=== PATIENT | female | born 1945 | race Caucasian/White ===

== ENCOUNTER 2020-04-28 13:13 | Outpatient (CLI) | payer MEDICARE, OTHER, SELFPAY ==
[2020-04-28 13:46] LABS: Alanine Aminotransferase 51 U/L (4-35); Albumin Level 4.3 g/dL (3.5-5.1); Alkaline Phosphatase 85 U/L (38-126); Aspartate Amino Transferase 52 U/L (14-36); Bilirubin,Total 0.6 mg/dL (0.2-1.3); Blood Urea Nitrogen 15 mg/dL (7-17); Carbon Dioxide 31 mmol/L (22-30); Chloride 95 mmol/L (98-107); Estimated Glomerular Filt Rate > 60; Glucose 95 mg/dL (65-105); Sodium 130 mmol/L (137-145)
== END 2020-04-28 13:14 | disposition home or self-care (01) ==
PROVIDERS: PCP Family Medicine; Visit Provider Internal Medicine Cardiovascular Disease
DX: Z79.899 Other long term (current) drug therapy (principal)
CPT/HCPCS: 36415; 80053; 84443

== ENCOUNTER 2020-05-25 11:28 | Outpatient (CLI) | payer MEDICARE, OTHER, SELFPAY ==
[2020-05-25 12:21] LABS: Alanine Aminotransferase 55 U/L (4-35); Albumin Level 4.3 g/dL (3.5-5.1); Alkaline Phosphatase 90 U/L (38-126); Aspartate Amino Transferase 57 U/L (14-36); Bilirubin,Total 0.6 mg/dL (0.2-1.3)
[2020-05-25 12:52] LABS: Total Triiodothyronine (T3) 0.89 NG/ML (0.97-1.69)
[2020-05-25 12:55] LABS: Free T4 Free Thyroxine 2.15 ng/mL (0.78-2.19)
== END 2020-05-25 11:29 | disposition home or self-care (01) ==
LOC: ANHLAB 11:34
PROVIDERS: PCP Family Medicine
DX: Z79.899 Other long term (current) drug therapy (principal)
CPT/HCPCS: 36415; 80076; 84439; 84443; 84480

== ENCOUNTER 2020-08-02 14:40 | Outpatient (CLI) | payer MEDICARE, OTHER, SELFPAY ==
[2020-08-02 15:42] LABS: Alanine Aminotransferase 71 U/L (4-35); Albumin Level 4.4 g/dL (3.5-5.1); Alkaline Phosphatase 93 U/L (38-126); Aspartate Amino Transferase 66 U/L (14-36); Bilirubin,Total 0.5 mg/dL (0.2-1.3)
[2020-08-02 16:19] LABS: Free T4 Free Thyroxine 2.21 ng/mL (0.78-2.19)
== END 2020-08-02 14:41 | disposition home or self-care (01) ==
PROVIDERS: PCP Family Medicine
DX: Z51.81 Encounter for therapeutic drug level monitoring (principal); Z79.899 Other long term (current) drug therapy
CPT/HCPCS: 36415; 80076; 84439; 84443

== ENCOUNTER 2020-10-27 08:23 | Outpatient (CLI) | payer MEDICARE, OTHER, SELFPAY ==
--- NOTE | ~2020-10-27 | XR_ITS ---
XR chest 2V DATE: 10/27/2020 08:53 INDICATION: Amiodarone use. Cardiac valve disease. TECHNIQUE: PA and lateral views COMPARISON: 11/25/2019 PA and lateral chest FINDINGS: Status post sternotomy. Cardiac valve replacements. Cardiomegaly. Left-sided triple lead pacemaker device, with leads overlying right atrium, right ventr icle and coronary sinus. Bilateral hyperinflation suggesting COPD. No pulmonary infiltrate or consolidation, pleural effusion or pulmonary vascular congestion or pneumothorax is detected. Diffuse osteopenia. Thoracic and lumbar scoliosis. IMPRESSION: Status post sternotomy and cardiac valve replacements Cardiomegaly Triple lead pacemaker device Bilateral hyperinflation suggesting COPD; the elderly chest considerably this appearance. Clinical co rrelation is advised No significant change since 11/25/2019 Reviewed, dictated and finalized at location A. ORT COORDINATOR IMPRESSION: Status post sternotomy and cardiac valve replacements Cardiomegaly Triple lead pacemaker device Bilateral hyperinflation suggesting COPD; the elderly chest considerably this a ppearance. Clinical correlation is advised No significant change since 11/25/2019
[2020-10-27 09:10] LABS: Alanine Aminotransferase 68 U/L (4-35); Albumin Level 3.8 g/dL (3.5-5.1); Alkaline Phosphatase 69 U/L (38-126); Anion Gap 7 mmol/L (8-16); Aspartate Amino Transferase 63 U/L (14-36); Bilirubin,Total 0.6 mg/dL (0.2-1.3); Blood Urea Nitrogen 12 mg/dL (7-17); Calcium 8.8 mg/dL (8.4-10.2); Carbon Dioxide 31 mmol/L (22-30); Chloride 95 mmol/L (98-107); Estimated Glomerular Filt Rate > 60; Glucose 113 mg/dL (65-105); Potassium 3.2 mmol/L (3.4-5.0); Sodium 133 mmol/L (137-145)
== END 2020-10-27 08:24 | disposition home or self-care (01) ==
PROVIDERS: PCP Family Medicine; Visit Provider Internal Medicine Cardiovascular Disease
DX: Z79.899 Other long term (current) drug therapy (principal); I34.0 Nonrheumatic mitral (valve) insufficiency; I36.1 Nonrheumatic tricuspid (valve) insufficiency; Z98.890 Other specified postprocedural states; R91.8 Other nonspecific abnormal finding of lung field; I51.7 Cardiomegaly
CPT/HCPCS: 36415; 71046; 80053

== ENCOUNTER 2020-11-29 09:02 | Outpatient (CLI) | payer MEDICARE, OTHER, SELFPAY ==
[2020-11-29 10:37] LABS: Alanine Aminotransferase 72 U/L (4-35); Albumin Level 4.1 g/dL (3.5-5.1); Alkaline Phosphatase 68 U/L (38-126); Aspartate Amino Transferase 60 U/L (14-36); Bilirubin,Total 0.6 mg/dL (0.2-1.3)
[2020-11-29 11:13] LABS: Free T4 Free Thyroxine 2.07 ng/mL (0.78-2.19)
== END 2020-11-29 09:03 | disposition home or self-care (01) ==
PROVIDERS: PCP Family Medicine; Visit Provider Internal Medicine Cardiovascular Disease
DX: Z79.899 Other long term (current) drug therapy (principal)
CPT/HCPCS: 36415; 80076; 82139; 84439; 84443

== ENCOUNTER 2021-01-06 10:13 | Observation (INO) | payer MEDICARE, OTHER, SELFPAY ==
[2021-01-06] VITALS (12 sets, daily range): BP systolic 108–142; BP diastolic 68–101; PULSE 71–131; RESP 11–18; TEMP 35.8–36.8; O2SAT 96–98; BMI 21.6; BMI 19.1
--- NOTE | ~2021-01-06 | XR_ITS ---
EXAMINATION: XR chest 1V portable INDICATION: Shortness of breath, irregular heartbeat TECHNIQUE: Portable AP chest at 1039 hours COMPARISON: 10/27/2020 FINDINGS: The lungs are hyperinflated but free of acute opacities. There is no pleural effusion or pn eumothorax. Cardiomegaly is noted. There are changes of cardiac valve surgery. A triple lead cardiac pacemaker of the left chest wall ends with leads in expected locations. IMPRESSION: 1. Hyperinflation without acute cardiopulmonary abnormality. 2. Cardiomegaly. Reviewed, dictated and finalized at location A. D REPRESENTATIVE
--- NOTE | 2021-01-06 10:17 | ECG_ITS ---
Measurements Intervals [place] Rate: 125 P: 60 MO: 226 QRS: 251 QRSD: 166 T: 65 QT: 382 QTc: 552 Interpretive Statements ELECTRONIC VENTRICULAR PACEMAKER PROBABLY UNDERLYING ATRIAL TACHYCARDIA NO FURTHER INTERPRETATION IS POSSIBLE ABNORMAL ECG Electronically Signed On 01-06-2021 10:31:55 NURSE GYNECOLOGY by Zhou Gallo D.O.
[2021-01-06 10:37] LABS: Basophils Percent Auto 0.5 % (0.2-1.2); Eosinophils Percent Auto 0.9 % (0-4.4); Hematocrit 38.3 % (37.0-47.0); Immature Granulocyte Absolute 0.03 K/mm3 (0.00-0.031); Immature Granulocyte Percent A 0.7 % (0-0.5); Lymphocytes Absolute Auto 0.75 K/mm3 (0.9-3.2); Lymphocytes Percent Auto 17.7 % (18.3-44.2); Mean Corpuscular HGB Conc 33.9 g/dl (32-36); Mean Corpuscular Hemoglobin 30.6 pg (26-34); Mean Corpuscular Volume 90.1 fl (80-100); Mean Platelet Volume 9.5 fl (7.4-10.4); Monocytes Absolute Auto 0.5 K/mm3 (0.1-0.6); Monocytes Percent Auto 12.3 % (2.6-8.5); Neutrophils Absolute Auto 2.9 K/mm3 (1.3-6.7); Neutrophils Percent Auto 67.9 % (45.5-73.1); Platelet Count Result 238 k/mm3 (150-375); Red Blood Count 4.25 M/mm3 (4.2-5.4); Red Cell Distribution Width 13.3 % (11.5-14.5); White Blood Count 4.2 K/mm3 (4.5-10.0)
[2021-01-06 10:47] LABS: INR 1.2; Prothrombin Time 15.6 Seconds (11.1-14.7)
[2021-01-06 10:48] LABS: Partial Thromboplastin Time 39.8 SECONDS (22.3-36.8)
[2021-01-06 10:52] LABS: Alanine Aminotransferase 92 U/L (4-35); Albumin Level 4.1 g/dL (3.5-5.1); Alkaline Phosphatase 70 U/L (38-126); Anion Gap 5 mmol/L (8-16); Aspartate Amino Transferase 83 U/L (14-36); Bilirubin,Total 0.7 mg/dL (0.2-1.3); Blood Urea Nitrogen 12 mg/dL (7-17); Calcium 8.9 mg/dL (8.4-10.2); Carbon Dioxide 31 mmol/L (22-30); Chloride 95 mmol/L (98-107); Estimated CRCL calculation 56 ml/min; Estimated Glomerular Filt Rate > 60; Glucose 101 mg/dL (65-105); Potassium 3.7 mmol/L (3.4-5.0); Sodium 131 mmol/L (137-145)
[2021-01-06 11:04] LABS: Troponin I 0.013 ng/mL (0.000-0.034)
[2021-01-06 11:32] LABS: NT Pro B Type Natriuretic Pept 1980 PG/ML (5-100)
[2021-01-06 11:36] LABS: Add Urine Microscopic? YES; Appearance Urine Clear (Clear); Bilirubin Urine Negative (Negative); Blood Urine Negative (Negative); Color Urine Straw (Yellow); Glucose Urine UA Negative (Negative); Hyaline Casts Urine 20-29 /lpf; Ketones Urine Negative (Negative); Leukocyte Esterase Ur Negative LEU/UL (Negative); Mucus Urine Rare /lpf; Nitrate Urine Negative (Negative); Protein Urine Negative (Negative); RBC Urine 0-2 /hpf (0-2); Squamous Epithelial Cell Urine Rare /hpf (Few); Urobilinogen Urine Negative mg/dL (<2.0); WBC Urine 0-3 /hpf
--- NOTE | 2021-01-06 11:49 | ED.GENADULT ---
HPI - General Adult General Chief complaint: Arrhythmia/Palpitations Stated complaint: racing heart rate Time Seen by Provider: 01/06/21 10:26 Source: patient, family and old records reviewed Mode of arrival: ambulatory Limitations: no limitations History of Present Illness HPI narrative: Patient is a 75-year-old female who presents to emergency department for evaluation of palpitations that began this morning noting that she is feeling as though her heart is racing patient denies illness chest pain shortness of breath or other complaints. Patient with history of pacemaker. Patient on arrival lying in the bed no distress denies new medications at this time. Patient is followed by cardiology at [facility]. Patient notes she had had an occurrence in the past about 3 years ago at which time she had to be shocked to be converted and medications did not work otherwise she has not had any other episodes was described as atrial fibrillation. Patient notes she has otherwise been compliant with her medications Related Data Home Medications Medication Instructions Recorded Confirmed apixaban 5 mg tablet 5 mg PO BID 10/15/19 12/30/20 ascorbic acid (vitamin C) 500 mg 500 mg PO DAILY 10/15/19 12/30/20 tablet calcium carbonate 500 mg (1,250 1 tablet PO DAILY 10/15/19 12/30/20 mg)-vitamin D3 200 unit tablet clindamycin phosphate 1 % lotion 1 applic TOPICAL BID 10/15/19 12/30/20 cyclosporine 0.05 % eye drops 1 drop EACH EYE Q12H 10/15/19 12/30/20 dpflkccc-niaioea-qmrc-lutein tablet mcg PO .QD tablet 10/15/19 12/30/20 peg 400-propylene glycol 0.4 %-0.3 1 drop EACH EYE DAILY PRN 10/15/19 12/30/20 % eye drops triamcinolone acetonide 0.1 % 1 applic TOPICAL BID 10/15/19 12/30/20 topical cream lisinopril 40 mg tablet 40 mg PO DAILY tablet 03/22/20 12/30/20 carvedilol 25 mg tablet 25 mg PO Q12H 12/30/20 12/30/20 diphenhydramine HCl 25 mg capsule 12.5 mg PO ONCE PRN cap 12/30/20 12/30/20 lactobacillus combination no.8 3 3,000 mmu cells PO DAILY 02/11/21 02/11/21 billion cell capsule furosemide 01/06/21 Allergies Allergy/AdvReac Type Severity Reaction Status Date / Time adhesive Allergy Unknown Rash Verified 12/30/20 09:55 bacitracin Allergy Unknown Rash Verified 12/30/20 09:55 codeine Allergy Unknown Unknown Verified 12/30/20 09:55 estrogens, conjugated Allergy Unknown Unknown Verified 12/30/20 09:55 medroxyprogesterone Allergy Unknown Unknown Verified 12/30/20 09:55 metoprolol Allergy Unknown Other Verified 12/30/20 09:55 polymyxin B Allergy Unknown Unknown Verified 12/30/20 09:55 Mmduuvv-Lyk-Dkq Reductase Allergy Unknown Unknown Verified 12/30/20 09:55 Inhibitor esomeprazole [From Nexium] AdvReac Severe Pancreatiti Verified 12/30/20 09:55 s Review of Systems Review of Systems: All systems reviewed & are unremarkable except as noted in HPI and below PMFSH Past Medical History Medical History CHF (congestive heart failure) Dry eye Hypertension Hypothyroidism Pacemaker Surgical History Surgical History H/O aortic valve repair History of cardiac radiofrequency ablation Family History Family History Father Family history of hypercholesterolemia Hypertension Family history of Parkinson's disease Mother Family history of hypercholesterolemia Hypertension Carcinoma of colon Family history of malignant neoplasm of breast in first degree relative Social History Social History Smoking status: Never smoker Second hand tobacco smoke exposure: No Alcohol intake: current Substance use: never Substance use type: does not use Gender identity (if verbalized by the patient): Female Exam Narrative: Exam Narrative: GENERAL: Well-appearing, well-nourished, and in no ac
[2021-01-06 14:08] LABS: Troponin I 0.013 ng/mL (0.000-0.034)
--- NOTE | 2021-01-06 16:15 | PM.IMHP ---
H&P: HPI History of Present Illness Date/Time: 01/06/21 16:15 Chief Complaint: Racing heart. Narrative: This is a 75-year-old female with atrial fibrillation, hypertension, and valvular heart disease status post repair who presented to the emergency department earlier today from home with reports of a racing heart. She woke at about 03:00 to use the restroom and on her way back to the bedroom her heart began to race and she noticed that it was beating irregularly. She has had paroxysmal atrial fibrillation for quite sometimes so she lay on her right side and took slow deep breaths with reports of improvement in her rate. Unfortunately when she woke up she was having palpitations and racing heart thus came to the emergency department. She was found to be in atrial fibrillation with rapid ventricular response and is being admitted in this setting. With further questioning she reports that Dr. Nguyễn stopped her amiodarone sometime in October although the reasons for that are somewhat unclear to the patient. Her carvedilol dose was increased and she has been doing well since that time. She has not missed any doses of medication and has not had any other recent changes in her health although she does report having received the 1st COVID vaccination yesterday afternoon. She denies syncope, near syncope, chest pain, pleuritic pain, shortness of breath, nausea, vomiting, and sweats. Review of Systems Review of Systems: Narrative: Twelve systems were reviewed with pertinent positives and negatives as per HPI. Except as documented, all other systems were reviewed and are negative. [facility] Past Medical History Medical History (Updated 01/06/21 @ 15:16 by Sherron Dill PA-C) Anxiety Congestive heart failure Current use of salvage determiner anticoagulation Dry eyes Elevated LFTs Chronic, mild elevation in AST and ALT. Gastroesophageal reflux disease Hypertension Hypothyroidism Osteopenia Paroxysmal atrial fibrillation Pulmonary hypertension Rosacea Valvular heart disease Surgical History Surgical History (Updated 01/06/21 @ 19:59 by Sherron Dill PA-C) History of basal cell carcinoma excision History of cardiac pacemaker in situ History of cardiac radiofrequency ablation History of heart valve repair Mitral and tricuspid valve repair at [facility] per Dr. Klein. History of tonsillectomy Family History Family History Father Family history of hypercholesterolemia Hypertension Family history of Parkinson's disease Mother Family history of hypercholesterolemia Hypertension Carcinoma of colon Family history of malignant neoplasm of breast in first degree relative Social History Social History (Updated 01/06/21 @ 20:00 by Sherron Dill PA-C) Social History: The patient is and lives in [place]. 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 Drinks perhaps 1 alcoholic beverage a evening. No illicit substance use. Her Dalton and son Moshe her surrogate decision makers and she wishes to be a full code. Alcohol intake: current Drinks per week: 7 Substance use: never Substance use type: does not use Gender identity (if verbalized by the patient): Female Spiritual care concerns: No Meds Home Medications and Allergies Home Medications Medication Instructions Recorded Confirmed Type apixaban 5 mg tablet 5 mg PO BID 10/15/19 01/06/21 History ascorbic acid (vitamin C) 500 mg 500 mg PO 1700 10/15/19 01/06/21 History tablet calcium carbonate 500 mg (1,250 1 tablet PO 1200 10/15/19 01/06/21 History mg)-vitamin D3 200 unit tablet clindamycin phosphate 1 % lotion 1 applic TOPICAL BID 10/15/19 01/06/21 History cyclosporine 0.05 % eye drops 1 drop EACH EYE Q12H 10/15/19 01/06/21 History ivjfdyue-aronlmd-luld-lutein tablet 1 tablet PO 1200 tablet 10/15/19 01/06/21 History peg 400-propylene glycol 0.4 %-0.3 1 drop EA
--- NOTE | 2021-01-06 16:15 | ADMGEN ---
This patient, Lakeisha Simental, was admitted to IMU Room 205-02. Patient/family oriented to hospital policies and general routines including ID bracelet, bed and alarms, visiting hours, pain management, procedures, bathroom and other care routines, personal items, smoking policy, room service/diet, and visiting hours. Information on how to activate the Rapid Response Team has been discussed. Patient/Family are encouraged to report perceived risks to care and to ask questions if they do not understand what they are told or what they should do.
[2021-01-06 17:02] LABS: Troponin I 0.015 ng/mL (0.000-0.034)
[2021-01-06] MEDS: lisinopriL 20 MG TABLET 40 MG PO (20:29)
[2021-01-06] MEDS: APIXABAN 5 MG TABLET PO (20:30)
[2021-01-06] MEDS: carvediloL 25 MG TABLET PO (20:30)
[2021-01-06] MEDS: cycloSPORINE 0.4 ML OPHTH SOLUTION 1 DROP EACH EYE (20:31)
[2021-01-07] VITALS (14 sets, daily range): BP systolic 117–147; BP diastolic 79–92; PULSE 62–89; RESP 16–18; TEMP 36–36.9; O2SAT 97–100
[2021-01-07] MEDS: LEVOTHYROXINE SODIUM 50 MCG TABLET PO (05:01)
[2021-01-07 05:26] LABS: Alanine Aminotransferase 94 U/L (4-35); Albumin Level 3.6 g/dL (3.5-5.1); Alkaline Phosphatase 77 U/L (38-126); Anion Gap 4 mmol/L (8-16); Aspartate Amino Transferase 64 U/L (14-36); Bilirubin,Total 0.9 mg/dL (0.2-1.3); Blood Urea Nitrogen 11 mg/dL (7-17); Calcium 8.8 mg/dL (8.4-10.2); Carbon Dioxide 30 mmol/L (22-30); Chloride 99 mmol/L (98-107); Estimated CRCL calculation 55 ml/min; Estimated Glomerular Filt Rate > 60; Glucose 93 mg/dL (65-105); Magnesium 1.8 mg/dL (1.6-2.3); Sodium 133 mmol/L (137-145)
[2021-01-07] MEDS: POTASSIUM CHLORIDE 20 MEQ TABLET 40 MEQ PO (09:12)
[2021-01-07] MEDS: carvediloL 25 MG TABLET PO ×2 (09:12→21:48)
[2021-01-07] MEDS: FUROSEMIDE 20 MG TABLET PO (09:12)
[2021-01-07] MEDS: APIXABAN 5 MG TABLET PO ×2 (09:13→18:01)
[2021-01-07] MEDS: cycloSPORINE 0.4 ML OPHTH SOLUTION 1 DROP EACH EYE ×2 (09:13→21:49)
[2021-01-07] MEDS: MAGNESIUM OXIDE 400 MG TABLET PO (09:13)
--- NOTE | 2021-01-07 12:02 | PM.CNCAR ---
Assessment and Plan Additional Plan 75-year-old lady with valvular heart disease and paroxysmal atrial fibrillation. She underwent mitral and tricuspid valve repairs about 5 years ago. She has a symptomatic recurrence of atrial fibrillation about a month after stopping amiodarone because of elevated transaminases. She in my opinion she should be put back on the medication at this time. Follow-up should be with her workers compensation administrator and frequency checker to determine I risk benefit decision as to whether amiodarone is reasonable despite elevated LFTs or should she consider having her AV node ablated. I will resume amiodarone at 400 mg daily. I would keep her in the hospital at least another 24 hours to ensure that she is not having recurrences of symptomatic AFib that might require intravenous treatment. Kg Witt MD [facility] History of Present Illness History of Present Illness Consult date/time: 01/07/21 12:02 Consult reason: atrial fibrillation Reason For Visit: afib rvr Narrative: This is a 75-year-old patient I am seeing at the request of the hospitalist for assistance with the management of atrial fibrillation. This patient is not known to myself but is followed in our office by Dr. Nguyễn. The patient has a history of problematic recurrent atrial fibrillation for at least 5 or 6 years according to the records. The patient I presented with atrial fib with RVR that resulted in a decompensated congestive heart failure. 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 She had significant mitral and tricuspid valve insufficiency and underwent mitral and tricuspid repair along with PFO closure in March of 2016 at [facility]. The electrophysiology desktop support consultant there implanted a dual-chamber [employer] pacemaker in April of 2016. The patient has been off and on of amiodarone for the last 5 years initially was taking at to [facility] sinus rhythm the drug was discontinued and she had a problematic symptomatic recurrence of atrial fib in the spring. The agent was resumed at 400 mg daily and she underwent a successful cardioversion in June of that year. Since then she has maintained sinus rhythm and has been doing reasonably well. She saw Dr. barber for an office visit in October of 2020 at which time according to the note she was doing well and maintaining sinus rhythm. The patient states that based on some lab data her the amiodarone was discontinued last month. The office nurses tell me on the phone this was because of a minimal elevation in her LFTs. The patient was in her usual state of health when last night she noted the abrupt onset of tachycardia and palpitations she recognized that she was probably back in atrial fibrillation and so she came to the hospital for evaluation. She was placed in IMU and in this setting we have been consulted to see her. At about 7:00 a.m. this morning she spontaneously reverted back to sinus rhythm. She is currently asymptomatic. Had a long discussion with the patient and her about the chronic management of her AFib. It seems obvious that amiodarone when she takes it is effective at maintaining sinus rhythm. It is also seems that modest elevation of her transaminases may not be enough reason to stop the medication if she become symptomatic with recurrences when the drug is stop. Another option would be to consider having her frequency checker ablate her AV node to discontinue the medication for the long-term. Patient says that she remembers this option was discussed with her once or twice both by Dr. catie Weathers by Dr. Pablo in the last several years. She is currently in sinus rhythm or atrially pacing with ventricular pacing. Review of Systems Constitutional: Constitutional: Reports no additional constitutional complaints Eyes: Eyes: Reports no additional eye complaints ENT: Reports system reviewed an
--- NOTE | 2021-01-07 12:17 | ECG_ITS ---
Measurements Intervals [place] Rate: 69 P: CO: 0 QRS: 253 QRSD: 172 T: 106 QT: 501 QTc: 540 Interpretive Statements ELECTRONIC VENTRICULAR PACEMAKER BASELINE ARTIFACT- I, II, III, AVR, AVL, AVF, V1-V6 NO FURTHER INTERPRETATION IS POSSIBLE ATYPICAL ECG Electronically Signed On 01-07-2021 13:29:49 PROPULSION GENERATOR REPAIRER by Zhou Gallo D.O.
--- NOTE | 2021-01-07 13:56 | PM.IMPN ---
Progress Note: A&P Assessment and Plan (1) Atrial fibrillation with rapid ventricular response: Code(s): I48.91 - Unspecified atrial fibrillation Status: Acute Assessment and Plan: 01/07/21 13:56 patient is 75-year-old female with history mitral and aortic and tricuspid valves repair about 5 years ago, patient with history of paroxysmal atrial fibrillation had been treated with amiodarone however it was stopped by her Reel Film Inspector because patient had elevated LFTs and increased her metoprolol however patient presented emergency depart with complaint of palpitation and was found to be in atrial fibrillation with RVR, her heart rate was in 100, patient is on Coreg 25 mg b.i.d. was continued, today patient was seen by Reel Film Inspector recommending to place patient back on amiodarone 400 mg q.day and monitor her heart rate and LFT, patient will have to discuss with her primary insurance office manager and her cushion mat maker if there are concern regarding a her elevated LFT, patient remains clinically stable will monitor overnight and further recommendation to follow, currently patient denies any chest pain shortness of breath palpitation fever or chills, her is present in the room. (2) Elevated LFTs: Code(s): R79.89 - Other specified abnormal findings of blood chemistry Status: Acute Assessment and Plan: Amiodarone was added will monitor LFT (3) Hypertension: Code(s): I10 - Essential (primary) hypertension Status: Acute Assessment and Plan: Will continue home regimen and monitor (4) Hypothyroidism: Code(s): E03.9 - Hypothyroidism, unspecified Status: Acute Assessment and Plan: Will continue levothyroxine (5) Current use of extermination supervisor anticoagulation: Code(s): Z79.01 - terminal make up operator (current) use of anticoagulants Status: Acute Assessment and Plan: Will continue Eliquis and monitor Additional Plan The patient presented in atrial fibrillation with rapid ventricular response, with rates in the low 100s at the time my evaluation. At this time will continue with her home dose of carvedilol, pending Dr. Nguyễn is a evaluation and recommendations. Cntinue to monitor on telemetry overnight. Continue levothyroxine and check TSH in a.m.. Her LFTs are always mildly elevated, and are stable. Her blood pressures were reviewed and they are reasonably well controlled. Subjective Date/time seen: 01/07/21 13:56 patient is 75-year-old female with history mitral and aortic and tricuspid valves repair about 5 years ago, patient with history of paroxysmal atrial fibrillation had been treated with amiodarone however it was stopped by her Reel Film Inspector because patient had elevated LFTs and increased her metoprolol however patient presented emergency depart with complaint of palpitation and was found to be in atrial fibrillation with RVR, her heart rate was in 100, patient is on Coreg 25 mg b.i.d. was continued, today patient was seen by Reel Film Inspector recommending to place patient back on amiodarone 400 mg q.day and monitor her heart rate and LFT, patient will have to discuss with her primary insurance office manager and her cushion mat maker if there are concern regarding a her elevated LFT, patient remains clinically stable will monitor overnight and further recommendation to follow, currently patient denies any chest pain shortness of breath palpitation fever or chills, her is present in the room. Review of Systems Review of Systems: All systems reviewed & are unremarkable except as noted in HPI and below Exam Narrative: Exam Narrative: Elderly frail Patient is comfortable, NAD HEENT: eyes are clear and none icteric LUNGS:CTA HEART: Irregularly irregular ABD: BS+, Soft and nontender Lower extremities: no edema SKIN: nonjaundiced Neuro: grossly intact. Objective Data Vital Signs Vital Signs: Vital Signs - 24 hr 01/06/21 14:14 01/06/21 16:00 01/06/21 16:15
[2021-01-07] MEDS: AMIODARONE HCL 200 MG TABLET 400 MG PO (14:18)
[2021-01-07] MEDS: FAMOTIDINE 20 MG TABLET PO (14:18)
[2021-01-07] MEDS: MULTIVITAMINS /C LUTEIN (CENTRUM SILVER) TABLET *BKC 1 TAB PO (14:18)
[2021-01-07] MEDS: ASCORBIC ACID 500 MG TABLET PO (18:02)
[2021-01-07] MEDS: lisinopriL 20 MG TABLET 40 MG PO (18:02)
[2021-01-07] MEDS: diphenhydrAMINE HCL ELIXIR 12.5 MG/5 ML UDC PO (21:48)
[2021-01-08] VITALS (10 sets, daily range): BP systolic 115–157; BP diastolic 68–88; PULSE 70–80; RESP 16–18; TEMP 36.7–37.2; O2SAT 95–99
[2021-01-08] MEDS: ACETAMINOPHEN 325 MG TABLET 650 MG PO (00:44)
[2021-01-08 05:14] LABS: Hemoglobin 12.3 g/dL (12.0-15.0); Mean Corpuscular HGB Conc 34.2 g/dl (32-36); Mean Corpuscular Hemoglobin 30.6 pg (26-34); Mean Corpuscular Volume 89.6 fl (80-100); Mean Platelet Volume 9.8 fl (7.4-10.4); Platelet Count Result 248 k/mm3 (150-375); Red Blood Count 4.02 M/mm3 (4.2-5.4); Red Cell Distribution Width 13.2 % (11.5-14.5); White Blood Count 4.8 K/mm3 (4.5-10.0)
[2021-01-08 05:27] LABS: Anion Gap 3 mmol/L (8-16); Blood Urea Nitrogen 11 mg/dL (7-17); Calcium 8.4 mg/dL (8.4-10.2); Carbon Dioxide 30 mmol/L (22-30); Chloride 98 mmol/L (98-107); Estimated CRCL calculation 54 ml/min; Estimated Glomerular Filt Rate > 60; Glucose 98 mg/dL (65-105); Magnesium 1.8 mg/dL (1.6-2.3); Potassium 3.2 mmol/L (3.4-5.0); Sodium 131 mmol/L (137-145)
[2021-01-08] MEDS: LEVOTHYROXINE SODIUM 50 MCG TABLET PO (06:06)
[2021-01-08 10:28] LABS: Alanine Aminotransferase 72 U/L (4-35); Albumin Level 3.8 g/dL (3.5-5.1); Alkaline Phosphatase 62 U/L (38-126); Aspartate Amino Transferase 52 U/L (14-36); Bilirubin,Total 0.8 mg/dL (0.2-1.3)
--- NOTE | 2021-01-08 10:28 | PM.PNCARD ---
Progress Note: A&P Assessment and Plan (1) Atrial fibrillation with rapid ventricular response: Code(s): I48.91 - Unspecified atrial fibrillation Status: Acute Assessment and Plan: Patient has paroxysmal AFib previously was well controlled, amiodarone discontinued recently because of mildly elevated liver enzymes. Now she has had a recurrence of AFib RVR. Converted to sinus rhythm Amiodarone 400 mg daily resumed. Okay for discharge. Follow-up with me and Dr. Pablo. If we are concerned that the amiodarone may be causing her hepato toxicity, another option would be AV node ablation since she does have a biventricular ICD. don't recall if she has been tried on sotalol. (2) Current use of exterminator helper termite anticoagulation: Code(s): Z79.01 - prison (current) use of anticoagulants Status: Acute Assessment and Plan: Tolerating Eliquis. (3) History of heart valve repair: Code(s): Z98.890 - Other specified postprocedural states Status: Acute Assessment and Plan: History of mitral and tricuspid valve repair. Has a murmur of mitral regurgitation; will follow up in office. (4) Elevated LFTs: Code(s): R79.89 - Other specified abnormal findings of blood chemistry Status: Acute Assessment and Plan: History of mildly elevated liver enzymes for no known cause. Amiodarone and amlodipine were discontinued but liver enzymes remain elevated. No history of hepatitis. I wonder if dronedarone would be a better choice; I believe it has less hepatic toxicity than amiodarone. Follow-up in the office. Subjective Date/time seen: 01/08/21 10:28 Interval history: Follow-up for paroxysmal atrial fibrillation Date of service 01/08/2021: Patient converted to sinus rhythm and telemetry shows a sense V paced rhythm. Dr. drew resumed amiodarone 400 mg daily yesterday. Patient is feeling well with no shortness of breath, chest pain or palpitations. Review of Systems Constitutional: Constitutional: Reports no additional constitutional complaints ENT: Denies epistaxis Cardiovascular: Cardiovascular: Denies chest pain and Denies leg edema Respiratory: Respiratory: Denies dyspnea Gastrointestinal: Gastrointestinal: Denies abdominal pain Genitourinary: Genitourinary: Denies hematuria Musculoskeletal: Musculoskeletal: Reports no additional musculoskeletal complaints Integumentary/Breasts: Skin/Breast: Denies rash Neurologic: Reports system reviewed and no additional complaints, except as documented Psychiatric: Psychiatric: Reports no additional psychiatric complaints Exam Const: General: comfortable, no acute distress and uncomfortable Other: Pleasant older lady, at the bedside HENMT: Mouth: Yes moist mucous membranes Eyes: EOM: EOMs intact bilaterally Neck: Neck: supple and no JVD Resp: Effort & Inspection: normal respiratory effort Cardio: Rhythm: regular rhythm Heart sounds: Murmur heart sound present (3/6 SHOLA apex) GI: Inspection: non-distended GI Palp: Yes Soft to palpation and No Firmness to palpation present (GI) Neuro: Speech: normal speech Extrem: General: no edema and no pedal edema Objective Data Vital Signs Vital Signs: Vital Signs - 24 hr 01/07/21 12:00 01/07/21 14:00 01/07/21 16:00 Temperature 97.6 F 97.6 F Pulse Rate 70 70 70 Respiratory Rate 18 18 Blood Pressure 117/79 144/85 H Pulse Oximetry 97 99 01/07/21 18:00 01/07/21 20:00 01/07/21 21:48 Temperature 97.5 F L Pulse Rate 70 70 70 Respiratory Rate 18 Blood Pressure 147/85 H Pulse Oximetry 100 01/07/21 22:00 01/08/21 00:00 01/08/21 02:00 Temperature 98.1 F Pulse Rate 76 70 70 Respiratory Rate 16 Blood Pressure 157/87 H Pulse Oximetry 95 01/08/21 04
[2021-01-08] MEDS: POTASSIUM CHLORIDE 20 MEQ TABLET 40 MEQ PO (10:54)
[2021-01-08] MEDS: AMIODARONE HCL 200 MG TABLET 400 MG PO (10:55)
[2021-01-08] MEDS: carvediloL 25 MG TABLET PO (10:56)
[2021-01-08] MEDS: cycloSPORINE 0.4 ML OPHTH SOLUTION 1 DROP EACH EYE (10:56)
[2021-01-08] MEDS: APIXABAN 5 MG TABLET PO (10:56)
[2021-01-08] MEDS: FUROSEMIDE 20 MG TABLET PO (10:56)
[2021-01-08] MEDS: MULTIVITAMINS /C LUTEIN (CENTRUM SILVER) TABLET *BKC 1 TAB PO (10:59)
[2021-01-08] MEDS: FAMOTIDINE 20 MG TABLET PO (10:59)
[2021-01-08] MEDS: ACIDOPHILUS/BULGARICUS CHEWABLE TABLET 1 TABLET PO (13:51)
--- NOTE | 2021-01-08 14:54 | PM.DS ---
DS: Admitting Diagnosis Admitting Diagnosis Admitting Diagnosis: Chief Complaint: Racing heart. DS: Discharge Diagnosis Discharge Diagnosis (1) Atrial fibrillation with rapid ventricular response: Code(s): I48.91 - Unspecified atrial fibrillation Status: Acute Assessment and Plan: 01/07/21 13:56 patient is 75-year-old female with history mitral and aortic and tricuspid valves repair about 5 years ago, patient with history of paroxysmal atrial fibrillation had been treated with amiodarone however it was stopped by her Rat Exterminator because patient had elevated LFTs and increased her metoprolol however patient presented emergency depart with complaint of palpitation and was found to be in atrial fibrillation with RVR, her heart rate was in 100, patient is on Coreg 25 mg b.i.d. was continued, today patient was seen by Rat Exterminator recommending to place patient back on amiodarone 400 mg q.day and monitor her heart rate and LFT, patient will have to discuss with her primary equipment manager and her lunch counter manager if there are concern regarding a her elevated LFT, patient remains clinically stable will monitor overnight and further recommendation to follow, currently patient denies any chest pain shortness of breath palpitation fever or chills, her is present in the room. (2) Elevated LFTs: Code(s): R79.89 - Other specified abnormal findings of blood chemistry Status: Acute Assessment and Plan: Amiodarone was added will monitor LFT (3) Hypertension: Code(s): I10 - Essential (primary) hypertension Status: Acute Assessment and Plan: Will continue home regimen and monitor (4) Hypothyroidism: Code(s): E03.9 - Hypothyroidism, unspecified Status: Acute Assessment and Plan: Will continue levothyroxine (5) Current use of half-way anticoagulation: Code(s): Z79.01 - buttermaker (current) use of anticoagulants Status: Acute Assessment and Plan: Will continue Eliquis and monitor DS: Summary Hospital Course Reason for hospitalization: Chief Complaint: Racing heart. Narrative: This is a 75-year-old female with atrial fibrillation, hypertension, and valvular heart disease status post repair who presented to the emergency department earlier today from home with reports of a racing heart. She woke at about 03:00 to use the restroom and on her way back to the bedroom her heart began to race and she noticed that it was beating irregularly. She has had paroxysmal atrial fibrillation for quite sometimes so she lay on her right side and took slow deep breaths with reports of improvement in her rate. Unfortunately when she woke up she was having palpitations and racing heart thus came to the emergency department. She was found to be in atrial fibrillation with rapid ventricular response and is being admitted in this setting. With further questioning she reports that Dr. Nguyễn stopped her amiodarone sometime in October although the reasons for that are somewhat unclear to the patient. Her carvedilol dose was increased and she has been doing well since that time. She has not missed any doses of medication and has not had any other recent changes in her health although she does report having received the 1st COVID vaccination yesterday afternoon. She denies syncope, near syncope, chest pain, pleuritic pain, shortness of breath, nausea, vomiting, and sweats. Hospital Course: 01/07/21 13:56 patient is 75-year-old female with history mitral and aortic and tricuspid valves repair about 5 years ago, patient with history of paroxysmal atrial fibrillation had been treated with amiodarone however it was stopped by her Rat Exterminator because patient had elevated LFTs and increased her metoprolol however patient presented emergency depart with complaint of palpitation and was found to be in atrial fibrillation with RVR, her heart rate was in 100, patient is on Coreg 25 mg b.i.
== END 2021-01-08 16:15 | disposition home or self-care (01) ==
LOC: ANHED 13:15 → ANHIMU 15:15
PROVIDERS: Emergency Medicine Emergency Medical Services; Physician Assistant; Admitting Provider Family Medicine; Emergency Provider Emergency Medicine; PCP Physician Assistant; Visit Provider Family Medicine
DX: I48.91 Unspecified atrial fibrillation (principal); I11.0 Hypertensive heart disease with heart failure; I50.9 Heart failure, unspecified; R79.89 Other specified abnormal findings of blood chemistry; E03.9 Hypothyroidism, unspecified; I34.0 Nonrheumatic mitral (valve) insufficiency; Z95.0 Presence of cardiac pacemaker; Z79.01 Long term (current) use of anticoagulants
CPT/HCPCS: 36415; 71045; 80048; 80053; 80076; 81001; 83735; 83880; 84443; 84484; 85025; 85027; 85610; 85730; 93005; 99285; A9270; G0378

== ENCOUNTER 2021-01-26 15:28 | Outpatient (CLI) | payer MEDICARE, OTHER, SELFPAY ==
--- NOTE | ~2021-01-26 | MM_ITS ---
EXAMINATION: MM screening precious BI w jose HISTORY: Screening mammogram TECHNIQUE: Craniocaudal and mediolateral oblique 3-D tomosynthesis images were obtained and synthetic 2-D images were generated. CAD analysis was submitted and interpreted. COMPARISON: 06/2019, 11/2017, 09/18/2016 bilateral digital screening mammogram examinations BREAST PARENCHYMAL COMPOSITION: The breasts are heterogeneously dense, which may obscure small masses . FINDINGS: There is no evidence of suspicious mass, calcification, or architectural distortion to sugg est malignancy in either breast. There has been no suspicious interval change. IMPRESSION: 1. No mammographic evidence of malignancy. 2. Recommend routine screening mammography in one year. BI-RADS Category 1: Negative Reviewed, dictated and finalized at location A. 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
== END 2021-01-26 15:29 | disposition home or self-care (01) ==
LOC: ANHIMG 15:33
PROVIDERS: PCP Physician Assistant; Visit Provider Physician Assistant
DX: Z12.31 Encounter for screening mammogram for malignant neoplasm of breast (principal)
CPT/HCPCS: 77063; 77067

== ENCOUNTER 2021-02-17 14:27 | Outpatient (CLI) | payer MEDICARE, OTHER, SELFPAY ==
--- NOTE | ~2021-02-17 | DEXA_ITS ---
Bone Density Report Name: Lakeisha Simental Age: 75 Sex: Female Ethnicity: White Date of : 1945 Indication: osteopenia; height loss; Referring Provider: Job Osorio Study: Bone densitometry was performed. Exam Date: February 17, 2021 Accession number: [id number] Bone Density: Region BMD T-score Z-score Classification AP Spine (L1-L4) 0.769 -2.5 0.0 Osteoporosis Femoral Neck (Left) 0.595 -2.3 -0.1 Osteopenia Total Hip (Left) 0.677 -2.2 -0.2 Osteopenia Total Hip Bilateral Avg 0.670 -2.3 -0.3 Osteopenia Femoral Neck (Right) 0.623 -2.0 0.2 Osteopenia Total Hip (Right) 0.662 -2.3 -0.4 Osteopenia World Health Organization criteria for BMD impression classify patients as: Normal (T-score at or above -1.0), Osteopenia (T-score between -1.0 and -2.5), or Osteoporosis (T-score at or below -2.5). 10-year Fracture Risk: FRAX not reported because: Some T-score for Spine Total or Hip Total or Femoral Neck at or below -2.5 Previous Exams: Region Exam Age BMD T-score BMD Change BMD Change Date g/cm2 vs Baseline vs Previous AP Spine(L1-L4) 02/17/2021 75 0.769 -2.5 -0.266(-25.7%) -0.126(-14.1%) 11/22/2017 72 0.895 -1.4 -0.140(-13.5%) -0.111(-11.0%) 05/17/2011 66 1.006 -0.4 -0.029(-2.8%)* 0.041(4.2%)* 04/26/2009 64 0.965 -0.7 -0.069(-6.7%)* 0.000(0.0%) 12/24/2006 61 0.965 -0.7 -0.069(-6.7%)* 0.008(0.8%) 10/08/2003 58 0.958 -0.8 -0.077(-7.4%)* -0.077(-7.4%)* 06/30/2002 57 1.035 -0.1 Total Hip(Left) 02/17/2021 75 0.677 -2.2 -0.108(-13.8%) -0.038(-5.3%)* 11/22/2017 72 0.715 -1.9 -0.070(-9.0%)# 0.011(1.5%)# 05/17/2011 66 0.704 -2.0 -0.081(-10.3%) -0.009(-1.2%) 04/26/2009 64 0.712 -1.9 -0.073(-9.2%)* -0.020(-2.7%) 12/24/2006 61 0.733 -1.7 -0.053(-6.7%)* -0.013(-1.7%) 10/08/2003 58 0.745 -1.6 -0.040(-5.0%)* -0.040(-5.0%)* 06/30/2002 57 0.785 -1.3 Total Hip(Right) 02/17/2021 75 0.662 -2.3 -0.128(-16.2%) -0.035(-5.0%)* 11/22/2017 72 0.697 -2.0 -0.093(-11.8%) -0.044(-6.0%)# 05/17/2011 66 0.741 -1.6 -0.049(-6.2%)* -0.002(-0.3%) 04/26/2009 64 0.743 -1.6 -0.047(-5.9%)* -0.006(-0.8%) 12/24/2006 61 0.749 -1.6 -0.041(-5.2%)* -0.034(-4.4%)* 10/08/2003 58 0.783 -1.3 -0.006(-0.8%) -0.006(-0.8%) 06/30/2002 57 0.790 -1.2 *Denotes significance at 95% confidence level, LSC for AP Spine = 0.022 g/cm2, LSC for Total Hip = 0.027 g/cm2 Clinical Information Provided by Patient: Has used the followin
== END 2021-02-17 14:28 | disposition home or self-care (01) ==
LOC: ANHIMG 14:31
PROVIDERS: PCP Physician Assistant; Visit Provider Physician Assistant
DX: M81.0 Age-related osteoporosis without current pathological fracture (principal); M85.852 Other specified disorders of bone density and structure, left thigh; M85.851 Other specified disorders of bone density and structure, right thigh
CPT/HCPCS: 77080

== ENCOUNTER 2021-03-10 23:09 | Emergency (ER) | payer MEDICARE, OTHER, SELFPAY ==
--- NOTE | ~2021-03-10 | XR_ITS ---
XR chest 2V DATE: 03/11/2021 00:24 INDICATION: Left-sided chest pain for 3.5 hours TECHNIQUE: PA and lateral views COMPARISON: January 06, 2021 portable AP chest FINDINGS: Cardiomegaly. Status post sternotomy and cardiac valve replacements. Left-sided pacemaker d evice with leads overlying right atrium, right ventricle and coronary sinus. Moderate bilateral hyperinflation. There is minimal infiltrate, atelectasis or scarring in the left l ower lobe; otherwise no pulmonary infiltrate or consolidation, pleural effusion or pulmonary vascular congestion or pneumothorax is detected. Diffuse osteopenia. There is thoracic and lumbar scoliosis. IMPRESSION: Cardiomegaly Status post sternotomy and cardiac valve replacements Triple lead left-sided pacemaker device Moderate hyperinflation Minimal infiltrate, atelectasis or scarring in the left lower lobe; otherwise no active pulmonary dis ease Reviewed, dictated and finalized at location A. IMPRESSION: Cardiomegaly Status post sternotomy and cardiac valve replacements Triple lead left-sided pacemaker device Moderate hyperinflation Minimal infiltrate, atelectasis or scarring in the left lower lobe; otherwise n o active pulmonary disease
[2021-03-10 23:17] VITALS: BP 179/94; PULSE 72; RESP 16; TEMP 36.6; O2SAT 99
--- NOTE | 2021-03-10 23:22 | ECG_ITS ---
Measurements Intervals [place] Rate: 70 P: SD: 0 QRS: 261 QRSD: 177 T: 84 QT: 518 QTc: 560 Interpretive Statements ELECTRONIC VENTRICULAR PACEMAKER WITH INHIBITION BASELINE ARTIFACT- I, II, III, AVR, AVL, AVF, V5 NO FURTHER INTERPRETATION IS POSSIBLE ATYPICAL ECG Electronically Signed On 03-11-2021 10:42:50 CDT by Zhou Gallo D.O.
[2021-03-11 00:11] LABS: Basophils Percent Auto 0.4 % (0.2-1.2); Eosinophils Absolute Auto 0.1 K/mm3 (0-0.3); Eosinophils Percent Auto 1.3 % (0-4.4); Hematocrit 36.8 % (37.0-47.0); Hemoglobin 12.3 g/dL (12.0-15.0); Immature Granulocyte Absolute 0.05 K/mm3 (0.00-0.031); Immature Granulocyte Percent A 0.7 % (0-0.5); Lymphocytes Absolute Auto 0.85 K/mm3 (0.9-3.2); Lymphocytes Percent Auto 12.3 % (18.3-44.2); Mean Corpuscular HGB Conc 33.4 g/dl (32-36); Mean Corpuscular Hemoglobin 29.9 pg (26-34); Mean Corpuscular Volume 89.3 fl (80-100); Mean Platelet Volume 9.4 fl (7.4-10.4); Monocytes Absolute Auto 0.6 K/mm3 (0.1-0.6); Monocytes Percent Auto 8.5 % (2.6-8.5); Neutrophils Absolute Auto 5.3 K/mm3 (1.3-6.7); Neutrophils Percent Auto 76.8 % (45.5-73.1); Platelet Count Result 268 k/mm3 (150-375); Red Blood Count 4.12 M/mm3 (4.2-5.4); Red Cell Distribution Width 13.7 % (11.5-14.5); White Blood Count 6.9 K/mm3 (4.5-10.0)
[2021-03-11 00:22] LABS: INR 1.2; Prothrombin Time 15.5 Seconds (11.1-14.7)
[2021-03-11 00:23] LABS: Partial Thromboplastin Time 37.9 SECONDS (22.3-36.8)
[2021-03-11 00:25] LABS: Alanine Aminotransferase 177 U/L (4-35); Albumin Level 4.3 g/dL (3.5-5.1); Alkaline Phosphatase 109 U/L (38-126); Anion Gap 7 mmol/L (8-16); Aspartate Amino Transferase 160 U/L (14-36); Bilirubin,Total 0.8 mg/dL (0.2-1.3); Blood Urea Nitrogen 16 mg/dL (7-17); Calcium 9.1 mg/dL (8.4-10.2); Carbon Dioxide 32 mmol/L (22-30); Chloride 92 mmol/L (98-107); Estimated CRCL calculation 55 ml/min; Estimated Glomerular Filt Rate > 60; Glucose 101 mg/dL (65-105); Lipase 115 U/L (23-300); Potassium 3.8 mmol/L (3.4-5.0); Sodium 131 mmol/L (137-145)
[2021-03-11 00:36] LABS: Troponin I 0.014 ng/mL (0.000-0.034)
[2021-03-11] MEDS: ASPIRIN 81 MG CHEWABLE TABLET 324 MG PO (00:36)
[2021-03-11 00:58] VITALS: BP 172/99; PULSE 70; RESP 11; O2SAT 98
[2021-03-11 01:07] VITALS: BP 169/88; PULSE 70; RESP 15; TEMP 36.9; O2SAT 98
[2021-03-11 01:16] VITALS: BP 169/88; PULSE 70; RESP 15; TEMP 36.9; O2SAT 98
--- NOTE | 2021-03-11 01:27 | PC.NURSE ---
Pt presents to ED with complaints of chest pain that onset tonight when she was getting ready for bed. Pt states she feels chest pressure that is rated 8/10 at this time and is noted to left breat bone. Pt denies tx pain tug captain and also denies the use of aspirin. Pt noted with extensive cardiac hx; CABG, pacemaker and afib. Pt denies sob and nausea with chest pain. Pt admits to experiencing same discomfort last week and states it is persistent for hours at at time. Pt vitals are stable and breathing noted to be even and unlabored with O2 saturation of 98% on room air at this time. Pt is alert and oriented x4 and is present at bedside. EDMD presented to bedside. Pt resting on cart in its lowest position with call button and personal items within reach. Advised to press call button for assistance.
--- NOTE | 2021-03-11 01:50 | PC.NURSE ---
pt on cart resting and spouse remains at bedside. No complaints or concerns voiced at this time. Advised to press call button for assistance.
--- NOTE | 2021-03-11 02:15 | PC.NURSE ---
Pt ambulated in hernandez to restroom with steady gait noted. Pt now back in room and resting on cart in its lowest position with call button and personal items within reach. Pt advised to press call button for assistance.
--- NOTE | 2021-03-11 02:31 | ED.GENADULT ---
HPI - General Adult General Chief complaint: Chest Pain Stated complaint: chest pain Time Seen by Provider: 03/11/21 01:13 History of Present Illness HPI narrative: Patient is a 76-year-old female who presents emerged from with chief complaint of left-sided chest pain. Patient reports that since Sunday she has been having some discomfort in her chest patient states this evening she noticed there was kind of a sharp-like pain states it was worse with palpation on the left side of her chest. Patient states that it started earlier this evening around 9 PM and has been pretty well constant since then. Patient states it is worse with palpation. Patient denies fever reports she has had a little cough from seasonal allergies. Related Data Home Medications Medication Instructions Recorded Confirmed apixaban 5 mg tablet 5 mg PO BID 10/15/19 01/31/21 ascorbic acid (vitamin C) 500 mg 500 mg PO 1700 10/15/19 01/31/21 tablet calcium carbonate 500 mg (1,250 1 tablet PO 1200 10/15/19 01/31/21 mg)-vitamin D3 200 unit tablet clindamycin phosphate 1 % lotion 1 applic TOPICAL BID 10/15/19 01/31/21 cyclosporine 0.05 % eye drops 1 drop EACH EYE Q12H 10/15/19 01/31/21 pqrcycec-jdersgj-hmhl-lutein tablet 1 tablet PO 1200 tablet 10/15/19 01/31/21 peg 400-propylene glycol 0.4 %-0.3 1 drop EACH EYE DAILY PRN 10/15/19 01/31/21 % eye drops triamcinolone acetonide 0.1 % 1 applic TOPICAL BID 10/15/19 01/31/21 topical cream lisinopril 40 mg tablet 40 mg PO 1700 tablet 03/22/20 01/31/21 carvedilol 25 mg tablet 25 mg PO Q12H 12/30/20 01/31/21 diphenhydramine HCl 25 mg capsule 12.5 mg PO HS PRN cap 12/30/20 01/31/21 lactobacillus combination no.8 3 3,000 mmu cells PO DAILY 12/30/20 01/31/21 billion cell capsule furosemide 20 mg PO DAILY 01/06/21 01/31/21 Allergies Allergy/AdvReac Type Severity Reaction Status Date / Time codeine Allergy Severe Hypotension Verified 03/11/21 01:25 bacitracin Allergy Intermediate Rash Verified 03/11/21 01:25 adhesive Allergy Mild Rash Verified 03/11/21 01:25 metoprolol Allergy Mild Other Verified 03/11/21 01:25 estrogens, conjugated Allergy Unknown Unknown Verified 03/11/21 01:25 medroxyprogesterone Allergy Unknown Unknown Verified 03/11/21 01:25 polymyxin B Allergy Unknown Unknown Verified 03/11/21 01:25 Vymixtp-Xcd-Qke Reductase Allergy Unknown Unknown Verified 03/11/21 01:25 Inhibitor esomeprazole [From Nexium] AdvReac Severe Pancreatiti Verified 03/11/21 01:25 s Review of Systems Review of Systems: Narrative: A 10 system review of systems was completed on the patient and is negative except for what is stated in the HPI. Nursing and ancillary documentation was reviewed. [facility] Past Medical History Medical History Anxiety Congestive heart failure Current use of correction anticoagulation Dry eyes Elevated LFTs Chronic, mild elevation in AST and ALT. Gastroesophageal reflux disease Hypertension Hypothyroidism Osteopenia Paroxysmal atrial fibrillation Pulmonary hypertension Rosacea Valvular heart disease Surgical History Surgical History History of basal cell carcinoma excision History of cardiac pacemaker in situ History of cardiac radiofrequency ablation History of heart valve repair Mitral and tricuspid valve repair at [facility] per Dr. Klein. History of tonsillectomy Family History Family History Father Family history of hypercholesterolemia Hypertension Family history of Parkinson's disease Mother Family history of hypercholesterolemia Hypertension Carcinoma of colon Family history of malignant neoplasm of breast in first degree relative Social History Social History Social History: The patient is and live
--- NOTE | 2021-03-11 02:56 | PC.NURSE ---
Repeat trop sent to lab. Pt ambulated in hernandez to restroom with steady gait. Pt now back in room resting on cart in its lowest position with call button and personal items within reach. Advised to press call button for assistance.
[2021-03-11 03:23] LABS: Troponin I 0.013 ng/mL (0.000-0.034)
[2021-03-11 03:52] VITALS: BP 166/85; PULSE 70; RESP 12; O2SAT 96
[2021-03-11 04:41] VITALS: BP 152/85; PULSE 70; RESP 13; TEMP 36.9; O2SAT 98
[2021-03-11 04:42] VITALS: BP 152/85; PULSE 70; RESP 13; TEMP 36.9; O2SAT 98
== END 2021-03-11 04:49 | disposition home or self-care (01) ==
PROVIDERS: Emergency Provider Emergency Medicine; PCP Physician Assistant
DX: R07.89 Other chest pain (principal); F41.9 Anxiety disorder, unspecified; I50.9 Heart failure, unspecified; I11.0 Hypertensive heart disease with heart failure; I48.0 Paroxysmal atrial fibrillation; K21.9 Gastro-esophageal reflux disease without esophagitis; E03.9 Hypothyroidism, unspecified; M85.80 Other specified disorders of bone density and structure, unspecified site; Z85.828 Personal history of other malignant neoplasm of skin; Z95.0 Presence of cardiac pacemaker; Z79.01 Long term (current) use of anticoagulants
CPT/HCPCS: 36415; 71046; 80048; 80076; 83690; 84484; 85025; 85610; 85730; 93005; 99284; A9270

== ENCOUNTER 2021-03-29 10:11 | Outpatient (CLI) | payer MEDICARE, OTHER, SELFPAY ==
[2021-03-29 10:52] LABS: Alanine Aminotransferase 132 U/L (4-35); Albumin Level 3.6 g/dL (3.5-5.1); Alkaline Phosphatase 91 U/L (38-126); Anion Gap 3 mmol/L (8-16); Aspartate Amino Transferase 99 U/L (14-36); Bilirubin,Total 0.7 mg/dL (0.2-1.3); Blood Urea Nitrogen 11 mg/dL (7-17); Calcium 8.7 mg/dL (8.4-10.2); Carbon Dioxide 34 mmol/L (22-30); Chloride 96 mmol/L (98-107); Estimated Glomerular Filt Rate > 60; Glucose 84 mg/dL (65-105); Potassium 3.6 mmol/L (3.4-5.0); Sodium 133 mmol/L (137-145)
== END 2021-03-29 10:12 | disposition home or self-care (01) ==
PROVIDERS: PCP Physician Assistant; Visit Provider Nurse Practitioner Adult Health
DX: Z79.899 Other long term (current) drug therapy (principal)
CPT/HCPCS: 36415; 80053; 84443

== ENCOUNTER 2021-05-03 10:07 | Inpatient (IN) | payer MEDICARE, OTHER, SELFPAY ==
[2021-05-03] VITALS (14 sets, daily range): BP systolic 137–152; BP diastolic 73–94; PULSE 70–93; RESP 14–16; TEMP 36.3–36.8; O2SAT 94–100; BMI 20.3
--- NOTE | 2021-05-03 | ECHO_ITS ---
Patient Info Name: Lakeisha Simental Age: 76 years : 1945 Gender: Female Ht: 65 in Wt: 122 lbs BSA: 1.59 m2 Heart Rhythm: Indeterminant Exam Date: 05/03/2021 1:30 PM Exam Location: [facility] Patient Status: Inpatient Admit Date: 05/03/2021 Staff Ordering Physician: Janice Nguyễn MD Attending Provider: Janice Nguyễn MD Referring Physician: Delma MYERS; Exam Type: CA echo doppler color flow Summary 1. Normal left ventricular size and thickness. There was mild global hypokinesis present with an estimated ejection fraction visually of 45-50% (measured 50-56%). There was worse hypokinesis of the apex. Global longitudinal strain was also moderately diminished at-12%. Grade 2 diastolic dysfunction is present. 2. Left atrial chamber dimension is severely enlarged. 3. Right ventricular chamber dimension is mildly enlarged with moderate hypokinesis. 4. Right atrial chamber dimension is moderately enlarged. 5. Mitral valve is noted for the annuloplasty ring. There is no stenosis with a mitral valve area 3.1 cm2. There is a degree of mitral regurgitation which is hard to quantitate, without much color flow in the left atrium but with a notable PISA (not measured). I estimate moderate mitral regurgitation. 6. Tricuspid annulus is thickened consistent with a annuloplasty ring. There is no stenosis but there is a degree of regurgitation, difficult to quantitate on this study as there is not much aliasing of color flow in the right atrium but significant PISA is noted. Moderate to severe tricuspid regurgitation. 7. Moderate pulmonary hypertension, estimated pulmonary arterial systolic pressure is 59 mmHg. 8. Dilated inferior vena cava with <50% collapse upon inspiration consistent with significantly elevated right atrial pressure, 15 mmHg. 9. Rhythm indeterminate. Left Ventricle Left ventricular chamber dimension is normal. Left ventricular systolic function is normal, estimated at 45-50%. There is no increased left ventricular wall thickness. Left ventricular septal wall motion is normal. The left ventricular diastolic function is grade II diastolic dysfunction. E/e' 50.3 is moderately elevated. Global longitudinal strain is moderately elevated at 12 %. Right Ventricle Right ventricular chamber dimension is mildly enlarged with moderate hypokinesis. Right ventricular systolic function is reduced. Linear artifact in right ventricle suggestive of catheter(s), pacemaker lead(s), or ICD lead(s). Left Atria Left atrial chamber dimension is severely enlarged. Right Atria Right atrial chamber dimension is moderately enlarged. Aortic Valve The aortic valve is trileaflet. There is no aortic valve sclerosis. There is no aortic valve stenosis. There is no aortic valve regurgitation. Pulmonic Valve The pulmonic valve is normal. There is no pulmonic valve stenosis. There is trace pulmonic regurgitation. Mitral Valve The annuloplasty ring prosthetic mitral valve leaflefts are Empty. There is no stenosis of the annuloplasty ring prosthetic mitral valve. There is moderate regurgitation of the annuloplasty ring prosthetic mitral valve. Tricuspid Valve The tricuspid valve leaflets are normal. There is no significant tricuspid valve stenosis. There is moderate to severe tricuspid valve regurgitation. Moderate pulmonary hypertension, estimated pulmonary arterial systolic pressure is 59 mmHg. Pericardium/Pleural The pericardium appears normal. There is no pericardial effusion. Inferior
--- NOTE | 2021-05-03 09:20 | ADMGEN ---
This patient, Lakeisha Simental, was admitted to IMU Room 209-01. Patient/family oriented to hospital policies and general routines including ID bracelet, bed and alarms, visiting hours, pain management, procedures, bathroom and other care routines, personal items, smoking policy, room service/diet, and visiting hours. Information on how to activate the Rapid Response Team has been discussed. Patient/Family are encouraged to report perceived risks to care and to ask questions if they do not understand what they are told or what they should do.
--- NOTE | 2021-05-03 10:04 | ECG_ITS ---
Measurements Intervals [place] Rate: 85 P: TN: 0 QRS: -75 QRSD: 164 T: 126 QT: 474 QTc: 564 Interpretive Statements ATRIAL FIBRILLATION ELECTRONIC VENTRICULAR PACEMAKER COMPLEX LEFT AXIS DEVIATION LEFT BUNDLE BRANCH BLOCK INFERIOR INFARCT OR DUE TO LBBB BASELINE ARTIFACT- I, II, AVR, AVL, AVF, V2 ABNORMAL ECG Electronically Signed On 05-03-2021 10:53:11 CDT by Zhou Gallo D.O.
--- NOTE | 2021-05-03 10:17 | PM.IMHP ---
H&P: HPI History of Present Illness Date/Time: 05/03/21 10:17 Lakeisha Apple is a pleasant 76-year-old female who has paroxysmal atrial fibrillation and is being admitted for sotalol loading. The patient has had atrial fibrillation since 2015. She has been maintained in normal sinus rhythm on amiodarone with a successful cardioversion in June 2019. She has had elevated liver enzymes of uncertain etiology and her amiodarone was discontinued in November. She was rehospitalized in February with AFib RVR and amiodarone was resumed. However because the liver enzymes had increased a bit further I stopped it again in March and and recommended she be admitted sotalol loading after 3 weeks of amiodarone washout. The patient does not think she has been back in atrial fibrillation since then. She has noted some new lower extremity edema, and also has developed diarrhea over the last few weeks after she started Fosamax. The diarrhea has not resolved despite stopping the Fosamax and she has a follow-up appointment with BEATRICE Del Rio soon. The patient has a history of mitral valve prolapse and mitral and tricuspid valve repair and PFO closure by Dr. Klein in March 2016 after she presented with acute CHF and AFib RVR. She has a [employer] biventricular ICD implanted in March [address] Pablo for symptomatic bradycardia and PAF. History of hypertension. 06/2020 echo: EF 60%, mild LVH, moderate MR, moderate TR, RVSP 55-60 mmHg. 12/2020 AST 64, ALT 94. 03/2021 AST 99, ALT 132 Chief Complaint: PAF, elective sotalol loading Review of Systems Constitutional: Constitutional: Reports no additional constitutional complaints Eyes: Eyes: Reports no additional eye complaints ENT: Denies epistaxis Cardiovascular: Cardiovascular: Denies chest pain, Reports pedal edema, Reports leg edema, Denies lightheadedness and Denies palpitations Gastrointestinal: Gastrointestinal: Reports abdominal pain, Reports bloating, Reports hematochezia and Reports diarrhea Comments: Diarrhea at least 3 or 4 times a day, sometimes more. Some hemorrhoidal bleeding with blood on the toilet tissue toward the end of the day. Has been on a bland diet with no improvement. Genitourinary: Genitourinary: Denies hematuria Musculoskeletal: Musculoskeletal: Reports no additional musculoskeletal complaints Integumentary/Breasts: Skin/Breast: Denies rash Neurologic: Denies confusion Psychiatric: Psychiatric: Denies behavioral changes [facility] Past Medical History Medical History (Updated 05/03/21 @ 10:48 by Janice Nguyễn MD) Anxiety Biventricular ICD (implantable cardioverter-defibrillator) in place [employer] Bi V ICD implanted by Dr. Pablo in 2016. Congestive heart failure Current use of longterm anticoagulation Dry eyes Elevated LFTs Chronic, mild elevation in AST and ALT. Gastroesophageal reflux disease Hypertension Hypothyroidism Osteopenia Paroxysmal atrial fibrillation Pulmonary hypertension Rosacea Valvular heart disease Surgical History Surgical History (Updated 05/03/21 @ 10:48 by Janice Nguyễn MD) History of basal cell carcinoma excision History of cardiac radiofrequency ablation History of heart valve repair Mitral and tricuspid valve repair and PFO closure at [facility] per Dr. Klein, 2016. History of tonsillectomy Family History Family History Father Family history of hypercholesterolemia Hypertension Family history of Parkinson's disease Mother Family history of hypercholesterolemia Hypertension Carcinoma of colon Family history of malignant neoplasm of breast in first degree relative Social History Social History Social History: The patient is and lives in [place]. 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 Drinks perhaps 1 alcoholic beverage a evening. No illicit substance use. H
[2021-05-03 10:53] LABS: Basophils Percent Auto 0.1 % (0.2-1.2); Eosinophils Percent Auto 0.3 % (0-4.4); Hematocrit 32.1 % (37.0-47.0); Hemoglobin 11.1 g/dL (12.0-15.0); Immature Granulocyte Absolute 0.09 K/mm3 (0.00-0.031); Immature Granulocyte Percent A 1.1 % (0-0.5); Lymphocytes Absolute Auto 0.51 K/mm3 (0.9-3.2); Lymphocytes Percent Auto 6.4 % (18.3-44.2); Mean Corpuscular HGB Conc 34.6 g/dl (32-36); Mean Corpuscular Hemoglobin 29.7 pg (26-34); Mean Corpuscular Volume 85.8 fl (80-100); Mean Platelet Volume 10.1 fl (7.4-10.4); Monocytes Absolute Auto 0.7 K/mm3 (0.1-0.6); Monocytes Percent Auto 8.1 % (2.6-8.5); Neutrophils Absolute Auto 6.7 K/mm3 (1.3-6.7); Platelet Count Result 274 k/mm3 (150-375); Red Blood Count 3.74 M/mm3 (4.2-5.4); Red Cell Distribution Width 14.6 % (11.5-14.5)
[2021-05-03 11:05] LABS: Magnesium 1.8 mg/dL (1.6-2.3)
[2021-05-03] MEDS: FAMOTIDINE 20 MG TABLET 40 MG PO (11:12)
[2021-05-03] MEDS: MULTIVITAMINS /C LUTEIN (CENTRUM SILVER) TABLET *BKC 1 TAB PO (11:12)
[2021-05-03] MEDS: SOTALOL HCL 80 MG TABLET PO ×2 (11:12→20:26)
--- NOTE | 2021-05-03 12:31 | PHAR ---
HOME MEDICATION VERIFIED BY PHARMACY: SYSTANE EYE DROPS
[2021-05-03] MEDS: lisinopriL 20 MG TABLET 40 MG PO (16:36)
[2021-05-03] MEDS: APIXABAN 5 MG TABLET PO (16:36)
[2021-05-03] MEDS: ASCORBIC ACID 500 MG TABLET PO (16:37)
[2021-05-03] MEDS: carvediloL 25 MG TABLET PO (20:25)
[2021-05-03] MEDS: cycloSPORINE 0.4 ML OPHTH SOLUTION 1 DROP EACH EYE (20:25)
[2021-05-03] MEDS: diphenhydrAMINE HCL ELIXIR 12.5 MG/5 ML UDC PO (20:26)
[2021-05-03] MEDS: TRIAMCINOLONE ACET 0.1% CREAM 15 GM TUBE 1 APPLIC TOPICAL (20:27)
[2021-05-03] MEDS: ACETAMINOPHEN 325 MG TABLET 650 MG PO (23:45)
[2021-05-04] VITALS (16 sets, daily range): BP systolic 134–154; BP diastolic 77–88; PULSE 70–83; RESP 14–18; TEMP 36.4–37; O2SAT 96–99
[2021-05-04 05:43] LABS: Anion Gap 8 mmol/L (8-16); Blood Urea Nitrogen 6 mg/dL (7-17); Calcium 8.1 mg/dL (8.4-10.2); Carbon Dioxide 29 mmol/L (22-30); Chloride 90 mmol/L (98-107); Estimated CRCL calculation 58 ml/min; Estimated Glomerular Filt Rate > 60; Glucose 89 mg/dL (65-105); Potassium 2.8 mmol/L (3.4-5.0); Sodium 127 mmol/L (137-145)
[2021-05-04] MEDS: POTASSIUM CHLORIDE 20 MEQ TABLET 40 MEQ PO (06:11)
[2021-05-04] MEDS: LEVOTHYROXINE SODIUM 50 MCG TABLET PO (06:11)
--- NOTE | 2021-05-04 07:00 | ECG_ITS ---
Measurements Intervals [place] Rate: 73 P: NM: 0 QRS: 247 QRSD: 167 T: 73 QT: 505 QTc: 557 Interpretive Statements ELECTRONIC VENTRICULAR PACEMAKER WITH INHIBITION UNDERLYING PROBABLY ECTOPIC ATRIAL RHYTHM LEFT BUNDLE BRANCH BLOCK INFERIOR INFARCT OR DUE TO LBBB BASELINE ARTIFACT- V5 NO FURTHER INTERPRETATION IS POSSIBLE ABNORMAL ECG Electronically Signed On 05-04-2021 8:28:25 CDT by Zhou Gallo D.O.
[2021-05-04] MEDS: APIXABAN 5 MG TABLET PO ×2 (08:51→17:23)
[2021-05-04] MEDS: cycloSPORINE 0.4 ML OPHTH SOLUTION 1 DROP EACH EYE ×2 (08:51→21:11)
[2021-05-04] MEDS: carvediloL 25 MG TABLET PO ×2 (08:51→21:11)
[2021-05-04] MEDS: TRIAMCINOLONE ACET 0.1% CREAM 15 GM TUBE 1 APPLIC TOPICAL ×2 (08:52→21:10)
[2021-05-04] MEDS: SACCHAROMYCES BOULARDII 250 MG CAPSULE PO (08:52)
[2021-05-04] MEDS: FUROSEMIDE 20 MG TABLET PO (08:52)
[2021-05-04] MEDS: SOTALOL HCL 80 MG TABLET PO ×2 (08:52→21:11)
[2021-05-04] MEDS: SODIUM CHLORIDE 0.9% IV 250 ML 75 ML (08:53)
[2021-05-04] MEDS: LOPERAMIDE HCL 2 MG CAPSULE PO ×2 (10:56→15:43)
--- NOTE | 2021-05-04 11:53 | PM.PNCARD ---
Progress Note: A&P Assessment and Plan (1) Paroxysmal atrial fibrillation: Code(s): I48.0 - Paroxysmal atrial fibrillation Status: Acute Assessment and Plan: History of paroxysmal atrial fibrillation, previously on amiodarone, now here for sotalol loading. Look like she was in AFib yesterday, today a regular rhythm with no clear-cut P waves so unclear if it is a paced rhythm with underlying AFib or possibly NSR. Will follow-up as an outpatient to check her pacemaker. Possibly discharge tomorrow afternoon. (2) Therapeutic drug monitoring: Code(s): Z51.81 - Encounter for therapeutic drug level monitoring Status: Acute Assessment and Plan: QT interval at baseline was mildly prolonged but a normal QT interval for a paced rhythm or bundle branch block is prolonged. It is not significantly more prolonged today or abnormal visually. No abnormal ventricular arrhythmias have been detected. (3) History of heart valve repair: Code(s): Z98.890 - Other specified postprocedural states Status: Acute Assessment and Plan: History of mitral and tricuspid valve repairs. Exam suggests significant regurgitation. Echo shows only moderate MR and moderate to severe TR. However I am still suspicious that there may be worse regurgitation then went the echo can't detect. However, patient is not complaining of any shortness of breath so we will follow clinically as an outpatient. (4) Diarrhea: Code(s): R19.7 - Diarrhea, unspecified Status: Acute Assessment and Plan: Persistent diarrhea for the last few weeks. Took an Imodium today. Stool culture unremarkable. Will check C diff Patient saw Dr. Dennis for her last colonoscopy; will consult as she may need further evaluation. (5) Cough: Code(s): R05 - Cough Status: Acute Assessment and Plan: Bothered by a dry cough. Patient thinks it is because postnasal drip and allergies so I will try her on Flonase And loratadine. She is also on lisinopril so Jg induced cough is possible. (6) Hypokalemia: Code(s): E87.6 - Hypokalemia Status: Acute Assessment and Plan: Hypokalemia and hyponatremia noted on this morning's labs. Hypokalemia dressed, will recheck today and again tomorrow. May be due to a diarrhea. (7) Elevated TSH: Code(s): R79.89 - Other specified abnormal findings of blood chemistry Status: Acute Assessment and Plan: Mildly elevated TSH noted. Will need to continue to evaluate since she has been off of her amiodarone for a few weeks. (8) Hyponatremia: Code(s): E87.1 - Hypo-osmolality and hyponatremia Status: Acute Subjective Date/time seen: 05/04/21 11:53 Interval history: Lakeisha Apple is a pleasant 76-year-old female who has paroxysmal atrial fibrillation who was admitted 05/03/2021 admitted for sotalol loading. History of mitral and tricuspid valve repair in 2016. [employer] biventricular ICD. Date of service 05/04/2021: Bothered by watery diarrhea again. K+ was low at 2.7 so had Kcl IV this a.m. Bothered by a dry cough thinks 2nd to allergies. No SOB, palps, CP. 05/03/2021 echo: EF 45-50%, probably moderate MR, moderate to severe TR, as below Review of Systems Constitutional: Constitutional: Reports fatigue Comments: Didn't sleep well last night secondary to helicopter noise and conversations in the hallways ENT: Reports nasal congestion Cardiovascular: Cardiovascular: Denies chest pain, Reports leg edema and Denies lightheadedness Comments: Edema is much better Respiratory: Respiratory: Reports cough, Denies dyspnea and Denies dyspnea on exertion Comments: No PND orthopnea, chronic dry
[2021-05-04] MEDS: MULTIVITAMINS /C LUTEIN (CENTRUM SILVER) TABLET *BKC 1 TAB PO (12:53)
[2021-05-04] MEDS: FAMOTIDINE 20 MG TABLET 40 MG PO (12:53)
[2021-05-04] MEDS: LORATADINE 10 MG TABLET PO (13:30)
[2021-05-04] MEDS: FLUTICASONE PROPIONATE 0.05% NA SPR 16 GM BTL (*BKC) 2 SPRAY NASAL (13:31)
[2021-05-04 13:44] LABS: Anion Gap 8 mmol/L (8-16); Blood Urea Nitrogen 7 mg/dL (7-17); Calcium 8.2 mg/dL (8.4-10.2); Carbon Dioxide 27 mmol/L (22-30); Chloride 89 mmol/L (98-107); Estimated CRCL calculation 58 ml/min; Estimated Glomerular Filt Rate > 60; Glucose 154 mg/dL (65-105); Potassium 3.9 mmol/L (3.4-5.0); Sodium 124 mmol/L (137-145)
[2021-05-04] MEDS: lisinopriL 20 MG TABLET 40 MG PO (17:23)
[2021-05-04] MEDS: ASCORBIC ACID 500 MG TABLET PO (17:23)
[2021-05-04] MEDS: ACETAMINOPHEN 325 MG TABLET 650 MG PO (22:12)
[2021-05-04] MEDS: diphenhydrAMINE HCL ELIXIR 12.5 MG/5 ML UDC PO (22:28)
[2021-05-05] VITALS (13 sets, daily range): BP systolic 138–147; BP diastolic 71–94; PULSE 70–80; RESP 16–18; TEMP 35.6–37; O2SAT 94–100
[2021-05-05 01:27] LABS: Anion Gap 4 mmol/L (8-16); Blood Urea Nitrogen 8 mg/dL (7-17); Calcium 7.9 mg/dL (8.4-10.2); Carbon Dioxide 29 mmol/L (22-30); Chloride 89 mmol/L (98-107); Estimated CRCL calculation 50 ml/min; Estimated Glomerular Filt Rate > 60; Glucose 94 mg/dL (65-105); Potassium 4.1 mmol/L (3.4-5.0); Sodium 122 mmol/L (137-145)
[2021-05-05 05:25] LABS: Magnesium 1.7 mg/dL (1.6-2.3)
[2021-05-05 05:32] LABS: NT Pro B Type Natriuretic Pept 5030 pg/mL (5-100)
[2021-05-05] MEDS: LEVOTHYROXINE SODIUM 50 MCG TABLET PO (05:34)
--- NOTE | 2021-05-05 07:00 | ECG_ITS ---
Measurements Intervals [place] Rate: 77 P: [place]: 0 QRS: -70 QRSD: 167 T: 134 QT: 482 QTc: 548 Interpretive Statements ELECTRONIC VENTRICULAR PACEMAKER WITH INHIBITION LEFT AXIS DEVIATION UNDERLYING PROBABLY ATRIAL FIBRILLATION LEFT BUNDLE BRANCH BLOCK INFERIOR INFARCT OR DUE TO LBBB NO FURTHER INTERPRETATION IS POSSIBLE ABNORMAL ECG Electronically Signed On 05-05-2021 7:40:03 CDT by Zhou Gallo D.O.
[2021-05-05] MEDS: APIXABAN 5 MG TABLET PO (08:41)
[2021-05-05] MEDS: SACCHAROMYCES BOULARDII 250 MG CAPSULE PO (08:41)
[2021-05-05] MEDS: carvediloL 25 MG TABLET PO (08:42)
[2021-05-05] MEDS: SOTALOL HCL 80 MG TABLET PO (08:42)
[2021-05-05] MEDS: cycloSPORINE 0.4 ML OPHTH SOLUTION 1 DROP EACH EYE (08:43)
[2021-05-05] MEDS: FLUTICASONE PROPIONATE 0.05% NA SPR 16 GM BTL (*BKC) 2 SPRAY NASAL (08:43)
[2021-05-05] MEDS: LORATADINE 10 MG TABLET PO (08:44)
[2021-05-05] MEDS: FUROSEMIDE 20 MG TABLET PO (08:44)
[2021-05-05] MEDS: TRIAMCINOLONE ACET 0.1% CREAM 15 GM TUBE 1 APPLIC TOPICAL (08:44)
--- NOTE | 2021-05-05 10:54 | WPDGICN ---
Assessment and Plan Assessment and plan (1) Chronic diarrhea: Code(s): K52.9 - Noninfective gastroenteritis and colitis, unspecified Status: Acute Assessment and Plan: stool studies have been sent for bacterial pathogens including C difficile toxin. They are all pending at this time. If results are negative, will consider colonoscopy. We would of course have to hold her Eliquis for a day or 2. (2) Anemia: Code(s): D64.9 - Anemia, unspecified Status: Acute Assessment and Plan: No sign of Blood loss. indices are normal , therefore probably not due to blood loss (3) Paroxysmal atrial fibrillation: Code(s): I48.0 - Paroxysmal atrial fibrillation Status: Acute Assessment and Plan: she had been in sinus rhythm with amiodarone but that was discontinued when her liver enzymes were found to be elevated. She is now being converted from amiodarone to sotalol. She does have a biventricular ICD implanted 5 years ago Additional Plan we discussed with Dr. Nguyễn GI Consult Note Consult date/time: 05/05/21 10:54 HPI: Lakeisha Simental is a 76 year old female who is admitted primarily for treatment of disrhythmia, but who jarvis been troublewd by severe diarrhea, blaoating, and nausea for the past month. This began shortly after she started taking Fosamax. She stopped that medication 2 weeks ago with a her symptoms have persisted. She had not been traveling. Had not been on antibiotics. Her appetite fluctuates but she has had known that weight loss. She was having colicky or cramping lower abdominal pain as well although this is better over the last several days. She has past history of having had pancreatitis 10 years ago thought to be due to medication, Nexium. She has no history of gallbladder disease. She has some elevation of liver enzymes thought to be due to cardiac medication. Stool studies have been ordered and are pending. she also suffers from chronic acid reflux. She had taken Nexium in the past but it was thought that may have contributed to her pancreatitis she was switched to Zantac. Per that worked well for her until it was removed from the market. Now she takes Pepcid with fair results Review of Systems Review of Systems: All systems reviewed & are unremarkable except as noted in HPI and below PMFSH Past Medical History Medical History Anxiety Biventricular ICD (implantable cardioverter-defibrillator) in place [employer] Bi V ICD implanted by Dr. Pablo in 2016. Congestive heart failure Current use of shelter anticoagulation Dry eyes Elevated LFTs Chronic, mild elevation in AST and ALT. Gastroesophageal reflux disease Hypertension Hypothyroidism Osteopenia Paroxysmal atrial fibrillation Pulmonary hypertension Rosacea Valvular heart disease Surgical History Surgical History History of basal cell carcinoma excision History of cardiac radiofrequency ablation History of heart valve repair Mitral and tricuspid valve repair and PFO closure at [facility] per Dr. Klein, 2016. History of tonsillectomy Family History Family History Father Family history of hypercholesterolemia Hypertension Family history of Parkinson's disease Mother Family history of hypercholesterolemia Hypertension Carcinoma of colon Family history of malignant neoplasm of breast in first degree relative Social History Social History Social History: The patient is and lives in [place]. 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 Drinks perhaps 1 alcoholic beverage a evening. No illicit substance use. Her Dalton and son Moshe her surrogate decision makers and she wishes to be a full code. Smoking status: Never smoker Jill
[2021-05-05] MEDS: FAMOTIDINE 20 MG TABLET 40 MG PO (11:17)
[2021-05-05] MEDS: MULTIVITAMINS /C LUTEIN (CENTRUM SILVER) TABLET *BKC 1 TAB PO (11:17)
--- NOTE | 2021-05-05 16:30 | PM.DS ---
DS: Admitting Diagnosis Admitting Diagnosis Admitting Diagnosis: Paroxysmal atrial fibrillation DS: Discharge Diagnosis Discharge Diagnosis (1) Paroxysmal atrial fibrillation: Code(s): I48.0 - Paroxysmal atrial fibrillation Status: Acute Assessment and Plan: Patient has a history of paroxysmal atrial fibrillation but has maintained sinus rhythm with amiodarone. Unfortunately it seems to have caused some elevation of liver enzymes. The amiodarone was discontinued a few weeks ago and she was admitted for sotalol loading. She, I suspect, was in persistent atrial fibrillation during her hospital stay which will follow-up on as outpatient. We will have a pacemaker download before her FU appointment to evaluate her heart rhythm. (2) Therapeutic drug monitoring: Code(s): Z51.81 - Encounter for therapeutic drug level monitoring Status: Acute Assessment and Plan: She received Sotalol 80 mg b.i.d. with daily EKGs to evaluate for QT prolongation. She has underlying bundle branch block and biventricular pacing, so she has a baseline prolonged QTc interval of 564 milliseconds. On discharge her QTC was 548 milliseconds , which is acceptable. No ventricular arrhythmias appeared on telemetry monitoring. Told to avoid other medicines that could prolong the QT interval. (3) Current use of jail anticoagulation: Code(s): Z79.01 - [facility] (current) use of anticoagulants Status: Acute Assessment and Plan: anticoagulated with Eliquis. (4) Diarrhea: Code(s): R19.7 - Diarrhea, unspecified Status: Acute Assessment and Plan: Patient has been having diarrhea several times a day for the last few weeks of uncertain etiology. She has restricted her diet significantly without improvement. Lomotil seemed to help. Stool culture was obtained; negative for C diff and E coli Shiga toxiins; salmonella and Shigella cultures are pending. Dr. Ford was consulted and thought that, if the cultures were negative, he may need to recommend a colonoscopy. (5) Cough: Code(s): R05 - Cough Status: Acute Assessment and Plan: Patient complain of a chronic cough with some phlegm which she thought was related to allergies. Started her on Flonase and loratadine. Recommended she follow up with BEATRICE Osorio. She did not think it was an Jg induced cough. I was also wondering if any of this cough may be related to CHF but the patient did not have any rales or PND. (6) Biventricular ICD (implantable cardioverter-defibrillator) in place: Code(s): Z95.810 - Presence of automatic (implantable) cardiac defibrillator Status: Acute Assessment and Plan: Patient has a Bi V ICD. In the early part of her hospitalization, because of her underlying atrial fibrillation, Itdid not appear to be pacing as much as we would like to see. However she seemed toV pace more after sotalol loading. I suspect she still may be in atrial fibrillation, however. (7) Edema: Code(s): R60.9 - Edema, unspecified Status: Acute Assessment and Plan: Patient had moderate edema on admission, none by discharge. I am concerned that she may have some CHF. Her pro BNP was 5000. I did not give her any furosemide because of her diarrhea. (8) Mitral regurgitation: Code(s): I34.0 - Nonrheumatic mitral (valve) insufficiency Status: Acute Assessment and Plan: history of mitral valve repair. Prominent mitral valve regurgitant murmur. Echo however suggested only moderate regurgitation; however I am concerned it may be worse than that-- sounds like it is. May need further evaluation with a JOEL. (9) Tricuspi
== END 2021-05-05 17:31 | disposition home or self-care (01) | DRG 309 ==
PROVIDERS: Admitting Provider Internal Medicine Cardiovascular Disease; PCP Physician Assistant; Visit Provider Internal Medicine Cardiovascular Disease
DX: I48.19 Other persistent atrial fibrillation (principal); E87.1 Hypo-osmolality and hyponatremia; I50.22 Chronic systolic (congestive) heart failure; Z51.81 Encounter for therapeutic drug level monitoring; Z79.899 Other long term (current) drug therapy; I11.0 Hypertensive heart disease with heart failure; E87.6 Hypokalemia; R19.7 Diarrhea, unspecified; R05 Cough; K21.9 Gastro-esophageal reflux disease without esophagitis; D64.9 Anemia, unspecified; F41.9 Anxiety disorder, unspecified; I34.0 Nonrheumatic mitral (valve) insufficiency; I07.1 Rheumatic tricuspid insufficiency; E03.9 Hypothyroidism, unspecified; M85.80 Other specified disorders of bone density and structure, unspecified site; L71.9 Rosacea, unspecified; Z95.810 Presence of automatic (implantable) cardiac defibrillator; Z85.828 Personal history of other malignant neoplasm of skin
CPT/HCPCS: 36415; 80048; 83735; 83880; 84443; 85025; 87045; 87046; 87324; 87427; 93005; 93306; A9270; J3480; J7050

== ENCOUNTER 2021-05-09 10:42 | Outpatient (CLI) | payer MEDICARE, OTHER, SELFPAY ==
[2021-05-09 11:40] LABS: Anion Gap 7 mmol/L (8-16); Blood Urea Nitrogen 11 mg/dL (7-17); Calcium 8.6 mg/dL (8.4-10.2); Carbon Dioxide 31 mmol/L (22-30); Chloride 91 mmol/L (98-107); Estimated Glomerular Filt Rate > 60; Glucose 76 mg/dL (65-105); Potassium 3.9 mmol/L (3.4-5.0); Sodium 129 mmol/L (137-145)
== END 2021-05-09 10:43 | disposition home or self-care (01) ==
LOC: ANHLAB 10:47
PROVIDERS: PCP Physician Assistant; Visit Provider Internal Medicine Cardiovascular Disease
DX: E87.6 Hypokalemia (principal); E87.1 Hypo-osmolality and hyponatremia
CPT/HCPCS: 36415; 80048

== ENCOUNTER 2021-05-25 01:32 | Day surgery (SDC) | payer MEDICARE, OTHER, SELFPAY ==
[2021-05-24 15:50] VITALS: BMI 23.8
[2021-05-25] VITALS (12 sets, daily range): BP systolic 106–147; BP diastolic 68–89; PULSE 60–80; RESP 9–22; TEMP 35.9; O2SAT 93–100; BMI 22.8
--- NOTE | 2021-05-25 07:00 | ECG_ITS ---
Measurements Intervals [place] Rate: 79 P: [place]: 0 QRS: -66 QRSD: 161 T: 144 QT: 469 QTc: 539 Interpretive Statements ELECTRONIC VENTRICULAR PACEMAKER WITH INHIBITION LEFT AXIS DEVIATION LEFT BUNDLE BRANCH BLOCK BASELINE ARTIFACT- I, II, AVR, AVL NO FURTHER INTERPRETATION IS POSSIBLE ABNORMAL ECG Electronically Signed On 05-25-2021 11:40:05 CDT by Zhou Gallo D.O.
[2021-05-25 10:04] LABS: Alanine Aminotransferase 157 U/L (4-35); Albumin Level 3.4 g/dL (3.5-5.1); Alkaline Phosphatase 140 U/L (38-126); Anion Gap 8 mmol/L (8-16); Aspartate Amino Transferase 135 U/L (14-36); Bilirubin,Total 1.1 mg/dL (0.2-1.3); Blood Urea Nitrogen 12 mg/dL (7-17); Calcium 8.5 mg/dL (8.4-10.2); Carbon Dioxide 26 mmol/L (22-30); Chloride 90 mmol/L (98-107); Estimated CRCL calculation 59 ml/min; Estimated Glomerular Filt Rate > 60; Glucose 95 mg/dL (65-105); Magnesium 1.9 mg/dL (1.6-2.3); Potassium 4.5 mmol/L (3.4-5.0); Sodium 124 mmol/L (137-145)
--- NOTE | 2021-05-25 10:12 | P.HPUP_ITS ---
History and Physical Update Update Date/Time: 05/25/21 10:12 Patient with history of paroxysmal atrial fibrillation, and also mitral valve and tricuspid valve repair in 2016, [employer] Bi V ICD [place] [address] Pablo. History and Physical has been reviewed, including an updated exam of the patient. There are NO changes in the patient's condition. she has been in atrial fibrillation since December 2020. She was admitted to [facility] on 05/03/2021 for sotalol loading and appeared to have some CHF. Her most recent echo showed EF of 40-45%, RV enlargement and hypokinesis, probably moderate mitral regurgitation and moderate to severe tricuspid regurgitation. She is here for a JOEL to assess her valve disease which I suspect may be causing her CHF, and also an attempt at cardioversion. Risks, benefits, and alternatives have been discussed and questions answered. Risks of the procedure include risk of sedation with breathing issues, allergic reactions, soft the MARCELL problems, among others. Has been at the bedside. Patient agrees to proceed with procedure.
--- NOTE | 2021-05-25 10:18 | WPDMODSED ---
Moderate Sedation Note-Pt Data Patient Data Diagnosis: atrial fibrillation since 12/2020, loaded on sotalol Present Complaint: HODGES, cough, edema. Also h/o hyponatremia and diarrhea thought med-related. Patient with history of paroxysmal atrial fibrillation, and also mitral valve and tricuspid valve repair in 2016, [employer] Bi V ICD [place] [address] Pablo. She has been in atrial fibrillation since December 2020. She was admitted to [facility] on 05/03/2021 for sotalol loading and appeared to have some CHF. Her most recent echo showed EF of 40-45%, RV enlargement and hypokinesis, probably moderate mitral regurgitation and moderate to severe tricuspid regurgitation. She is here for a JOEL to assess her valve disease which I suspect may be causing her CHF, and also an attempt at cardioversion. History and Physical has been reviewed, including an updated exam of the patient. There are NO changes in the patient's condition. Procedure to be performed/Plan: conscious sedation JOEL Cardioversion Allergies Allergy/AdvReac Type Severity Reaction Status Date / Time codeine Allergy Severe Hypotension Verified 05/24/21 14:08 bacitracin Allergy Intermediate Rash Verified 05/24/21 14:08 adhesive Allergy Mild Rash Verified 05/24/21 14:08 metoprolol Allergy Mild Other Verified 05/24/21 14:08 esomeprazole [From Nexium] AdvReac Severe Pancreatiti Verified 05/24/21 14:08 s Home Medications Medication Instructions Recorded Confirmed Type apixaban 5 mg tablet 5 mg PO BID 10/15/19 05/25/21 History ascorbic acid (vitamin C) 500 mg 500 mg PO 1700 10/15/19 05/24/21 History tablet calcium carbonate 500 mg (1,250 1 tablet PO 1200 10/15/19 05/24/21 History mg)-vitamin D3 200 unit tablet clindamycin phosphate 1 % lotion 1 applic TOPICAL BID 10/15/19 05/24/21 History cyclosporine 0.05 % eye drops 1 drop EACH EYE Q12H 10/15/19 05/24/21 History dxyxgbop-guqukvx-ovmj-lutein tablet 1 tablet PO 1200 tablet 10/15/19 05/24/21 History peg 400-propylene glycol 0.4 %-0.3 1 drop EACH EYE DAILY PRN 10/15/19 05/24/21 History % eye drops triamcinolone acetonide 0.1 % 1 applic TOPICAL Q12H 10/15/19 05/24/21 History topical cream lisinopril 40 mg tablet 40 mg PO 1700 tablet 03/22/20 05/24/21 History carvedilol 25 mg tablet 25 mg PO Q12H 12/30/20 05/24/21 History diphenhydramine HCl 25 mg capsule 12.5 mg PO HS cap 12/30/20 05/24/21 History lactobacillus combination no.8 3 3,000 mmu cells PO DAILY 12/30/20 05/24/21 History billion cell capsule Promiseb 1 applic TOPICAL DAILY 05/03/21 05/24/21 History acetaminophen [Tylenol Extra 500 mg PO QID PRN 05/03/21 05/24/21 History Strength] famotidine 40 mg PO 1200 05/03/21 05/24/21 History levothyroxine 50 mcg PO 0600 05/03/21 05/24/21 History fluticasone propionate 2 spray INTRANASAL BID #1 g 05/05/21 05/24/21 Rx loperamide 2 mg PO PRN PRN #20 cap 05/05/21 05/24/21 Rx loratadine 10 mg PO QAM #30 tablet 05/05/21 05/24/21 Rx sotalol 80 mg PO Q12HR #60 tablet 05/05/21 05/24/21 Rx furosemide 20 mg tablet 20 mg PO BID tablet 05/24/21 05/24/21 History potassium chloride [K+ Potassium] 20 meq PO DAILY 05/24/21 05/24/21 History Current Medications: Active Medications Sodium Chloride (Normal Saline Iv) 500 mls @ 30 mls/hr IV CONT .[id number] [facility] Sedation/Anesthesia: No previous sedation/anesthesia problems (including family history). [facility] Past Medical History Medical History Anxiety Biventricular ICD (implantable cardioverter-defibrillator) in place [employer] Bi V ICD implanted by Dr. Pablo in 2016. Congestive heart failure Current use of detention anticoagulation Dry eyes Elevated LFTs Chronic, mild elevation in AST and ALT. Gastroesophageal reflux disease Hypertension Hypothyroidism Mitral regurgitation Osteopenia Paroxysmal atrial fibrillation Pulmonary hypertension Rosacea Tricuspid regurgitation Valvular heart disea
--- NOTE | 2021-05-25 10:22 | WPDTECDV ---
JOEL with Cardioversion Date of procedure: 05/25/21 Procedure Type: Conscious sedation Transesophageal ECHO Cardioversion Diagnosis: Atrial fibrillation, congestive heart failure, history of mitral and tricuspid valve repairs. . Indications: Patient with history of paroxysmal atrial fibrillation, and also mitral valve and tricuspid valve repair in 2016, [employer] Bi V ICD [place] [address] Pablo. History and Physical has been reviewed, including an updated exam of the patient. There are NO changes in the patient's condition. she has been in atrial fibrillation since December 2020. She was admitted to [facility] on 05/03/2021 for sotalol loading and appeared to have some CHF. Her most recent echo showed EF of 40-45%, RV enlargement and hypokinesis, probably moderate mitral regurgitation and moderate to severe tricuspid regurgitation. She is here for a JOEL to assess her valve disease which I suspect may be causing her CHF, and also an attempt at cardioversion. . Description of Procedure: Conscious sedation: Assessment: The patient has no history of anesthesia problems. The patient's oropharynx is clear. The patient was deemed to be a good candidate for conscious sedation. The patient had continuous hemodynamic and oximetric monitoring during the procedure. Start time: 10:31 a.m. Completion time: 10:54 a.m. Total conscious sedation time: 23 minutes Medications Used: Versed 2 mg, fentanyl 100 mcg IV push Trained observer: Jory Merchant RN Outcome: The patient had transient hypoxia relieved by increasing nasal prong O2 and also jaw thrust. Otherwise she tolerated the procedure well with no complications. Procedure: After informed consent the patient had viscous lidocaine gargle and Hurricaine spray the hypopharynx. The patient had conscious sedation as described above. The transesophageal echo probe was introduced in the esophagus without difficulty. Imaging was obtained in multiplane views. The patient tolerated the procedure well with no complications. Findings: The left atrium was severely enlarged. There is no thrombus present in the left atrium or left atrial appendage. There was spontaneous contrast in the left atrium. The atrial septum appeared intact. Mitral valve At thickening of the annulus consistent with annuloplasty but normal mobility of the leaflets.. The left ventricle had had normal size and With [id number]-nb-qllqyqzv LVH and moderately severe global hypokinesis. The ejection fraction is estimated to be: 35%. The aortic root was normal,and valve showed moderate sclerosis but adequate excursion. The ascending aorta, aortic arch and descending thoracic aorta were normal. The right atrium was very enlarged. The tricuspid valve annulus is thickened consistent with prior annuloplasty. The leaflets had normal excursion. The right ventricle was severely enlarged and hypokinetic., The pulmonic valve and pulmonic artery were all normal. There is no pericardial effusion. Colorflow and Doppler Findings: The mitral and tricuspid valve regurgitation was unimpressive. Mitral regurgitation was eccentric, but [id number] or moderate in severity at most. There was no flow reversal in the pulmonary vein which had a normal contour. The tricuspid valve had, at most, moderate regurgitation as well. There is no evidence of aortic valve disease. Cardioversion: Interrogation of the ICD showed the patient was actually in atrial flutter. After informed consent and the above conscious sedation, the patient underwent elective electrical synchronized cardioversion with 70 joules of biphasic energy and converted to normal sinus rhythm. There were no complications. . Conclusion: [id number]-qw-cvbtwvdf eccentric mitral regurgitation Moderate tricuspid regurgitation Moderately LVH with moderately severe left ventricular dysfunction, EF 35% Right ventricular enlargement and hypokinesis Biatrial enlargement Atrial
--- NOTE | 2021-05-25 10:56 | ECG_ITS ---
Measurements Intervals [place] Rate: 60 P: 85 [place]: 137 QRS: 259 QRSD: 163 T: 100 QT: 550 QTc: 550 Interpretive Statements ELECTRONIC ATRIAL PACEMAKER ELECTRONIC VENTRICULAR PACEMAKER BASELINE ARTIFACT- I, II, III NO FURTHER INTERPRETATION IS POSSIBLE ATYPICAL ECG Electronically Signed On 05-25-2021 11:54:23 CDT by Zhou Gallo D.O.
--- NOTE | 2021-05-25 13:30 | SUR.PHASEII ---
RN went through discharge instructions with patient. RN called Dr. Nguyễn to clarify that she wants patient to be on 60mg of lasix BID for [address] Nguyễn's orders to the patient. Patient verbalized understanding. Patient escorted off the unit by wheelchair.
== END 2021-05-25 13:18 | disposition home or self-care (01) ==
PROVIDERS: PCP Family Medicine; Visit Provider Internal Medicine Cardiovascular Disease
PROC: 5A2204Z Restoration of Cardiac Rhythm, Single (ICD-10-PCS; principal; 2021-05-25 10:00)
PROC: (CPT 93312; 2021-05-25 10:00)
DX: I48.0 Paroxysmal atrial fibrillation (principal); I34.0 Nonrheumatic mitral (valve) insufficiency; I36.1 Nonrheumatic tricuspid (valve) insufficiency; I48.92 Unspecified atrial flutter; I50.43 Acute on chronic combined systolic (congestive) and diastolic (congestive) heart failure; Z79.01 Long term (current) use of anticoagulants
CPT/HCPCS: 36415; 80053; 83735; 92960; 93005; 93312; 93320; 93325; J2250; J2310; J3010; J7040

== ENCOUNTER 2021-05-28 18:45 | Inpatient (IN) | payer MEDICARE, OTHER, SELFPAY ==
[2021-05-28] VITALS (20 sets, daily range): BP systolic 140–156; BP diastolic 81–108; PULSE 59–101; RESP 8–24; TEMP 36.2; O2SAT 96–100; BMI 22.1
--- NOTE | ~2021-05-28 | XR_ITS ---
XR chest 2V 05/28/2021 19:11 Indication: Fatty. History of A. fib. Procedure: PA and lateral views of the chest Comparison: Comparison to multiple prior studies sequentially, with oldest reviewed study dated 05/2020. Findings: There is bibasilar pneumonia with bilateral pleural effusions, right greater than left. Car diomegaly. Pacemaker leads stable. Impression: 1: Bibasilar pneumonia with small bilateral pleural effusions. Reviewed, dictated and finalized at location A. Impression: 1: Bibasilar pneumonia with small bilateral pleural effusions.
--- NOTE | ~2021-05-28 | XR_ITS ---
EXAMINATION: XR chest 1V portable DATE: 05/30/2021 13:12 INDICATION: Dyspnea. TECHNIQUE: A single frontal view of the chest was obtained. COMPARISON: Chest 2 views 05/28/2021 FINDINGS: There are small pleural effusions, right worse than left. There are airspace opacities in t he mid and lower lung zones with a basilar predominance. No pneumothorax. Cardiomegaly is noted. Ther e are changes of heart valve replacement. There is a left chest pacer with leads in right atrium, rig ht ventricle, and coronary sinus. IMPRESSION: 1. Small pleural effusions, right worse than left. 2. Stable airspace opacities in the mid and lower lung zones with a basilar predominance, consistent with atelectasis versus pneumonia. 3. Cardiomegaly. Reviewed, dictated and finalized at location A. IMPRESSION: 1. Small pleural effusions, right worse than left. 2. Stable airspace opacities in the mid and lower lung zones with a basilar pre dominance, consistent with atelectasis versus pneumonia. 3. Cardiomegaly.
--- NOTE | 2021-05-28 19:04 | ECG_ITS ---
Measurements Intervals [place] Rate: 96 P: 228 HI: 116 QRS: 260 QRSD: 186 T: 75 QT: 446 QTc: 566 Interpretive Statements ELECTRONIC VENTRICULAR PACEMAKER BASELINE ARTIFACT- II, V1-V6 NO FURTHER INTERPRETATION IS POSSIBLE ATYPICAL ECG Electronically Signed On 05-28-2021 20:12:52 CDT by Zhou Gallo D.O.
[2021-05-28 19:12] LABS: Basophils Percent Auto 0.4 % (0.2-1.2); Eosinophils Percent Auto 0.4 % (0-4.4); Hematocrit 34.8 % (37.0-47.0); Hemoglobin 11.8 g/dL (12.0-15.0); Immature Granulocyte Absolute 0.09 K/mm3 (0.00-0.031); Immature Granulocyte Percent A 0.8 % (0-0.5); Lymphocytes Absolute Auto 0.64 K/mm3 (0.9-3.2); Lymphocytes Percent Auto 5.8 % (18.3-44.2); Mean Corpuscular HGB Conc 33.9 g/dl (32-36); Mean Corpuscular Hemoglobin 29.4 pg (26-34); Mean Corpuscular Volume 86.8 fl (80-100); Mean Platelet Volume 10.3 fl (7.4-10.4); Monocytes Absolute Auto 0.9 K/mm3 (0.1-0.6); Monocytes Percent Auto 7.8 % (2.6-8.5); Neutrophils Absolute Auto 9.4 K/mm3 (1.3-6.7); Neutrophils Percent Auto 84.8 % (45.5-73.1); Platelet Count Result 321 k/mm3 (150-375); Red Blood Count 4.01 M/mm3 (4.2-5.4); Red Cell Distribution Width 15.2 % (11.5-14.5)
[2021-05-28 19:22] LABS: Anion Gap 9 mmol/L (8-16); Blood Urea Nitrogen 13 mg/dL (7-17); Calcium 8.9 mg/dL (8.4-10.2); Carbon Dioxide 27 mmol/L (22-30); Chloride 91 mmol/L (98-107); Estimated CRCL calculation 54 ml/min; Estimated Glomerular Filt Rate > 60; Glucose 129 mg/dL (65-105); INR 1.3; Partial Thromboplastin Time 36.4 SECONDS (22.3-36.8); Potassium 4.1 mmol/L (3.4-5.0); Sodium 127 mmol/L (137-145)
[2021-05-28 19:34] LABS: Troponin I 0.015 ng/mL (0.000-0.034)
[2021-05-28 19:47] LABS: NT Pro B Type Natriuretic Pept 8380 pg/mL (5-100)
--- NOTE | 2021-05-28 20:10 | ED.ARRPALP ---
HPI - Arrhythmia/Palpitations General Chief Complaint: Arrhythmia/Palpitations Stated Complaint: elevated heart rate Time Seen by Provider: 05/28/21 18:56 History of Present Illness HPI narrative: Patient is a 68-year-old female who presents ER with shortness of breath and elevated heart rate. Patient reports she underwent cardioversion by Dr. Nguyễn recently. She is anticoagulated. Reports her heart rate is typically around 60 bpm. She has been compliant with her Coreg and sotalol. She reports that anytime she lays backwards she becomes short of breath and she was having difficulty breathing while upright as well. No fevers or chills or sweats. No productive cough. Related Data Home Medications Medication Instructions Recorded Confirmed apixaban 5 mg tablet 5 mg PO BID 10/15/19 05/25/21 ascorbic acid (vitamin C) 500 mg 500 mg PO 1700 10/15/19 05/24/21 tablet calcium carbonate 500 mg (1,250 1 tablet PO 1200 10/15/19 05/24/21 mg)-vitamin D3 200 unit tablet clindamycin phosphate 1 % lotion 1 applic TOPICAL BID 10/15/19 05/24/21 cyclosporine 0.05 % eye drops 1 drop EACH EYE Q12H 10/15/19 05/24/21 gywqaayz-qusutoi-eleu-lutein tablet 1 tablet PO 1200 tablet 10/15/19 05/24/21 peg 400-propylene glycol 0.4 %-0.3 1 drop EACH EYE DAILY PRN 10/15/19 05/24/21 % eye drops triamcinolone acetonide 0.1 % 1 applic TOPICAL Q12H 10/15/19 05/24/21 topical cream lisinopril 40 mg tablet 40 mg PO 1700 tablet 03/22/20 05/24/21 carvedilol 25 mg tablet 25 mg PO Q12H 12/30/20 05/24/21 diphenhydramine HCl 25 mg capsule 12.5 mg PO HS cap 12/30/20 05/24/21 lactobacillus combination no.8 3 3,000 mmu cells PO DAILY 12/30/20 05/24/21 billion cell capsule Promiseb 1 applic TOPICAL DAILY 05/03/21 05/24/21 acetaminophen [Tylenol Extra 500 mg PO QID PRN 05/03/21 05/24/21 Strength] famotidine 40 mg PO 1200 05/03/21 05/24/21 levothyroxine 50 mcg PO 0600 05/03/21 05/24/21 potassium chloride 20 meq PO DAILY 05/24/21 05/24/21 Allergies Allergy/AdvReac Type Severity Reaction Status Date / Time codeine Allergy Severe Hypotension Verified 05/28/21 18:54 bacitracin Allergy Intermediate Rash Verified 05/28/21 18:54 adhesive Allergy Mild Rash Verified 05/28/21 18:54 metoprolol Allergy Mild Other Verified 05/28/21 18:54 esomeprazole [From Nexium] AdvReac Severe Pancreatiti Verified 05/28/21 18:54 s Review of Systems Review of Systems: All systems reviewed & are unremarkable except as noted in HPI and below Constitutional: Constitutional: Denies chills, Denies fever(s) and Denies weakness ENT: Denies nasal congestion and Denies sore throat Cardiovascular: Cardiovascular: Denies chest pain and Denies radiating jaw, neck or arm pain Respiratory: Respiratory: Denies cough, Reports dyspnea and Denies wheezing Comments: Orthopnea Gastrointestinal: Gastrointestinal: Denies nausea and Denies vomiting [facility] Past Medical History Medical History Anxiety Biventricular ICD (implantable cardioverter-defibrillator) in place [employer] Bi V ICD implanted by Dr. Pablo in 2016. Congestive heart failure Current use of manager intermediate anticoagulation Dry eyes Elevated LFTs Chronic, mild elevation in AST and ALT. Gastroesophageal reflux disease Hypertension Hypothyroidism Mitral regurgitation Osteopenia Paroxysmal atrial fibrillation Pulmonary hypertension Rosacea Tricuspid regurgitation Valvular heart disease Surgical History Surgical History History of basal cell carcinoma excision History of cardiac radiofrequency ablation History of heart valve repair Mitral and tricuspid valve repair and PFO closure at [facility] per Dr. Klein, 2016. History of tonsillectomy Family History Family History Father Family history of hypercholesterolemia Hypertension Fam
[2021-05-28] MEDS: FUROSEMIDE INJ 40 MG/4 ML VIAL IV PUSH (20:59)
--- NOTE | 2021-05-28 21:18 | PC.NURSE ---
Report to [facility] Farnsworth on 3 med/surg. pt admitted to room 313-1.
--- NOTE | 2021-05-28 23:03 | ADMGEN ---
This patient, Lakeisha Simental, was admitted to [facility] Surg Room 313-01. Patient/family oriented to hospital policies and general routines including ID bracelet, bed and alarms, visiting hours, pain management, procedures, bathroom and other care routines, personal items, smoking policy, room service/diet, and visiting hours. Information on how to activate the Rapid Response Team has been discussed. Patient/Family are encouraged to report perceived risks to care and to ask questions if they do not understand what they are told or what they should do.
[2021-05-29] VITALS (13 sets, daily range): BP systolic 129–155; BP diastolic 75–81; PULSE 60–68; RESP 16–18; TEMP 36–36.4; O2SAT 96–100
[2021-05-29 00:48] LABS: Troponin I 0.021 ng/mL (0.000-0.034)
--- NOTE | 2021-05-29 01:45 | PM.IMHP ---
H&P: HPI History of Present Illness Date/Time: 05/29/21 01:45 Chief Complaint: SHORTNESS OF BREATH Narrative: THIS IS A 76-YEAR-OLD FEMALE WITH PAST MEDICAL HISTORY SIGNIFICANT FOR DIASTOLIC HEART FAILURE GRADE II, AFIB A FLUTTER STATUS POST CARDIOVERSION, A STATUS POST MITRAL REPAIR TRICUSPID VALVE REPAIR AND PFO CLOSURE STATUS POST BIVENTRICULAR ICD PLACEMENT. PATIENT PRESENTED TO THE EMERGENCY ROOM DUE TO WORSENING BILATERAL LOWER EXTREMITY EDEMA PERSISTENT DRY COUGH AND SHORTNESS OF BREATH ORTHOPNEA NO DIZZINESS NO LIGHTHEADEDNESS NO NEAR-SYNCOPE OR SYNCOPE NO CHEST PAIN NO PALPITATION NO NAUSEA NO VOMITING NO DIARRHEA NO ABDOMINAL PAIN. PATIENT HAD RECENT CARDIOVERSION WITH ICD INTERROGATION WHICH SHOWED ATRIAL FLUTTER PATIENT HAD TRANSESOPHAGEAL ECHO AND CARDIOVERSION IN APRIL OF THIS YEAR. SHE STATES THAT SHE WAS DOING FAIRLY WELL UP UNTIL THE LAST WEEK OR SO. PRELIMINARY WORKUP WAS SIGNIFICANT FOR ELEVATED BNP, CHEST X-RAY WITH BILATERAL BIBASILAR INFILTRATES AND PLEURAL EFFUSION, A SODIUM OF 126 AND CHLORIDE OF 91. ECG WITH VENTRICULAR PACED RHYTHM. Review of Systems Review of Systems: Narrative: DRY COUGH SHORTNESS OF BREATH WORSENING BILATERAL LOWER EXTREMITY EDEMA ORTHOPNEA Constitutional: Constitutional: Denies chills, Denies fatigue, Denies fever(s), Denies night sweats and Denies weakness Eyes: Eyes: Denies change in vision ENT: Denies nasal discharge and Denies nasal obstruction Cardiovascular: Cardiovascular: Denies chest pain, Denies syncope, Reports leg edema, Denies lightheadedness, Denies radiating jaw, neck or arm pain, Denies palpitations, Reports dyspnea and Reports orthopnea Respiratory: Respiratory: Reports cough Gastrointestinal: Gastrointestinal: Denies abdominal pain, Denies nausea and Denies vomiting Genitourinary: Genitourinary: Reports no additional female genitourinary complaints Musculoskeletal: Musculoskeletal: Reports no additional musculoskeletal complaints Integumentary/Breasts: Skin/Breast: Reports system reviewed and no additional complaints, except as docu Neurologic: Reports system reviewed and no additional complaints, except as documented Psychiatric: Psychiatric: Reports no additional psychiatric complaints Endocrine: Endocrine: Reports no additional endocrine complaints Hematologic/Lymphatic: Hematologic/Lymphatic: Reports no additional hematologic/lymphatic complaints Allergic/Immunologic: Allergic/Immunologic: Reports no additional allergic/immunologic complaints PMFSH Past Medical History Medical History Anxiety Biventricular ICD (implantable cardioverter-defibrillator) in place [employer] Bi V ICD implanted by Dr. Pablo in 2016. Congestive heart failure Current use of medical record consultant anticoagulation Dry eyes Elevated LFTs Chronic, mild elevation in AST and ALT. Gastroesophageal reflux disease Hypertension Hypothyroidism Mitral regurgitation Osteopenia Paroxysmal atrial fibrillation Pulmonary hypertension Rosacea Tricuspid regurgitation Valvular heart disease Surgical History Surgical History History of basal cell carcinoma excision History of cardiac radiofrequency ablation History of heart valve repair Mitral and tricuspid valve repair and PFO closure at [facility] per Dr. Klein, 2016. History of tonsillectomy Family History Family History Father Family history of hypercholesterolemia Hypertension Family history of Parkinson's disease Mother Family history of hypercholesterolemia Hypertension Carcinoma of colon Family history of malignant neoplasm of breast in first degree relative Social History Social History Social History: The patient is and lives in [place]. 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
[2021-05-29] MEDS: SODIUM CHLORIDE 0.9% IV 1,000 ML 75 ML IV CONT (03:50)
[2021-05-29 04:19] LABS: Troponin I 0.022 ng/mL (0.000-0.034)
[2021-05-29] MEDS: LEVOTHYROXINE SODIUM 50 MCG TABLET PO (06:06)
[2021-05-29] MEDS: TRIAMCINOLONE ACET 0.1% CREAM 15 GM TUBE 1 APPLIC TOPICAL ×2 (08:29→20:08)
[2021-05-29] MEDS: ACIDOPHILUS/BULGARICUS CHEWABLE TABLET 1 TABLET PO (08:30)
[2021-05-29] MEDS: LORATADINE 10 MG TABLET PO (08:30)
[2021-05-29] MEDS: APIXABAN 5 MG TABLET PO ×2 (08:30→17:00)
[2021-05-29] MEDS: SOTALOL HCL 80 MG TABLET PO ×2 (08:30→20:07)
[2021-05-29] MEDS: FLUTICASONE PROPIONATE 0.05% NA SPR 16 GM BTL (*BKC) 2 SPRAY NASAL ×2 (08:31→20:08)
[2021-05-29] MEDS: cycloSPORINE 0.4 ML OPHTH SOLUTION 1 DROP EACH EYE ×2 (08:31→20:07)
[2021-05-29] MEDS: carvediloL 25 MG TABLET PO ×2 (08:31→20:04)
--- NOTE | 2021-05-29 08:31 | PM.IMPN ---
Progress Note: A&P Assessment and Plan (1) Acute on chronic diastolic heart failure: Code(s): I50.33 - Acute on chronic diastolic (congestive) heart failure Status: Acute Assessment and Plan: admit to IMU 3+ persistent edema despite elevation. CXR showing bibasilar infiltrates and pleural effusion. Dry nonproductive cough. diuresis Lasix 80 mg b.i.d. following potassium levels. Potassium level 3.7 this morning 4.2 this afternoon. Ordered RANULFO magaña PT/OT strict intake and output daily weights cardiology consult echocardiogram reviewed ECG reviewed 2020 BNP trends are as follows: 1979, April 5030, May 28 8380, and today 8680. Trops x 3. Patient states that both her parents were affected by CHF as well. (2) Lung infiltrate: Code(s): R91.8 - Other nonspecific abnormal finding of lung field Status: Acute Assessment and Plan: may be CHF related started on cefepime no fevers, WBC 7.9 today blood cultures sent x 2 today, pending recent hospitalization continue to monitor lugns sounds clear to auscultation (3) Biventricular ICD (implantable cardioverter-defibrillator) in place: Code(s): Z95.810 - Presence of automatic (implantable) cardiac defibrillator Status: Acute Assessment and Plan: stable continue to monitor heart rate controlled HR 59-67 no chest pain, no palpitations (4) Hyponatremia: Code(s): E87.1 - Hypo-osmolality and hyponatremia Status: Acute Assessment and Plan: likely secondary to diuresis started on 0.9 normal saline at admission - IVFs stopped today sodium 128 today on heart healthy diet, if no improvement in sodium, consider changing to Regular Diet (5) Mitral regurgitation: Code(s): I34.0 - Nonrheumatic mitral (valve) insufficiency Status: Acute Assessment and Plan: status post repair stable (6) Tricuspid regurgitation: Code(s): I07.1 - Rheumatic tricuspid insufficiency Status: Acute Assessment and Plan: status post repair stable (7) Atrial fibrillation with rapid ventricular response: Code(s): I48.91 - Unspecified atrial fibrillation Status: Acute Assessment and Plan: status post cardioversion chronically anticoagulated rate controlled (8) GERD (gastroesophageal reflux disease): Qualifiers: Esophagitis presence: esophagitis presence not specified Qualified Code(s): K21.9 - Gastro-esophageal reflux disease without esophagitis Code(s): K21.9 - Gastro-esophageal reflux disease without esophagitis Status: Acute Assessment and Plan: continue famotidine no reflux or gerd complaints Subjective Date/time seen: 05/29/21 08:31 Lakeisha is in good spirits today, very talkative, and her is also at her side participating in her care. Patient states that when her lasix stops working, she develops the dry hacky cough. CXR showing bibasilar infiltrates and pleural effusion. Encouraged deep breathing, patient independently practicing, denies SOB or dyspnea, denies chest pain or pressure today. Patient's legs remain heavy and difficult for her to ambulate, especially her stairway. Ordered RANULFO magaña, PT/OT, and following potassium levels. 2020 BNP trends are as follows: 1979, April 5030, May 28 8380, and today 8680. BLE 3+ persistent edema despite elevation. Continue Lasix 80 mg b.i.d. today. Potassium level 3.7 this morning 4.2 this afternoon. Trops x 3. Patient states that both her parents were affected by CHF as well. Review of Systems Constitutional: Constitutional: Reports as per HPI, Denies chills, Denies fatigue, Denies fever(s), Denies night sweats and Denies weakness Eyes: Eyes: Reports as per HPI and Denies change in vision ENT: Reports as per HPI, Reports Normal hearing present, Denies nasal discharge and Denies nasal obstruction Cardiovascular: Cardiovascular: Reports as per HPI, Denies chest
[2021-05-29 09:27] LABS: Hematocrit 31.4 % (37.0-47.0); Hemoglobin 10.8 g/dL (12.0-15.0); Mean Corpuscular HGB Conc 34.4 g/dl (32-36); Mean Corpuscular Hemoglobin 29.6 pg (26-34); Mean Platelet Volume 10.3 fl (7.4-10.4); Platelet Count Result 301 k/mm3 (150-375); Red Blood Count 3.65 M/mm3 (4.2-5.4); Red Cell Distribution Width 15.2 % (11.5-14.5); White Blood Count 7.9 K/mm3 (4.5-10.0)
[2021-05-29 09:40] LABS: Anion Gap 8 mmol/L (8-16); Blood Urea Nitrogen 10 mg/dL (7-17); Calcium 8.3 mg/dL (8.4-10.2); Carbon Dioxide 28 mmol/L (22-30); Chloride 92 mmol/L (98-107); Estimated CRCL calculation 70 ml/min; Estimated Glomerular Filt Rate > 60; Glucose 138 mg/dL (65-105); Potassium 3.7 mmol/L (3.4-5.0); Sodium 128 mmol/L (137-145)
[2021-05-29 09:48] LABS: NT Pro B Type Natriuretic Pept 8680 pg/mL (5-100)
[2021-05-29] MEDS: SPIRONOLACTONE 25 MG TABLET PO (09:58)
[2021-05-29] MEDS: FUROSEMIDE INJ 100 MG/10 ML VIAL 80 MG IV PUSH ×2 (09:58→17:00)
--- NOTE | 2021-05-29 09:58 | PM.CNCAR ---
Assessment and Plan Assessment and plan (1) Acute on chronic diastolic heart failure: Code(s): I50.33 - Acute on chronic diastolic (congestive) heart failure Status: Acute Assessment and Plan: she is in acute exacerbation. Possibly related to her arrhythmia recently. Agree with IV diuretics at 80 mg IV q.12 hours of furosemide. Replace potassium with 40 mEq p.o. x1. Follow intake and output and daily weights. Low-sodium diet. Continue or other drug regimen without change. (2) Biventricular ICD (implantable cardioverter-defibrillator) in place: Code(s): Z95.810 - Presence of automatic (implantable) cardiac defibrillator Status: Acute Assessment and Plan: functioning normally (3) History of heart valve repair: Code(s): Z98.890 - Other specified postprocedural states Status: Acute Assessment and Plan: Status post mitral and tricuspid valve repairs as well as PFO closure (4) Hyponatremia: Code(s): E87.1 - Hypo-osmolality and hyponatremia Status: Acute Assessment and Plan: related CHF. DC IV fluids. (5) Current use of [facility] anticoagulation: Code(s): Z79.01 - [facility] (current) use of anticoagulants Status: Acute Assessment and Plan: no bleeding problems (6) Paroxysmal atrial fibrillation: Code(s): I48.0 - Paroxysmal atrial fibrillation Status: Acute Assessment and Plan: Continue Eliquis. Recent cardioversion History of Present Illness History of Present Illness Consult date/time: 05/29/21 09:58 Requesting physician: Alfonzo Flowers MD Consult reason: congestive heart failure Reason For Visit: CHF Exacerbation Narrative: date of service 05/29/2021: Requesting provider Dr. Flowers Reason for consultation CHF History: Patient is 76-year-old female who follows with Dr. Nguyễn who has a history of mitral valve prolapse and mitral tricuspid valve repair and PFO closure by Dr. Klein in March of 2016. She had presented to the hospital because of CHF and atrial fibrillation with rapid ventricular response. A [employer] biventricular ICD was implanted in March of 2016 for symptomatic bradycardia and PAF. Patient has had progressively worsening swelling and shortness of breath since early March. She has had about a 20 lb weight gain. She was also found to be in atrial flutter recently and underwent brief admission for sotalol loading and then a subsequent JOEL guided cardioversion last week by Dr. Nguyễn . At that point, she was noted to be a bit more swollen. It was decided to pulse dose her furosemide as well as consider transitioning from lisinopril to Entresto. However since the cardioversion she is continued to be more short of breath. Yesterday she felt like she could not catch her breath at all and she started to develop a dry cough. Her edema was progressive and up to the midthigh area. She denies any chest pain, syncope, presyncope, palpitations. No defibrillations. She has had some worsening paroxysmal nocturnal dyspnea as well. She therefore came to the hospital for further evaluation and was found to be in heart failure. She was started on IV diuretics and she is feeling better already. Review of Systems Review of Systems: All systems reviewed & are unremarkable except as noted in HPI and below Constitutional: Constitutional: Denies weakness Eyes: Eyes: Denies blurry vision ENT: Reports Normal hearing present Cardiovascular: Cardiovascular: Denies chest pain, Reports pedal edema and Reports leg edema Respiratory: Respiratory: Reports cough and Reports dyspnea Gastrointestinal: Gastrointestinal: Denies abdominal pain and Denies bloating Genitourinary: Genitourinary: Denies hematuria and Denies flank pain Musculoskeletal: Musculoskeletal: Denies back pain and Denies neck pain Integumentary/Breasts: Skin/Breast: Denies dry skin and Denies unusual bruising Neurologic:
[2021-05-29] MEDS: POTASSIUM CHLORIDE 20 MEQ TABLET 40 MEQ PO (11:46)
[2021-05-29] MEDS: MULTIVITAMINS /C LUTEIN (CENTRUM SILVER) TABLET *BKC 1 TAB PO (11:47)
[2021-05-29] MEDS: FAMOTIDINE 20 MG TABLET 40 MG PO (11:47)
[2021-05-29 13:16] LABS: Anion Gap 9 mmol/L (8-16); Blood Urea Nitrogen 10 mg/dL (7-17); Calcium 8.5 mg/dL (8.4-10.2); Carbon Dioxide 28 mmol/L (22-30); Chloride 91 mmol/L (98-107); Estimated CRCL calculation 59 ml/min; Estimated Glomerular Filt Rate > 60; Glucose 159 mg/dL (65-105); Potassium 4.2 mmol/L (3.4-5.0); Sodium 128 mmol/L (137-145)
[2021-05-29] MEDS: lisinopriL 20 MG TABLET 40 MG PO (17:00)
[2021-05-29] MEDS: ASCORBIC ACID 500 MG TABLET PO (17:00)
[2021-05-29] MEDS: EUCERIN CREAM 120 GM JAR 1 APPLIC TOPICAL (17:00)
[2021-05-29] MEDS: CLINDAMYCIN PHOS 1% 30 GM GEL 1 APPLIC TOPICAL (20:05)
[2021-05-29] MEDS: diphenhydrAMINE HCL ELIXIR 12.5 MG/5 ML UDC PO (20:10)
[2021-05-30] VITALS (12 sets, daily range): BP systolic 125–149; BP diastolic 69–77; PULSE 58–89; RESP 14–18; TEMP 36.2–36.4; O2SAT 97–100
[2021-05-30] MEDS: LEVOTHYROXINE SODIUM 50 MCG TABLET PO (05:48)
[2021-05-30 06:55] LABS: Hematocrit 32.2 % (37.0-47.0); Hemoglobin 10.8 g/dL (12.0-15.0); Mean Corpuscular HGB Conc 33.5 g/dl (32-36); Mean Corpuscular Hemoglobin 29.2 pg (26-34); Mean Platelet Volume 10.2 fl (7.4-10.4); Platelet Count Result 284 k/mm3 (150-375); Red Cell Distribution Width 15.3 % (11.5-14.5); White Blood Count 8.1 K/mm3 (4.5-10.0)
[2021-05-30 07:17] LABS: Anion Gap 6 mmol/L (8-16); Blood Urea Nitrogen 12 mg/dL (7-17); Calcium 8.6 mg/dL (8.4-10.2); Carbon Dioxide 30 mmol/L (22-30); Chloride 91 mmol/L (98-107); Estimated CRCL calculation 59 ml/min; Estimated Glomerular Filt Rate > 60; Glucose 83 mg/dL (65-105); Potassium 3.4 mmol/L (3.4-5.0); Sodium 127 mmol/L (137-145)
[2021-05-30 07:20] LABS: NT Pro B Type Natriuretic Pept 6520 pg/mL (5-100)
[2021-05-30] MEDS: FLUTICASONE PROPIONATE 0.05% NA SPR 16 GM BTL (*BKC) 2 SPRAY NASAL ×2 (08:06→21:09)
[2021-05-30] MEDS: CLINDAMYCIN PHOS 1% 30 GM GEL 1 APPLIC TOPICAL ×2 (08:07→21:09)
[2021-05-30] MEDS: FUROSEMIDE INJ 100 MG/10 ML VIAL 80 MG IV PUSH (08:07)
[2021-05-30] MEDS: TRIAMCINOLONE ACET 0.1% CREAM 15 GM TUBE 1 APPLIC TOPICAL ×2 (08:07→21:10)
[2021-05-30] MEDS: ACIDOPHILUS/BULGARICUS CHEWABLE TABLET 1 TABLET PO (08:08)
[2021-05-30] MEDS: LORATADINE 10 MG TABLET PO (08:09)
[2021-05-30] MEDS: APIXABAN 5 MG TABLET PO ×2 (08:09→16:46)
[2021-05-30] MEDS: cycloSPORINE 0.4 ML OPHTH SOLUTION 1 DROP EACH EYE ×2 (08:10→21:12)
[2021-05-30] MEDS: SPIRONOLACTONE 25 MG TABLET PO (08:11)
[2021-05-30] MEDS: EUCERIN CREAM 120 GM JAR 1 APPLIC TOPICAL (08:11)
[2021-05-30] MEDS: carvediloL 25 MG TABLET PO ×2 (08:15→21:12)
[2021-05-30] MEDS: SOTALOL HCL 80 MG TABLET PO ×2 (08:15→21:10)
--- NOTE | 2021-05-30 09:31 | PM.PNCARD ---
Progress Note: A&P Assessment and Plan (1) Acute on chronic diastolic heart failure: Code(s): I50.33 - Acute on chronic diastolic (congestive) heart failure Status: Acute Assessment and Plan: She is in acute exacerbation. Possibly related to her arrhythmia recently. She has diuresed well with 80 mg of furosemide q12. She received her IV furosemide 80mg this morning. I am going to switch her from IV furosemide to oral furosemide 80 mg b.i.d.. Replace potassium with 40 mEq p.o. x1. (2) Biventricular ICD (implantable cardioverter-defibrillator) in place: Code(s): Z95.810 - Presence of automatic (implantable) cardiac defibrillator Status: Acute Assessment and Plan: functioning normally (3) History of heart valve repair: Code(s): Z98.890 - Other specified postprocedural states Status: Acute Assessment and Plan: Status post mitral and tricuspid valve repairs as well as PFO closure (4) Hyponatremia: Code(s): E87.1 - Hypo-osmolality and hyponatremia Status: Acute Assessment and Plan: related CHF. DC IV fluids. (5) Current use of manager terminal anticoagulation: Code(s): Z79.01 - detention (current) use of anticoagulants Status: Acute Assessment and Plan: no bleeding problems (6) Paroxysmal atrial fibrillation: Code(s): I48.0 - Paroxysmal atrial fibrillation Status: Acute Assessment and Plan: Continue Eliquis. Recent cardioversion Subjective Date/time seen: 05/30/21 09:31 Cardiology follow-up for CHF date of service 05/30/2021: Patient says she is feeling significantly better today than when she came into the hospital. She denies any shortness of breath. She does still have some lower extremity edema today but is much better after IV diuretics and use of compression stockings. Review of Systems Review of Systems: All systems reviewed & are unremarkable except as noted in HPI and below Constitutional: Constitutional: Denies excessive sweating, Denies headache(s) and Denies weakness Eyes: Eyes: Denies blurry vision ENT: Reports Normal hearing present, Denies headache(s) and Denies neck pain Cardiovascular: Cardiovascular: Denies chest pain, Reports pedal edema, Reports leg edema and Reports dyspnea Respiratory: Respiratory: Reports cough and Reports dyspnea Gastrointestinal: Gastrointestinal: Denies abdominal pain and Denies bloating Genitourinary: Genitourinary: Denies hematuria and Denies flank pain Musculoskeletal: Musculoskeletal: Denies back pain and Denies neck pain Integumentary/Breasts: Skin/Breast: Denies dry skin and Denies unusual bruising Neurologic: Reports Normal hearing present, Denies confusion, Denies headache(s) and Denies weakness Psychiatric: Psychiatric: Denies anxiety and Denies confusion Endocrine: Endocrine: Denies excessive sweating Hematologic/Lymphatic: Hematologic/Lymphatic: Denies easy bleeding Allergic/Immunologic: Allergic/Immunologic: Denies GI upset with certain foods Exam Narrative: Exam Narrative: Pleasant elderly lady ambulating in the room. Alert and oriented. Appears stated age Const: General: comfortable and no acute distress; No confusion Orientation/consciousness: No confusion HENMT: Head: normal to inspection Eyes: General: appearance normal, both eyes and all related structures Sclera: sclerae normal Neck: Neck: supple and no JVD Chest: Other: no reproducible chest wall pain to palpation Resp: Auscultation: crackles (Bilateral bases) Cardio: Rate: regular rate Heart sounds: Murmur heart sound present ( two-three/6 systolic ejection murmur) systolic GI: GI Palp: Yes Soft to palpation Auscultation: normal bowel sounds Skin: General skin exam: normal color Neuro: General: No confusion Cranial nerves: Yes Normal hearing present Cognition (Neuro): normal cognition Speech: normal speech Extrem: General: edema (mild ) bila
[2021-05-30] MEDS: POTASSIUM CHLORIDE 20 MEQ PACKET (FOR LIQUID) 40 MEQ PO (10:53)
--- NOTE | 2021-05-30 12:29 | P.PNIM_ITS ---
Progress Note: A&P Assessment and Plan (1) Acute on chronic diastolic heart failure: Code(s): I50.33 - Acute on chronic diastolic (congestive) heart failure Status: Acute Assessment and Plan: * 3+ persistent edema despite elevation. * CXR showing bibasilar infiltrates and pleural effusion. Dry nonproductive cough. * diuresis Lasix 80 mg b.i.d. * Potassium level 3.4 today * RANULFO hose are on * PT/OT * strict intake and output * daily weights * cardiology consult thank you for recommendations * echocardiogram showed 45/50% with hypokinesis and grade 2 diastolic dysfunction * ECG Paced 96 * BNP today 6520 * Trend labs * Labs in the am * Sotalol 80mg PO Q12hr, Lisinopril 50mcg PO * Will need to increase home lasix (2) Lung infiltrate: Code(s): R91.8 - Other nonspecific abnormal finding of lung field Status: Acute Assessment and Plan: * Probably related to the CHF * Repeat chest xray * Blood cultures pending and no growth to date * Will stop the antibiotic for now * WBC is 8.1 and has not been elevated since admission (3) Biventricular ICD (implantable cardioverter-defibrillator) in place: Code(s): Z95.810 - Presence of automatic (implantable) cardiac defibrillator Status: Acute Assessment and Plan: * stable * Tele monitor * heart rate controlled HR 59-67 * no chest pain, no palpitations (4) Hyponatremia: Code(s): E87.1 - Hypo-osmolality and hyponatremia Status: Acute Assessment and Plan: * started on 0.9 normal saline at admission - IVFs stopped today * Sodium 127 today * Heart healthy diet * Consider sodium tabs if not correcting (5) Mitral regurgitation: Code(s): I34.0 - Nonrheumatic mitral (valve) insufficiency Status: Acute Assessment and Plan: * status post repair * stable (6) Tricuspid regurgitation: Code(s): I07.1 - Rheumatic tricuspid insufficiency Status: Acute Assessment and Plan: * status post repair * Stable (7) Atrial fibrillation with rapid ventricular response: Code(s): I48.91 - Unspecified atrial fibrillation Status: Acute Assessment and Plan: * status post cardioversion * chronically anticoagulated * rate controlled (8) GERD (gastroesophageal reflux disease): Qualifiers: Esophagitis presence: esophagitis presence not specified Qualified Code(s): K21.9 - Gastro-esophageal reflux disease without esophagitis Code(s): K21.9 - Gastro-esophageal reflux disease without esophagitis Status: Acute Assessment and Plan: * continue famotidine 40mg PO daily Subjective Date/time seen: 05/30/21 10:15 Interval history: patient is 76-year-old female with past medical history for diastolic heart failure, AFib with flutter, with ICD placement the presented the emergency room with bilateral lower extremity weakness and edema. Patient stated that she feels a whole lot better today and her legs are lot better than they have been she also stated that she has been sleeping better. She complained about a dry cough which she says goes away after the Lasix comes back in the middle afternoon until she gets her the dose of Lasix. Will repeat chest xray to see if there is any change. Patient denies chest pain, shortness of breath, sweats, or chills. Review of
--- NOTE | 2021-05-30 12:29 | PM.IMPN ---
Progress Note: A&P Assessment and Plan (1) Acute on chronic diastolic heart failure: Code(s): I50.33 - Acute on chronic diastolic (congestive) heart failure Status: Acute Assessment and Plan: 3+ persistent edema despite elevation. CXR showing bibasilar infiltrates and pleural effusion. Dry nonproductive cough. diuresis Lasix 80 mg b.i.d. Potassium level 3.4 today RANULFO mag[place] are on PT/OT strict intake and output daily weights cardiology consult thank you for recommendations echocardiogram showed 45/50% with hypokinesis and grade 2 diastolic dysfunction ECG Paced 96 BNP today 6520 Trend labs Labs in the am Sotalol 80mg PO Q12hr, Lisinopril 50mcg PO Will need to increase home lasix (2) Lung infiltrate: Code(s): R91.8 - Other nonspecific abnormal finding of lung field Status: Acute Assessment and Plan: Probably related to the CHF Repeat chest xray Blood cultures pending and no growth to date Will stop the antibiotic for now WBC is 8.1 and has not been elevated since admission (3) Biventricular ICD (implantable cardioverter-defibrillator) in place: Code(s): Z95.810 - Presence of automatic (implantable) cardiac defibrillator Status: Acute Assessment and Plan: stable Tele monitor heart rate controlled HR 59-67 no chest pain, no palpitations (4) Hyponatremia: Code(s): E87.1 - Hypo-osmolality and hyponatremia Status: Acute Assessment and Plan: started on 0.9 normal saline at admission - IVFs stopped today Sodium 127 today Heart healthy diet Consider sodium tabs if not correcting (5) Mitral regurgitation: Code(s): I34.0 - Nonrheumatic mitral (valve) insufficiency Status: Acute Assessment and Plan: status post repair stable (6) Tricuspid regurgitation: Code(s): I07.1 - Rheumatic tricuspid insufficiency Status: Acute Assessment and Plan: status post repair Stable (7) Atrial fibrillation with rapid ventricular response: Code(s): I48.91 - Unspecified atrial fibrillation Status: Acute Assessment and Plan: status post cardioversion chronically anticoagulated rate controlled (8) GERD (gastroesophageal reflux disease): Qualifiers: Esophagitis presence: esophagitis presence not specified Qualified Code(s): K21.9 - Gastro-esophageal reflux disease without esophagitis Code(s): K21.9 - Gastro-esophageal reflux disease without esophagitis Status: Acute Assessment and Plan: continue famotidine 40mg PO daily Subjective Date/time seen: 05/30/21 10:15 Interval history: patient is 76-year-old female with past medical history for diastolic heart failure, AFib with flutter, with ICD placement the presented the emergency room with bilateral lower extremity weakness and edema. Patient stated that she feels a whole lot better today and her legs are lot better than they have been she also stated that she has been sleeping better. She complained about a dry cough which she says goes away after the Lasix comes back in the middle afternoon until she gets her the dose of Lasix. Will repeat chest xray to see if there is any change. Patient denies chest pain, shortness of breath, sweats, or chills. Review of Systems Review of Systems: All systems reviewed & are unremarkable except as noted in HPI and below Exam Const: General: cooperative, comfortable, no acute distress, well developed, alert and awake Nutritional Appearance: thin Orientation/consciousness: patient oriented x3 HENMT: Head: normal to inspection, normocephalic and atraumatic Ears: hearing grossly normal bilaterally General nose exam: Normal external nose present Face and sinus: normal facial exam Eyes: General: appearance normal, both eyes and all related structures Alignment and Posit
[2021-05-30] MEDS: FAMOTIDINE 20 MG TABLET 40 MG PO (12:31)
[2021-05-30] MEDS: MULTIVITAMINS /C LUTEIN (CENTRUM SILVER) TABLET *BKC 1 TAB PO (12:31)
[2021-05-30] MEDS: FUROSEMIDE 80 MG TABLET PO (16:45)
[2021-05-30] MEDS: lisinopriL 20 MG TABLET 40 MG PO (16:46)
[2021-05-30] MEDS: ASCORBIC ACID 500 MG TABLET PO (16:46)
[2021-05-30] MEDS: diphenhydrAMINE HCL ELIXIR 12.5 MG/5 ML UDC PO (21:09)
[2021-05-31] VITALS (9 sets, daily range): BP systolic 116–131; BP diastolic 62–73; PULSE 59–62; RESP 16–18; TEMP 36.3–36.4; O2SAT 97–100
[2021-05-31] MEDS: LEVOTHYROXINE SODIUM 50 MCG TABLET PO (05:42)
[2021-05-31 07:03] LABS: Alanine Aminotransferase 188 U/L (4-35); Albumin Level 3.5 g/dL (3.5-5.1); Alkaline Phosphatase 146 U/L (38-126); Anion Gap 9 mmol/L (8-16); Aspartate Amino Transferase 164 U/L (14-36); Blood Urea Nitrogen 11 mg/dL (7-17); Calcium 8.7 mg/dL (8.4-10.2); Carbon Dioxide 29 mmol/L (22-30); Chloride 91 mmol/L (98-107); Estimated CRCL calculation 59 ml/min; Estimated Glomerular Filt Rate > 60; Glucose 83 mg/dL (65-105); Magnesium 1.8 mg/dL (1.6-2.3); Potassium 3.6 mmol/L (3.4-5.0); Sodium 129 mmol/L (137-145)
[2021-05-31 07:04] LABS: Basophils Percent Auto 0.5 % (0.2-1.2); Eosinophils Absolute Auto 0.1 K/mm3 (0-0.3); Eosinophils Percent Auto 1.3 % (0-4.4); Hematocrit 32.5 % (37.0-47.0); Immature Granulocyte Percent A 1.2 % (0-0.5); Lymphocytes Absolute Auto 0.75 K/mm3 (0.9-3.2); Lymphocytes Percent Auto 8.9 % (18.3-44.2); Mean Corpuscular HGB Conc 33.8 g/dl (32-36); Mean Corpuscular Hemoglobin 29.2 pg (26-34); Mean Corpuscular Volume 86.2 fl (80-100); Mean Platelet Volume 10.3 fl (7.4-10.4); Monocytes Absolute Auto 0.7 K/mm3 (0.1-0.6); Monocytes Percent Auto 8.4 % (2.6-8.5); Neutrophils Absolute Auto 6.7 K/mm3 (1.3-6.7); Neutrophils Percent Auto 79.7 % (45.5-73.1); Platelet Count Result 296 k/mm3 (150-375); Red Blood Count 3.77 M/mm3 (4.2-5.4); White Blood Count 8.4 K/mm3 (4.5-10.0)
[2021-05-31] MEDS: SPIRONOLACTONE 25 MG TABLET PO (07:36)
[2021-05-31] MEDS: APIXABAN 5 MG TABLET PO (07:36)
[2021-05-31] MEDS: TRIAMCINOLONE ACET 0.1% CREAM 15 GM TUBE 1 APPLIC TOPICAL (07:36)
[2021-05-31] MEDS: carvediloL 25 MG TABLET PO (07:37)
[2021-05-31] MEDS: FLUTICASONE PROPIONATE 0.05% NA SPR 16 GM BTL (*BKC) 2 SPRAY NASAL (07:37)
[2021-05-31] MEDS: FUROSEMIDE 80 MG TABLET PO (07:37)
[2021-05-31] MEDS: ACIDOPHILUS/BULGARICUS CHEWABLE TABLET 1 TABLET PO (07:37)
[2021-05-31] MEDS: SOTALOL HCL 80 MG TABLET PO (07:38)
[2021-05-31] MEDS: cycloSPORINE 0.4 ML OPHTH SOLUTION 1 DROP EACH EYE (07:38)
[2021-05-31] MEDS: CLINDAMYCIN PHOS 1% 30 GM GEL 1 APPLIC TOPICAL (07:38)
[2021-05-31] MEDS: LORATADINE 10 MG TABLET PO (07:38)
[2021-05-31] MEDS: EUCERIN CREAM 120 GM JAR 1 APPLIC TOPICAL (07:41)
[2021-05-31] MEDS: MULTIVITAMINS /C LUTEIN (CENTRUM SILVER) TABLET *BKC 1 TAB PO (12:19)
[2021-05-31] MEDS: FAMOTIDINE 20 MG TABLET 40 MG PO (12:19)
--- NOTE | 2021-05-31 13:09 | P.DS_ITS ---
DS: Admitting Diagnosis Admitting Diagnosis Admitting Diagnosis: Acute on chronic diastolic heart failure DS: Discharge Diagnosis Discharge Diagnosis (1) Acute on chronic diastolic heart failure: Code(s): I50.33 - Acute on chronic diastolic (congestive) heart failure Status: Acute Assessment and Plan: * 3+ persistent edema despite elevation. * CXR showing bibasilar infiltrates and pleural effusion. Dry nonproductive cough. * diuresis Lasix 80 mg b.i.d. * Potassium level 3.4 today * RANULFO hose are on * PT/OT * strict intake and output * daily weights * cardiology consult thank you for recommendations * echocardiogram showed 45/50% with hypokinesis and grade 2 diastolic dysfunction * ECG Paced 96 * BNP today 6520 * Trend labs * Labs in the am * Sotalol 80mg PO Q12hr, Lisinopril 50mcg PO * Will need to increase home lasix * home Lasix will increase to 80 mg b.i.d. * patient will need to follow-up with her PCP or Cardiology in 2 weeks. (2) Lung infiltrate: Code(s): R91.8 - Other nonspecific abnormal finding of lung field Status: Acute Assessment and Plan: * Probably related to the CHF * Repeat chest xray * Blood cultures pending and no growth to date * Will stop the antibiotic for now * WBC is 8.1 and has not been elevated since admission (3) Biventricular ICD (implantable cardioverter-defibrillator) in place: Code(s): Z95.810 - Presence of automatic (implantable) cardiac defibrillator Status: Acute Assessment and Plan: * stable * Tele monitor * heart rate controlled HR 59-67 * no chest pain, no palpitations (4) Hyponatremia: Code(s): E87.1 - Hypo-osmolality and hyponatremia Status: Acute Assessment and Plan: * started on 0.9 normal saline at admission - IVFs stopped today * Sodium 127 today * Heart healthy diet * Consider sodium tabs if not correcting * sodium 129 today * will have patient get a redraw in 1 week * patient looks to have a baseline 120-129 (5) Mitral regurgitation: Code(s): I34.0 - Nonrheumatic mitral (valve) insufficiency Status: Acute Assessment and Plan: * status post repair * stable (6) Tricuspid regurgitation: Code(s): I07.1 - Rheumatic tricuspid insufficiency Status: Acute Assessment and Plan: * status post repair * Stable (7) Atrial fibrillation with rapid ventricular response: Code(s): I48.91 - Unspecified atrial fibrillation Status: Acute Assessment and Plan: * status post cardioversion * chronically anticoagulated * rate controlled (8) GERD (gastroesophageal reflux disease): Qualifiers: Esophagitis presence: esophagitis presence not specified Qualified Code(s): K21.9 - Gastro-esophageal reflux disease without esophagitis Code(s): K21.9 - Gastro-esophageal reflux disease without esophagitis Status: Acute Assessment and Plan: * continue famotidine 40mg PO daily DS: Summary Hospital Course Hospital Course: patient is a 76-year-old female with past medical history diastolic heart failure a fib a flutter, mitral valve repair and ICD placement who presented to the ED for shortness ofbreath. Since admission patient was treated for CHF exacerbation. It was noted the patient's BNP was elevated as high as 8680. Bernardo
--- NOTE | 2021-05-31 13:09 | PM.DS ---
DS: Admitting Diagnosis Admitting Diagnosis Admitting Diagnosis: Acute on chronic diastolic heart failure DS: Discharge Diagnosis Discharge Diagnosis (1) Acute on chronic diastolic heart failure: Code(s): I50.33 - Acute on chronic diastolic (congestive) heart failure Status: Acute Assessment and Plan: 3+ persistent edema despite elevation. CXR showing bibasilar infiltrates and pleural effusion. Dry nonproductive cough. diuresis Lasix 80 mg b.i.d. Potassium level 3.4 today RANULFO [place] are on PT/OT strict intake and output daily weights cardiology consult thank you for recommendations echocardiogram showed 45/50% with hypokinesis and grade 2 diastolic dysfunction ECG Paced 96 BNP today 6520 Trend labs Labs in the am Sotalol 80mg PO Q12hr, Lisinopril 50mcg PO Will need to increase home lasix home Lasix will increase to 80 mg b.i.d. patient will need to follow-up with her PCP or Cardiology in 2 weeks. (2) Lung infiltrate: Code(s): R91.8 - Other nonspecific abnormal finding of lung field Status: Acute Assessment and Plan: Probably related to the CHF Repeat chest xray Blood cultures pending and no growth to date Will stop the antibiotic for now WBC is 8.1 and has not been elevated since admission (3) Biventricular ICD (implantable cardioverter-defibrillator) in place: Code(s): Z95.810 - Presence of automatic (implantable) cardiac defibrillator Status: Acute Assessment and Plan: stable Tele monitor heart rate controlled HR 59-67 no chest pain, no palpitations (4) Hyponatremia: Code(s): E87.1 - Hypo-osmolality and hyponatremia Status: Acute Assessment and Plan: started on 0.9 normal saline at admission - IVFs stopped today Sodium 127 today Heart healthy diet Consider sodium tabs if not correcting sodium 129 today will have patient get a redraw in 1 week patient looks to have a baseline 120-129 (5) Mitral regurgitation: Code(s): I34.0 - Nonrheumatic mitral (valve) insufficiency Status: Acute Assessment and Plan: status post repair stable (6) Tricuspid regurgitation: Code(s): I07.1 - Rheumatic tricuspid insufficiency Status: Acute Assessment and Plan: status post repair Stable (7) Atrial fibrillation with rapid ventricular response: Code(s): I48.91 - Unspecified atrial fibrillation Status: Acute Assessment and Plan: status post cardioversion chronically anticoagulated rate controlled (8) GERD (gastroesophageal reflux disease): Qualifiers: Esophagitis presence: esophagitis presence not specified Qualified Code(s): K21.9 - Gastro-esophageal reflux disease without esophagitis Code(s): K21.9 - Gastro-esophageal reflux disease without esophagitis Status: Acute Assessment and Plan: continue famotidine 40mg PO daily DS: Summary Hospital Course Hospital Course: patient is a 76-year-old female with past medical history diastolic heart failure a fib a flutter, mitral valve repair and ICD placement who presented to the ED for shortness ofbreath. Since admission patient was treated for CHF exacerbation. It was noted the patient's BNP was elevated as high as 8680. Lasix were given IV 80 mg b.i.d.. Patient still does have 3+ pitting edema in the bilateral lower extremities lungs are still coarse however echo shows grade 2 diastolic function with an EF of 45-50%. chest x-ray shows improvement since diuresis. Patient also states that she feels better and she is able to sleep. Instructed patient to make sure she takes her Lasix in the morning and in the evening about breakfast and dinner. Will have patient repeat labs in 1 week to watch her sodium better. I also explained to the patient she will need to either follow-up with PCP or Cardio
--- NOTE | 2021-05-31 13:52 | PM.PNCARD ---
Progress Note: A&P Assessment and Plan (1) Acute on chronic diastolic heart failure: Code(s): I50.33 - Acute on chronic diastolic (congestive) heart failure Status: Acute Assessment and Plan: She is in acute exacerbation. Possibly related to her arrhythmia recently. She has diuresed well with 80 mg of furosemide q12. She received her IV furosemide 80mg this morning. will reduce her furosemide down to 40 mg p.o. b.i.d.. and additional dose of IV furosemide 40 mg IV x1 before discharge. KCL 40 mEq p.o. x1. (2) Biventricular ICD (implantable cardioverter-defibrillator) in place: Code(s): Z95.810 - Presence of automatic (implantable) cardiac defibrillator Status: Acute Assessment and Plan: functioning normally (3) History of heart valve repair: Code(s): Z98.890 - Other specified postprocedural states Status: Acute Assessment and Plan: Status post mitral and tricuspid valve repairs as well as PFO closure (4) Hyponatremia: Code(s): E87.1 - Hypo-osmolality and hyponatremia Status: Acute Assessment and Plan: related CHF. DC IV fluids. 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 Recent cardioversion Subjective Date/time seen: 05/31/21 13:52 Interval history: patient is 76-year-old female with past medical history for diastolic heart failure, AFib with flutter, with ICD placement the presented the emergency room with bilateral lower extremity weakness and edema. Date of service 05/31/2021: Feels good. No shortness breath. Swelling continues to improve. No chest pain Review of Systems Review of Systems: All systems reviewed & are unremarkable except as noted in HPI and below Constitutional: Constitutional: Denies excessive sweating, Denies headache(s) and Denies weakness Eyes: Eyes: Denies blurry vision ENT: Reports Normal hearing present, Denies headache(s) and Denies neck pain Cardiovascular: Cardiovascular: Denies chest pain, Reports pedal edema, Reports leg edema and Reports dyspnea Respiratory: Respiratory: Reports cough and Reports dyspnea Gastrointestinal: Gastrointestinal: Denies abdominal pain and Denies bloating Genitourinary: Genitourinary: Denies hematuria and Denies flank pain Musculoskeletal: Musculoskeletal: Denies back pain and Denies neck pain Integumentary/Breasts: Skin/Breast: Denies dry skin and Denies unusual bruising Neurologic: Reports Normal hearing present, Denies confusion, Denies headache(s) and Denies weakness Psychiatric: Psychiatric: Denies anxiety and Denies confusion Endocrine: Endocrine: Denies excessive sweating Hematologic/Lymphatic: Hematologic/Lymphatic: Denies easy bleeding Allergic/Immunologic: Allergic/Immunologic: Denies GI upset with certain foods Exam Narrative: Exam Narrative: Pleasant elderly lady ambulating in the room. Alert and oriented. Appears stated age Const: General: comfortable and no acute distress; No confusion Orientation/consciousness: No confusion HENMT: Head: normal to inspection General nose exam: Normal nares present Eyes: General: appearance normal, both eyes and all related structures Sclera: sclerae normal Neck: Neck: supple and no JVD Chest: Other: no reproducible chest wall pain to palpation Resp: Auscultation: crackles (Bilateral bases) Cardio: Rate: regular rate Heart sounds: Murmur heart sound present ( two-three/6 systolic ejection murmur) systolic GI: Auscultation: normal bowel sounds Skin: General skin exam: normal color Neuro: General: No confusion Cranial nerves: Yes Normal hearing present Cognition (Neuro): normal cognition Sp
[2021-05-31] MEDS: FUROSEMIDE INJ 40 MG/4 ML VIAL IV PUSH (16:00)
[2021-05-31] MEDS: POTASSIUM CHLORIDE 20 MEQ TABLET 40 MEQ PO (16:00)
== END 2021-05-31 16:15 | disposition home or self-care (01) | DRG 292 ==
LOC: ANHED 20:14 → ANH3MEDSUR 20:53
PROVIDERS: Nurse Practitioner; Admitting Provider Internal Medicine; Emergency Provider Emergency Medicine; PCP Family Medicine; Visit Provider Nurse Practitioner
DX: I11.0 Hypertensive heart disease with heart failure (principal); E87.1 Hypo-osmolality and hyponatremia; I48.92 Unspecified atrial flutter; I50.33 Acute on chronic diastolic (congestive) heart failure; I48.91 Unspecified atrial fibrillation; I08.1 Rheumatic disorders of both mitral and tricuspid valves; R91.8 Other nonspecific abnormal finding of lung field; K21.9 Gastro-esophageal reflux disease without esophagitis; I27.20 Pulmonary hypertension, unspecified; M85.80 Other specified disorders of bone density and structure, unspecified site; E03.9 Hypothyroidism, unspecified; Z79.01 Long term (current) use of anticoagulants; Z79.899 Other long term (current) drug therapy; Z87.74 Personal history of (corrected) congenital malformations of heart and circulatory system; Z95.810 Presence of automatic (implantable) cardiac defibrillator; Z98.890 Other specified postprocedural states
CPT/HCPCS: 36415; 71045; 71046; 80048; 80053; 83735; 83880; 84484; 85025; 85027; 85610; 85730; 87040; 93005; 96361; 96374; 96375; 96376; 97161; 97165; 99285; A9270; G0378; J0692; J1940; J7030

== ENCOUNTER 2021-06-09 12:12 | Outpatient (CLI) | payer MEDICARE, OTHER, SELFPAY ==
[2021-06-09 14:32] LABS: Anion Gap 8 mmol/L (8-16); Blood Urea Nitrogen 13 mg/dL (7-17); Calcium 9.1 mg/dL (8.4-10.2); Carbon Dioxide 30 mmol/L (22-30); Chloride 92 mmol/L (98-107); Estimated Glomerular Filt Rate > 60; Glucose 94 mg/dL (65-110); Potassium 4.5 mmol/L (3.4-5.0); Sodium 130 mmol/L (137-145)
== END 2021-06-09 12:13 | disposition home or self-care (01) ==
PROVIDERS: PCP Family Medicine; Visit Provider Nurse Practitioner
DX: E87.1 Hypo-osmolality and hyponatremia (principal)
CPT/HCPCS: 36415; 80048

== ENCOUNTER 2021-07-07 07:28 | Outpatient (CLI) | payer MEDICARE, OTHER, SELFPAY ==
--- NOTE | ~2021-07-07 | US_ITS ---
US abdomen limited INDICATION: Abnormal levels of serum enzymes. PROCEDURE: Realtime right upper abdominal ultrasound. COMPARISON: No prior studies for comparison. FINDINGS: The pancreas is normal without focal mass or pancreatic ductal dilation. Liver echotexture is normal without focal mass or intrahepatic biliary dilatation. There is normal directional flow i n the portal vein. The gallbladder is normal without stones, gallbladder wall thickening or pericholecystic fluid. Comm on bile duct measures 4 mm. No sonographic Rodriguez's sign. IMPRESSION: 1: Normal limited abdominal ultrasound. Reviewed, dictated and finalized at location A.
[2021-07-07 08:48] LABS: Anion Gap 6 mmol/L (8-16); Blood Urea Nitrogen 28 mg/dL (7-17); Calcium 9.6 mg/dL (8.4-10.2); Carbon Dioxide 28 mmol/L (22-30); Chloride 95 mmol/L (98-107); Estimated Glomerular Filt Rate > 60; Glucose 85 mg/dL (65-110); Potassium 5.5 mmol/L (3.4-5.0); Sodium 129 mmol/L (137-145)
== END 2021-07-07 07:29 | disposition home or self-care (01) ==
LOC: ANHIMG 07:32
PROVIDERS: Internal Medicine Cardiovascular Disease; PCP Family Medicine; Referring Provider Nurse Practitioner Adult Health; Visit Provider Family Medicine
DX: I50.9 Heart failure, unspecified (principal); R74.8 Abnormal levels of other serum enzymes
CPT/HCPCS: 36415; 76705; 80048

== ENCOUNTER 2021-07-15 13:17 | Outpatient (CLI) | payer MEDICARE, OTHER, SELFPAY ==
[2021-07-15 14:24] LABS: Alanine Aminotransferase 62 U/L (4-35); Albumin Level 3.9 g/dL (3.5-5.1); Alkaline Phosphatase 83 U/L (38-126); Anion Gap 7 mmol/L (8-16); Aspartate Amino Transferase 61 U/L (14-36); Bilirubin,Total 0.5 mg/dL (0.2-1.3); Blood Urea Nitrogen 25 mg/dL (7-17); Carbon Dioxide 28 mmol/L (22-30); Chloride 93 mmol/L (98-107); Estimated Glomerular Filt Rate > 60; Glucose 103 mg/dL (65-110); Potassium 5.1 mmol/L (3.4-5.0); Sodium 128 mmol/L (137-145)
== END 2021-07-15 13:18 | disposition home or self-care (01) ==
PROVIDERS: PCP Family Medicine; Visit Provider Nurse Practitioner Adult Health
DX: R74.8 Abnormal levels of other serum enzymes (principal); I50.22 Chronic systolic (congestive) heart failure
CPT/HCPCS: 36415; 80053

== ENCOUNTER 2021-08-23 14:59 | Outpatient (CLI) | payer MEDICARE, OTHER, SELFPAY ==
--- NOTE | ~2021-08-23 | XR_ITS ---
XR ankle LT min 3V DATE: 08/23/2021 15:24 INDICATION: Chronic ulcer TECHNIQUE: 4 views COMPARISON: None FINDINGS: There is diffuse osteopenia. No fracture or dislocation, periosteal reaction or bone destruction is detected. The ankle mortise is intact. IMPRESSION: Osteopenia Reviewed, dictated and finalized at location A. IMPRESSION: Osteopenia
== END 2021-08-23 15:00 | disposition home or self-care (01) ==
LOC: ANHIMG 15:03
PROVIDERS: PCP Family Medicine; Visit Provider Family Medicine
DX: L97.309 Non-pressure chronic ulcer of unspecified ankle with unspecified severity (principal); M85.07 Fibrous dysplasia (monostotic), ankle and foot
CPT/HCPCS: 73610

== ENCOUNTER 2021-08-31 13:08 | Outpatient (CLI) | payer MEDICARE, OTHER, SELFPAY ==
[2021-08-31 13:37] LABS: Anion Gap 10 mmol/L (8-16); Blood Urea Nitrogen 24 mg/dL (7-17); Calcium 8.8 mg/dL (8.4-10.2); Carbon Dioxide 24 mmol/L (22-30); Chloride 98 mmol/L (98-107); Estimated Glomerular Filt Rate > 60; Glucose 90 mg/dL (65-110); Potassium 4.7 mmol/L (3.4-5.0); Sodium 132 mmol/L (137-145)
== END 2021-08-31 13:09 | disposition home or self-care (01) ==
PROVIDERS: PCP Family Medicine; Visit Provider Physician Assistant
DX: E87.5 Hyperkalemia (principal)
CPT/HCPCS: 36415; 80048

== ENCOUNTER 2021-09-20 12:37 | Outpatient (CLI) | payer MEDICARE, OTHER, SELFPAY ==
[2021-09-20 13:37] LABS: Alanine Aminotransferase 38 U/L (4-35); Albumin Level 4.2 g/dL (3.5-5.1); Alkaline Phosphatase 60 U/L (38-126); Anion Gap 9 mmol/L (8-16); Aspartate Amino Transferase 42 U/L (14-36); Blood Urea Nitrogen 27 mg/dL (7-17); Calcium 9.6 mg/dL (8.4-10.2); Carbon Dioxide 27 mmol/L (22-30); Chloride 95 mmol/L (98-107); Estimated Glomerular Filt Rate > 60; Glucose 97 mg/dL (65-110); Potassium 5.4 mmol/L (3.4-5.0); Sodium 131 mmol/L (137-145)
== END 2021-09-20 12:38 | disposition home or self-care (01) ==
LOC: ANHLAB 12:38
PROVIDERS: PCP Family Medicine; Visit Provider Nurse Practitioner Adult Health
DX: R74.8 Abnormal levels of other serum enzymes (principal); E87.5 Hyperkalemia
CPT/HCPCS: 36415; 80053

== ENCOUNTER 2022-02-16 12:35 | Outpatient (CLI) | payer MEDICARE, OTHER, SELFPAY ==
[2022-02-16 13:17] LABS: Sodium Urine Random 79 meq/L
[2022-02-16 13:18] LABS: Albumin Level 4.5 g/dL (3.5-5.1); Anion Gap 8 mmol/L (8-16); Blood Urea Nitrogen 21 mg/dL (7-17); Calcium 9.1 mg/dL (8.4-10.2); Carbon Dioxide 26 mmol/L (22-30); Chloride 93 mmol/L (98-107); Estimated Glomerular Filt Rate > 60; Glucose 92 mg/dL (65-110); Phosphorus 4.9 mg/dL (2.5-4.5); Potassium 5.5 mmol/L (3.4-5.0); Sodium 127 mmol/L (137-145)
[2022-02-16 13:50] LABS: Cortisol Random 8.64 ug/dL
[2022-02-19 01:32] LABS: Osmolality, Urine 277 mOsm/kg (50-1200)
[2022-02-19 16:36] LABS: Albumin 4.2 g/dL (3.8-4.8); Alpha 1 Globulin 0.2 g/dL (0.2-0.3); Alpha 2 Globulin 0.7 g/dL (0.5-0.9); Beta 1 Globulin 0.5 g/dL (0.4-0.6); Gamma Globulin 1.6 g/dL (0.8-1.7); Protein, Total 7.6 g/dL (6.1-8.1)
[2022-02-21 22:51] LABS: Creatinine, Random Urine 18 mg/dL (20-275)
== END 2022-02-16 12:36 | disposition home or self-care (01) ==
LOC: ANHLAB 12:39
PROVIDERS: PCP Family Medicine; Visit Provider Internal Medicine Nephrology
DX: E87.1 Hypo-osmolality and hyponatremia (principal); I10 Essential (primary) hypertension
CPT/HCPCS: 36415; 80069; 82533; 82570; 83930; 83935; 84155; 84156; 84165; 84166; 84300; 84443

== ENCOUNTER 2022-03-16 09:41 | Outpatient (CLI) | payer MEDICARE, OTHER, SELFPAY ==
--- NOTE | ~2022-03-16 | MM_ITS ---
EXAMINATION: MM screening precious BI w jose HISTORY: Screening TECHNIQUE: Craniocaudal and mediolateral oblique 3-D tomosynthesis images were obtained and synthetic 2-D images were generated. CAD analysis was submitted and interpreted. COMPARISON: Comparison to multiple prior studies sequentially, with oldest reviewed study dated 08/20. BREAST PARENCHYMAL COMPOSITION: The breasts are heterogenously dense, which may obscure small masses FINDINGS: There is no evidence of suspicious mass, calcification, or architectural distortion to sugg est malignancy in either breast. There has been no suspicious interval change. IMPRESSION: 1. No mammographic evidence of malignancy. 2. Recommend routine screening mammography in one year. BI-RADS Category 1: Negative Reviewed, dictated and finalized at location A.
== END 2022-03-16 09:42 | disposition home or self-care (01) ==
PROVIDERS: PCP Family Medicine; Visit Provider Physician Assistant
DX: Z12.31 Encounter for screening mammogram for malignant neoplasm of breast (principal)
CPT/HCPCS: 77063; 77067

== ENCOUNTER 2022-04-26 12:10 | Outpatient (CLI) | payer MEDICARE, OTHER, SELFPAY ==
[2022-04-26 12:57] LABS: Albumin Level 4.1 g/dL (3.5-5.1); Anion Gap 5 mmol/L (8-16); Blood Urea Nitrogen 21 mg/dL (7-17); Calcium 8.9 mg/dL (8.4-10.2); Carbon Dioxide 29 mmol/L (22-30); Chloride 95 mmol/L (98-107); Estimated Glomerular Filt Rate > 60; Glucose 94 mg/dL (65-110); Magnesium 1.7 mg/dL (1.6-2.3); Phosphorus 4.8 mg/dL (2.5-4.5); Potassium 4.6 mmol/L (3.4-5.0); Sodium 129 mmol/L (137-145)
== END 2022-04-26 12:11 | disposition home or self-care (01) ==
PROVIDERS: PCP Family Medicine; Referring Provider Internal Medicine Nephrology; Visit Provider Family Medicine
DX: E83.42 Hypomagnesemia (principal); E87.1 Hypo-osmolality and hyponatremia
CPT/HCPCS: 36415; 80069; 83735

== ENCOUNTER 2022-07-05 15:04 | Outpatient (CLI) | payer MEDICARE, OTHER, SELFPAY ==
[2022-07-05 15:38] LABS: Albumin Level 4.3 g/dL (3.5-5.1); Anion Gap 10 mmol/L (8-16); Blood Urea Nitrogen 23 mg/dL (7-17); Calcium 8.9 mg/dL (8.4-10.2); Carbon Dioxide 27 mmol/L (22-30); Chloride 89 mmol/L (98-107); Estimated Glomerular Filt Rate > 60; Glucose 95 mg/dL (65-110); Phosphorus 4.3 mg/dL (2.5-4.5); Potassium 5.2 mmol/L (3.4-5.0); Sodium 126 mmol/L (137-145)
== END 2022-07-05 15:05 | disposition home or self-care (01) ==
LOC: ANHLAB 15:08
PROVIDERS: PCP Family Medicine; Visit Provider Internal Medicine Nephrology
DX: E87.1 Hypo-osmolality and hyponatremia (principal)
CPT/HCPCS: 36415; 80069

== ENCOUNTER 2022-09-19 00:47 | Day surgery (SDC) | payer MEDICARE, OTHER, SELFPAY ==
[2022-09-18 13:26] VITALS: BMI 19.4
[2022-09-19] VITALS (10 sets, daily range): BP systolic 109–132; BP diastolic 61–82; PULSE 60–109; RESP 11–16; TEMP 36.6; O2SAT 96–100; BMI 19.8
--- NOTE | 2022-09-19 08:30 | ECG_ITS ---
Measurements Intervals Meredith Rate: 60 P: 95 SC: 140 QRS: 247 QRSD: 159 T: 71 QT: 547 QTc: 547 Interpretive Statements ELECTRONIC ATRIAL PACEMAKER ELECTRONIC VENTRICULAR PACEMAKER NO FURTHER INTERPRETATION IS POSSIBLE ATYPICAL ECG COMPARED TO ECG 09/19/2022 08:40:42 NO SIGNIFICANT CHANGES Electronically Signed On 09-19-2022 11:43:49 CDT by Zhou Gallo D.O.
[2022-09-19 09:08] LABS: Anion Gap 9 mmol/L (8-16); Blood Urea Nitrogen 19 mg/dL (7-17); Calcium 8.9 mg/dL (8.4-10.2); Carbon Dioxide 25 mmol/L (22-30); Chloride 93 mmol/L (98-107); Estimated CRCL calculation 42 ml/min; Estimated Glomerular Filt Rate > 60; Glucose 98 mg/dL (65-110); Magnesium 1.8 mg/dL (1.6-2.3); Potassium 4.5 mmol/L (3.4-5.0); Sodium 127 mmol/L (137-145)
--- NOTE | 2022-09-19 09:59 | PM.IMHP ---
H&P: HPI History of Present Illness Date/Time: 09/19/22 09:59 Chief Complaint: Recurrent symptomatic atrial fibrillation Narrative: Source Ambika is a 77-year-old female with paroxysmal atrial fibrillation on sotalol therapy. She has a history of mitral valve prolapse and mitral and tricuspid valve repair in 2015 and a [employer] Bi V ICD in 2015. She has maintained sinus rhythm since her cardioversion in 2020 taking sotalol but recently has gone back and AFib RVR. Her carvedilol was increased but she still symptomatic and is here for cardioversion. She has been compliant with her sotalol and is NPO. Review of Systems Review of Systems: Uncomfortable with exercise, no longer can walker mild the [employer]. Palpitations with activity, going up steps. Slight HODGES. No chest pain. Dizzy after she takes her carvedilol in the morning. No abdominal pain. Otherwise feels well. No bleeding. No symptoms of infection. [facility] Past Medical History Medical History Ankle ulcer Anxiety Biventricular ICD (implantable cardioverter-defibrillator) in place [employer] Bi V ICD implanted by Dr. Pablo in 2016. 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 Encounter for immunization Gastroesophageal reflux disease Hypertension Hypothyroidism Mitral regurgitation Osteopenia Paroxysmal atrial fibrillation Pulmonary hypertension Rosacea Tricuspid regurgitation Valvular heart disease Surgical History Surgical History History of basal cell carcinoma excision History of cardiac radiofrequency ablation History of heart valve repair Mitral and tricuspid valve repair and PFO closure at [facility] per Dr. Klein, 2016. History of tonsillectomy Family History Family History Father Family history of hypercholesterolemia Hypertension Family history of Parkinson's disease Mother Family history of hypercholesterolemia Hypertension Carcinoma of colon Family history of malignant neoplasm of breast in first degree relative Social History Social History Social History: The patient is and lives in [place]. 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 Drinks perhaps 1 alcoholic beverage a evening. No illicit substance use. Her [place] and son Moshe her surrogate decision makers and she wishes to be a full code. Smoking status: Never smoker Alcohol intake: current Drinks per week: 3 Alcohol use details: glass of wine every once in a whil Substance use: never Substance use type: does not use Living arrangements: with family Gender identity (if verbalized by the patient): Female Spiritual care concerns: No Meds Home Medications and Allergies Home Medications Medication Instructions Recorded Confirmed Type apixaban 5 mg tablet (Eliquis) 5 mg PO BID 10/15/19 09/19/22 History ascorbic acid (vitamin C) 500 mg 500 mg PO 1700 10/15/19 09/18/22 History tablet calcium carbonate 500 mg-vitamin 1 tablet PO 1200 10/15/19 09/18/22 History D3 5 mcg (200 unit) tablet cyclosporine 0.05 % eye drops 1 drop ophthalmic (eye) Q12H 10/15/19 09/18/22 History (Restasis MultiDose) zekcqbuo-zvczrgy-azuh-lutein tablet 1 tablet PO 1200 10/15/19 09/18/22 History peg 400-propylene glycol 0.4 %-0.3 1 drop ophthalmic (eye) DAILY PRN 10/15/19 09/18/22 History % eye drops (Systane (propylene Dry Eyes glycol)) diphenhydramine HCl 25 mg capsule 12.5 mg PO HS 12/30/20 09/18/22 History (Benadryl) lactobacillus combination no.8 3 3,000 mmu cells PO DAILY 12/30/20 09/18/22 History billion cell capsule (Adult Probiotic) acetaminophen 500 mg tablet 500 mg PO QID PRN Pain 05/03/21 09/18/22 H
--- NOTE | 2022-09-19 10:08 | WPDMODSED ---
Moderate Sedation Note-Pt Data Patient Data Diagnosis: Recurrent symptomatic atrial fibrillation Present Complaint: Lakeisha Apple is a 77-year-old female with paroxysmal atrial fibrillation on sotalol therapy.? She has a history of mitral valve prolapse and mitral and tricuspid valve repair in 2016 and a [employer] Bi V ICD in 2016.? She has maintained sinus rhythm since her cardioversion in 2020 taking sotalol but recently has gone back and AFib RVR.? Her carvedilol was increased but she still symptomatic and is here for cardioversion.? She has been compliant with her sotalol and is NPO Procedure to be performed/Plan: Conscious sedation Elective electrical cardioversion Allergies Allergy/AdvReac Type Severity Reaction Status Date / Time codeine Allergy Severe Hypotension Verified 09/19/22 09:01 bacitracin Allergy Intermediate Rash Verified 09/19/22 09:01 adhesive Allergy Mild Rash Verified 09/19/22 09:01 metoprolol Allergy Mild Other Verified 09/19/22 09:01 alendronate sodium AdvReac Severe fluid Verified 09/19/22 09:01 [From Fosamax] retention erythromycin base AdvReac Severe public speaking instructor Verified 09/19/22 09:01 told her not to take d/t other meds esomeprazole [From Nexium] AdvReac Severe Pancreatiti Verified 09/19/22 09:01 s azithromycin AdvReac Unknown public speaking instructor Verified 09/19/22 09:01 told her not to take d/t other meds dexamethasone AdvReac Unknown Unknown Verified 09/19/22 09:01 levofloxacin [From Levaquin] AdvReac Unknown public speaking instructor Verified 09/19/22 09:01 told her not to take d/t other meds Home Medications Medication Instructions Recorded Confirmed Type apixaban 5 mg tablet (Eliquis) 5 mg PO BID 10/15/19 09/19/22 History ascorbic acid (vitamin C) 500 mg 500 mg PO 1700 10/15/19 09/18/22 History tablet calcium carbonate 500 mg-vitamin 1 tablet PO 1200 10/15/19 09/18/22 History D3 5 mcg (200 unit) tablet cyclosporine 0.05 % eye drops 1 drop ophthalmic (eye) Q12H 10/15/19 09/18/22 History (Restasis MultiDose) bpssjlqd-djlkeji-lbvc-lutein tablet 1 tablet PO 1200 10/15/19 09/18/22 History peg 400-propylene glycol 0.4 %-0.3 1 drop ophthalmic (eye) DAILY PRN 10/15/19 09/18/22 History % eye drops (Systane (propylene Dry Eyes glycol)) diphenhydramine HCl 25 mg capsule 12.5 mg PO HS 12/30/20 09/18/22 History (Benadryl) lactobacillus combination no.8 3 3,000 mmu cells PO DAILY 12/30/20 09/18/22 History billion cell capsule (Adult Probiotic) acetaminophen 500 mg tablet 500 mg PO QID PRN Pain 05/03/21 09/18/22 History (Tylenol Extra Strength) sotalol 80 mg tablet 80 mg PO Q12HR #60 tabs 05/05/21 09/19/22 Rx spironolactone 25 mg tablet 25 mg PO DAILY #30 tabs 05/25/21 09/18/22 Rx loperamide 2 mg capsule 2 mg PO PRN PRN Diarrhea #30 caps 01/16/22 09/18/22 Rx ketoconazole 2 % topical cream 1 applic topical BID 03/21/22 09/18/22 History lisinopril 40 mg tablet 20 mg PO 1700 03/21/22 09/18/22 History triamcinolone acetonide 0.1 % 1 applic topical BID #80 grams 03/21/22 09/18/22 Rx topical cream levothyroxine 50 mcg tablet 50 mcg PO 0600 #90 tabs 06/15/22 09/19/22 Rx famotidine 40 mg tablet 40 mg PO 1200 #90 tabs 08/08/22 09/18/22 Rx carvedilol 25 mg tablet 37.5 mg PO Q12H 09/06/22 09/19/22 History furosemide 40 mg tablet 20 mg PO DAILY 09/06/22 09/18/22 History cholecalciferol (vitamin D3) 50 50 mcg PO DAILY 09/18/22 09/18/22 History mcg (2,000 unit) tablet (Vitamin D3) loratadine 10 mg tablet 5 mg PO QAM 09/19/22 09/19/22 History Current Medications: Active Medications Sodium Chloride (Normal Saline Iv) 1,000 mls @ 30 mls/hr IV CONT .Q24H WINNIE Sedation/Anesthesia: No previous sedation/anesthesia problems (including family history). [facility] Past Medical History Medical History Ankle ulcer Anxiety Biventricular ICD (implantable cardioverter-defibri
--- NOTE | 2022-09-19 10:15 | ECG_ITS ---
Measurements Intervals [place] Rate: 86 P: [place]: 0 QRS: -79 QRSD: 150 T: 114 QT: 399 QTc: 479 Interpretive Statements ELECTRONIC VENTRICULAR PACEMAKER UNDERLYING ATRIAL FIBRILLATION BASELINE ARTIFACT- V1 NO FURTHER INTERPRETATION IS POSSIBLE ABNORMAL ECG COMPARED TO ECG 05/28/2021 18:59:42 ATRIAL FIBRILLATION NOW PRESENT Electronically Signed On 09-19-2022 9:12:11 CDT by Zhou Gallo D.O.
--- NOTE | 2022-09-19 10:27 | PM.OP ---
Procedure Note - Brief Procedure Note - Brief Date of procedure: 09/19/22 Pre-op diagnosis: a-fib Procedure performed: Conscious sedation Attempted anti tachy pacing cardioversion Elective electrical cardioversion Description of procedure: Unremarkable electrical cardioversion Surgeon: Janice Nguyễn MD Findings: Underlying atrial flutter
--- NOTE | 2022-09-19 10:28 | P.OP_ITS ---
Procedure Note - Detailed Date of Procedure 09/19/22 Pre-op Diagnosis a-fib Post-op Diagnosis Other (Successful cardioversion) Procedure Performed Conscious sedation Attempted cardioversion with anti tachy pacing through her pacemaker/de fibrillator Elective electrical cardioversion Surgeon Janice Nguyễn MD Indications Lakeisha Apple is a 77-year-old female with paroxysmal atrial fibrillation on sotalol therapy.? She has a history of mitral valve prolapse and mitral and tricuspid valve repair in 2015 and a [employer] Bi V ICD in 2015.? She has maintained sinus rhythm since her cardioversion in 2020 taking sotalol but recently has gone back and AFib RVR.? Her carvedilol was increased but she still symptomatic with palpitations, poor energy level, and unable to exercise at the [facility], and is here for cardioversion.? She has been compliant with her sotalol and is NPO. Findings Interrogation of the Bi V ICD shows that she has an underlying atrial flutter. Description of Procedure Conscious sedation: Assessment: The patient has no history of anesthesia problems. The patient's oropharynx is clear. The patient was deemed to be a good candidate for conscious sedation. The patient had continuous hemodynamic monitoring during the procedure. Start time: 09 05 Completion time: 1021 Total conscious sedation time: 4 minutes Medications: Versed 2 mg, fentanyl 50 mcg IV push Trained observer: Cortes Tran R.N. Outcome: The patient tolerated the procedure well with no complications. Cardioversion: Interrogation of the Bi V ICD showed that the underlying rhythm was in atrial flutter. We tried anti tachy pacing with rapid atrial pacing, which was unsuccessful. The patient went into an atrial fibrillation. After informed consent and the above conscious sedation, the patient underwent elective electrical synchronized cardioversion with 150 joules of biphasic energy and converted to normal sinus rhythm. There were no complications. Will continue current medications including the increased dose of carvedilol for now. If she remains dizzy with the carvedilol we can reduce the dose. Her paced QTc was 547 milliseconds, borderline prolonged, so increasing the sotalol dose is likely not an option if she has recurrence. She has a remote pacemaker check scheduled for October 03. Complications No immediate complications Condition Stable Disposition Observation
== END 2022-09-19 11:55 | disposition home or self-care (01) ==
PROVIDERS: PCP Family Medicine; Visit Provider Internal Medicine Cardiovascular Disease
PROC: 5A2204Z Restoration of Cardiac Rhythm, Single (ICD-10-PCS; principal; 2022-09-19 10:00)
DX: I48.0 Paroxysmal atrial fibrillation (principal); Z95.0 Presence of cardiac pacemaker; I11.0 Hypertensive heart disease with heart failure; I50.9 Heart failure, unspecified; K21.9 Gastro-esophageal reflux disease without esophagitis; E03.9 Hypothyroidism, unspecified
CPT/HCPCS: 36415; 80048; 83735; 92960; J2250; J3010; J7030

== ENCOUNTER 2022-09-27 16:24 | Outpatient (CLI) | payer MEDICARE, OTHER, SELFPAY ==
[2022-09-27 16:46] LABS: Basophils Percent Auto 0.5 % (0.2-1.2); Eosinophils Absolute Auto 0.1 K/mm3 (0-0.3); Eosinophils Percent Auto 3.8 % (0-4.4); Hematocrit 32.8 % (37.0-47.0); Hemoglobin 10.9 g/dL (12.0-15.0); Immature Granulocyte Absolute 0.01 K/mm3 (0.00-0.031); Immature Granulocyte Percent A 0.3 % (0-0.5); Lymphocytes Absolute Auto 0.71 K/mm3 (0.9-3.2); Lymphocytes Percent Auto 19.1 % (18.3-44.2); Mean Corpuscular HGB Conc 33.2 g/dl (32-36); Mean Corpuscular Hemoglobin 30.8 pg (26-34); Mean Corpuscular Volume 92.7 fl (80-100); Mean Platelet Volume 9.1 fl (7.4-10.4); Monocytes Absolute Auto 0.7 K/mm3 (0.1-0.6); Monocytes Percent Auto 18.3 % (2.6-8.5); Neutrophils Absolute Auto 2.2 K/mm3 (1.3-6.7); Platelet Count Result 241 k/mm3 (150-375); Red Blood Count 3.54 M/mm3 (4.2-5.4); Red Cell Distribution Width 13.3 % (11.5-14.5); White Blood Count 3.7 K/mm3 (4.5-10.0)
[2022-09-27 16:58] LABS: Alanine Aminotransferase 41 U/L (6-35); Albumin Level 4.3 g/dL (3.5-5.1); Alkaline Phosphatase 69 U/L (38-126); Aspartate Amino Transferase 43 U/L (14-36); Bilirubin,Total 0.6 mg/dL (0.2-1.3); Cholesterol 174 mg/dL (0-200); HDL Direct 42 mg/dL; Triglycerides 121 mg/dL (<150)
[2022-09-27 17:09] LABS: LDL Cholesterol Direct 94 mg/dL
== END 2022-09-27 16:25 | disposition home or self-care (01) ==
PROVIDERS: PCP Family Medicine; Referring Provider Internal Medicine Nephrology; Visit Provider Family Medicine
DX: E55.9 Vitamin D deficiency, unspecified (principal); E03.9 Hypothyroidism, unspecified; Z51.81 Encounter for therapeutic drug level monitoring; E78.2 Mixed hyperlipidemia; D64.9 Anemia, unspecified; E87.1 Hypo-osmolality and hyponatremia
CPT/HCPCS: 36415; 80061; 80076; 82306; 84443; 85025

== ENCOUNTER 2022-10-13 10:29 | Emergency (ER) | payer MEDICARE, OTHER, SELFPAY ==
[2022-10-13 11:54] VITALS: BP 135/58; PULSE 65; RESP 16; TEMP 36.6; O2SAT 99
--- NOTE | 2022-10-13 12:33 | ED.EYEPROB ---
HPI - Eye Problem General Chief complaint: Eye Problems Stated complaint: left eye redness Time Seen by Provider: 10/13/22 12:25 Source: patient, RN notes reviewed and old records reviewed Mode of arrival: ambulatory Limitations: no limitations History of Present Illness HPI Narrative: 77-year-old female presents to the [facility] with left medial aspect eye redness and swelling that started last night. No treatment prior to arrival. Has a history of cataracts surgery approximately 2 months ago. Denies any trauma to the area. Related Data Home Medications Medication Instructions Recorded Confirmed apixaban 5 mg tablet (Eliquis) 5 mg PO BID 10/15/19 09/21/22 ascorbic acid (vitamin C) 500 mg 500 mg PO 1700 10/15/19 09/21/22 tablet calcium carbonate 500 mg-vitamin 1 tablet PO 1200 10/15/19 09/21/22 D3 5 mcg (200 unit) tablet cyclosporine 0.05 % eye drops 1 drop ophthalmic (eye) Q12H 10/15/19 09/21/22 (Restasis MultiDose) ovmcqmug-rndxsuq-rmfc-lutein tablet 1 tablet PO 1200 10/15/19 09/21/22 peg 400-propylene glycol 0.4 %-0.3 1 drop ophthalmic (eye) DAILY PRN 10/15/19 09/21/22 % eye drops (Systane (propylene Dry Eyes glycol)) diphenhydramine HCl 25 mg capsule 12.5 mg PO HS 12/30/20 09/21/22 (Benadryl) lactobacillus combination no.8 3 3,000 mmu cells PO DAILY 12/30/20 09/21/22 billion cell capsule (Adult Probiotic) acetaminophen 500 mg tablet 500 mg PO QID PRN Pain 05/03/21 09/21/22 (Tylenol Extra Strength) ketoconazole 2 % topical cream 1 applic topical BID 03/21/22 09/21/22 lisinopril 40 mg tablet 20 mg PO 1700 03/21/22 09/21/22 carvedilol 25 mg tablet 37.5 mg PO Q12H 09/06/22 09/21/22 furosemide 40 mg tablet 20 mg PO DAILY 09/06/22 09/21/22 cholecalciferol (vitamin D3) 50 50 mcg PO DAILY 09/18/22 09/21/22 mcg (2,000 unit) tablet (Vitamin D3) loratadine 10 mg tablet 5 mg PO QAM 09/19/22 09/21/22 Allergies Allergy/AdvReac Type Severity Reaction Status Date / Time codeine Allergy Severe Hypotension Verified 10/13/22 12:05 bacitracin Allergy Intermediate Rash Verified 10/13/22 12:05 adhesive Allergy Mild Rash Verified 10/13/22 12:05 metoprolol Allergy Mild Other Verified 10/13/22 12:05 alendronate sodium AdvReac Severe fluid Verified 10/13/22 12:05 [From Fosamax] retention erythromycin base AdvReac Severe electrical wirer Verified 10/13/22 12:05 told her not to take d/t other meds esomeprazole [From Nexium] AdvReac Severe Pancreatiti Verified 10/13/22 12:05 s azithromycin AdvReac Unknown electrical wirer Verified 10/13/22 12:05 told her not to take d/t other meds dexamethasone AdvReac Unknown Unknown Verified 10/13/22 12:05 levofloxacin [From Levaquin] AdvReac Unknown electrical wirer Verified 10/13/22 12:05 told her not to take d/t other meds Review of Systems Review of Systems: All systems reviewed & are unremarkable except as noted in HPI and below Constitutional: Constitutional: Reports no additional constitutional complaints, Denies chills and Denies fever(s) Eyes: Eyes: Reports as per HPI, Denies change in vision and Denies photophobia ENT: Reports system reviewed and no additional complaints, except as documented Cardiovascular: Cardiovascular: Reports no additional cardiovascular complaints Respiratory: Respiratory: Reports no additional respiratory complaints Gastrointestinal: Gastrointestinal: Reports no additional gastrointestinal complaints Musculoskeletal: Musculoskeletal: Reports no additional musculoskeletal complaints Integumentary/Breasts: Skin/Breast: Reports system reviewed and no additional complaints, except as docu Neurologic: Reports system reviewed and no additional complaints, except as documented Psychiatric: Psychiatric: Reports no additional psychiatric complaints Allergic/Immunologic: Allergic/Immunologic: Reports no additional allergic/immunologic complaints PMFSH Past Medical History M
== END 2022-10-13 12:43 | disposition home or self-care (01) ==
PROVIDERS: Emergency Provider Nurse Practitioner; PCP Family Medicine
DX: H00.014 Hordeolum externum left upper eyelid (principal); I11.0 Hypertensive heart disease with heart failure; I50.9 Heart failure, unspecified; K21.9 Gastro-esophageal reflux disease without esophagitis; E03.9 Hypothyroidism, unspecified; I34.0 Nonrheumatic mitral (valve) insufficiency; M85.80 Other specified disorders of bone density and structure, unspecified site; I48.0 Paroxysmal atrial fibrillation; I07.1 Rheumatic tricuspid insufficiency; Z95.0 Presence of cardiac pacemaker; Z79.01 Long term (current) use of anticoagulants
CPT/HCPCS: 99213; G0463

== ENCOUNTER 2022-11-21 06:51 | Day surgery (SDC) | payer MEDICARE, OTHER, SELFPAY ==
[2022-11-21] VITALS (13 sets, daily range): BP systolic 97–127; BP diastolic 62–96; PULSE 60–100; RESP 12–22; TEMP 36.8; O2SAT 92–99; BMI 20.3
--- NOTE | 2022-11-21 07:00 | ECG_ITS ---
Measurements Intervals [place] Rate: 59 P: -32 MD: 137 QRS: 246 QRSD: 161 T: 68 QT: 518 QTc: 516 Interpretive Statements ELECTRONIC ATRIAL PACEMAKER WITH INHIBITION ELECTRONIC VENTRICULAR PACEMAKER NO FURTHER INTERPRETATION IS POSSIBLE ATYPICAL ECG COMPARED TO ECG 11/21/2022 07:06:59 NO SIGNIFICANT CHANGES Electronically Signed On 11-21-2022 9:41:08 DIRECTOR OF SPECIAL EDUCATION by Zhou Gallo D.O.
[2022-11-21 07:45] LABS: Anion Gap 9 mmol/L (8-16); Blood Urea Nitrogen 19 mg/dL (7-17); Calcium 8.9 mg/dL (8.4-10.2); Carbon Dioxide 24 mmol/L (22-30); Chloride 96 mmol/L (98-107); Estimated CRCL calculation 49 ml/min; Estimated Glomerular Filt Rate > 60; Glucose 91 mg/dL (65-110); Magnesium 1.9 mg/dL (1.6-2.3); Potassium 4.6 mmol/L (3.4-5.0); Sodium 129 mmol/L (137-145)
--- NOTE | 2022-11-21 08:47 | PM.IMHP ---
H&P: HPI History of Present Illness Date/Time: 11/21/22 08:47 Chief Complaint: REucrrent symptomatic a fib Narrative: ?Lakeisha Apple is a 77-year-old female with paroxysmal atrial fibrillation on sotalol therapy.? She has a history of mitral valve prolapse and mitral and tricuspid valve repair in 2015 and a [employer] Bi V ICD in 2015.? She has maintained sinus rhythm since her cardioversion in 2020 taking sotalol but recently has gone back and AFib RVR.? She had a cardioversion in September and felt better, but had recurrent a fib. She saw Dr. Call and the plan is to proceed w/ an AV node ablation when her pacer battery reaches HYACINTH, but as a temporizing measure he recommended another cardioversion. ? She has been compliant with her sotalol and is NPO. Review of Systems Constitutional: Constitutional: Denies fever(s) Eyes: Eyes: Denies blurry vision Comments: Has a stye, going to see an eye MD this week ENT: Denies dizziness Cardiovascular: Cardiovascular: Denies chest pain, Reports pedal edema, Reports leg edema, Denies lightheadedness and Reports dyspnea Comments: HODGES Respiratory: Respiratory: Denies chest congestion, Reports dyspnea and Reports dyspnea on exertion Gastrointestinal: Gastrointestinal: Denies abdominal pain and Denies hematochezia Genitourinary: Genitourinary: Denies hematuria and Denies dysuria Musculoskeletal: Musculoskeletal: Reports no additional musculoskeletal complaints Integumentary/Breasts: Skin/Breast: Reports system reviewed and no additional complaints, except as docu Neurologic: Reports system reviewed and no additional complaints, except as documented, Denies behavioral changes and Denies confusion Comments: No h/o stroke. Psychiatric: Psychiatric: Denies behavioral changes and Denies confusion Endocrine: Endocrine: Denies fatigue and Denies palpitations Hematologic/Lymphatic: Hematologic/Lymphatic: Denies easy bleeding PMFSH Past Medical History Medical History (Updated 11/21/22 @ 08:58 by Janice Nguyễn MD) Ankle ulcer Anxiety Biventricular cardiac pacemaker in situ [employer] Bi V pacemaker implanted by Dr. Pablo in 2015. Chronic diastolic CHF (congestive heart failure) Congestive heart failure Current use of long term care administrator anticoagulation Dry eyes Elevated LFTs Chronic, mild elevation in AST and ALT. Encounter for immunization Gastroesophageal reflux disease Hypertension Hypothyroidism Mitral regurgitation Osteopenia Paroxysmal atrial fibrillation Pulmonary hypertension Rosacea Tricuspid regurgitation Valvular heart disease Surgical History Surgical History History of basal cell carcinoma excision History of cardiac radiofrequency ablation History of heart valve repair Mitral and tricuspid valve repair and PFO closure at [facility] per Dr. Klein, 2016. History of tonsillectomy Family History Family History Father Family history of hypercholesterolemia Hypertension Family history of Parkinson's disease Mother Family history of hypercholesterolemia Hypertension Carcinoma of colon Family history of malignant neoplasm of breast in first degree relative Social History Social History Social History: The patient is and lives in [place]. 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 Drinks perhaps 1 alcoholic beverage a evening. No illicit substance use. Her Dalton and son Moshe her surrogate decision makers and she wishes to be a full code. Smoking status: Never smoker Second hand tobacco smoke exposure: No Alcohol intake: current Drinks per week: 2 Alcohol use details: occassional glass of wine Substance use: never Substance use type: does not use Lack of Transportation: No Lack of Food: Never True Current Housing: [facility] Have [facility]
--- NOTE | 2022-11-21 08:58 | WPDMODSED ---
Moderate Sedation Note-Pt Data Patient Data Diagnosis: REcurrent a fib Chronic diastolic chf Present Complaint: REcurrent a fib Procedure to be performed/Plan: Elective electrical CV with conscious sedation Allergies Allergy/AdvReac Type Severity Reaction Status Date / Time codeine Allergy Severe Hypotension Verified 11/21/22 07:09 bacitracin Allergy Intermediate Rash Verified 11/21/22 07:09 adhesive Allergy Mild Rash Verified 11/21/22 07:09 metoprolol Allergy Mild Other Verified 11/21/22 07:09 alendronate sodium AdvReac Severe fluid Verified 11/21/22 07:09 [From Fosamax] retention erythromycin base AdvReac Severe manager psychiatry Verified 11/21/22 07:09 told her not to take d/t other meds esomeprazole [From Nexium] AdvReac Severe Pancreatiti Verified 11/21/22 07:09 s azithromycin AdvReac Unknown manager psychiatry Verified 11/21/22 07:09 told her not to take d/t other meds dexamethasone AdvReac Unknown Unknown Verified 11/21/22 07:09 levofloxacin [From Levaquin] AdvReac Unknown manager psychiatry Verified 11/21/22 07:09 told her not to take d/t other meds Home Medications Medication Instructions Recorded Confirmed Type apixaban 5 mg tablet (Eliquis) 5 mg PO BID 10/15/19 11/17/22 History ascorbic acid (vitamin C) 500 mg 500 mg PO 1700 10/15/19 11/17/22 History tablet calcium carbonate 500 mg-vitamin 2 tablet PO 1200 10/15/19 11/17/22 History D3 5 mcg (200 unit) tablet cyclosporine 0.05 % eye drops 1 drop ophthalmic (eye) Q12H 10/15/19 11/17/22 History (Restasis MultiDose) wtkdbvwl-kedbglj-dahf-lutein tablet 1 tablet PO 1200 10/15/19 11/17/22 History peg 400-propylene glycol 0.4 %-0.3 1 drop ophthalmic (eye) DAILY PRN 10/15/19 11/17/22 History % eye drops (Systane (propylene Dry Eyes glycol)) diphenhydramine HCl 25 mg capsule 12.5 mg PO HS 12/30/20 11/17/22 History (Benadryl) lactobacillus combination no.8 3 3,000 mmu cells PO DAILY 12/30/20 11/17/22 History billion cell capsule (Adult Probiotic) acetaminophen 500 mg tablet 500 mg PO QID PRN Pain 05/03/21 11/17/22 History (Tylenol Extra Strength) sotalol 80 mg tablet 80 mg PO Q12HR #60 tabs 05/05/21 11/17/22 Rx spironolactone 25 mg tablet 25 mg PO DAILY #30 tabs 05/25/21 11/17/22 Rx loperamide 2 mg capsule 2 mg PO PRN PRN Diarrhea #30 caps 01/16/22 11/17/22 Rx ketoconazole 2 % topical cream 1 applic topical BID 03/21/22 11/17/22 History lisinopril 40 mg tablet 20 mg PO 1700 03/21/22 11/17/22 History levothyroxine 50 mcg tablet 50 mcg PO 0600 #90 tabs 06/15/22 11/17/22 Rx carvedilol 25 mg tablet 37.5 mg PO HS 09/06/22 11/17/22 History furosemide 40 mg tablet 20 mg PO DAILY 09/06/22 11/17/22 History cholecalciferol (vitamin D3) 50 50 mcg PO DAILY 09/18/22 11/17/22 History mcg (2,000 unit) tablet (Vitamin D3) loratadine 10 mg tablet 5 mg PO QAM PRN Allergy Symptoms 09/19/22 11/17/22 History famotidine 40 mg tablet 40 mg PO 1200 #90 tabs 10/04/22 11/17/22 Rx carvedilol 25 mg tablet 25 mg PO DAILY 11/17/22 11/17/22 History triamcinolone acetonide 0.1 % 1 applic topical BID PRN Dry Skin 11/17/22 11/17/22 History topical cream Current Medications: Active Medications Sodium Chloride (Normal Saline Iv) 1,000 mls @ 30 mls/hr IV CONT .Q24H WINNIE Sedation/Anesthesia: No previous sedation/anesthesia problems (including family history). [facility] Past Medical History Medical History (Updated 11/21/22 @ 08:58 by Janice Nguyễn MD) Ankle ulcer Anxiety Biventricular cardiac pacemaker in situ [employer] Bi V pacemaker implanted by Dr. Pablo in 2016. Chronic diastolic CHF (congestive heart failure) Congestive heart failure Current use of legal referee anticoagulation Dry eyes Elevated LFTs Chronic, mild elevation in AST and ALT. Encounter for immunization Gastroesophageal reflux disease Hypertension Hypothyroidism Mitral regurgitation Osteopenia Paroxysmal atria
--- NOTE | 2022-11-21 09:00 | ECG_ITS ---
Measurements Intervals [place] Rate: 90 P: [place]: 0 QRS: -71 QRSD: 144 T: 119 QT: 392 QTc: 481 Interpretive Statements ELECTRONIC VENTRICULAR PACEMAKER UNDERLYING ATRIAL FIBRILLATION BASELINE ARTIFACT- I, II, III, AVR, V1-V2 NO FURTHER INTERPRETATION IS POSSIBLE ABNORMAL ECG COMPARED TO ECG 09/19/2022 10:30:25 ATRIAL FIBRILLATION NOW PRESENT Electronically Signed On 11-21-2022 8:35:14 OPENSTACK DEVELOPER by Zhou Gallo D.O.
--- NOTE | 2022-11-21 09:14 | PM.OP ---
Procedure Note - Brief Procedure Note - Brief Date of procedure: 11/21/22 Pre-op diagnosis: A Fib Recurrent atrial fibrillation Post-op diagnosis: Other (Normal sinus rhythm has been restored) Procedure performed: Conscious sedation Elective electrical cardioversion Description of procedure: Unremarkable elective cardioversion with conscious sedation Surgeon: Janice Nguyễn MD Complications: No immediate complications Condition: Stable Disposition: Observation
--- NOTE | 2022-11-21 09:15 | P.OP_ITS ---
Procedure Note - Detailed Date of Procedure 11/21/22 Pre-op Diagnosis A Fib Post-op Diagnosis Other (Anabaptist of sinus rhythm) Procedure Performed Conscious sedation Elective electrical cardioversion Surgeon Janice Nguyễn MD Anesthesia Other (Conscious sedation) Indications 77-year-old female with paroxysmal AFib, on sotalol. She had a cardioversion in September and felt better, but had recurrence of her AFib recently. Dr. Call (mobile application developer) plans on doing AV node ablation when her pulse generator needs to be replaced (nearing elective replacement interval) but recommended another cardioversion as a temporizing measure to help her feel better. That she is here for another elective cardioversion. She is anticoagulated with Eliquis. Description of Procedure Conscious sedation: Assessment: The patient has no history of anesthesia problems. The patient's oropharynx is clear. The patient was deemed to be a good candidate for conscious sedation. The patient had continuous hemodynamic monitoring during the procedure. Start time: 9:03 a.m. Completion time: 9:10 a.m. Total conscious sedation time: 7 minutes Medications: Versed 2 mg, fentanyl 50 mcg IV push Trained observer: Cortes Jara RN Outcome: The patient tolerated the procedure well with no complications. Cardioversion: After informed consent and the above conscious sedation, the patient underwent elective electrical synchronized cardioversion with 150 joules of biphasic energy and converted to normal sinus rhythm. There were no complications. Complications None Condition Stable Disposition Observation
--- NOTE | 2022-11-21 10:58 | SUR.PHASEII ---
1030 patient discharged and taken to private vehicle via wheelchair. Patient's driving her home. Discharge instructions reviewed. Patient/ had no further questions/concerns. Patient's VSS at discharge and patient denied any s/s or problems. Patient [facility] follow [facility] with [facility] already schedule with LICENSED MENTAL HEALTH PROFESSIONAL on 11/27/2022 at 1030 am which she will keep.
== END 2022-11-21 10:30 | disposition home or self-care (01) ==
PROVIDERS: Internal Medicine Cardiovascular Disease; PCP Family Medicine; Visit Provider Internal Medicine
PROC: 5A2204Z Restoration of Cardiac Rhythm, Single (ICD-10-PCS; principal; 2022-11-21 08:30)
DX: I48.0 Paroxysmal atrial fibrillation (principal); I11.0 Hypertensive heart disease with heart failure; I50.32 Chronic diastolic (congestive) heart failure; E03.9 Hypothyroidism, unspecified; F41.9 Anxiety disorder, unspecified; K21.9 Gastro-esophageal reflux disease without esophagitis; Z79.01 Long term (current) use of anticoagulants; E87.1 Hypo-osmolality and hyponatremia; Z95.0 Presence of cardiac pacemaker
CPT/HCPCS: 36415; 80048; 83735; 92960; J2250; J3010; J7030

== ENCOUNTER 2022-11-27 11:39 | Outpatient (CLI) | payer MEDICARE, OTHER, SELFPAY ==
[2022-11-27 13:00] LABS: Anion Gap 6 mmol/L (8-16); Blood Urea Nitrogen 19 mg/dL (7-17); Calcium 8.7 mg/dL (8.4-10.2); Carbon Dioxide 28 mmol/L (22-30); Chloride 92 mmol/L (98-107); Estimated Glomerular Filt Rate > 60; Glucose 92 mg/dL (65-110); Phosphorus 4.3 mg/dL (2.5-4.5); Potassium 4.7 mmol/L (3.4-5.0); Sodium 126 mmol/L (137-145)
== END 2022-11-27 11:40 | disposition home or self-care (01) ==
LOC: ANHLAB 11:43
PROVIDERS: PCP Family Medicine; Visit Provider Internal Medicine Nephrology
DX: E87.1 Hypo-osmolality and hyponatremia (principal)
CPT/HCPCS: 36415; 80069

== ENCOUNTER 2022-12-25 16:45 | Inpatient (IN) | payer MEDICARE, OTHER, SELFPAY ==
[2022-12-25] VITALS (24 sets, daily range): BP systolic 111–126; BP diastolic 83–110; PULSE 95–123; RESP 13–25; TEMP 36.6; O2SAT 96–100
--- NOTE | ~2022-12-25 | CT_ITS ---
EXAMINATION: CT abdomen pelvis w con DATE: 12/25/2022 22:24 INDICATION: Abdominal pain TECHNIQUE: Computed tomography (CT) of the abdomen and pelvis was performed with 100 mL Omnipaque-350 intravenous contrast. Automated exposure control and iterative reconstruction technique were employe d. The dose-length product was 221.75 mGy-cm. COMPARISON: None FINDINGS: Moderate scattered discoid atelectasis at the bilateral lung bases. Small right pleural effusion. Mod erate cardiomegaly including right ventricular and biatrial enlargement. Median sternotomy wires and both mitral and tricuspid valve repairs. No pericardial effusion. Three lead pacemaker seen with lead tips terminating at the right atrial appendage, the apex of the right ventricle and in a coronary ve in overlying the inferolateral wall of the left ventricle having traversed the coronary sinus several splenic calcific lesions consistent with old granulomatous disease. Liver appears mildly enlarged an d there is suggestion of some liver surface nodularity which raises the possibility of cirrhosis. The re is reflux of contrast into the inferior vena cava and hepatic veins which can be seen with tricusp id regurgitation. There is small amount of ascites scattered throughout the abdomen and pelvis includ ing around the normal-appearing partially decompressed gallbladder. Indeterminate 8 mm cystic lesion at the junction of the body and tail of the pancreas. The left kidney and bilateral adrenal glands ar e normal. Right kidney is positioned in the right lower quadrant and horizontally oriented. Normal ap pendix. Bowels are unremarkable with no wall thickening or obstruction. Bladder is normal. There are prominent parametrial vessels and both sides of the normal retroverted uterus. No abscess or free int raperitoneal gas. No pathologically enlarged abdominal or pelvic lymphadenopathy. Mild lumbar levosco liosis and 4 mm anterolisthesis L4 on L5. Mild to moderate lumbar and lower thoracic spondylosis. IMPRESSION: 1. Moderate bibasilar atelectasis with small right pleural effusion. 2. Cardiomegaly. 3. Mild hepatomegaly with mild periportal edema and suggestion of some subtle liver surface nodularit y which is suggestive but not diagnostic of cirrhosis. 4. Small amount of ascites throughout the abdomen and pelvis. 5. 8 mm cystic pancreatic lesion. Consider follow-up pre and postcontrast MRI or CT. Reviewed, dictated and finalized at location A. RVISOR MULTIFOCAL LENS IMPRESSION: 1. Moderate bibasilar atelectasis with small right pleural effusion. 2. Cardiomegaly. 3. Mild hepatomegaly with mild periportal edema and suggestion of some subtle l iver surface nodularity which is suggestive but not diagnostic of cirrhosis. 4. Small amount of ascites throughout the abdomen and pelvis. 5. 8 mm cystic pancreatic lesion. Consider follow-up pre and postcontrast MRI o r CT.
--- NOTE | ~2022-12-25 | XR_ITS ---
EXAMINATION: XR chest 2V DATE: 12/27/2022 10:37 INDICATION: Pneumonia, shortness of breath TECHNIQUE: PA and lateral views of the chest are obtained. COMPARISON: 12/25/2022 FINDINGS: There are small pleural effusions. Bibasilar airspace opacities persist but have decreased. There is no pneumothorax. Scarring is noted in the lung apices. Cardiomegaly is noted. There are parth nges of mitral and tricuspid annulus. A triple lead cardiac pacemaker of the left chest wall ends wit h leads in expected locations. There is moderate thoracic spondylosis. IMPRESSION: 1. Improved bibasilar airspace opacities, consistent with atelectasis versus pneumonia. 2. Small pleural effusions, stable. 3. Cardiomegaly. Reviewed, dictated and finalized at location B. MENT CONTROL ASSISTANT IMPRESSION: 1. Improved bibasilar airspace opacities, consistent with atelectasis versus pn eumonia. 2. Small pleural effusions, stable. 3. Cardiomegaly.
--- NOTE | ~2022-12-25 | XR_ITS ---
EXAMINATION: XR chest 2V DATE: 12/25/2022 17:23 INDICATION: Shortness of breath and abdominal pain TECHNIQUE: PA and lateral views of the chest were obtained. COMPARISON: Chest radiograph dated 05/30/2021 FINDINGS: Opacities at the bilateral lower lung zones, right greater than left. Small bilateral pleural effusio ns with blunting at the right costophrenic angle and bilateral posterior sulci. No pulmonary edema or pneumothorax. Cardiomegaly. Venous sternotomy wires and appears at least 2 cardiac valves, likely luz th mitral and tricuspid. Retained epicardial pacemaker leads. Three lead pacemaker seen with leads pr ojecting over the expected locations of the right atrial appendage, apex of the right ventricle and o verlying the left ventricle likely having traversed the coronary sinus. Osteopenia and mild thoracic kyphosis with chronic mild anterior wedging of a few mid thoracic vertebral bodies. Moderate thoracic spondylosis. IMPRESSION: 1. Small bilateral pleural effusions. 2. Bibasilar opacities which could represent associated atelectasis or pneumonia. 3. Cardiomegaly. Reviewed, dictated and finalized at location A. DOZER OPERATOR IMPRESSION: 1. Small bilateral pleural effusions. 2. Bibasilar opacities which could represent associated atelectasis or pneumoni a. 3. Cardiomegaly.
--- NOTE | 2022-12-25 16:59 | ECG_ITS ---
Measurements Intervals [place] Rate: 105 P: [place]: 0 QRS: -79 QRSD: 134 T: 122 QT: 379 QTc: 502 Interpretive Statements ATRIAL FIBRILLATION WITH RAPID VENTRICULAR RESPONSE LEFT BUNDLE BRANCH BLOCK COMPARED TO ECG 11/21/2022 09:12:35 ATRIAL FIBRILLATION NOW PRESENT Electronically Signed On 12-26-2022 14:47:33 HOSIERY PAIRER by Mary Pierce M.D.
[2022-12-25 17:27] LABS: Basophils Percent Auto 0.4 % (0.2-1.2); Eosinophils Absolute Auto 0.1 K/mm3 (0-0.3); Eosinophils Percent Auto 1.5 % (0-4.4); Hematocrit 34.4 % (37.0-47.0); Hemoglobin 11.4 g/dL (12.0-15.0); Immature Granulocyte Absolute 0.03 K/mm3 (0.00-0.031); Immature Granulocyte Percent A 0.6 % (0-0.5); Lymphocytes Absolute Auto 0.62 K/mm3 (0.9-3.2); Lymphocytes Percent Auto 11.9 % (18.3-44.2); Mean Corpuscular HGB Conc 33.1 g/dl (32-36); Mean Corpuscular Hemoglobin 30.2 pg (26-34); Mean Corpuscular Volume 91.2 fl (80-100); Mean Platelet Volume 9.6 fl (7.4-10.4); Monocytes Absolute Auto 0.6 K/mm3 (0.1-0.6); Neutrophils Absolute Auto 3.9 K/mm3 (1.3-6.7); Neutrophils Percent Auto 74.6 % (45.5-73.1); Platelet Count Result 214 k/mm3 (150-375); Red Blood Count 3.77 M/mm3 (4.2-5.4); Red Cell Distribution Width 14.3 % (11.5-14.5); White Blood Count 5.2 K/mm3 (4.5-10.0)
[2022-12-25 17:36] LABS: Alanine Aminotransferase 43 U/L (6-35); Alkaline Phosphatase 91 U/L (38-126); Anion Gap 9 mmol/L (8-16); Aspartate Amino Transferase 42 U/L (14-36); Bilirubin,Total 0.9 mg/dL (0.2-1.3); Blood Urea Nitrogen 24 mg/dL (7-17); Calcium 8.8 mg/dL (8.4-10.2); Carbon Dioxide 24 mmol/L (22-30); Chloride 90 mmol/L (98-107); Estimated CRCL calculation 40 ml/min; Estimated Glomerular Filt Rate 60; Glucose 109 mg/dL (65-110); Potassium 4.6 mmol/L (3.4-5.0); Sodium 123 mmol/L (137-145)
[2022-12-25 17:37] LABS: INR 1.5; Prothrombin Time 17.8 Seconds (11.1-14.7)
--- NOTE | 2022-12-25 21:18 | ED.GENADULT ---
HPI - General Adult General Chief complaint: Unspecified Stated complaint: abdominal and leg swelling/ diarrhea Time Seen by Provider: 12/25/22 21:05 History of Present Illness HPI narrative: 77-year-old female presenting to the emergency department for evaluation of multiple complaints including abdominal pain, bloating, diarrhea, lower extremity edema and nausea. Patient states she has had ongoing issues with hyponatremia and is following up with Dr. Najera. Patient states she has also had issues with A-fib and is scheduled for ablation by a physician and [facility]. Patient states that her bloating and diarrhea has worsened over the last few days. Patient states she was having some abdominal pain earlier today but that is since begun to improve. Patient denies any associated chest pain or shortness of breath. Patient has a history of congestive heart failure, chronic diarrhea, hypertension, hypothyroidism, atrial fibs with RVR Related Data Home Medications Medication Instructions Recorded Confirmed apixaban 5 mg tablet (Eliquis) 5 mg PO BID 10/15/19 12/26/22 ascorbic acid (vitamin C) 500 mg 500 mg PO DAILY 10/15/19 12/26/22 tablet calcium carbonate 500 mg-vitamin 2 tablet PO DAILY 10/15/19 12/26/22 D3 5 mcg (200 unit) tablet cyclosporine 0.05 % eye drops 1 drop ophthalmic (eye) Q12H 10/15/19 12/26/22 (Restasis MultiDose) oknfgaen-kofxuun-xusc-lutein tablet 1 tablet PO 1200 10/15/19 12/26/22 peg 400-propylene glycol 0.4 %-0.3 1 drop ophthalmic (eye) DAILY PRN 10/15/19 12/26/22 % eye drops (Systane (propylene Dry Eyes glycol)) diphenhydramine HCl 25 mg capsule 12.5 mg PO HS PRN Allergy Symptoms 12/30/20 12/26/22 (Benadryl) lactobacillus combination no.8 3 3,000 mmu cells PO DAILY 12/30/20 12/26/22 billion cell capsule (Adult Probiotic) acetaminophen 500 mg tablet 500 mg PO QID PRN Pain (Scale 05/03/21 12/26/22 (Tylenol Extra Strength) Score 1-3) ketoconazole 2 % topical cream 1 applic topical BID PRN as needed 03/21/22 12/26/22 for rosacea lisinopril 40 mg tablet 20 mg PO QPM 03/21/22 12/26/22 carvedilol 25 mg tablet 37.5 mg PO HS 09/06/22 12/26/22 furosemide 40 mg tablet 20 mg PO DAILY 09/06/22 12/26/22 cholecalciferol (vitamin D3) 50 50 mcg PO DAILY 09/18/22 12/26/22 mcg (2,000 unit) tablet (Vitamin D3) loratadine 10 mg tablet 5 mg PO QAM PRN Allergy Symptoms 09/19/22 12/26/22 carvedilol 25 mg tablet 25 mg PO DAILY 11/17/22 12/26/22 triamcinolone acetonide 0.1 % 1 applic topical BID PRN Dry Skin 11/17/22 12/26/22 topical cream levothyroxine 50 mcg tablet 50 mcg PO DAILY 12/26/22 12/26/22 Allergies Allergy/AdvReac Type Severity Reaction Status Date / Time codeine Allergy Severe Hypotension Verified 11/21/22 07:09 bacitracin Allergy Intermediate Rash Verified 11/21/22 07:09 adhesive Allergy Mild Rash Verified 11/21/22 07:09 metoprolol Allergy Mild Other Verified 11/21/22 07:09 alendronate sodium AdvReac Severe fluid Verified 11/21/22 07:09 [From Fosamax] retention erythromycin base AdvReac Severe transformation architect Verified 11/21/22 07:09 told her not to take d/t other meds esomeprazole [From Nexium] AdvReac Severe Pancreatiti Verified 11/21/22 07:09 s azithromycin AdvReac Unknown transformation architect Verified 11/21/22 07:09 told her not to take d/t other meds dexamethasone AdvReac Unknown Unknown Verified 11/21/22 07:09 levofloxacin [From Levaquin] AdvReac Unknown transformation architect Verified 11/21/22 07:09 told her not to take d/t other meds Review of Systems Review of Systems: CONSTITUTIONAL: Denies fever, chills, or sweats. EYES: Denies visual changes, redness, or discharge. ENT: Denies rhinorrhea, congestion, sore throat, or otalgia. CARDIOVASCULAR: Denies chest pain, palpitations, or edema. RESPIRATORY: Denies cough or dyspnea. GASTROINTESTINAL: See HPI GENITOURINARY: Denies dysuria or hematuria. SKIN: Denies rash or itching. MUSCULO
[2022-12-25 21:44] LABS: NT Pro B Type Natriuretic Pept 7480 pg/mL (19.9-100)
[2022-12-25 22:08] LABS: Influenza A QL RT-PCR Negative (Negative); Influenza B QL RT-PCR Negative (Negative); RSV RNA, RT-PCR Negative (Negative); SARS-CoV-2 RNA PCR Negative
[2022-12-25] MEDS: FUROSEMIDE INJ 40 MG/4 ML VIAL IV PUSH (23:26)
[2022-12-26] VITALS (27 sets, daily range): BP systolic 91–123; BP diastolic 65–95; PULSE 98–126; RESP 13–21; TEMP 36.2–36.6; O2SAT 96–100; BMI 20.7
--- NOTE | 2022-12-26 | ECHO_ITS ---
Patient Info Name: Lakeisha Simental Age: 77 years : 1945 Gender: Female Ht: 65 in Wt: 125 lbs BSA: 1.61 m2 HR: 120 bpm BP: 109 / 86 mmHg Heart Rhythm: Atrial Fibrillation, Tachycardia Exam Date: 12/26/2022 8:31 AM Exam Location: [facility] Patient Status: Outpatient Admit Date: 12/26/2022 Staff Ordering Physician: Lon Howe MD Repair Miller: Andrez Rodriguez, RUT, RT Attending Provider: Lon Howe MD Referring Physician: Carley LONDON; Exam Type: CA echo dop color flow w con Study Info Indications I50.9 - Heart failure, unspecified Complete two-dimensional, color flow and Doppler transthoracic echocardiogram is performed with contrast to opacify the left ventricle and to improve the deliniation of the left ventricle endocardial borders. Summary 1. Left ventricular chamber dimension is normal. 2. Left ventricular systolic function is moderately reduced, estimated at 35-40%. Of note, patient is in atrial fibrillation with RVR during this study. 3. There is mildly increased left ventricular wall thickness. 4. Right ventricular chamber dimension is severely enlarged. 5. Right ventricular systolic function is reduced. 6. Left atrial chamber dimension is severely enlarged. 7. Right atrial chamber dimension is severely enlarged. 8. Mitral annular region thickened with prior annuloplasty. 9. There is mild regurgitation of the mitral valve. 10. Tricuspid annular region thickened with prior annuloplasty. 11. There is moderate tricuspid valve regurgitation. 12. Dilated inferior vena cava with no collapse upon inspiration consistent with significantly elevated right atrial pressure, 15 mmHg. Left Ventricle Left ventricular chamber dimension is normal. Left ventricular systolic function is moderately reduced, estimated at 35-40%. Of note, patient is in atrial fibrillation with RVR during this study. There is mildly increased left ventricular wall thickness. Global longitudinal strain is abnormal at -10 %. Right Ventricle Linear artifact in right ventricle suggestive of catheter(s), pacemaker lead(s), or ICD lead(s). Right ventricular chamber dimension is severely enlarged. Right ventricular systolic function is reduced. Left Atria Left atrial chamber dimension is severely enlarged. Right Atria Linear artifact in the right atrium suggestive of catheter(s), pacemaker lead(s), or ICD lead(s). Right atrial chamber dimension is severely enlarged. Atrial Septum Intact interatrial septum visualized by color flow imaging. Aortic Valve The aortic valve is trileaflet. There is mild aortic valve sclerosis. There is no aortic valve stenosis. There is no aortic valve regurgitation. Pulmonic Valve The pulmonic valve is not well visualized. There is no pulmonic regurgitation. Mitral Valve Mitral annular region thickened with prior annuloplasty. There is no stenosis of the annuloplasty ring prosthetic mitral valve. There is mild regurgitation of the mitral valve. Tricuspid Valve Tricuspid annular region thickened with prior annuloplasty. There is moderate tricuspid valve regurgitation. Pericardium/Pleural There is no pericardial effusion. Inferior Vena Cava Dilated inferior vena cava with no collapse upon inspiration consistent with significantly elevated right atrial pressure, 15 mmHg. Aorta The aortic root size at the sinus of Valsalva is normal. Left Ventricular Outflow Tract
--- NOTE | 2022-12-26 01:40 | ADMGEN ---
This patient, Lakeisha Simental, was admitted to IMU Room 214-01. Patient/family oriented to hospital policies and general routines including ID bracelet, bed and alarms, visiting hours, pain management, procedures, bathroom and other care routines, personal items, smoking policy, room service/diet, and visiting hours. Information on how to activate the Rapid Response Team has been discussed. Patient/Family are encouraged to report perceived risks to care and to ask questions if they do not understand what they are told or what they should do.
--- NOTE | 2022-12-26 05:33 | PM.IMHP ---
H&P: HPI History of Present Illness Date/Time: 12/26/22 05:33 Chief Complaint: Shortness of breath Narrative: This is a 77-year-old female with past medical history significant for diastolic congestive heart failure, biventricular pacemaker, atrial fibrillation, rate controlled anticoagulated, cardioversion, hyponatremia, hypothyroidism, bilateral lower extremity heel ulcers. Patient presents to the emergency room due to bilateral lower extremity swelling increased abdominal girth, shortness of breath this has been worsening in the last few days, she has been following up in the outpatient setting for her chronic ulcers and she has been on Lasix for bilateral lower extremity swelling she is also scheduled for sinus node ablation at outside facility. Preliminary workup was significant for sodium 123 , chloride 90, BNP 7480, patient tested negative for influenza type A, influenza type B, RSV and COVID-19. A chest x-ray was reported as: FINDINGS: Opacities at the bilateral lower lung zones, right greater than left. Small bilateral pleural effusions with blunting at the right costophrenic angle and bilateral posterior sulci. No pulmonary edema or pneumothorax. Cardiomegaly. Venous sternotomy wires and appears at least 2 cardiac valves, likely both mitral and tricuspid. Retained epicardial pacemaker leads. Three lead pacemaker seen with leads projecting over the expected locations of the right atrial appendage, apex of the right ventricle and overlying the left ventricle likely having traversed the coronary sinus. Osteopenia and mild thoracic kyphosis with chronic mild anterior wedging of a few mid thoracic vertebral bodies. Moderate thoracic spondylosis. IMPRESSION: 1. Small bilateral pleural effusions. 2. Bibasilar opacities which could represent associated atelectasis or pneumonia. 3. Cardiomegaly. A CT of abdomen and pelvis was reported as: IMPRESSION: 1. Moderate bibasilar atelectasis with small right pleural effusion. 2. Cardiomegaly. 3. Mild hepatomegaly with mild periportal edema and suggestion of some subtle liver surface nodularity which is suggestive but not diagnostic of cirrhosis. 4. Small amount of ascites throughout the abdomen and pelvis. 5. 8 mm cystic pancreatic lesion. Consider follow-up pre and postcontrast MRI or CT. Review of Systems Review of Systems: Bilateral lower extremity swelling, palpitations, shortness of breath, increased abdominal girth. Constitutional: Constitutional: Denies chills, Reports fatigue, Denies fever(s), Reports lethargy, Denies malaise and Denies weakness Eyes: Eyes: Denies change in vision ENT: Denies dysphagia and Denies odynophagia Cardiovascular: Cardiovascular: Denies chest pain, Reports irregular heart rhythm, Reports leg edema, Denies radiating jaw, neck or arm pain, Reports palpitations and Reports dyspnea on exertion Respiratory: Respiratory: Denies change in phlegm color, Denies chest congestion, Denies cough and Denies excessive phlegm production Gastrointestinal: Gastrointestinal: Denies abdominal pain, Denies dyspepsia, Denies heartburn, Denies diarrhea, Denies nausea and Denies vomiting Genitourinary: Genitourinary: Denies dysuria Musculoskeletal: Musculoskeletal: Denies muscle weakness Integumentary/Breasts: Skin/Breast: Reports skin ulcer (Bilateral lower extremity) Neurologic: Denies focal weakness and Denies Sensory deficit (Neuro) Psychiatric: Psychiatric: Reports no additional psychiatric complaints and Reports as per HPI Endocrine: Endocrine: Denies cold intolerance, Denies flushing, Denies heat intolerance, Denies polyphagia, Denies polydipsia and Denies palpitations Hematologic/Lymphatic: Hematologic/Lymphatic: Reports no additional hematologic/lymphatic complaints and Reports as per HPI Allergic/Immunologic: Allergic/Immunologic: Reports no additional allergic/immunologic complaints and Reports as per HPI PMFSH Past Medical History Medical History (Updated 02
[2022-12-26] MEDS: LEVOTHYROXINE SODIUM 50 MCG TABLET PO (06:36)
[2022-12-26] MEDS: PERFLUTREN LIPID MICROSPHERES 1.5 ML VIAL DILUTED TO 10 ML TOTAL VOLUME IV PUSH (08:58)
--- NOTE | 2022-12-26 08:58 | IVDEFINITY ---
Prior to administration of IV Definity the patient was educated on the risks and benefits of the imaging enhancing agent including potential adverse side effects. The patient verbalized understanding. Allergies were verified. No exclusion criteria were identified and at least one of the following inclusion criteria were met: 1) physician request, 2) patient technically difficult to image (per the [employer] guidelines of two or more segments not discernable within the apical view), or 3) questionable left ventricular function. ?
[2022-12-26] MEDS: SOTALOL HCL 80 MG TABLET PO ×2 (09:02→20:37)
[2022-12-26] MEDS: SPIRONOLACTONE 25 MG TABLET PO (09:02)
[2022-12-26] MEDS: carvediloL 25 MG TABLET PO (09:02)
[2022-12-26] MEDS: cycloSPORINE 0.4 ML OPHTH SOLUTION 1 DROP EACH EYE ×2 (09:02→20:35)
[2022-12-26] MEDS: APIXABAN 5 MG TABLET PO ×2 (09:02→20:37)
--- NOTE | 2022-12-26 09:34 | P.CONNP_ITS ---
Assessment and Plan Assessment and plan (1) Hyponatremia: Code(s): E87.1 - Hypo-osmolality and hyponatremia Status: Acute Assessment and Plan: * acute on chronic * baseline sodium level runs ~ 127 - 132mmol/L in the last few years * her chronic systolic heart failure and need for diuretic therapy are her major risk factors for her low sodium * extensive outpatient evaluation already done: * no culprit medications (SSRIs, narcotics, thiazide diuretics...etc) * no lung disease (COPD, emphysema...etc) * no known issues with malignancy * negative SPEP and UPEP * TSH stable but cortisol level was a tad low * suspect #2 resulting in acute drop in sodium * fluid restriction for now * gentle IV diuresis * will recheck TSH and cortisol * follow trend of sodium (2) Acute on chronic diastolic heart failure: Code(s): I50.33 - Acute on chronic diastolic (congestive) heart failure Status: Acute Assessment and Plan: * as suggested by admission testing/exam * gentle IV diuresis * Echo ordered * consider Cardiology consultation (3) Atrial fibrillation with rapid ventricular response: Code(s): I48.91 - Unspecified atrial fibrillation Status: Acute Assessment and Plan: * continues attempts at rate control * on anticoagulation * apparently scheduled for ablation at an outside facility (4) Lung infiltrate: Code(s): R91.8 - Other nonspecific abnormal finding of lung field Status: Acute Assessment and Plan: * possible pneumonia (?) * this could potential exacerbate her hyponatremia as well.... * on antibiotics * follow culture data Will continue to follow. History of Present Illness Reason for Consult Consult date: 12/26/22 Reason for consult: hyponatremia (acute on chronic) Chief Complaint Chief complaint: Hyponatremia,Third Spacing,Atrial Fibrillation History of Present Illness Narrative: The patient is a 77-year-old female with a past medical history as outlined below who presented to [facility] Emergency room due to complaints of increasing bilateral lower extremity edema in association with worsening abdominal fullness/girth and shortness of breath. All these symptoms seems to have acutely declined in the last several days. She reports compliance with her medications and diet and the only new issue/problem that she has been dealing with his chronic ulcers in her lower extremities. She does report that due to her ongoing cardiac issues, she is scheduled for a sinus node ablation at an outside facility. Nevertheless, given the a for mentioned symptoms as mentioned, she presented to the emergency room for further assessment Workup and evaluation emergency room demonstrated the patient be hemodynamically stable and preliminary blood test demonstrated a sodium of 123, elevated BNP of 7480, and negative testing with regard to influenza A/B, RSV, and COVID-19. A chest x-ray demonstrated small bilateral pleural effusions, bibasilar opacities which could represent associated atelectasis or pneumonia, and cardiomegaly. g iven her constellation of symptoms as well as these laboratory and imaging findings, appropriate cultures were obtained and she was started on antibiotics on the assumption of possible pneumonia as well as treatment of what appeared to be acute on chronic CHF in association with hyponatremia. Renal consultation was requested due to her acute on chronic hyponatremia. The patient is quite familiar to me as I take care of her outpatient needs with regard to management of her hyponatremia. She has bas
--- NOTE | 2022-12-26 09:34 | PM.CNNEP ---
Assessment and Plan Assessment and plan (1) Hyponatremia: Code(s): E87.1 - Hypo-osmolality and hyponatremia Status: Acute Assessment and Plan: acute on chronic baseline sodium level runs ~ 127 - 132mmol/L in the last few years her chronic systolic heart failure and need for diuretic therapy are her major risk factors for her low sodium extensive outpatient evaluation already done: no culprit medications (SSRIs, narcotics, thiazide diuretics...etc) no lung disease (COPD, emphysema...etc) no known issues with malignancy negative SPEP and UPEP TSH stable but cortisol level was a tad low suspect #2 resulting in acute drop in sodium fluid restriction for now gentle IV diuresis will recheck TSH and cortisol follow trend of sodium (2) Acute on chronic diastolic heart failure: Code(s): I50.33 - Acute on chronic diastolic (congestive) heart failure Status: Acute Assessment and Plan: as suggested by admission testing/exam gentle IV diuresis Echo ordered consider Cardiology consultation (3) Atrial fibrillation with rapid ventricular response: Code(s): I48.91 - Unspecified atrial fibrillation Status: Acute Assessment and Plan: continues attempts at rate control on anticoagulation apparently scheduled for ablation at an outside facility (4) Lung infiltrate: Code(s): R91.8 - Other nonspecific abnormal finding of lung field Status: Acute Assessment and Plan: possible pneumonia (?) this could potential exacerbate her hyponatremia as well.... on antibiotics follow culture data Will continue to follow. History of Present Illness Reason for Consult Consult date: 12/26/22 Reason for consult: hyponatremia (acute on chronic) Chief Complaint Chief complaint: Hyponatremia,Third Spacing,Atrial Fibrillation History of Present Illness Narrative: The patient is a 77-year-old female with a past medical history as outlined below who presented to [facility] Emergency room due to complaints of increasing bilateral lower extremity edema in association with worsening abdominal fullness/girth and shortness of breath. All these symptoms seems to have acutely declined in the last several days. She reports compliance with her medications and diet and the only new issue/problem that she has been dealing with his chronic ulcers in her lower extremities. She does report that due to her ongoing cardiac issues, she is scheduled for a sinus node ablation at an outside facility. Nevertheless, given the a for mentioned symptoms as mentioned, she presented to the emergency room for further assessment Workup and evaluation emergency room demonstrated the patient be hemodynamically stable and preliminary blood test demonstrated a sodium of 123, elevated BNP of 7480, and negative testing with regard to influenza A/B, RSV, and COVID-19. A chest x-ray demonstrated small bilateral pleural effusions, bibasilar opacities which could represent associated atelectasis or pneumonia, and cardiomegaly. given her constellation of symptoms as well as these laboratory and imaging findings, appropriate cultures were obtained and she was started on antibiotics on the assumption of possible pneumonia as well as treatment of what appeared to be acute on chronic CHF in association with hyponatremia. Renal consultation was requested due to her acute on chronic hyponatremia. The patient is quite familiar to me as I take care of her outpatient needs with regard to management of her hyponatremia. She has baseline chronic hyponatremia with a sodium level that runs anywhere from 127-132 millimoles per L. Outpatient workup and evaluation seemed to indicate that her chronic heart failure issues and the necessity for diuretic therapy was more to blame for her fluctuating sodium levels in general than anything else. Her extensive outpatient evaluation is detailed as outlined abov
[2022-12-26] MEDS: ACIDOPHILUS/BULGARICUS CHEWABLE TABLET 2 TABLET BY MOUTH (13:09)
[2022-12-26] MEDS: CHOLECALCIFEROL 1,000 UNITS TABLET 2000 UNITS PO (13:10)
[2022-12-26] MEDS: ASCORBIC ACID 500 MG TABLET PO (13:10)
[2022-12-26] MEDS: MULTIVITAMINS /C LUTEIN (CENTRUM SILVER) TABLET *BKC 1 TAB PO (13:11)
[2022-12-26] MEDS: FAMOTIDINE 20 MG TABLET 40 MG PO (13:11)
[2022-12-26] MEDS: FUROSEMIDE INJ 40 MG/4 ML VIAL IV PUSH ×2 (13:17→17:56)
[2022-12-26] MEDS: FUROSEMIDE INJ 40 MG/4 ML VIAL (14:00)
--- NOTE | 2022-12-26 16:31 | PM.IMPN ---
Progress Note: A&P Assessment and Plan (1) Acute on chronic diastolic heart failure: Code(s): I50.33 - Acute on chronic diastolic (congestive) heart failure Status: Acute Assessment and Plan: Admit to IMU unit Will obtain echocardiogram in a.m. Gentle diuresis 12/26/2022 interval history: 77-year-old female presented with complaint of shortness of breath, lower extremity edema as well as along her pelvic area patient states she was given IV Lasix in the ER that has improved her swelling is not a short of breath, will continue to diurese the patient, to further evaluate patient had a cardiac echo showed moderately reduced systolic ejection fraction 35-40% most likely patient is having acute on chronic systolic congestive Heart failure, patient is also found to have atrial fibrillation, will consult Cardiology for further recommendation. will have a PT OT evaluate the patient and further recommendation to follow. (2) Hyponatremia: Code(s): E87.1 - Hypo-osmolality and hyponatremia Status: Acute Assessment and Plan: Likely worsened in by acute on chronic congestive heart failure and diuresis Acute on chronic hyponatremia Nephrology consult (3) Atrial fibrillation with rapid ventricular response: Code(s): I48.91 - Unspecified atrial fibrillation Status: Acute Assessment and Plan: Rate controlled anticoagulated Patient is scheduled for sinus no ablation in outside facility (4) Lung infiltrate: Code(s): R91.8 - Other nonspecific abnormal finding of lung field Status: Acute Assessment and Plan: Started on Rocephin and Zithromax Cultures in progress (5) Biventricular cardiac pacemaker in situ: Code(s): Z95.0 - Presence of cardiac pacemaker Status: Acute Assessment and Plan: Continue to monitor (6) GERD (gastroesophageal reflux disease): Qualifiers: Esophagitis presence: esophagitis presence not specified Qualified Code(s): K21.9 - Gastro-esophageal reflux disease without esophagitis Code(s): K21.9 - Gastro-esophageal reflux disease without esophagitis Status: Acute Assessment and Plan: PPI Subjective Date/time seen: 12/26/22 16:31 Chief Complaint: Shortness of breath Narrative: This is a 77-year-old female with past medical history significant for diastolic congestive heart failure, biventricular pacemaker, atrial fibrillation, rate controlled anticoagulated, cardioversion, hyponatremia, hypothyroidism, bilateral lower extremity heel ulcers.? Patient presents to the emergency room due to bilateral lower extremity swelling increased abdominal girth, shortness of breath this has been worsening in the last few days, she has been following up in the outpatient setting for her chronic ulcers and she has been on Lasix for bilateral lower extremity swelling she is also scheduled for sinus node ablation at outside facility.? Preliminary workup was significant for sodium 123 , chloride 90, BNP 7480, patient tested negative for influenza type A, influenza type B, RSV and COVID-19. A chest x-ray was reported as: FINDINGS: Opacities at the bilateral lower lung zones, right greater than left. Small bilateral pleural effusions with blunting at the right costophrenic angle and bilateral posterior sulci. No pulmonary edema or pneumothorax. Cardiomegaly. Venous sternotomy wires and appears at least 2 cardiac valves, likely both mitral and tricuspid. Retained epicardial pacemaker leads. Three lead pacemaker seen with leads projecting over the expected locations of the right atrial appendage, apex of the right ventricle and overlying the left ventricle likely having traversed the coronary sinus. Osteopenia and mild thoracic kyphosis with chronic mild anterior wedging of a few mid thoracic vertebral bodies. Moderate thoracic spondylosis. IMPRESSION: 1. Small bilateral pleural effusions. 2. Bibasilar opacities which could represent
[2022-12-26] MEDS: lisinopriL 20 MG TABLET PO (16:55)
[2022-12-26 18:38] LABS: Sodium 126 mmol/L (137-145)
[2022-12-26] MEDS: carvediloL 12.5 MG TABLET 37.5 MG PO (20:36)
[2022-12-27] VITALS (26 sets, daily range): BP systolic 71–116; BP diastolic 50–78; PULSE 93–126; RESP 16–20; TEMP 36.2–36.7; O2SAT 97–100
[2022-12-27 05:10] LABS: Hematocrit 31.8 % (37.0-47.0); Hemoglobin 10.8 g/dL (12.0-15.0); Mean Corpuscular Hemoglobin 30.4 pg (26-34); Mean Corpuscular Volume 89.6 fl (80-100); Platelet Count Result 188 k/mm3 (150-375); Red Blood Count 3.55 M/mm3 (4.2-5.4); Red Cell Distribution Width 14.1 % (11.5-14.5); White Blood Count 4.6 K/mm3 (4.5-10.0)
[2022-12-27 05:22] LABS: Albumin Level 3.4 g/dL (3.5-5.1); Anion Gap 6 mmol/L (8-16); Blood Urea Nitrogen 23 mg/dL (7-17); Calcium 8.5 mg/dL (8.4-10.2); Carbon Dioxide 28 mmol/L (22-30); Chloride 93 mmol/L (98-107); Estimated CRCL calculation 40 ml/min; Estimated Glomerular Filt Rate 60; Glucose 89 mg/dL (65-110); Magnesium 1.7 mg/dL (1.6-2.3); Phosphorus 4.1 mg/dL (2.5-4.5); Potassium 3.9 mmol/L (3.4-5.0); Sodium 127 mmol/L (137-145)
[2022-12-27] MEDS: LEVOTHYROXINE SODIUM 50 MCG TABLET PO (06:07)
[2022-12-27] MEDS: carvediloL 25 MG TABLET PO (09:05)
[2022-12-27] MEDS: SOTALOL HCL 80 MG TABLET PO ×2 (09:05→21:10)
[2022-12-27] MEDS: APIXABAN 5 MG TABLET PO ×2 (09:05→21:10)
[2022-12-27] MEDS: cycloSPORINE 0.4 ML OPHTH SOLUTION 1 DROP EACH EYE ×2 (09:06→21:09)
[2022-12-27] MEDS: ASCORBIC ACID 500 MG TABLET PO (09:06)
[2022-12-27] MEDS: FUROSEMIDE INJ 40 MG/4 ML VIAL IV PUSH (09:06)
--- NOTE | 2022-12-27 10:20 | PC.NURSE ---
Pt to xray via wheelchair
--- NOTE | 2022-12-27 10:39 | PC.NURSE ---
Pt return from xray via wheelchair
--- NOTE | 2022-12-27 10:52 | PC.NURSE ---
Spoke with Dr. Martinez regarding repeat chest xray. New order to d/c ABX
--- NOTE | 2022-12-27 11:50 | PM.IMPN ---
Progress Note: A&P Assessment and Plan (1) Acute on chronic diastolic heart failure: Code(s): I50.33 - Acute on chronic diastolic (congestive) heart failure Status: Acute Assessment and Plan: Admit to IMU unit Will obtain echocardiogram in a.m. Gentle diuresis 12/27/2022 interval history: 77-year-old female presented with complaint of shortness of breath, lower extremity edema as well as along her pelvic area patient states she was given IV Lasix in the ER that has improved her swelling is not a short of breath, will continue to diurese the patient, to further evaluate patient had a cardiac echo showed moderately reduced systolic ejection fraction 35-40% most likely patient is having acute on chronic systolic congestive Heart failure, patient is also found to have atrial fibrillation, will consult Cardiology for further recommendation. upon arrival there was concern patient may have pneumonia, however abx were not continued from ER, she has no complaints of coung, no fever or chills, white counts are normal blood culure no growth so far, repeat chest x-ray showed improvement, will stop abx, will have a PT OT evaluate the patient and further recommendation to follow. (2) Hyponatremia: Code(s): E87.1 - Hypo-osmolality and hyponatremia Status: Acute Assessment and Plan: Likely worsened in by acute on chronic congestive heart failure and diuresis Acute on chronic hyponatremia Nephrology consult (3) Atrial fibrillation with rapid ventricular response: Code(s): I48.91 - Unspecified atrial fibrillation Status: Acute Assessment and Plan: Rate controlled anticoagulated Patient is scheduled for sinus no ablation in outside facility (4) Lung infiltrate: Code(s): R91.8 - Other nonspecific abnormal finding of lung field Status: Acute Assessment and Plan: Started on Rocephin and Zithromax Cultures in progress (5) Biventricular cardiac pacemaker in situ: Code(s): Z95.0 - Presence of cardiac pacemaker Status: Acute Assessment and Plan: Continue to monitor (6) GERD (gastroesophageal reflux disease): Qualifiers: Esophagitis presence: esophagitis presence not specified Qualified Code(s): K21.9 - Gastro-esophageal reflux disease without esophagitis Code(s): K21.9 - Gastro-esophageal reflux disease without esophagitis Status: Acute Assessment and Plan: PPI Subjective Date/time seen: 12/27/22 11:50 12/27/2022 interval history: 77-year-old female presented with complaint of shortness of breath, lower extremity edema as well as along her pelvic area patient states she was given IV Lasix in the ER that has improved her swelling is not a short of breath, will continue to diurese the patient, to further evaluate patient had a cardiac echo showed moderately reduced systolic ejection fraction 35-40% most likely patient is having acute on chronic systolic congestive Heart failure, patient is also found to have atrial fibrillation, will consult Cardiology for further recommendation. upon arrival there was concern patient may have pneumonia, however abx were not continued from ER, she has no complaints of coung, no fever or chills, white counts are normal blood culure no growth so far, repeat chest x-ray showed improvement, will stop abx, will have a PT OT evaluate the patient and further recommendation to follow. Review of Systems Constitutional: Constitutional: Denies chills, Reports fatigue, Denies fever(s), Reports lethargy, Denies malaise and Denies weakness Exam Narrative: Patient is comfortable, NAD HEENT: eyes are clear and none icteric LUNGS: normal respiratory effort ABD: not distended Lower extremities:edema SKIN: nonjaundiced Neuro: grossly intact. Objective Data Vital Signs Vital Signs: Vital Signs - 24 hr 12/26/22 12:06 12/26/22 12:00 12/26/22 14:00 Temperature 97.4 F L Pulse Rate 116 H 106 H
--- NOTE | 2022-12-27 13:00 | PM.CNCAR ---
Assessment and Plan Assessment and plan (1) CHF (congestive heart failure): Qualifiers: Heart failure chronicity: acute on chronic Heart failure type: combined systolic and diastolic Qualified Code(s): I50.43 - Acute on chronic combined systolic (congestive) and diastolic (congestive) heart failure Code(s): I50.9 - Heart failure, unspecified Status: Acute Assessment and Plan: Acute on chronic decompensated heart failure with reduced ejection fraction symptom medically improved with IV diuresis. Continue to monitor volume status very closely with daily weight, input and output. Monitor electrolytes specifically sodium, potassium and magnesium. Exacerbated secondary to moderate LV dysfunction in conjunction with AFib with RVR which she has not tolerated well in the past. (2) Atrial fibrillation with rapid ventricular response: Code(s): I48.91 - Unspecified atrial fibrillation Status: Acute Assessment and Plan: Continue sotalol 80 mg twice daily as BP permits. Discontinue carvedilol favor metoprolol given relative hypotension and for additional heart rate control as BP permits and as tolerated. Discussed at length with the patient and her . All questions answered to their satisfaction. Patient states in the past she had mild hair loss with metoprolol but is willing to try metoprolol once again and will tolerate this provider heart rate is under better control. Little utility in repeat cardioversion as she failed recently once again. Plan for AV rohith ablation with electrophysiology although given decompensated heart failure it would seem less likely she will tolerate waiting until HYACINTH for Gen change and concomitant AV rohith ablation. Continue systemic anticoagulation with Eliquis 5 mg b.i.d.. (3) Hypotension: Code(s): I95.9 - Hypotension, unspecified Status: Acute Assessment and Plan: Likely a function of intravascular volume depletion due to aggressive diuresis. Appropriate evaluation for underlying infection as warranted particular she does not respond IV fluid bolus. Given hypotension hold on additional diuretic therapy for the time being including spironolactone. Give IV normal saline 250 cc bolus x1 now and observe response. Hold lisinopril and carvedilol for now. As tolerated will transition to metoprolol for additional heart rate control as BP permits. (4) Biventricular cardiac pacemaker in situ: Code(s): Z95.0 - Presence of cardiac pacemaker Status: Acute Assessment and Plan: As above, normal device function, HYACINTH expected within the next 3 months (5) Hyponatremia: Code(s): E87.1 - Hypo-osmolality and hyponatremia Status: Acute Assessment and Plan: Chronic, improved since presentation continue to monitor closely. Appreciate Nephrology involvement and recommendations. (6) H/O mitral valve repair: Code(s): Z98.890 - Other specified postprocedural states Status: Acute Assessment and Plan: Severe left atrial enlargement mild mitral regurgitation otherwise stable function. Prophylactic antibiotic prior to dental/surgical procedures. (7) History of tricuspid valve repair: Code(s): Z98.890 - Other specified postprocedural states Status: Acute Assessment and Plan: Moderate tricuspid valve regurgitation mild pulmonary hypertension History of Present Illness History of Present Illness Consult date/time: Date of service: 12/27/22 13:00 Requesting physician: Susi Martinez MD Consult reason: atrial fibrillation and congestive heart failure Reason For Visit: Hyponatremia,Third Spacing,Atrial Fibrillation Narrative: Patient is a very pleasant 77-year-old female unknown to our service followed by Dr. Nguyễn as an outpatient with past medical history significant for paroxysmal atrial fibrillation on sotalol and anticoagulation, history of mitral prolapse with mitral and tr
[2022-12-27] MEDS: ACIDOPHILUS/BULGARICUS CHEWABLE TABLET 2 TABLET BY MOUTH (13:20)
[2022-12-27] MEDS: CHOLECALCIFEROL 1,000 UNITS TABLET 2000 UNITS PO (13:21)
[2022-12-27] MEDS: MULTIVITAMINS /C LUTEIN (CENTRUM SILVER) TABLET *BKC 1 TAB PO (13:21)
[2022-12-27] MEDS: FAMOTIDINE 20 MG TABLET 40 MG PO (13:21)
[2022-12-27] MEDS: SODIUM CHLORIDE 0.9% IV 250 ML IV CONT (13:23)
--- NOTE | 2022-12-27 13:23 | P.PNNP_ITS ---
Progress Note: A&P Assessment and Plan (1) Hyponatremia: Code(s): E87.1 - Hypo-osmolality and hyponatremia Status: Acute Assessment and Plan: * better * acute on chronic * baseline sodium level runs ~ 127 - 132mmol/L in the last few years * her chronic systolic heart failure and need for diuretic therapy are her major risk factors for her low sodium * extensive outpatient evaluation already done: * no culprit medications (SSRIs, narcotics, thiazide diuretics...etc) * no lung disease (COPD, emphysema...etc) * no known issues with malignancy * negative SPEP and UPEP * TSH stable but cortisol level was a tad low * suspect #2 resulting in acute drop in sodium * fluid restriction for now * gentle IV diuresis * follow trend of sodium (2) Acute on chronic diastolic heart failure: Code(s): I50.33 - Acute on chronic diastolic (congestive) heart failure Status: Acute Assessment and Plan: * as suggested by admission testing/exam * gentle IV diuresis * Cardiology following (3) Atrial fibrillation with rapid ventricular response: Code(s): I48.91 - Unspecified atrial fibrillation Status: Acute Assessment and Plan: * continues attempts at rate control * on anticoagulation * apparently scheduled for ablation at an outside facility (4) Lung infiltrate: Code(s): R91.8 - Other nonspecific abnormal finding of lung field Status: Acute Assessment and Plan: * possible pneumonia (?) * this could potential exacerbate her hyponatremia as well.... * off antibiotics * culture data negative at this time Will continue to follow. Subjective Date/time seen: 12/27/22 13:23 Overall, seems to be doing reasonably well and somewhat better in comparison to admission on my visit; reasonable response to IV diuresis; seen by Cardiology with recommendations noted. Exam Narrative: General: WD/WN elderly female in NAD Heart: normal S1 and S2; no rub Lungs: bibasilar crackles noted Abdomen: soft, nontender, nondistended, positive bowel sounds Extremities: no cyanosis or clubbing; 1+ edema Skin: warm and dry Objective Data Vital Signs Vital Signs: Vital Signs Temp Pulse Resp BP Pulse Ox O2 Del Method 12/27/22 12:00 124 H 12/27/22 12:00 Room Air 12/27/22 13:05 72/54 L 12/27/22 13:01 80/60 L 12/27/22 12:59 74/57 L 12/27/22 12:56 71/50 L 12/27/22 12:54 72/50 L 12/27/22 12:53 98.0 F 107 H 20 80/59 L 97 12/27/22 10:00 116 H 12/27/22 08:00 107 H 12/27/22 08:00 Room Air 12/27/22 09:05 109 H 12/27/22 09:05 109 H 12/27/22 08:00 97.3 F L 126 H 18 108/76 99 12/27/22 05:34 120 H 12/27/22 04:00 108 H 20 100 Room Air 12/27/22 04:00 108 H 12/27/22 04:11 97.7 F 116 H 20 101/75 100 12/27/22 02:00 110 H 12/27/22 00:00 122 H 20 99 Room Air 12/27/22 00:00 122 H 12/26/22 23:27 97.8 F 20 101/67 99 12/26/22 22:00 111 H 12/26/22 20:00 110 H 20 100 Room Air 12/26/22 20:00 110 H 12/26/22 20:37 120 H 12/26/22 20:36 120 H 12/26/22 19:48 97.7 F 114 H 20 100/73 100
--- NOTE | 2022-12-27 13:23 | PM.PNNEP ---
Progress Note: A&P Assessment and Plan (1) Hyponatremia: Code(s): E87.1 - Hypo-osmolality and hyponatremia Status: Acute Assessment and Plan: better acute on chronic baseline sodium level runs ~ 127 - 132mmol/L in the last few years her chronic systolic heart failure and need for diuretic therapy are her major risk factors for her low sodium extensive outpatient evaluation already done: no culprit medications (SSRIs, narcotics, thiazide diuretics...etc) no lung disease (COPD, emphysema...etc) no known issues with malignancy negative SPEP and UPEP TSH stable but cortisol level was a tad low suspect #2 resulting in acute drop in sodium fluid restriction for now gentle IV diuresis follow trend of sodium (2) Acute on chronic diastolic heart failure: Code(s): I50.33 - Acute on chronic diastolic (congestive) heart failure Status: Acute Assessment and Plan: as suggested by admission testing/exam gentle IV diuresis Cardiology following (3) Atrial fibrillation with rapid ventricular response: Code(s): I48.91 - Unspecified atrial fibrillation Status: Acute Assessment and Plan: continues attempts at rate control on anticoagulation apparently scheduled for ablation at an outside facility (4) Lung infiltrate: Code(s): R91.8 - Other nonspecific abnormal finding of lung field Status: Acute Assessment and Plan: possible pneumonia (?) this could potential exacerbate her hyponatremia as well.... off antibiotics culture data negative at this time Will continue to follow. Subjective Date/time seen: 12/27/22 13:23 Overall, seems to be doing reasonably well and somewhat better in comparison to admission on my visit; reasonable response to IV diuresis; seen by Cardiology with recommendations noted. Exam Narrative: General: WD/WN elderly female in NAD Heart: normal S1 and S2; no rub Lungs: bibasilar crackles noted Abdomen: soft, nontender, nondistended, positive bowel sounds Extremities: no cyanosis or clubbing; 1+ edema Skin: warm and dry Objective Data Vital Signs Vital Signs: Vital Signs Temp Pulse Resp BP Pulse Ox O2 Del Method 12/27/22 12:00 124 H 12/27/22 12:00 Room Air 12/27/22 13:05 72/54 L 12/27/22 13:01 80/60 L 12/27/22 12:59 74/57 L 12/27/22 12:56 71/50 L 12/27/22 12:54 72/50 L 12/27/22 12:53 98.0 F 107 H 20 80/59 L 97 12/27/22 10:00 116 H 12/27/22 08:00 107 H 12/27/22 08:00 Room Air 12/27/22 09:05 109 H 12/27/22 09:05 109 H 12/27/22 08:00 97.3 F L 126 H 18 108/76 99 12/27/22 05:34 120 H 12/27/22 04:00 108 H 20 100 Room Air 12/27/22 04:00 108 H 12/27/22 04:11 97.7 F 116 H 20 101/75 100 12/27/22 02:00 110 H 12/27/22 00:00 122 H 20 99 Room Air 12/27/22 00:00 122 H 12/26/22 23:27 97.8 F 20 101/67 99 12/26/22 22:00 111 H 12/26/22 20:00 110 H 20 100 Room Air 12/26/22 20:00 110 H 12/26/22 20:37 120 H 12/26/22 20:36 120 H 12/26/22 19:48 97.7 F 114 H 20 100/73 100 12/26/22 18:00 103 H Intake/Output Intake/Output: Intake & Output 12/24/22 12/25/22 12/26/22 12/27/22 23:59 23:59 23:59 23:59 Intake Total 1160 1280 Output Total 1770 1400 Balance -610 -120 Meds/Results Medications: Active Medications Generic Name Dose Route Start Last Admin Trade Name Freq PRN Reason Stop Dose Admin Acetaminophen 500 mg 12/26/22 05:48 Acetaminophen 500 Mg Tablet PO QID PRN Pain (Scale Score 1-3) Apixaban 5 mg 12/26/22 09:00 12/27/22 09:05 Apixaban 5 Mg Tablet PO 5 mg Q12HR WINNIE Administration Artificial Tears 1 drop 12/26/22 06:06 Artificial Tears Ophth Soln 15 Ml Bottle EACH EYE DAILY PRN Dry Eye(s) Ascorbic Acid 500 mg 12/26/22 09:0
--- NOTE | 2022-12-27 13:53 | PC.NURSE ---
Addendum entered by Yuridia Torre RN 12/27/22 13:58: This event took place at 1253. Will continue to monitor and notify MD of any changes in patient condition Original Note: Dr. Fortune at bedside while tech obtain VS. BP noted to be low (see vitals signs). New order to hold Spironolactone and give 250ml NS bolus. Recheck BP after bolus is complete.
[2022-12-27] MEDS: METOPROLOL TARTRATE 25 MG TABLET PO ×2 (16:22→21:10)
[2022-12-27] MEDS: FUROSEMIDE INJ 40 MG/4 ML VIAL 20 MG IV PUSH (17:46)
[2022-12-28] VITALS (20 sets, daily range): BP systolic 100–114; BP diastolic 71–80; PULSE 94–126; RESP 16–18; TEMP 35.9–36.7; O2SAT 97–100
[2022-12-28 04:46] LABS: Hematocrit 32.3 % (37.0-47.0); Mean Corpuscular HGB Conc 34.1 g/dl (32-36); Mean Corpuscular Hemoglobin 30.4 pg (26-34); Mean Corpuscular Volume 89.2 fl (80-100); Mean Platelet Volume 9.4 fl (7.4-10.4); Platelet Count Result 196 k/mm3 (150-375); Red Blood Count 3.62 M/mm3 (4.2-5.4); Red Cell Distribution Width 14.1 % (11.5-14.5); White Blood Count 4.7 K/mm3 (4.5-10.0)
[2022-12-28 05:04] LABS: Albumin Level 3.5 g/dL (3.5-5.1); Anion Gap 7 mmol/L (8-16); Blood Urea Nitrogen 23 mg/dL (7-17); Calcium 8.4 mg/dL (8.4-10.2); Carbon Dioxide 27 mmol/L (22-30); Chloride 92 mmol/L (98-107); Estimated CRCL calculation 44 ml/min; Estimated Glomerular Filt Rate > 60; Glucose 90 mg/dL (65-110); Magnesium 1.8 mg/dL (1.6-2.3); Phosphorus 3.8 mg/dL (2.5-4.5); Potassium 3.9 mmol/L (3.4-5.0); Sodium 126 mmol/L (137-145)
[2022-12-28] MEDS: LEVOTHYROXINE SODIUM 50 MCG TABLET PO (06:18)
[2022-12-28] MEDS: METOPROLOL TARTRATE 25 MG TABLET PO (06:18)
[2022-12-28] MEDS: SOTALOL HCL 80 MG TABLET PO ×2 (09:36→20:23)
[2022-12-28] MEDS: cycloSPORINE 0.4 ML OPHTH SOLUTION 1 DROP EACH EYE ×2 (09:36→20:22)
[2022-12-28] MEDS: APIXABAN 5 MG TABLET PO ×2 (09:36→20:23)
[2022-12-28] MEDS: METOPROLOL TARTRATE 25 MG TABLET 75 MG PO ×3 (09:36→21:46)
[2022-12-28] MEDS: ASCORBIC ACID 500 MG TABLET PO (09:36)
--- NOTE | 2022-12-28 09:45 | PC.NURSE ---
Dr. Fortune at bedside discussing medications with patient. New order to give only 25mg of PO Metoprolol at this time. Hold IVP Lasix until next BP check at 1200. If BP is within parameters set by MD, may give ordered dose of 20mg IVP Lasix at that time.
[2022-12-28] MEDS: ACIDOPHILUS/BULGARICUS CHEWABLE TABLET 2 TABLET BY MOUTH (12:25)
[2022-12-28] MEDS: CHOLECALCIFEROL 1,000 UNITS TABLET 2000 UNITS PO (12:25)
[2022-12-28] MEDS: FUROSEMIDE INJ 40 MG/4 ML VIAL 20 MG IV PUSH (12:25)
[2022-12-28] MEDS: FAMOTIDINE 20 MG TABLET 40 MG PO (12:25)
[2022-12-28] MEDS: MULTIVITAMINS /C LUTEIN (CENTRUM SILVER) TABLET *BKC 1 TAB PO (12:25)
--- NOTE | 2022-12-28 13:35 | PM.PNNEP ---
Progress Note: A&P Assessment and Plan (1) Hyponatremia: Code(s): E87.1 - Hypo-osmolality and hyponatremia Status: Acute Assessment and Plan: fluctuating acute on chronic baseline sodium level runs ~ 127 - 132mmol/L in the last few years her chronic systolic heart failure and need for diuretic therapy are her major risk factors for her low sodium extensive outpatient evaluation already done: no culprit medications (SSRIs, narcotics, thiazide diuretics...etc) no lung disease (COPD, emphysema...etc) no known issues with malignancy negative SPEP and UPEP TSH stable but cortisol level was a tad low suspect #2 resulting in acute drop in sodium fluid restriction for now gentle IV diuresis follow trend of sodium (2) Acute on chronic diastolic heart failure: Code(s): I50.33 - Acute on chronic diastolic (congestive) heart failure Status: Acute Assessment and Plan: as suggested by admission testing/exam gentle IV diuresis Cardiology following (3) Atrial fibrillation with rapid ventricular response: Code(s): I48.91 - Unspecified atrial fibrillation Status: Acute Assessment and Plan: continue attempts at rate control on anticoagulation apparently scheduled for ablation at an outside facility (4) Lung infiltrate: Code(s): R91.8 - Other nonspecific abnormal finding of lung field Status: Acute Assessment and Plan: possible pneumonia (?) this could potentially exacerbate her hyponatremia as well.... off antibiotics culture data negative at this time Will continue to follow. Subjective Date/time seen: 12/28/22 13:35 Overall, she states she is feeling better -- breathing as well as lower extremity edema are improving with current interventions; still have flucutations in her Afib as noted by telemetry; no other acute issues/events voiced at this time. Exam Narrative: General: WD/WN elderly female in NAD Heart: normal S1 and S2; no rub Lungs: decreased at bases Abdomen: soft, nontender, nondistended, positive bowel sounds Extremities: no cyanosis or clubbing; trace edema Skin: warm and intac Objective Data Vital Signs Vital Signs: Vital Signs Temp Pulse Resp BP Pulse Ox O2 Del Method 12/28/22 12:00 107 H 12/28/22 10:00 114 H 12/28/22 08:00 94 12/28/22 12:00 100 Room Air 12/28/22 11:57 98.1 F 117 H 16 101/74 100 12/28/22 08:00 97 Room Air 12/28/22 09:36 118 H 12/28/22 09:36 126 H 12/28/22 08:08 96.6 F L 115 H 16 114/80 97 12/28/22 04:00 97.6 F 117 H 18 111/77 97 12/28/22 06:18 110 H 12/28/22 06:00 106 H 12/28/22 04:00 109 H 18 98 Room Air 12/28/22 04:00 109 H 12/28/22 02:00 110 H 12/28/22 00:00 115 H 18 98 Room Air 12/28/22 00:00 115 H 12/27/22 23:48 97.7 F 120 H 18 105/72 98 12/27/22 21:51 110 H 12/27/22 20:00 113 H 16 98 Room Air 12/27/22 20:00 113 H 12/27/22 21:10 115 H 12/27/22 21:10 115 H 12/27/22 20:00 97.1 F L 93 16 100/67 98 12/27/22 18:00 115 H 12/27/22 17:45 113/78 Intake/Output Intake/Output: Intake & Output 12/25/22 12/26/22 12/27/22 12/28/22 23:59 23:59 23:59 23:59 Intake Total 1160 2020 910 Output Total 1770 1400 1050 Balance -610 620 -140 Meds/Results Medications: Active Medications Generic Name Dose Route Start Last Admin Trade Name Tee PRN Reason Stop Dose Admin Acetaminophen 500 mg 12/26/22 05:48 Acetaminophen 500 Mg Tablet PO QID PRN Pain (Scale Score 1-3) Apixaban 5 mg 12/26/22 09:00 12/28/22 09:36 Apixaban 5 Mg Tablet PO 5 mg Q12HR WINNIE Administration Artificial Tears 1 drop 12/26/22 06:06 Artificial Tears Ophth Soln 15 Ml Bottle EACH EYE DAILY PRN Dry Eye(s) Ascorbic Acid 500 mg 12/26/22 09:00 12/28/22 09:36 As
--- NOTE | 2022-12-28 13:35 | P.PNNP_ITS ---
Progress Note: A&P Assessment and Plan (1) Hyponatremia: Code(s): E87.1 - Hypo-osmolality and hyponatremia Status: Acute Assessment and Plan: * fluctuating * acute on chronic * baseline sodium level runs ~ 127 - 132mmol/L in the last few years * her chronic systolic heart failure and need for diuretic therapy are her major risk factors for her low sodium * extensive outpatient evaluation already done: * no culprit medications (SSRIs, narcotics, thiazide diuretics...etc) * no lung disease (COPD, emphysema...etc) * no known issues with malignancy * negative SPEP and UPEP * TSH stable but cortisol level was a tad low * suspect #2 resulting in acute drop in sodium * fluid restriction for now * gentle IV diuresis * follow trend of sodium (2) Acute on chronic diastolic heart failure: Code(s): I50.33 - Acute on chronic diastolic (congestive) heart failure Status: Acute Assessment and Plan: * as suggested by admission testing/exam * gentle IV diuresis * Cardiology following (3) Atrial fibrillation with rapid ventricular response: Code(s): I48.91 - Unspecified atrial fibrillation Status: Acute Assessment and Plan: * continue attempts at rate control * on anticoagulation * apparently scheduled for ablation at an outside facility (4) Lung infiltrate: Code(s): R91.8 - Other nonspecific abnormal finding of lung field Status: Acute Assessment and Plan: * possible pneumonia (?) * this could potentially exacerbate her hyponatremia as well.... * off antibiotics * culture data negative at this time Will continue to follow. Subjective Date/time seen: 12/28/22 13:35 Overall, she states she is feeling better -- breathing as well as lower extremity edema are improving with current interventions; still have flucutations in her Afib as noted by telemetry; no other acute issues/events voiced at this time. Exam Narrative: General: WD/WN elderly female in NAD Heart: normal S1 and S2; no rub Lungs: decreased at bases Abdomen: soft, nontender, nondistended, positive bowel sounds Extremities: no cyanosis or clubbing; trace edema Skin: warm and intac Objective Data Vital Signs Vital Signs: Vital Signs Temp Pulse Resp BP Pulse Ox O2 Del Method 12/28/22 12:00 107 H 12/28/22 10:00 114 H 12/28/22 08:00 94 12/28/22 12:00 100 Room Air 12/28/22 11:57 98.1 F 117 H 16 101/74 100 12/28/22 08:00 97 Room Air 12/28/22 09:36 118 H 12/28/22 09:36 126 H 12/28/22 08:08 96.6 F L 115 H 16 114/80 97 12/28/22 04:00 97.6 F 117 H 18 111/77 97 12/28/22 06:18 110 H 12/28/22 06:00 106 H 12/28/22 04:00 109 H 18 98 Room Air 12/28/22 04:00 109 H 12/28/22 02:00 110 H 12/28/22 00:00 115 H 18 98 Room Air 12/28/22 00:00 115 H 12/27/22 23:48 97.7 F 120 H 18 105/72 98 12/27/22 21:51 110 H 12/27/22 20:00 113 H 16 98 Room Air 12/27/22 20:00 113 H 12/27/22 21:10 115 H 12/27/22 21:10 115 H 12/27/22 20:00 97.1 F L 93 16 100/67 98 12/27/22 18:00 115 H 12/27/22 17:45 113/78
--- NOTE | 2022-12-28 14:21 | PC.NURSE ---
Spoke with Dr. Fortune to clarify Metoprolol dosage and IVP Lasix. New order to give 75mg PO Metoprolol and to hold this evenings dose of 20mg IVP Lasix.
--- NOTE | 2022-12-28 14:27 | PM.IMPN ---
Progress Note: A&P Assessment and Plan (1) Acute on chronic diastolic heart failure: Code(s): I50.33 - Acute on chronic diastolic (congestive) heart failure Status: Acute Assessment and Plan: Admit to IMU unit Will obtain echocardiogram in a.m. Gentle diuresis 12/28/2022 interval history: 77-year-old female presented with complaint of shortness of breath, lower extremity edema as well as along her pelvic area patient states she was given IV Lasix in the ER that has improved her swelling is not a short of breath, will continue to diurese the patient, to further evaluate patient had a cardiac echo showed moderately reduced systolic ejection fraction 35-40% most likely patient is having acute on chronic systolic congestive Heart failure, club room attendant in agreement to diurese the patient, patient is also found to have atrial fibrillation, seen byCardiology started the patient sotalol will monitor, upon arrival there was concern patient may have pneumonia, however abx were not continued from ER, she has no complaints of coung, no fever or chills, white counts are normal blood culure no growth so far, repeat chest x-ray showed improvement, will stop abx, will have a PT OT evaluate the patient and further recommendation to follow. (2) Hyponatremia: Code(s): E87.1 - Hypo-osmolality and hyponatremia Status: Acute Assessment and Plan: Likely worsened in by acute on chronic congestive heart failure and diuresis Acute on chronic hyponatremia Nephrology consult (3) Atrial fibrillation with rapid ventricular response: Code(s): I48.91 - Unspecified atrial fibrillation Status: Acute Assessment and Plan: Rate controlled anticoagulated Patient is scheduled for sinus no ablation in outside facility (4) Lung infiltrate: Code(s): R91.8 - Other nonspecific abnormal finding of lung field Status: Acute Assessment and Plan: Started on Rocephin and Zithromax Cultures in progress (5) Biventricular cardiac pacemaker in situ: Code(s): Z95.0 - Presence of cardiac pacemaker Status: Acute Assessment and Plan: Continue to monitor (6) GERD (gastroesophageal reflux disease): Qualifiers: Esophagitis presence: esophagitis presence not specified Qualified Code(s): K21.9 - Gastro-esophageal reflux disease without esophagitis Code(s): K21.9 - Gastro-esophageal reflux disease without esophagitis Status: Acute Assessment and Plan: PPI Subjective Date/time seen: 12/28/22 14:27 12/28/2022 interval history: 77-year-old female presented with complaint of shortness of breath, lower extremity edema as well as along her pelvic area patient states she was given IV Lasix in the ER that has improved her swelling is not a short of breath, will continue to diurese the patient, to further evaluate patient had a cardiac echo showed moderately reduced systolic ejection fraction 35-40% most likely patient is having acute on chronic systolic congestive Heart failure, club room attendant in agreement to diurese the patient, patient is also found to have atrial fibrillation, seen byCardiology started the patient sotalol will monitor, upon arrival there was concern patient may have pneumonia, however abx were not continued from ER, she has no complaints of coung, no fever or chills, white counts are normal blood culure no growth so far, repeat chest x-ray showed improvement, will stop abx, will have a PT OT evaluate the patient and further recommendation to follow. Review of Systems Constitutional: Constitutional: Denies chills, Reports fatigue, Denies fever(s), Reports lethargy, Denies malaise and Denies weakness Exam Narrative: Patient is comfortable, NAD HEENT: eyes are clear and none icteric LUNGS: normal respiratory effort ABD: not distended Lower extremities:edema SKIN: nonjaundiced Neuro: grossly intact. Objective Data Vital Signs Vital Signs:
--- NOTE | 2022-12-28 14:35 | PM.PNCARD ---
Progress Note: A&P Assessment and Plan (1) CHF (congestive heart failure): Qualifiers: Heart failure chronicity: acute on chronic Heart failure type: combined systolic and diastolic Qualified Code(s): I50.43 - Acute on chronic combined systolic (congestive) and diastolic (congestive) heart failure Code(s): I50.9 - Heart failure, unspecified Status: Acute Assessment and Plan: Acute on chronic decompensated heart failure with reduced ejection fraction symptom medically improved with IV diuresis. Monitor electrolytes specifically sodium, potassium and magnesium. Exacerbated secondary to moderate LV dysfunction in conjunction with AFib with RVR which she has not tolerated well in the past. Discussed management strategy at length. Will give Lasix 20 mg IV mid day today hold this evening's dose so as to avoid symptomatic hypotension and or intravascular volume depletion. Continue close volume status, accurate input and output, daily weight. She remains on spironolactone, lisinopril for now. Reintroduce as tolerated. (2) Atrial fibrillation with rapid ventricular response: Code(s): I48.91 - Unspecified atrial fibrillation Status: Acute Assessment and Plan: Continue sotalol 80 mg twice daily as BP permits. Discontinued carvedilol in favor of metoprolol due to suboptimal heart rate control and relative hypotension. Continue systemic anticoagulation with Eliquis 5 mg b.i.d.. Will give 50 mg metoprolol this morning and if tolerated increase to 75 mg p.o. q.8 to simplify regimen ideally transitioning to Toprol XL if feasible at discharge. May be able to transition to oral Lasix tomorrow morning depending on volume status and BP. Discussed plan of care at length with the patient and her . All questions answered to their satisfaction. They verbalized understanding and agreed with plan of care. (3) Hypotension: Code(s): I95.9 - Hypotension, unspecified Status: Acute Assessment and Plan: Resolved after IV fluid and discontinuation medications. Monitor closely, reinitiate medical therapy as tolerated. Need to be be cautious with medications. Renal function and electrolytes stable thus far. (4) Biventricular cardiac pacemaker in situ: Code(s): Z95.0 - Presence of cardiac pacemaker Status: Acute Assessment and Plan: As above, normal device function, HYACINTH expected within the next 3 months (5) Hyponatremia: Code(s): E87.1 - Hypo-osmolality and hyponatremia Status: Acute Assessment and Plan: Chronic, improved since presentation continue to monitor closely. Appreciate Nephrology involvement and recommendations. (6) H/O mitral valve repair: Code(s): Z98.890 - Other specified postprocedural states Status: Acute Assessment and Plan: Severe left atrial enlargement mild mitral regurgitation otherwise stable function. Prophylactic antibiotic prior to dental/surgical procedures. (7) History of tricuspid valve repair: Code(s): Z98.890 - Other specified postprocedural states Status: Acute Assessment and Plan: Moderate tricuspid valve regurgitation mild pulmonary hypertension Subjective Date/time seen: Date of service: 12/28/22 14:35 Follow-up for atrial fibrillation, CHF BP stable overnight. She remained in AFib with intermittent RVR heart rates up to the 120-130 beats per minute range down to the 80s at times. Patient states she overall feels much better. Her headache is less foggy denies dizziness, no chest pain. Breathing much improved edema is improved as well. She ate well this morning denies significant nausea as had 2 bowel movements. at bedside. Review of Systems Review of Systems: All systems reviewed & are unremarkable except as noted in HPI and below Constitutional: Constitutional: Reports as per HPI and Reports no additional constitutional complaints Eyes: Eyes: Reports a
[2022-12-28] MEDS: ACETAMINOPHEN 500 MG TABLET PO (21:47)
[2022-12-29] VITALS (21 sets, daily range): BP systolic 98–121; BP diastolic 60–84; PULSE 90–119; RESP 12–18; TEMP 36.3–36.8; O2SAT 97–100
[2022-12-29 04:51] LABS: Hematocrit 32.3 % (37.0-47.0); Hemoglobin 10.9 g/dL (12.0-15.0); Mean Corpuscular HGB Conc 33.7 g/dl (32-36); Mean Corpuscular Hemoglobin 30.4 pg (26-34); Mean Corpuscular Volume 90.2 fl (80-100); Mean Platelet Volume 9.5 fl (7.4-10.4); Platelet Count Result 201 k/mm3 (150-375); Red Blood Count 3.58 M/mm3 (4.2-5.4); White Blood Count 4.6 K/mm3 (4.5-10.0)
[2022-12-29 05:04] LABS: Albumin Level 3.5 g/dL (3.5-5.1); Anion Gap 5 mmol/L (8-16); Blood Urea Nitrogen 23 mg/dL (7-17); Calcium 8.2 mg/dL (8.4-10.2); Carbon Dioxide 28 mmol/L (22-30); Chloride 89 mmol/L (98-107); Estimated CRCL calculation 39 ml/min; Estimated Glomerular Filt Rate 60; Glucose 87 mg/dL (65-110); Magnesium 1.9 mg/dL (1.6-2.3); Phosphorus 3.7 mg/dL (2.5-4.5); Potassium 3.9 mmol/L (3.4-5.0); Sodium 122 mmol/L (137-145)
[2022-12-29] MEDS: LEVOTHYROXINE SODIUM 50 MCG TABLET PO (06:33)
[2022-12-29] MEDS: METOPROLOL TARTRATE 25 MG TABLET 75 MG PO ×3 (06:34→22:07)
[2022-12-29] MEDS: cycloSPORINE 0.4 ML OPHTH SOLUTION 1 DROP EACH EYE ×2 (09:21→20:46)
[2022-12-29] MEDS: ASCORBIC ACID 500 MG TABLET PO (09:22)
[2022-12-29] MEDS: SOTALOL HCL 80 MG TABLET PO ×2 (09:22→20:46)
[2022-12-29] MEDS: APIXABAN 5 MG TABLET PO ×2 (09:22→20:46)
--- NOTE | 2022-12-29 10:23 | P.PNNP_ITS ---
Progress Note: A&P Assessment and Plan (1) Hyponatremia: Code(s): E87.1 - Hypo-osmolality and hyponatremia Status: Acute Assessment and Plan: * fluctuating * acute on chronic * baseline sodium level runs ~ 127 - 132mmol/L in the last few years * her chronic systolic heart failure and need for diuretic therapy are her major risk factors for her low sodium * extensive outpatient evaluation already done: * no culprit medications (SSRIs, narcotics, thiazide diuretics...etc) * no lung disease (COPD, emphysema...etc) * no known issues with malignancy * negative SPEP and UPEP * TSH stable but cortisol level was a tad low * suspect #2 resulting in acute drop in sodium * fluid restriction for now * gentle IV diuresis - may have to consider adding low dose salt tabs depending on trend of sodium level * follow trend of sodium (2) Acute on chronic diastolic heart failure: Code(s): I50.33 - Acute on chronic diastolic (congestive) heart failure Status: Acute Assessment and Plan: * as suggested by admission testing/exam * gentle IV diuresis * Cardiology following (3) Atrial fibrillation with rapid ventricular response: Code(s): I48.91 - Unspecified atrial fibrillation Status: Acute Assessment and Plan: * continue attempts at rate control * on anticoagulation * apparently scheduled for ablation at an outside facility (4) Lung infiltrate: Code(s): R91.8 - Other nonspecific abnormal finding of lung field Status: Acute Assessment and Plan: * possible pneumonia (?) * this could potentially exacerbate her hyponatremia as well.... * off antibiotics * culture data negative at this time Will continue to follow. Subjective Date/time seen: 12/29/22 10:23 Overall, she states she feels better with current interventions as noted; breathing and lower extremity edema have improved with current interventions but her sodium is a bit worse (although she is asymptomatic); no other apparent i ssues/concerns voiced at this time. Exam Narrative: General: WD/WN elderly female in NAD Heart: normal S1 and S2; no rub Lungs: decreased at bases Abdomen: soft, nontender, nondistended, positive bowel sounds Extremities: no cyanosis or clubbing; trace edema Skin: warm and intact Objective Data Vital Signs Vital Signs: Vital Signs Temp Pulse Resp BP Pulse Ox O2 Del Method 12/29/22 09:22 115 H 12/29/22 08:00 97.4 F L 102 H 18 99/76 L 100 12/29/22 06:34 119 H 12/29/22 06:00 105 H 12/29/22 04:00 98.2 F 117 H 16 109/72 98 12/29/22 04:00 100 Room Air 12/29/22 04:00 103 H 12/29/22 02:00 110 H 12/29/22 00:00 100 Room Air 12/29/22 00:00 112 H 12/29/22 00:00 98.0 F 110 H 16 110/60 99 12/28/22 22:00 106 H 12/28/22 21:46 118 H 12/28/22 20:00 100 Room Air 12/28/22 20:00 116 H 12/28/22 20:00 97.7 F 114 H 16 100/76 100 12/28/22 20:23 103 H 12/28/22 18:00 114 H 12/28/22 16:00 111 H 12/28/22 16:00 100 Room Air 12/28/22 16:26 97.2 F L 122 H 16 105/73 99 12/28/22 14:43 108/71 12/28/22 14:43 118 H 12/28/22 14:00 114 H
--- NOTE | 2022-12-29 10:23 | PM.PNNEP ---
Progress Note: A&P Assessment and Plan (1) Hyponatremia: Code(s): E87.1 - Hypo-osmolality and hyponatremia Status: Acute Assessment and Plan: fluctuating acute on chronic baseline sodium level runs ~ 127 - 132mmol/L in the last few years her chronic systolic heart failure and need for diuretic therapy are her major risk factors for her low sodium extensive outpatient evaluation already done: no culprit medications (SSRIs, narcotics, thiazide diuretics...etc) no lung disease (COPD, emphysema...etc) no known issues with malignancy negative SPEP and UPEP TSH stable but cortisol level was a tad low suspect #2 resulting in acute drop in sodium fluid restriction for now gentle IV diuresis - may have to consider adding low dose salt tabs depending on trend of sodium level follow trend of sodium (2) Acute on chronic diastolic heart failure: Code(s): I50.33 - Acute on chronic diastolic (congestive) heart failure Status: Acute Assessment and Plan: as suggested by admission testing/exam gentle IV diuresis Cardiology following (3) Atrial fibrillation with rapid ventricular response: Code(s): I48.91 - Unspecified atrial fibrillation Status: Acute Assessment and Plan: continue attempts at rate control on anticoagulation apparently scheduled for ablation at an outside facility (4) Lung infiltrate: Code(s): R91.8 - Other nonspecific abnormal finding of lung field Status: Acute Assessment and Plan: possible pneumonia (?) this could potentially exacerbate her hyponatremia as well.... off antibiotics culture data negative at this time Will continue to follow. Subjective Date/time seen: 12/29/22 10:23 Overall, she states she feels better with current interventions as noted; breathing and lower extremity edema have improved with current interventions but her sodium is a bit worse (although she is asymptomatic); no other apparent issues/concerns voiced at this time. Exam Narrative: General: WD/WN elderly female in NAD Heart: normal S1 and S2; no rub Lungs: decreased at bases Abdomen: soft, nontender, nondistended, positive bowel sounds Extremities: no cyanosis or clubbing; trace edema Skin: warm and intact Objective Data Vital Signs Vital Signs: Vital Signs Temp Pulse Resp BP Pulse Ox O2 Del Method 12/29/22 09:22 115 H 12/29/22 08:00 97.4 F L 102 H 18 99/76 L 100 12/29/22 06:34 119 H 12/29/22 06:00 105 H 12/29/22 04:00 98.2 F 117 H 16 109/72 98 12/29/22 04:00 100 Room Air 12/29/22 04:00 103 H 12/29/22 02:00 110 H 12/29/22 00:00 100 Room Air 12/29/22 00:00 112 H 12/29/22 00:00 98.0 F 110 H 16 110/60 99 12/28/22 22:00 106 H 12/28/22 21:46 118 H 12/28/22 20:00 100 Room Air 12/28/22 20:00 116 H 12/28/22 20:00 97.7 F 114 H 16 100/76 100 12/28/22 20:23 103 H 12/28/22 18:00 114 H 12/28/22 16:00 111 H 12/28/22 16:00 100 Room Air 12/28/22 16:26 97.2 F L 122 H 16 105/73 99 12/28/22 14:43 108/71 12/28/22 14:43 118 H 12/28/22 14:00 114 H 12/28/22 12:00 107 H 12/28/22 12:00 100 Room Air 12/28/22 11:57 98.1 F 117 H 16 101/74 100 Intake/Output Intake/Output: Intake & Output 12/26/22 12/27/22 12/28/22 12/29/22 23:59 23:59 23:59 23:59 Intake Total 1160 2020 1350 370 Output Total 1770 1400 1200 300 Balance -610 620 150 70 Meds/Results Medications: Active Medications Generic Name Dose Route Start Last Admin Trade Name Freq PRN Reason Stop Dose Admin Acetaminophen 500 mg 12/26/22 05:48 12/28/22 21:47 Acetaminophen 500 Mg Tablet PO 500 mg QID PRN Administration Pain (Scale Score 1-3) Apixaban 5 mg 12/26/22 09:00 12/29/22 09:22 Apixaban 5 Mg Tablet PO 5 mg Q12HR [facility] Administ
[2022-12-29] MEDS: CHOLECALCIFEROL 1,000 UNITS TABLET 2000 UNITS PO (11:37)
[2022-12-29] MEDS: ACIDOPHILUS/BULGARICUS CHEWABLE TABLET 2 TABLET BY MOUTH (11:37)
[2022-12-29] MEDS: MULTIVITAMINS /C LUTEIN (CENTRUM SILVER) TABLET *BKC 1 TAB PO (11:39)
[2022-12-29] MEDS: FAMOTIDINE 20 MG TABLET 40 MG PO (11:39)
--- NOTE | 2022-12-29 13:29 | PM.IMPN ---
Progress Note: A&P Assessment and Plan (1) Acute on chronic diastolic heart failure: Code(s): I50.33 - Acute on chronic diastolic (congestive) heart failure Status: Acute Assessment and Plan: Admit to IMU unit Will obtain echocardiogram in a.m. Gentle diuresis 12/29/2022 interval history: 77-year-old female presented with complaint of shortness of breath, lower extremity edema as well as along her pelvic area patient states she was given IV Lasix in the ER that has improved her swelling is not a short of breath, will continue to diurese the patient, to further evaluate patient had a cardiac echo showed moderately reduced systolic ejection fraction 35-40% most likely patient is having acute on chronic systolic congestive Heart failure, hospital internship in agreement to diurese the patient, patient is also found to have atrial fibrillation, seen byCardiology started the patient sotalol heart rate about 100 and persistent, will monitor, upon arrival there was concern patient may have pneumonia, however abx were not continued from ER, she has no complaints of cough, no fever or chills, white counts are normal blood culure no growth so far, repeat chest x-ray showed improvement, will stop abx, will have a PT OT evaluate the patient and further recommendation to follow. (2) Hyponatremia: Code(s): E87.1 - Hypo-osmolality and hyponatremia Status: Acute Assessment and Plan: Likely worsened in by acute on chronic congestive heart failure and diuresis Acute on chronic hyponatremia Nephrology consult (3) Atrial fibrillation with rapid ventricular response: Code(s): I48.91 - Unspecified atrial fibrillation Status: Acute Assessment and Plan: Rate controlled anticoagulated Patient is scheduled for sinus no ablation in outside facility (4) Lung infiltrate: Code(s): R91.8 - Other nonspecific abnormal finding of lung field Status: Acute Assessment and Plan: Started on Rocephin and Zithromax Cultures in progress (5) Biventricular cardiac pacemaker in situ: Code(s): Z95.0 - Presence of cardiac pacemaker Status: Acute Assessment and Plan: Continue to monitor (6) GERD (gastroesophageal reflux disease): Qualifiers: Esophagitis presence: esophagitis presence not specified Qualified Code(s): K21.9 - Gastro-esophageal reflux disease without esophagitis Code(s): K21.9 - Gastro-esophageal reflux disease without esophagitis Status: Acute Assessment and Plan: PPI Subjective Date/time seen: 12/29/22 13:29 12/29/2022 interval history: 77-year-old female presented with complaint of shortness of breath, lower extremity edema as well as along her pelvic area patient states she was given IV Lasix in the ER that has improved her swelling is not a short of breath, will continue to diurese the patient, to further evaluate patient had a cardiac echo showed moderately reduced systolic ejection fraction 35-40% most likely patient is having acute on chronic systolic congestive Heart failure, hospital internship in agreement to diurese the patient, patient is also found to have atrial fibrillation, seen byCardiology started the patient sotalol heart rate about 100 and persistent, will monitor, upon arrival there was concern patient may have pneumonia, however abx were not continued from ER, she has no complaints of cough, no fever or chills, white counts are normal blood culure no growth so far, repeat chest x-ray showed improvement, will stop abx, will have a PT OT evaluate the patient and further recommendation to follow. Review of Systems Constitutional: Constitutional: Denies chills, Reports fatigue, Denies fever(s), Reports lethargy, Denies malaise and Denies weakness Exam Narrative: Patient is comfortable, NAD HEENT: eyes are clear and none icteric LUNGS: normal respiratory effort ABD: not distended Lower extremities:edema SKIN: nonj
--- NOTE | 2022-12-29 13:51 | PM.PNCARD ---
Progress Note: A&P Assessment and Plan (1) CHF (congestive heart failure): Qualifiers: Heart failure chronicity: acute on chronic Heart failure type: combined systolic and diastolic Qualified Code(s): I50.43 - Acute on chronic combined systolic (congestive) and diastolic (congestive) heart failure Code(s): I50.9 - Heart failure, unspecified Status: Acute Assessment and Plan: Acute on chronic decompensated heart failure with reduced ejection fraction. She has improved after IV diuresis. Will transition to p.o. furosemide today. Spironolactone and lisinopril on hold for now secondary to hypotension. Reintroduce as BP tolerates. (2) Atrial fibrillation with rapid ventricular response: Code(s): I48.91 - Unspecified atrial fibrillation Status: Acute Assessment and Plan: Continue sotalol 80 mg twice daily as BP permits. Metoprolol added for better HR control. Continue systemic anticoagulation with Eliquis 5 mg b.i.d.. (3) Hypotension: Code(s): I95.9 - Hypotension, unspecified Status: Acute Assessment and Plan: Resolved after IV fluid and discontinuation medications. Monitor closely, reinitiate medical therapy as tolerated. Need to be be cautious with medications. Renal function and electrolytes stable thus far. (4) Biventricular cardiac pacemaker in situ: Code(s): Z95.0 - Presence of cardiac pacemaker Status: Acute Assessment and Plan: As above, normal device function, HYACINTH expected within the next 3 months (5) Hyponatremia: Code(s): E87.1 - Hypo-osmolality and hyponatremia Status: Acute Assessment and Plan: Chronic, improved since presentation continue to monitor closely. Appreciate Nephrology involvement and recommendations. (6) H/O mitral valve repair: Code(s): Z98.890 - Other specified postprocedural states Status: Acute Assessment and Plan: Severe left atrial enlargement mild mitral regurgitation otherwise stable function. Prophylactic antibiotic prior to dental/surgical procedures. (7) History of tricuspid valve repair: Code(s): Z98.890 - Other specified postprocedural states Status: Acute Assessment and Plan: Moderate tricuspid valve regurgitation mild pulmonary hypertension Subjective Date/time seen: 12/29/22 13:51 Cardiology follow up for atrial fibrillation, CHF She doesn't feel very well today. Having some dizziness and fatigue. Heart rate is variable, in the 80's at times up to 120. She is generally asymptomatic but does feel palpitations from time to time. Review of Systems Review of Systems: All systems reviewed & are unremarkable except as noted in HPI and below Constitutional: Constitutional: Reports as per HPI and Reports no additional constitutional complaints Eyes: Eyes: Reports as per HPI and Reports no additional eye complaints ENT: Reports system reviewed and no additional complaints, except as documented and Reports as per HPI Cardiovascular: Cardiovascular: Reports as per HPI and Reports no additional cardiovascular complaints Respiratory: Respiratory: Reports as per HPI and Reports no additional respiratory complaints Gastrointestinal: Gastrointestinal: Reports as per HPI and Reports no additional gastrointestinal complaints Genitourinary: Genitourinary: Reports as per HPI Musculoskeletal: Musculoskeletal: Reports no additional musculoskeletal complaints and Reports as per HPI Integumentary/Breasts: Skin/Breast: Reports system reviewed and no additional complaints, except as docu and Reports as per HPI Neurologic: Reports system reviewed and no additional complaints, except as documented and Reports as per HPI Psychiatric: Psychiatric: Reports no additional psychiatric complaints and Reports as per HPI Endocrine: Endocrine: Reports no additional endocrine complaints and Reports as per HPI Hematologic/Lymphatic: Hematologic/Lymphatic: Rep
[2022-12-29] MEDS: ACETAMINOPHEN 500 MG TABLET PO ×2 (15:02→20:40)
[2022-12-30] VITALS (16 sets, daily range): BP systolic 99–112; BP diastolic 69–80; PULSE 66–126; RESP 16–20; TEMP 36.4–36.9; O2SAT 97–100
[2022-12-30 04:57] LABS: Hematocrit 34.4 % (37.0-47.0); Hemoglobin 11.7 g/dL (12.0-15.0); Mean Corpuscular Hemoglobin 30.2 pg (26-34); Mean Corpuscular Volume 88.9 fl (80-100); Mean Platelet Volume 9.5 fl (7.4-10.4); Platelet Count Result 212 k/mm3 (150-375); Red Blood Count 3.87 M/mm3 (4.2-5.4); Red Cell Distribution Width 13.9 % (11.5-14.5); White Blood Count 5.1 K/mm3 (4.5-10.0)
[2022-12-30] MEDS: METOPROLOL TARTRATE 25 MG TABLET 75 MG PO ×3 (05:34→20:22)
[2022-12-30] MEDS: LEVOTHYROXINE SODIUM 50 MCG TABLET PO (05:34)
[2022-12-30 05:50] LABS: Albumin Level 3.7 g/dL (3.5-5.1); Anion Gap 6 mmol/L (8-16); Blood Urea Nitrogen 23 mg/dL (7-17); Calcium 8.4 mg/dL (8.4-10.2); Carbon Dioxide 26 mmol/L (22-30); Chloride 88 mmol/L (98-107); Estimated CRCL calculation 50 ml/min; Estimated Glomerular Filt Rate > 60; Glucose 92 mg/dL (65-110); Phosphorus 3.4 mg/dL (2.5-4.5); Potassium 3.9 mmol/L (3.4-5.0); Sodium 120 mmol/L (137-145)
[2022-12-30] MEDS: ASCORBIC ACID 500 MG TABLET PO (09:25)
[2022-12-30] MEDS: APIXABAN 5 MG TABLET PO ×2 (09:25→20:21)
[2022-12-30] MEDS: SOTALOL HCL 80 MG TABLET PO ×2 (09:26→20:21)
[2022-12-30] MEDS: FUROSEMIDE 40 MG TABLET PO (09:26)
[2022-12-30] MEDS: cycloSPORINE 0.4 ML OPHTH SOLUTION 1 DROP EACH EYE ×2 (09:26→20:22)
--- NOTE | 2022-12-30 10:30 | PM.PNNEP ---
Progress Note: A&P Assessment and Plan (1) Hyponatremia: Code(s): E87.1 - Hypo-osmolality and hyponatremia Status: Acute Assessment and Plan: Patient has a low sodium. This is been going on for at least 2 years. Chest x-ray shows volume overload. CT abdomen pelvis shows small amount of ascites, mild hepatomegaly and findings suggestive of cirrhosis, and 8mm cystic pancreatic lesion of unknown etiology. CT brain negative in the past TSH normal in the past. She is on diuretics but no SSRIs, narcotics, or proton pump inhibitors. Most likely her hyponatremia is related to her cardiac issues and diuretics. The pancreatic lesion is not defined and may or may not be related. Pneumonia may or may not be a cause this time but of course not a chronic cause. Her sodium level has been coming down with diuretics. She still needs the diuretics because she is still volume overloaded on exam. Will add salt tablets and enhance the fluid restriction and repeat the sodium this afternoon. If the sodium level is even lower than consider a small dose of 3% saline just to start the sodium going in the right direction. (2) Acute on chronic diastolic heart failure: Code(s): I50.33 - Acute on chronic diastolic (congestive) heart failure Status: Acute Assessment and Plan: Per echocardiography. She is getting diuretics (3) Atrial fibrillation with rapid ventricular response: Code(s): I48.91 - Unspecified atrial fibrillation Status: Acute Assessment and Plan: She has irregular rhythm on exam. Cardiology following (4) Lung infiltrate: Code(s): R91.8 - Other nonspecific abnormal finding of lung field Status: Acute Assessment and Plan: Presumed to be pneumonia. She is getting Rocephin and Zithromax. Subjective Date/time seen: 12/30/22 10:30 Interval history: Lakeisha is feeling better today. She is wondering when she can go home. Review of Systems Cardiovascular: Cardiovascular: Reports no additional cardiovascular complaints Respiratory: Respiratory: Reports no additional respiratory complaints Gastrointestinal: Gastrointestinal: Reports no additional gastrointestinal complaints Genitourinary: Genitourinary: Reports no additional female genitourinary complaints Exam Narrative: WDWN in NAD skin no rash head ncat lungs clear cor reg no rub abd BS+ nontender and soft ext no edema. Objective Data Vital Signs Vital Signs: Vital Signs - 24 hr 12/29/22 12:12 12/29/22 12:00 12/29/22 12:00 Temperature 97.7 F Pulse Rate 100 110 H Respiratory Rate 12 Blood Pressure 100/76 Pulse Oximetry 97 Oxygen Delivery Room Air 12/29/22 15:03 12/29/22 15:31 12/29/22 16:16 Temperature 98.2 F Pulse Rate 109 H 90 Respiratory Rate 16 Blood Pressure 101/73 Pulse Oximetry 98 100 Oxygen Delivery 12/29/22 14:00 12/29/22 16:00 12/29/22 16:00 Temperature Pulse Rate 109 H 103 H Respiratory Rate Blood Pressure Pulse Oximetry Oxygen Delivery Room Air 12/29/22 18:00 12/29/22 20:00 12/29/22 20:46 Temperature 97.7 F Pulse Rate 104 H 108 H 109 H Respiratory Rate 14 Blood Pressure 121/84 Pulse Oximetry 99 Oxygen Delivery 12/29/22 22:07 12/29/22 23:38 12/29/22 20:00 Temperature 97.7 F Pulse Rate 107 H 114 H Respiratory Rate 16 Blood Pressure 98/74 L Pulse Oximetry 99 Oxygen Delivery Room Air 12/30/22 00:00 12/29/22 20:00 12/29/22 22:00 Temperature Pulse Rate 115 H 105 H Respiratory Rate Blood Pressure Pulse Oximetry Oxygen Delivery Room Air 12/30/22 00:00 12/30/22 02:00 12/30/22 04:00 Temperature Pulse Rate 109 H 66 126 H Respiratory Rate Blood Pressure Pulse Oximetry Oxygen Delivery 12/30/22 04:00 12/30/22 04:00 12/30/22 05:34 Temperature 97.6 F Pulse Rate 116 H 116 H Respiratory Rate 16 Blood Pressure 99/69 L Pulse Oxime
[2022-12-30] MEDS: SODIUM CHLORIDE 1 GM TABLET PO ×2 (11:00→17:44)
--- NOTE | 2022-12-30 12:58 | PM.IMPN ---
Progress Note: A&P Assessment and Plan (1) Acute on chronic diastolic heart failure: Code(s): I50.33 - Acute on chronic diastolic (congestive) heart failure Status: Acute Assessment and Plan: Admit to IMU unit Will obtain echocardiogram in a.m. Gentle diuresis 12/29/2022 interval history: 77-year-old female presented with complaint of shortness of breath, lower extremity edema as well as along her pelvic area patient states she was given IV Lasix in the ER that has improved her swelling is not a short of breath, will continue to diurese the patient, to further evaluate patient had a cardiac echo showed moderately reduced systolic ejection fraction 35-40% most likely patient is having acute on chronic systolic congestive Heart failure, [employer]on[employer] in agreement to diurese the patient, patient is also found to have atrial fibrillation, seen byCardiology started the patient sotalol heart rate about 100 and persistent, will monitor, upon arrival there was concern patient may have pneumonia, however abx were not continued from ER, she has no complaints of cough, no fever or chills, white counts are normal blood culure no growth so far, repeat chest x-ray showed improvement, will stop abx, will have a PT OT evaluate the patient and further recommendation to follow. 12/30/2022: 77-year-old female present with complaint of shortness of breath lower extremity edema. Diagnosis congestive heart failure. Echo with reduced systolic ejection fraction 35-40%. Cardiology following on diuresis. Also have atrial fibrillation her rate controlled on sotalol. On chronic anticoagulation with Eliquis. hyponatremia: acute on chronic.wbc count normal. cxr with improvement. possible pneumonia. antibiotics stopped. PT/OT. added salt tablets per nephrology (2) Hyponatremia: Code(s): E87.1 - Hypo-osmolality and hyponatremia Status: Acute Assessment and Plan: Likely worsened in by acute on chronic congestive heart failure and diuresis Acute on chronic hyponatremia Nephrology consult added on salt tablets (3) Atrial fibrillation with rapid ventricular response: Code(s): I48.91 - Unspecified atrial fibrillation Status: Acute Assessment and Plan: Rate controlled anticoagulated Patient is scheduled for sinus no ablation in outside facility (4) Lung infiltrate: Code(s): R91.8 - Other nonspecific abnormal finding of lung field Status: Acute Assessment and Plan: Started on Rocephin and Zithromax Cultures in progress (5) Biventricular cardiac pacemaker in situ: Code(s): Z95.0 - Presence of cardiac pacemaker Status: Acute Assessment and Plan: Continue to monitor (6) GERD (gastroesophageal reflux disease): Qualifiers: Esophagitis presence: esophagitis presence not specified Qualified Code(s): K21.9 - Gastro-esophageal reflux disease without esophagitis Code(s): K21.9 - Gastro-esophageal reflux disease without esophagitis Status: Acute Assessment and Plan: PPI Subjective Date/time seen: 12/30/22 12:58 Interval history: No overnight events. Feeling better. Leg swelling has improved. No dizziness or lightheadedness. Review of Systems Review of Systems: All systems reviewed & are unremarkable except as noted in HPI and below Exam Narrative: Patient is comfortable, NAD HEENT: eyes are clear and none icteric LUNGS: normal respiratory effort clear to auscultation ABD: not distended soft nontender Lower extremities: trace edema SKIN: nonjaundiced Neuro: grossly intact. Objective Data Vital Signs Vital Signs: Vital Signs - 24 hr 12/29/22 15:03 12/29/22 15:31 12/29/22 16:16 Temperature 98.2 F Pulse Rate 109 H 90 Respiratory Rate 16 Blood Pressure 101/73 Pulse Oximetry 98 100 Oxygen Delivery 12/29/22 14:00 12/29/22 16:00 12/29/22 16:00 Temperature Pulse Rate 109 H 103 H Respirat
[2022-12-30] MEDS: FAMOTIDINE 20 MG TABLET 40 MG PO (13:40)
[2022-12-30] MEDS: CHOLECALCIFEROL 1,000 UNITS TABLET 2000 UNITS PO (13:41)
[2022-12-30] MEDS: ACIDOPHILUS/BULGARICUS CHEWABLE TABLET 2 TABLET BY MOUTH (13:41)
[2022-12-30] MEDS: MULTIVITAMINS /C LUTEIN (CENTRUM SILVER) TABLET *BKC 1 TAB PO (13:42)
--- NOTE | 2022-12-30 14:45 | ADMGEN ---
This patient, Lakeisha Simental, was admitted to 2 Medical Room 241-. Patient/family oriented to hospital policies and general routines including ID bracelet, bed and alarms, visiting hours, pain management, procedures, bathroom and other care routines, personal items, smoking policy, room service/diet, and visiting hours. Information on how to activate the Rapid Response Team has been discussed. Patient/Family are encouraged to report perceived risks to care and to ask questions if they do not understand what they are told or what they should do.
--- NOTE | 2022-12-30 16:45 | PM.PNCARD ---
Progress Note: A&P Assessment and Plan (1) CHF (congestive heart failure): Qualifiers: Heart failure chronicity: acute on chronic Heart failure type: combined systolic and diastolic Qualified Code(s): I50.43 - Acute on chronic combined systolic (congestive) and diastolic (congestive) heart failure Code(s): I50.9 - Heart failure, unspecified Status: Acute Assessment and Plan: Acute on chronic decompensated heart failure with reduced ejection fraction. Has cardiomyopathy, EF 35-40% this admission, declined slightly from previous. She has improved after IV diuresis. now on p.o. furosemide. Spironolactone and lisinopril on hold for now secondary to hypotension. Reintroduce as BP tolerates. Hopefully home soon. (2) Atrial fibrillation with rapid ventricular response: Code(s): I48.91 - Unspecified atrial fibrillation Status: Acute Assessment and Plan: Early relapse of atrial fibrillation after cardioversion in November. Continue sotalol 80 mg twice daily as BP permits. Metoprolol 75 mg q.8 hours added for better HR control. Continue systemic anticoagulation with Eliquis 5 mg b.i.d.. (3) Hypotension: Code(s): I95.9 - Hypotension, unspecified Status: Acute Assessment and Plan: Resolved after IV fluid and discontinuation medications. Monitor closely, reinitiate medical therapy as tolerated. Need to be be cautious with medications. Renal function and electrolytes stable thus far. (4) Biventricular cardiac pacemaker in situ: Code(s): Z95.0 - Presence of cardiac pacemaker Status: Acute Assessment and Plan: Bi V ICD with normal device function, HYACINTH expected within the next 3 months . Likely will proceed with AV node ablation at that time; will review with Dr. Call. (5) Hyponatremia: Code(s): E87.1 - Hypo-osmolality and hyponatremia Status: Acute Assessment and Plan: Chronic, worsen after diuretic therapy, continue to monitor closely. Appreciate Nephrology involvement and recommendations. Continue fluid restriction, and sodium chloride tablets. (6) H/O mitral valve repair: Code(s): Z98.890 - Other specified postprocedural states Status: Acute Assessment and Plan: history of mitral valve repair, recent echo showed only mild mitral regurgitation otherwise stable function. severe left atrial enlargement. (7) History of tricuspid valve repair: Code(s): Z98.890 - Other specified postprocedural states Status: Acute Assessment and Plan: Moderate tricuspid valve regurgitation mild pulmonary hypertension Subjective Date/time seen: Cardiology follow up for atrial fibrillation, CHF 12/29/2022:She doesn't feel very well today.? Having some dizziness and fatigue.? Heart rate is variable, in the 80's at times up to 120.? She is generally asymptomatic but does feel palpitations from time to time.? Change Lasix to p.o.. 12/30/22 16:45 Sometimes not feeling well due to abdominal bloating and pain, denies constipation. Up in chair sometimes, can walk to the bathroom. Telemetry shows AFib rate 100-110. Blood pressure running 98-107/70s. Sodium down to 120. Review of Systems Review of Systems: Abdominal pain and bloating, sometimes a poor appetite, no shortness of breath her dizziness, no chest pain Exam Const: General: cooperative and comfortable; No confusion Orientation/consciousness: oriented to person, patient oriented x3 and No confusion Other: pleasant, butthin and tired appearing HENMT: Mouth: Yes moist mucous membranes Eyes: EOM: EOMs intact bilaterally Resp: Effort & Inspection: normal respiratory effort Auscultation: rales ( scattered rales in bases) Cardio: Rate: regular rate and tachycardic Rhythm: regular rhythm and abnormal rhythm irregularly irregular Heart sounds: Murmur heart sound present ( 2-3 over 6 apical murmur) GI: GI Palp: No a
[2022-12-30 18:15] LABS: Sodium 121 mmol/L (137-145)
[2022-12-30] MEDS: ACETAMINOPHEN 500 MG TABLET PO (20:20)
[2022-12-31] VITALS (14 sets, daily range): BP systolic 96–103; BP diastolic 53–84; PULSE 95–115; RESP 18–20; TEMP 36.7–37.1; O2SAT 96–100
[2022-12-31 05:24] LABS: Basophils Percent Auto 0.5 % (0.2-1.2); Eosinophils Percent Auto 0.5 % (0-4.4); Hematocrit 32.9 % (37.0-47.0); Immature Granulocyte Absolute 0.04 K/mm3 (0.00-0.031); Immature Granulocyte Percent A 0.7 % (0-0.5); Lymphocytes Absolute Auto 1.05 K/mm3 (0.9-3.2); Lymphocytes Percent Auto 19.2 % (18.3-44.2); Mean Corpuscular HGB Conc 33.4 g/dl (32-36); Mean Corpuscular Hemoglobin 29.3 pg (26-34); Mean Corpuscular Volume 87.7 fl (80-100); Mean Platelet Volume 10.2 fl (7.4-10.4); Monocytes Absolute Auto 0.9 K/mm3 (0.1-0.6); Monocytes Percent Auto 16.6 % (2.6-8.5); Neutrophils Absolute Auto 3.4 K/mm3 (1.3-6.7); Neutrophils Percent Auto 62.5 % (45.5-73.1); Platelet Count Result 209 k/mm3 (150-375); Red Blood Count 3.75 M/mm3 (4.2-5.4); Red Cell Distribution Width 13.8 % (11.5-14.5); White Blood Count 5.5 K/mm3 (4.5-10.0)
[2022-12-31 05:32] LABS: Alanine Aminotransferase 35 U/L (6-35); Albumin Level 3.5 g/dL (3.5-5.1); Alkaline Phosphatase 72 U/L (38-126); Anion Gap 5 mmol/L (8-16); Aspartate Amino Transferase 37 U/L (14-36); Bilirubin,Total 1.2 mg/dL (0.2-1.3); Blood Urea Nitrogen 25 mg/dL (7-17); Calcium 8.3 mg/dL (8.4-10.2); Carbon Dioxide 29 mmol/L (22-30); Chloride 88 mmol/L (98-107); Estimated CRCL calculation 40 ml/min; Estimated Glomerular Filt Rate 60; Glucose 82 mg/dL (65-110); Phosphorus 3.6 mg/dL (2.5-4.5); Sodium 122 mmol/L (137-145)
[2022-12-31] MEDS: LEVOTHYROXINE SODIUM 50 MCG TABLET PO (06:28)
[2022-12-31] MEDS: APIXABAN 5 MG TABLET PO ×2 (08:45→20:32)
[2022-12-31] MEDS: cycloSPORINE 0.4 ML OPHTH SOLUTION 1 DROP EACH EYE ×2 (08:46→20:32)
[2022-12-31] MEDS: ASCORBIC ACID 500 MG TABLET PO (08:46)
[2022-12-31] MEDS: FUROSEMIDE 40 MG TABLET PO (08:51)
[2022-12-31] MEDS: SODIUM CHLORIDE 1 GM TABLET PO ×2 (08:51→17:06)
[2022-12-31] MEDS: SOTALOL HCL 80 MG TABLET PO (08:53)
--- NOTE | 2022-12-31 09:58 | PM.PNNEP ---
Progress Note: A&P Assessment and Plan (1) Hyponatremia: Code(s): E87.1 - Hypo-osmolality and hyponatremia Status: Acute Assessment and Plan: Patient has a low sodium. This is been going on for at least 2 years. Chest x-ray shows volume overload. CT abdomen pelvis shows small amount of ascites, mild hepatomegaly and findings suggestive of cirrhosis, and 8mm cystic pancreatic lesion of unknown etiology. CT brain negative in the past TSH normal in the past. She is on diuretics but no SSRIs, narcotics, or proton pump inhibitors. Most likely her hyponatremia is related to her cardiac issues and diuretics with possible contributions by the pancreatic lesion and/or pneumonia. Her sodium level is mildly improved now that we added salt tablets. Continue diuretics because of the volume overload. (2) Acute on chronic diastolic heart failure: Code(s): I50.33 - Acute on chronic diastolic (congestive) heart failure Status: Acute Assessment and Plan: Per echocardiography. She is getting diuretics This is improving (3) Atrial fibrillation with rapid ventricular response: Code(s): I48.91 - Unspecified atrial fibrillation Status: Acute Assessment and Plan: She has irregular rhythm on exam. Cardiology following Heart rate 102 (4) Lung infiltrate: Code(s): R91.8 - Other nonspecific abnormal finding of lung field Status: Acute Assessment and Plan: Presumed to be pneumonia. She is getting Rocephin and Zithromax. Subjective Date/time seen: 12/31/22 09:58 Interval history: Lakeisha is feeling better today. Sitting up in a chair. She has a little swelling. She is wondering when she can go home. Exam Narrative: WDWN in NAD skin no rash head ncat lungs clear cor reg no rub abd BS+ nontender and soft ext trace edema bilateral. Objective Data Vital Signs Vital Signs: Vital Signs - 24 hr 12/30/22 10:00 12/30/22 12:00 12/30/22 12:00 Temperature 97.5 F L Pulse Rate 102 H 114 H Respiratory Rate 20 Blood Pressure 107/77 Pulse Oximetry 100 98 Oxygen Delivery Room Air 12/30/22 12:00 12/30/22 13:40 12/30/22 13:50 Temperature Pulse Rate 111 H 114 H Respiratory Rate Blood Pressure Pulse Oximetry 98 Oxygen Delivery Room Air 12/30/22 16:00 12/30/22 20:21 12/30/22 20:22 Temperature Pulse Rate 97 116 H 116 H Respiratory Rate Blood Pressure Pulse Oximetry Oxygen Delivery 12/30/22 21:18 12/30/22 20:00 12/30/22 20:00 Temperature 98.5 F Pulse Rate 83 83 114 H Respiratory Rate 20 20 Blood Pressure 112/80 Pulse Oximetry 98 98 Oxygen Delivery Room Air 12/31/22 00:00 12/31/22 04:00 12/31/22 05:19 Temperature 98.0 F Pulse Rate 106 H 109 H 102 H Respiratory Rate 20 Blood Pressure 98/80 L Pulse Oximetry 96 Oxygen Delivery 12/31/22 08:43 12/31/22 08:53 12/31/22 08:53 Temperature Pulse Rate 103 H 102 H Respiratory Rate Blood Pressure 103/53 L Pulse Oximetry Oxygen Delivery 12/31/22 08:00 Temperature Pulse Rate 110 H Respiratory Rate Blood Pressure Pulse Oximetry Oxygen Delivery Intake/Output Intake/Output: Intake & Output 12/28/22 12/29/22 12/30/22 12/31/22 23:59 23:59 23:59 23:59 Intake Total 1350 1090 1160 50 Output Total 1200 700 400 200 Balance 150 390 760 -150 Meds/Results Medications: Active Medications Generic Name Dose Route Start Last Admin Trade Name Freq PRN Reason Stop Dose Admin Acetaminophen 500 mg 12/26/22 05:48 12/30/22 20:20 Acetaminophen 500 Mg Tablet PO 500 mg QID PRN Administration Pain (Scale Score 1-3) Apixaban 5 mg 12/26/22 09:00 12/31/22 08:45 Apixaban 5 Mg Tablet PO 5 mg Q12HR WINNIE Administration Artificial Tears 1 drop 12/26/22 06:06 Artificial Tears Ophth Soln 15 Ml Bottle EACH EYE DAILY PRN Dry Eye(s) Ascorbic Acid 500 mg
--- NOTE | 2022-12-31 12:19 | PC.NURSE ---
Patient has been sent up 240ML per tray today. She stated that she drank 2 orange juices this morning which totaled 240 ML. She is allowed 400/shift. Instructed patient that she has 160 mL left this shift. Informed dietary to only send 120mL per tray in order to abide by fluid restriction orders. Will chart accordingly.
[2022-12-31] MEDS: CHOLECALCIFEROL 1,000 UNITS TABLET 2000 UNITS PO (12:35)
[2022-12-31] MEDS: MULTIVITAMINS /C LUTEIN (CENTRUM SILVER) TABLET *BKC 1 TAB PO (12:35)
[2022-12-31] MEDS: ACIDOPHILUS/BULGARICUS CHEWABLE TABLET 2 TABLET BY MOUTH (12:35)
[2022-12-31] MEDS: FAMOTIDINE 20 MG TABLET 40 MG PO (12:37)
--- NOTE | 2022-12-31 14:32 | PM.IMPN ---
Progress Note: A&P Assessment and Plan (1) Acute on chronic diastolic heart failure: Code(s): I50.33 - Acute on chronic diastolic (congestive) heart failure Status: Acute Assessment and Plan: Admit to IMU unit Will obtain echocardiogram in a.m. 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 12/30/2022: 77-year-old female present with complaint of shortness of breath lower extremity edema. Diagnosis congestive heart failure. Echo with reduced systolic ejection fraction 35-40%. Cardiology following on diuresis. Also have atrial fibrillation her rate controlled on sotalol. On chronic anticoagulation with Eliquis. hyponatremia: acute on chronic.wbc count normal. cxr with improvement. possible pneumonia. antibiotics stopped. PT/OT. added salt tablets per nephrology 12/31/2019 3:7 7-year-old female who presented with the shortness of breath and lower extremity edema she was diagnosed with acute on chronic systolic congestive Heart failure. Echocardiogram with reduced systolic ejection fraction 35-40%. Cardiology consulted and started on IV diuresis now on oral diuresis with Lasix 40 mg daily. She also has chronic atrial fibrillation on sotalol and she has also been placed on metoprolol for more / better rate controlled. Chronically anticoagulated with Eliquis. Hyponatremia acute on chronic started on salt tablets and fluid restriction yesterday sodium level slowly picking up. Not back to her baseline yet. She was also diagnosed with possible pneumonia on admission antibiotics were stopped however this has now been already discontinued. CT ruled out for pneumonia. Recheck labs in a.m. for sodium level monitor on telemetry. Potential discharge home tomorrow if remains stable. (2) Hyponatremia: Code(s): E87.1 - Hypo-osmolality and hyponatremia Status: Acute Assessment and Plan: Likely worsened in by acute on chronic congestive heart failure and diuresis Acute on chronic hyponatremia Nephrology consult added on salt tablets (3) Atrial fibrillation with rapid ventricular response: Code(s): I48.91 - Unspecified atrial fibrillation Status: Acute Assessment and Plan: Rate controlled anticoagulated Patient is scheduled for sinus no ablation in outside facility (4) Lung infiltrate: Code(s): R91.8 - Other nonspecific abnormal finding of lung field Status: Acute Assessment and Plan: Started on Rocephin and Zithromax Cultures in progress (5) Biventricular cardiac pacemaker in situ: Code(s): Z95.0 - Presence of cardiac pacemaker Status: Acute Assessment and Plan: Continue to monitor (6) GERD (gastroesophageal reflux disease): Qualifiers: Esophagitis presence: esophagitis presence not specified Qualified Code(s): K21.9 - Gastro-esophageal reflux disease without esophagitis Code(s): K21.9 - Gastro-esophageal reflux disease without esophagitis Status: Acute
--- NOTE | 2022-12-31 15:49 | PM.PNCARD ---
Progress Note: A&P Assessment and Plan (1) CHF (congestive heart failure): Qualifiers: Heart failure chronicity: acute on chronic Heart failure type: combined systolic and diastolic Qualified Code(s): I50.43 - Acute on chronic combined systolic (congestive) and diastolic (congestive) heart failure Code(s): I50.9 - Heart failure, unspecified Status: Acute Assessment and Plan: Acute on chronic decompensated heart failure with reduced ejection fraction. Has cardiomyopathy, EF 35-40% this admission, declined slightly from previous. She has improved after IV diuresis, euvolemic. Now on p.o. furosemide. Spironolactone and lisinopril on hold for now secondary to hypotension; still unable to reintroduce. Hopefully home soon. (2) Atrial fibrillation with rapid ventricular response: Code(s): I48.91 - Unspecified atrial fibrillation Status: Acute Assessment and Plan: Early relapse of atrial fibrillation after cardioversion in November. Continue sotalol 80 mg twice daily as BP permits. Metoprolol 75 mg q.8 hours added for better HR control. Continue systemic anticoagulation with Eliquis 5 mg b.i.d.. (3) Hypotension: Code(s): I95.9 - Hypotension, unspecified Status: Acute Assessment and Plan: Resolved after IV fluid and discontinuation medications. Monitor closely, reinitiate medical therapy as tolerated. Renal function and electrolytes stable thus far. (4) Biventricular cardiac pacemaker in situ: Code(s): Z95.0 - Presence of cardiac pacemaker Status: Acute Assessment and Plan: Bi V ICD with normal device function, HYACINTH expected within the next 3 months . Likely will proceed with AV node ablation at that time; will review with Dr. Call. (5) Hyponatremia: Code(s): E87.1 - Hypo-osmolality and hyponatremia Status: Acute Assessment and Plan: Chronic, worsen after diuretic therapy, continue to monitor closely. Continue fluid restriction, and sodium chloride tablets. (6) H/O mitral valve repair: Code(s): Z98.890 - Other specified postprocedural states Status: Acute Assessment and Plan: history of mitral valve repair, recent echo showed only mild mitral regurgitation otherwise stable function. Severe left atrial enlargement. (7) History of tricuspid valve repair: Code(s): Z98.890 - Other specified postprocedural states Status: Acute Assessment and Plan: Moderate tricuspid valve regurgitation mild pulmonary hypertension Subjective Date/time seen: Cardiology follow up for atrial fibrillation, CHF 12/29/2022:She doesn't feel very well today.? Having some dizziness and fatigue.? Heart rate is variable, in the 80's at times up to 120.? She is generally asymptomatic but does feel palpitations from time to time.?? Change Lasix to p.o.. 12/30/22 Sometimes not feeling well due to abdominal bloating and pain, denies constipation.? Up in chair sometimes, can walk to the bathroom.? Telemetry shows AFib rate 100-110.? Blood pressure running 98-107/70s.? Sodium down to 120. Date of service 12/31/22 15:49: A nurse station back with no particular problems with shortness of breath or dizziness but felt a little unsteady with weak legs. Abdominal pain is resolved. Sodium slightly better at 122 today. Blood pressure is soft, 98-103 mmHg systolic. Telemetry shows AFib rate when 0 5-115 ppm. Review of Systems Review of Systems: Abdominal pain resolved, no shortness of breath or dizziness but feels that she has weak legs. No chest pain or bleeding. Exam Const: General: cooperative and comfortable; No confusion Orientation/consciousness: oriented to person, patient oriented x3 and No confusion Other: pleasant, but thin and tired appearing HENMT: Mouth: Yes moist mucous membranes Eyes: EOM: EOMs intact bilaterally Resp: Effort & Inspection: normal respiratory effort Ausculta
[2022-12-31] MEDS: METOPROLOL TARTRATE 50 MG TAB 100 MG PO (20:34)
[2023-01-01] VITALS (7 sets, daily range): BP systolic 101–108; BP diastolic 74–76; PULSE 111–120; RESP 18–20; TEMP 36.4–36.9; O2SAT 99–100
[2023-01-01 05:02] LABS: Basophils Percent Auto 0.3 % (0.2-1.2); Eosinophils Percent Auto 0.7 % (0-4.4); Hematocrit 35.2 % (37.0-47.0); Hemoglobin 11.9 g/dL (12.0-15.0); Immature Granulocyte Absolute 0.05 K/mm3 (0.00-0.031); Immature Granulocyte Percent A 0.9 % (0-0.5); Lymphocytes Absolute Auto 1.09 K/mm3 (0.9-3.2); Lymphocytes Percent Auto 18.7 % (18.3-44.2); Mean Corpuscular HGB Conc 33.8 g/dl (32-36); Mean Corpuscular Hemoglobin 29.8 pg (26-34); Mean Platelet Volume 9.9 fl (7.4-10.4); Monocytes Absolute Auto 0.8 K/mm3 (0.1-0.6); Monocytes Percent Auto 14.3 % (2.6-8.5); Neutrophils Absolute Auto 3.8 K/mm3 (1.3-6.7); Neutrophils Percent Auto 65.1 % (45.5-73.1); Platelet Count Result 224 k/mm3 (150-375); White Blood Count 5.8 K/mm3 (4.5-10.0)
[2023-01-01 05:11] LABS: Alanine Aminotransferase 43 U/L (6-35); Albumin Level 3.9 g/dL (3.5-5.1); Alkaline Phosphatase 82 U/L (38-126); Anion Gap 9 mmol/L (8-16); Aspartate Amino Transferase 46 U/L (14-36); Bilirubin,Total 1.2 mg/dL (0.2-1.3); Blood Urea Nitrogen 26 mg/dL (7-17); Calcium 8.7 mg/dL (8.4-10.2); Carbon Dioxide 26 mmol/L (22-30); Chloride 92 mmol/L (98-107); Estimated CRCL calculation 40 ml/min; Estimated Glomerular Filt Rate 60; Glucose 91 mg/dL (65-110); Magnesium 2.2 mg/dL (1.6-2.3); Sodium 127 mmol/L (137-145)
[2023-01-01] MEDS: LEVOTHYROXINE SODIUM 50 MCG TABLET PO (06:26)
[2023-01-01] MEDS: METOPROLOL TARTRATE 50 MG TAB 100 MG PO (06:26)
[2023-01-01] MEDS: FUROSEMIDE 40 MG TABLET PO (08:26)
[2023-01-01] MEDS: ASCORBIC ACID 500 MG TABLET PO (08:26)
[2023-01-01] MEDS: cycloSPORINE 0.4 ML OPHTH SOLUTION 1 DROP EACH EYE (08:26)
[2023-01-01] MEDS: APIXABAN 5 MG TABLET PO (08:26)
[2023-01-01] MEDS: SODIUM CHLORIDE 1 GM TABLET PO (08:26)
--- NOTE | 2023-01-01 12:05 | PM.PNCARD ---
Progress Note: A&P Assessment and Plan (1) CHF (congestive heart failure): Qualifiers: Heart failure chronicity: acute on chronic Heart failure type: combined systolic and diastolic Qualified Code(s): I50.43 - Acute on chronic combined systolic (congestive) and diastolic (congestive) heart failure Code(s): I50.9 - Heart failure, unspecified Status: Acute Assessment and Plan: Acute on chronic decompensated heart failure with reduced ejection fraction. Has cardiomyopathy, EF 35-40% this admission, declined slightly from previous. She has improved after IV diuresis, euvolemic. Now on p.o. furosemide. Spironolactone and lisinopril on hold for now secondary to hypotension; still unable to reintroduce. Plan for discharge home today. (2) Atrial fibrillation with rapid ventricular response: Code(s): I48.91 - Unspecified atrial fibrillation Status: Acute Assessment and Plan: Early relapse of atrial fibrillation after cardioversion in November. Sotalol has been discontinued and Metoprolol increased to 100 mg q.8 hours added for better HR control. Continue systemic anticoagulation with Eliquis 5 mg b.i.d.. (3) Hypotension: Code(s): I95.9 - Hypotension, unspecified Status: Acute Assessment and Plan: Resolved after IV fluid and discontinuation medications. Monitor closely, reinitiate medical therapy as tolerated. Renal function and electrolytes stable thus far. (4) Biventricular cardiac pacemaker in situ: Code(s): Z95.0 - Presence of cardiac pacemaker Status: Acute Assessment and Plan: Bi V ICD with normal device function, HYACINTH expected within the next 3 months . Likely will proceed with AV node ablation at that time; will review with Dr. Call. (5) Hyponatremia: Code(s): E87.1 - Hypo-osmolality and hyponatremia Status: Acute Assessment and Plan: Chronic, worsen after diuretic therapy, continue to monitor closely. Continue fluid restriction, and sodium chloride tablets. (6) H/O mitral valve repair: Code(s): Z98.890 - Other specified postprocedural states Status: Acute Assessment and Plan: history of mitral valve repair, recent echo showed only mild mitral regurgitation otherwise stable function. Severe left atrial enlargement. (7) History of tricuspid valve repair: Code(s): Z98.890 - Other specified postprocedural states Status: Acute Assessment and Plan: Moderate tricuspid valve regurgitation mild pulmonary hypertension Subjective Date/time seen: 01/01/23 12:06 Interval history: Feeling much better this morning. No specific complaints at the time of my visit. She does continue to feel palpitations intermittently which is not anything new. Trace edema on ankles. Review of Systems Review of Systems: All systems reviewed & are unremarkable except as noted in HPI and below Constitutional: Constitutional: Reports as per HPI and Reports no additional constitutional complaints Eyes: Eyes: Reports as per HPI and Reports no additional eye complaints ENT: Reports system reviewed and no additional complaints, except as documented and Reports as per HPI Cardiovascular: Cardiovascular: Reports as per HPI and Reports no additional cardiovascular complaints Respiratory: Respiratory: Reports as per HPI and Reports no additional respiratory complaints Gastrointestinal: Gastrointestinal: Reports as per HPI and Reports no additional gastrointestinal complaints Genitourinary: Genitourinary: Reports as per HPI Musculoskeletal: Musculoskeletal: Reports no additional musculoskeletal complaints and Reports as per HPI Integumentary/Breasts: Skin/Breast: Reports system reviewed and no additional complaints, except as docu and Reports as per HPI Neurologic: Reports system reviewed and no additional complaints, except as documented, Reports as per HPI and Denies confusion Psyc
[2023-01-01] MEDS: ACIDOPHILUS/BULGARICUS CHEWABLE TABLET 2 TABLET BY MOUTH (12:12)
[2023-01-01] MEDS: CHOLECALCIFEROL 1,000 UNITS TABLET 2000 UNITS PO (12:12)
[2023-01-01] MEDS: MULTIVITAMINS /C LUTEIN (CENTRUM SILVER) TABLET *BKC 1 TAB PO (12:13)
[2023-01-01] MEDS: FAMOTIDINE 20 MG TABLET 40 MG PO (12:13)
--- NOTE | 2023-01-01 13:35 | PM.DS ---
DS: Admitting Diagnosis Discharge Date 01/01/2023 Admitting Diagnosis shortness of breath DS: Discharge Diagnosis Discharge Diagnosis (1) Acute on chronic diastolic heart failure: Code(s): I50.33 - Acute on chronic diastolic (congestive) heart failure Status: Acute Assessment and Plan: Admit to IMU unit Will obtain echocardiogram in a.m. 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 12/30/2022: 77-year-old female present with complaint of shortness of breath lower extremity edema. Diagnosis congestive heart failure. Echo with reduced systolic ejection fraction 35-40%. Cardiology following on diuresis. Also have atrial fibrillation her rate controlled on sotalol. On chronic anticoagulation with Eliquis. hyponatremia: acute on chronic.wbc count normal. cxr with improvement. possible pneumonia. antibiotics stopped. PT/OT. added salt tablets per nephrology 12/31/2019 3:7 7-year-old female who presented with the shortness of breath and lower extremity edema she was diagnosed with acute on chronic systolic congestive Heart failure. Echocardiogram with reduced systolic ejection fraction 35-40%. Cardiology consulted and started on IV diuresis now on oral diuresis with Lasix 40 mg daily. She also has chronic atrial fibrillation on sotalol and she has also been placed on metoprolol for more / better rate controlled. Chronically anticoagulated with Eliquis. Hyponatremia acute on chronic started on salt tablets and fluid restriction yesterday sodium level slowly picking up. Not back to her baseline yet. She was also diagnosed with possible pneumonia on admission antibiotics were stopped however this has now been already discontinued. CT ruled out for pneumonia. Recheck labs in a.m. for sodium level monitor on telemetry. Potential discharge home tomorrow if remains stable. (2) Hyponatremia: Code(s): E87.1 - Hypo-osmolality and hyponatremia Status: Acute Assessment and Plan: Likely worsened in by acute on chronic congestive heart failure and diuresis Acute on chronic hyponatremia Nephrology consult added on salt tablets (3) Atrial fibrillation with rapid ventricular response: Code(s): I48.91 - Unspecified atrial fibrillation Status: Acute Assessment and Plan: Rate controlled anticoagulated Patient is scheduled for sinus no ablation in outside facility (4) Lung infiltrate: Code(s): R91.8 - Other nonspecific abnormal finding of lung field Status: Acute Assessment and Plan: Started on Rocephin and Zithromax Cultures in progress (5) Biventricular cardiac pacemaker in situ: Code(s): Z95.0 - Presence of cardiac pacemaker Status: Acute Assessment and Plan: Continue to monitor (6) GERD (gastroesophageal reflux disease): Qualifiers: Esophagitis presence: esophagitis presence not specified Qualified Code(s): K21.9 - Gastro-esophageal reflux disease without esophagiti
== END 2023-01-01 14:40 | disposition home or self-care (01) | DRG 291 ==
LOC: ANHED 12-26 00:05 → ANHIMU 12-26 00:40 → ANH2MED 12-30 14:33
PROVIDERS: Emergency Medicine; Internal Medicine; Internal Medicine Nephrology; Admitting Provider Internal Medicine; Emergency Provider Emergency Medicine; PCP Family Medicine; Visit Provider Family Medicine
DX: I11.0 Hypertensive heart disease with heart failure (principal); I50.43 Acute on chronic combined systolic (congestive) and diastolic (congestive) heart failure; E87.1 Hypo-osmolality and hyponatremia; I48.0 Paroxysmal atrial fibrillation; M85.80 Other specified disorders of bone density and structure, unspecified site; E03.9 Hypothyroidism, unspecified; L71.9 Rosacea, unspecified; Z20.822 Contact with and (suspected) exposure to COVID-19; R91.8 Other nonspecific abnormal finding of lung field; K21.9 Gastro-esophageal reflux disease without esophagitis; I95.9 Hypotension, unspecified; Z95.0 Presence of cardiac pacemaker; Z85.828 Personal history of other malignant neoplasm of skin
CPT/HCPCS: 36415; 71046; 74177; 80053; 80069; 83735; 83880; 84100; 84295; 85025; 85027; 85610; 87040; 87637; 93005; 96374; 96375; 96376; 99285; A9270; C8929; G0378; J1940; J7050; Q9957; Q9967

== ENCOUNTER 2023-01-04 16:15 | Outpatient (CLI) | payer MEDICARE, OTHER, SELFPAY ==
[2023-01-04 16:45] LABS: Albumin Level 4.3 g/dL (3.5-5.1); Anion Gap 9 mmol/L (8-16); Blood Urea Nitrogen 39 mg/dL (7-17); Calcium 8.9 mg/dL (8.4-10.2); Carbon Dioxide 25 mmol/L (22-30); Chloride 91 mmol/L (98-107); Estimated Glomerular Filt Rate 48; Glucose 121 mg/dL (65-110); Phosphorus 3.7 mg/dL (2.5-4.5); Potassium 4.5 mmol/L (3.4-5.0); Sodium 125 mmol/L (137-145)
== END 2023-01-04 16:16 | disposition home or self-care (01) ==
PROVIDERS: PCP Family Medicine; Visit Provider Internal Medicine Nephrology
DX: E87.1 Hypo-osmolality and hyponatremia (principal)
CPT/HCPCS: 36415; 80069

== ENCOUNTER 2023-01-07 15:41 | Inpatient (IN) | payer MEDICARE, OTHER, SELFPAY ==
[2023-01-07] VITALS (11 sets, daily range): BP systolic 92–111; BP diastolic 70–88; PULSE 62–123; RESP 15–20; TEMP 36.1–36.4; O2SAT 95–100; BMI 20.5
--- NOTE | ~2023-01-07 | US_ITS ---
US abdomen limited INDICATION: Elevated liver enzymes. PROCEDURE: Realtime right upper abdominal ultrasound. COMPARISON: No prior studies for comparison. FINDINGS: There is an 8 mm cyst of the pancreas. No other pancreatic masses are seen. Liver echotext ure is normal without focal mass or intrahepatic biliary dilatation. There is normal directional jose ramon w in the portal vein. There is gallbladder sludge. No gallstones. Common bile duct measures 4 mm. No sonographic Rodriguez's sign. Small amount of free fluid surrounding the gallbladder and liver. IMPRESSION: 1: Gallbladder sludge. 2: Ascites. 3: Cystic pancreatic lesion measuring 8 mm. The differential diagnosis includes pseudocyst, intraduct al papillary mucinous neoplasm (IPMN), mucinous cystic neoplasm (MCN), and the less common serous cys tadenoma and neuroendocrine tumor. Reviewed, dictated and finalized at location B. CONTROL ENGINEER IMPRESSION: 1: Gallbladder sludge. 2: Ascites. 3: Cystic pancreatic lesion measuring 8 mm. The differential diagnosis includes pseudocyst, intraductal papillary mucinous neoplasm (IPMN), mucinous cystic ne oplasm (MCN), and the less common serous cystadenoma and neuroendocrine tumor.
--- NOTE | ~2023-01-07 | XR_ITS ---
EXAMINATION: XR chest 2V Exam Date/Time: 01/07/2023 16:52 HEALTH EVALUATOR HISTORY: weakness Comparison: 12/27/2022. RESULT: Lines, tubes, and devices: Left chest pacer with intact leads. Intact sternotomy wires. Cardiac valv e replacements. Lungs and pleura: Right lower lung space disease. Right costophrenic angle blunting. Senescent larry e. Cardiomediastinal silhouette: Stable. Other: No acute osseous or upper abdominal finding. IMPRESSION: Right basilar atelectasis/consolidation. Small right pleural effusion. Reviewed, dictated and finalized at location K. TH EVALUATOR
--- NOTE | 2023-01-07 16:19 | ECG_ITS ---
Measurements Intervals [place] Rate: 119 P: [place]: 0 QRS: -80 QRSD: 149 T: 131 QT: 354 QTc: 499 Interpretive Statements ATRIAL FIBRILLATION WITH RAPID VENTRICULAR RESPONSE INCOMPLETE LEFT BUNDLE BRANCH BLOCK ABNORMAL ECG COMPARED TO ECG 12/25/2022 17:05:59 NO DIFFERENCE Electronically Signed On 01-08-2023 12:36:48 CLINICAL PHYSICIAN ASSISTANT by Kg Witt M.D.
[2023-01-07 16:35] LABS: Basophils Percent Auto 0.4 % (0.2-1.2); Eosinophils Percent Auto 0.4 % (0-4.4); Hematocrit 40.2 % (37.0-47.0); Hemoglobin 13.2 g/dL (12.0-15.0); Immature Granulocyte Absolute 0.06 K/mm3 (0.00-0.031); Immature Granulocyte Percent A 0.7 % (0-0.5); Lymphocytes Absolute Auto 1.05 K/mm3 (0.9-3.2); Mean Corpuscular HGB Conc 32.8 g/dl (32-36); Mean Corpuscular Hemoglobin 29.9 pg (26-34); Mean Corpuscular Volume 91.2 fl (80-100); Mean Platelet Volume 9.8 fl (7.4-10.4); Monocytes Absolute Auto 0.9 K/mm3 (0.1-0.6); Monocytes Percent Auto 11.7 % (2.6-8.5); Neutrophils Absolute Auto 5.9 K/mm3 (1.3-6.7); Neutrophils Percent Auto 73.8 % (45.5-73.1); Platelet Count Result 275 k/mm3 (150-375); Red Blood Count 4.41 M/mm3 (4.2-5.4); Red Cell Distribution Width 14.5 % (11.5-14.5); White Blood Count 8.1 K/mm3 (4.5-10.0)
--- NOTE | 2023-01-07 16:38 | ED.WEAKNESS ---
HPI - Weakness General Chief complaint: Weakness Stated complaint: weakness Time Seen by Provider: 01/07/23 16:14 History of Present Illness HPI Narrative: Patient is a 77-year-old male who presents ER with weakness. Worsening over the last malaise. Had recent admission for hyponatremia and heart failure. He has been taking metoprolol which she was recently started on after having her carvedilol and sotalol discontinued. No chest pain or chest pressure. Shortness of breath at rest or orthopnea. Does feel as if her heart is racing Related Data Home Medications Medication Instructions Recorded Confirmed apixaban 5 mg tablet (Eliquis) 5 mg PO BID 10/15/19 12/26/22 ascorbic acid (vitamin C) 500 mg 500 mg PO DAILY 10/15/19 12/26/22 tablet calcium carbonate 500 mg-vitamin 2 tablet PO 1200 10/15/19 12/27/22 D3 5 mcg (200 unit) tablet cyclosporine 0.05 % eye drops 1 drop ophthalmic (eye) Q12H 10/15/19 12/26/22 (Restasis MultiDose) ptzcppvi-sfbeejg-rrkn-lutein tablet 1 tablet PO 1200 10/15/19 12/26/22 peg 400-propylene glycol 0.4 %-0.3 1 drop ophthalmic (eye) DAILY PRN 10/15/19 12/26/22 % eye drops (Systane (propylene Dry Eyes glycol)) diphenhydramine HCl 25 mg capsule 12.5 mg PO HS PRN Allergy Symptoms 12/30/20 12/26/22 (Benadryl) lactobacillus combination no.8 3 3,000 mmu cells PO 1200 12/30/20 12/27/22 billion cell capsule (Adult Probiotic) acetaminophen 500 mg tablet 500 mg PO QID PRN Pain (Scale 05/03/21 12/26/22 (Tylenol Extra Strength) Score 1-3) ketoconazole 2 % topical cream 1 applic topical BID PRN as needed 03/21/22 12/26/22 for rosacea lisinopril 40 mg tablet 20 mg PO QPM 03/21/22 12/26/22 cholecalciferol (vitamin D3) 50 50 mcg PO 1200 09/18/22 12/27/22 mcg (2,000 unit) tablet (Vitamin D3) loratadine 10 mg tablet 5 mg PO QAM PRN Allergy Symptoms 09/19/22 12/26/22 triamcinolone acetonide 0.1 % 1 applic topical BID PRN Dry Skin 11/17/22 12/26/22 topical cream levothyroxine 50 mcg tablet 50 mcg PO DAILY 12/26/22 12/26/22 Allergies Allergy/AdvReac Type Severity Reaction Status Date / Time bacitracin Allergy Intermediate Rash Verified 11/21/22 07:09 adhesive Allergy Mild Rash Verified 11/21/22 07:09 alendronate sodium AdvReac Severe fluid Verified 11/21/22 07:09 [From Fosamax] retention codeine AdvReac Severe Hypotension Verified 12/27/22 10:53 erythromycin base AdvReac Severe tattoo and body artist Verified 11/21/22 07:09 told her not to take d/t other meds esomeprazole [From Nexium] AdvReac Severe Pancreatiti Verified 11/21/22 07:09 s azithromycin AdvReac Unknown tattoo and body artist Verified 11/21/22 07:09 told her not to take d/t other meds dexamethasone AdvReac Unknown Unknown Verified 11/21/22 07:09 levofloxacin [From Levaquin] AdvReac Unknown tattoo and body artist Verified 11/21/22 07:09 told her not to take d/t other meds Review of Systems Review of Systems: All systems reviewed & are unremarkable except as noted in HPI and below Constitutional: Constitutional: Denies chills, Reports fatigue and Denies fever(s) ENT: Denies nasal congestion and Denies sore throat Cardiovascular: Cardiovascular: Denies chest pain, Reports rapid heart rate and Denies radiating jaw, neck or arm pain Respiratory: Respiratory: Denies cough, Reports dyspnea and Denies wheezing Genitourinary: Genitourinary: Denies nocturia and Denies dysuria Neurologic: Denies syncope, Denies focal weakness and Denies numbness PMFSH Past Medical History Medical History Ankle ulcer Anxiety Biventricular cardiac pacemaker in situ [employer] Bi V pacemaker implanted by Dr. Pablo in 2016. Chronic diastolic CHF (congestive heart failure) Congestive heart failure Current use of correction anticoagulation Dry eyes Elevated LFTs Chronic, mild elevation in AST and ALT. Encounter for immunization [place]
[2023-01-07 16:44] LABS: Alanine Aminotransferase 223 U/L (6-35); Albumin Level 4.3 g/dL (3.5-5.1); Alkaline Phosphatase 103 U/L (38-126); Anion Gap 12 mmol/L (8-16); Aspartate Amino Transferase 233 U/L (14-36); Bilirubin,Total 1.8 mg/dL (0.2-1.3); Blood Urea Nitrogen 48 mg/dL (7-17); Calcium 8.7 mg/dL (8.4-10.2); Carbon Dioxide 23 mmol/L (22-30); Chloride 91 mmol/L (98-107); Estimated CRCL calculation 29 ml/min; Estimated Glomerular Filt Rate 43; Glucose 100 mg/dL (65-110); Potassium 4.8 mmol/L (3.4-5.0); Sodium 126 mmol/L (137-145)
[2023-01-07] MEDS: dilTIAZem HCl INJ 25 MG/5 ML VIAL 10 MG IV PUSH (16:53)
[2023-01-07 17:15] LABS: NT Pro B Type Natriuretic Pept 25300 pg/mL (19.9-100)
[2023-01-07 17:15] LABS: Influenza A QL RT-PCR Negative (Negative); Influenza B QL RT-PCR Negative (Negative); SARS-CoV-2 RNA PCR Negative
[2023-01-07] MEDS: FUROSEMIDE INJ 40 MG/4 ML VIAL 20 MG IV PUSH (17:45)
[2023-01-07] MEDS: METOPROLOL TARTRATE 50 MG TAB 100 MG PO (17:45)
--- NOTE | 2023-01-07 18:41 | PM.IMHP ---
H&P: HPI History of Present Illness Date/Time: 01/07/23 18:41 Chief Complaint: Weakness Narrative: This is a 77-year-old female patient who has a history of AFib. The patient came in to the emergency room today with complaints of weakness. She had some generalized malaise. The patient has a history of chronic hyponatremia and stated that she has been on salt tablets. She has a history of congestive heart failure. The patient has been taking metoprolol which she started taking after having her Coreg and sotalol discontinued. She has no chest pain or pressure. It took 2 assistance to walk the patient to the bathroom. She also has 4+ pitting edema. She stated she felt like her heart was racing. The patient was found to be in AFib with RVR. The patient was given IV push Cardizem. Her heart rate was all the way up to 123 and is 118 now. The patient was ordered 100 mg of metoprolol however blood pressure is 96/70. I ordered her a dose of digoxin. Cardiology has been consulted. The patient was given 10 mg IV push of Cardizem in the emergency room and Lopressor was ordered in the emergency room she was also given 20 mg of Lasix. Chest x-ray was read as right basilar atelectasis-consolidation small right pleural effusion. EKG was read with AFib with rapid ventricular response. The patient is very short of breath with any type of movement. H&H is normal. Sodium is 126 which is the patient's baseline. However creatinine is 1.2 with a normal baseline. AST is 233 and [place] 223[place] [address]. The patient is negative for influenza A/B and COVID. The patient stated that she has no appetite. The patient is being admitted to observation status on the date of service of 01/07/2023 Review of Systems Review of Systems: See HPI All systems reviewed & are unremarkable except as noted in HPI and below Constitutional: Constitutional: Reports as per HPI and Reports no additional constitutional complaints Eyes: Eyes: Reports as per HPI and Reports no additional eye complaints ENT: Reports system reviewed and no additional complaints, except as documented and Reports Normal hearing present Cardiovascular: Cardiovascular: Reports no additional cardiovascular complaints Respiratory: Respiratory: Reports no additional respiratory complaints and Reports no additional respiratory complaints Gastrointestinal: Gastrointestinal: Reports as per HPI and Reports no additional gastrointestinal complaints Musculoskeletal: Musculoskeletal: Reports no additional musculoskeletal complaints Integumentary/Breasts: Skin/Breast: Reports system reviewed and no additional complaints, except as docu and Reports as per HPI Neurologic: Reports system reviewed and no additional complaints, except as documented, Reports as per HPI and Reports Normal hearing present Psychiatric: Psychiatric: Reports no additional psychiatric complaints and Reports as per HPI Endocrine: Endocrine: Reports no additional endocrine complaints Hematologic/Lymphatic: Hematologic/Lymphatic: Reports no additional hematologic/lymphatic complaints Allergic/Immunologic: Allergic/Immunologic: Reports no additional allergic/immunologic complaints [facility] Past Medical History Medical History Ankle ulcer Anxiety Biventricular cardiac pacemaker in situ [employer] Bi V pacemaker implanted by Dr. Pablo in 2016. 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 Encounter for immunization Gastroesophageal reflux disease Hypertension Hypothyroidism Mitral regurgitation Osteopenia Paroxysmal atrial fibrillation Pulmonary hypertension Rosacea Tricuspid regurgitation Valvular heart disease Surgical History Surgical History History of basal cell ca
--- NOTE | 2023-01-07 19:32 | PC.NURSE ---
Received report from Mar KEE. First encounter w/ pt. Pt resting comfortably inbed, updated pt on plan of care. All needs addressed, no question at this time. NAD>
--- NOTE | 2023-01-07 20:07 | ADMGEN ---
This patient, Lakeisha Simental, was admitted to IMU Room 200-01. Patient/family oriented to hospital policies and general routines including ID bracelet, bed and alarms, visiting hours, pain management, procedures, bathroom and other care routines, personal items, smoking policy, room service/diet, and visiting hours. Information on how to activate the Rapid Response Team has been discussed. Patient/Family are encouraged to report perceived risks to care and to ask questions if they do not understand what they are told or what they should do.
[2023-01-07] MEDS: DIGOXIN INJ 250 MCG/ML 2 ML AMP (*BKC) IV PUSH (21:42)
[2023-01-07] MEDS: ACETAMINOPHEN 325 MG TABLET 650 MG PO (21:43)
[2023-01-07] MEDS: SODIUM CHLORIDE 1 GM TABLET PO (22:15)
[2023-01-07] MEDS: APIXABAN 5 MG TABLET PO (22:15)
[2023-01-07] MEDS: FAMOTIDINE 20 MG/2 ML VIAL IV PUSH (22:16)
[2023-01-08] VITALS (17 sets, daily range): BP systolic 93–122; BP diastolic 71–90; PULSE 83–130; RESP 16–20; TEMP 36.4–37.1; O2SAT 96–100; BMI 20.5
[2023-01-08 05:09] LABS: Basophils Percent Auto 0.2 % (0.2-1.2); Eosinophils Percent Auto 0.3 % (0-4.4); Hematocrit 35.7 % (37.0-47.0); Immature Granulocyte Absolute 0.06 K/mm3 (0.00-0.031); Immature Granulocyte Percent A 0.6 % (0-0.5); Lymphocytes Absolute Auto 0.92 K/mm3 (0.9-3.2); Lymphocytes Percent Auto 9.9 % (18.3-44.2); Mean Corpuscular HGB Conc 33.6 g/dl (32-36); Mean Corpuscular Hemoglobin 30.5 pg (26-34); Mean Corpuscular Volume 90.8 fl (80-100); Monocytes Absolute Auto 0.8 K/mm3 (0.1-0.6); Monocytes Percent Auto 8.5 % (2.6-8.5); Neutrophils Absolute Auto 7.5 K/mm3 (1.3-6.7); Neutrophils Percent Auto 80.5 % (45.5-73.1); Platelet Count Result 249 k/mm3 (150-375); Red Blood Count 3.93 M/mm3 (4.2-5.4); Red Cell Distribution Width 14.3 % (11.5-14.5); White Blood Count 9.3 K/mm3 (4.5-10.0)
[2023-01-08 05:14] LABS: Lactic Acid Reflex 1.6 mmol/L (0.7-2.0)
[2023-01-08 05:20] LABS: Alanine Aminotransferase 217 U/L (6-35); Albumin Level 3.6 g/dL (3.5-5.1); Alkaline Phosphatase 98 U/L (38-126); Anion Gap 6 mmol/L (8-16); Aspartate Amino Transferase 202 U/L (14-36); Bilirubin,Total 1.9 mg/dL (0.2-1.3); Blood Urea Nitrogen 49 mg/dL (7-17); Calcium 8.6 mg/dL (8.4-10.2); Carbon Dioxide 25 mmol/L (22-30); Chloride 93 mmol/L (98-107); Estimated CRCL calculation 29 ml/min; Estimated Glomerular Filt Rate 43; Glucose 84 mg/dL (65-110); Lipase 250 U/L (23-300); Magnesium 2.4 mg/dL (1.6-2.3); Potassium 4.7 mmol/L (3.4-5.0); Sodium 124 mmol/L (137-145)
[2023-01-08] MEDS: LEVOTHYROXINE SODIUM 50 MCG TABLET PO (05:43)
[2023-01-08] MEDS: SALINE 0.65% NAS SOLN 44 ML BTL 1 SPRAY NASAL (05:54)
[2023-01-08 06:03] LABS: Hepatitis B Surface Antigen Negative (Negative)
[2023-01-08 06:09] LABS: HAV RESULT Negative (Negative); Hepatitis B Core IgM Result Negative (Negative)
[2023-01-08 06:21] LABS: Hepatitis C Virus Antibody Negative (Negative)
[2023-01-08 07:29] LABS: Free T4 Free Thyroxine Reflex 2.52 ng/dL (0.78-2.19)
--- NOTE | 2023-01-08 09:01 | PM.CNCAR ---
Assessment and Plan Assessment and plan (1) Atrial fibrillation with RVR: Code(s): I48.91 - Unspecified atrial fibrillation Status: Acute (2) History of tricuspid valve repair: Code(s): Z98.890 - Other specified postprocedural states Status: Acute (3) H/O mitral valve repair: Code(s): Z98.890 - Other specified postprocedural states Status: Acute Plan 77-year-old lady with: Difficult management situation pertaining to her valvular heart disease LV systolic dysfunction and atrial fibrillation. The patient is rate control has been difficult to achieve despite a high dose of metoprolol. She was given a dose of diltiazem in the emergency room but diltiazem is a poor choice for her given her LV systolic dysfunction. She was given 1 dose of digoxin yesterday as well. Her blood pressure is marginal and she still would be a poor candidate for Jg/ARB initiation which would help her hemodynamics otherwise. For the short term I am going to recommend trying to add some digoxin to her medical regimen for some improvement in rate control although this could certainly aggravate 1 of her complaints which is poor appetite. I will start spironolactone in hopes of achieving some diuresis. She does have bipedal edema as well as some increasing right pleural fluid on chest x-ray although her lungs sound clear on exam. Had a long discussion with the patient that I do not believe these maneuvers will dramatically improve how she is feeling. Hopefully once she has an effective AV node ablation procedure done she can have her medication more effectively re tailored for treating LV systolic dysfunction and she will not require this large dose of metoprolol for the long-term. I believe therefore until she has her AV node ablation done we are trying to palliate at this as best as possible for the short term. The patient needs to understand that there is a limited amount of benefit to repeatedly being hospitalized here since we do not have electrophysiology services at [place]. Kg Becker MD [facility] History of Present Illness History of Present Illness Consult date/time: 01/08/23 09:01 Reason For Visit: afib rvr,chf exacerbation Narrative: This is a 77-year-old woman who is well known to our practice and follows with my partner, Dr. Nguyễn. She was admitted to the hospital yesterday because of symptoms of generalized weakness and poor appetite as well as some increasing lower extremity edema. The patient has been in the hospital here at [place] a lot in recent year because of difficulties with management of her atrial fibrillation. She has a history of atrial fibrillation and valvular heart disease as well as left ventricular systolic dysfunction. The patient underwent mitral and tricuspid valve repair back in 2016. She had a history of paroxysmal atrial fibrillation which has been treated medically with amiodarone, flecainide and sotalol. The amiodarone had to be stopped because of elevated LFTs. The other 2 antiarrhythmic agents were found to be ineffective. She has a pacemaker/cardiac resynchronization device is in place as well. She has been in the hospital here as recently as last week with symptoms of weakness and some hyponatremia as well as rapid ventricular response. She was titrated up to a high dose of metoprolol 300 mg per day which provided acceptable are rate control. As far as her rhythm management is concerned she is going to require a pacemaker generator change in the foreseeable future and at that time her therapist occupational in [place] would like to also perform an AV node ablation procedure. Complicating all of this is the fact that more effective medication for LV systolic dysfunction had to be withdrawn because of hypotension. For that reason she is not on Jg or Arb and because of hyponatremia when she was discharged recently she had no diuretic on board. She states that she came to the hospit
--- NOTE | 2023-01-08 10:07 | PM.IMPN ---
Progress Note: A&P Assessment and Plan (1) Atrial fibrillation with RVR: Code(s): I48.91 - Unspecified atrial fibrillation Status: Acute Assessment and Plan: The patient has chronic AFib with trouble controlling rate. She was on Coreg adn Sotalol last admission but changed to Toprol XL 300mg daily. In the ED here, she did receive IV Cardizem for RVR. The patient had a negative reaction to amiodarone. Digoxin added. Cardiology has been consulted and discussed with them. Continue with Eliquis. Resume metoprolol at Q8h dosing as BP tolerates. (2) Hyponatremia: Code(s): E87.1 - Hypo-osmolality and hyponatremia Status: Acute Assessment and Plan: The patient has chronic hyponatremia. She is on sodium chloride tablets at home. She is on fluid restriction at home. Sodium was 126 on admission and has dropped to 124 today. Continue fluid restriction. Continue sodium tablets. (3) CHF (congestive heart failure): Qualifiers: Heart failure chronicity: acute on chronic Heart failure type: combined systolic and diastolic Qualified Code(s): I50.43 - Acute on chronic combined systolic (congestive) and diastolic (congestive) heart failure Code(s): I50.9 - Heart failure, unspecified Status: Acute Assessment and Plan: Patient has chronic systolic CHF. Echo on 12/26/2022 showed EF of 35-40%. Also has right-sided failure with RV chamber severely enlarged with RV systolic dysfunction and biatrial enlargement. She has moderate tricuspid regurgitation. RVSP 52mmHg. Patient with a acute on chronic right sided CHF exacerbation. BNP is 25 K. chest x-ray showed right basilar atelectasis or consolidation with small right pleural effusions (reviewed and worse from prior). Her lungs are clear but she has significant pedal edema. Her liver enzymes are elevated most likely related to hepatic congestion from right-sided failure. Consider dobutamine. Spironolactone added. BP soft precludes Lasix IV at this time. Discussed with Cardiology (4) Elevated liver enzymes: Code(s): R74.8 - Abnormal levels of other serum enzymes Status: Acute Assessment and Plan: LFTs noted felt related to hepatic congestion from poorly controlled CHF. Hepatitis panel negative. Abd ultrasound showing GB sludge, ascities and cystic pancreatic lesion. Levels trending down. (5) Hypothyroidism: Code(s): E03.9 - Hypothyroidism, unspecified Status: Acute Assessment and Plan: TSH noted. Continue with levothyroxine at current dose (6) Hypertension: Qualifiers: Hypertension type: essential hypertension Qualified Code(s): I10 - Essential (primary) hypertension Code(s): I10 - Essential (primary) hypertension Status: Acute Assessment and Plan: Not an issue currently (7) GERD (gastroesophageal reflux disease): Qualifiers: Esophagitis presence: esophagitis presence not specified Qualified Code(s): K21.9 - Gastro-esophageal reflux disease without esophagitis Code(s): K21.9 - Gastro-esophageal reflux disease without esophagitis Status: Acute Assessment and Plan: Pepcid started Subjective Date/time seen: 01/08/23 10:07 Interval history: 77yo female with cAFib, CHF, HTN and pulmonary HTN here for weakness. She was just discharged 1 week ago from . Since being at home, he has noted increasing pedal edema with decreasing appetite. She feels fatigued. No chest pain or shortness of breath but does have dyspnea on exertion even with minimal activity. Patient denies any history of liver disease but does mention that she did develop liver problems with amiodarone in the past. She has also noted that the tip of her nose has become more red over the past month. She does have rosacea. Exam Narrative: AF 93/71 110 20 96% ra Gen - NARD HEENT - 1/3 of the distal nose erythematous, blanchable but not warm.
[2023-01-08] MEDS: FAMOTIDINE 20 MG/2 ML VIAL IV PUSH (10:20)
[2023-01-08] MEDS: APIXABAN 5 MG TABLET PO ×2 (10:21→17:12)
[2023-01-08] MEDS: SODIUM CHLORIDE 1 GM TABLET PO ×2 (10:21→17:12)
[2023-01-08] MEDS: SPIRONOLACTONE 25 MG TABLET PO (10:21)
[2023-01-08] MEDS: DIGOXIN 250 MCG TABLET PO (10:21)
[2023-01-08] MEDS: METOPROLOL TARTRATE 50 MG TAB PO (14:13)
[2023-01-08 15:51] LABS: Glucose Point of Care 130 mg/dl (65-105)
[2023-01-08] MEDS: FAMOTIDINE 20 MG TABLET PO (21:53)
[2023-01-08] MEDS: METOPROLOL TARTRATE 25 MG TABLET 75 MG PO (21:53)
[2023-01-09] VITALS (19 sets, daily range): BP systolic 92–113; BP diastolic 51–77; PULSE 60–113; RESP 16–20; TEMP 36.2–36.8; O2SAT 93–100
[2023-01-09 05:07] LABS: Alanine Aminotransferase 165 U/L (6-35); Albumin Level 3.5 g/dL (3.5-5.1); Alkaline Phosphatase 93 U/L (38-126); Anion Gap 6 mmol/L (8-16); Aspartate Amino Transferase 133 U/L (14-36); Bilirubin,Total 1.9 mg/dL (0.2-1.3); Blood Urea Nitrogen 35 mg/dL (7-17); Calcium 8.2 mg/dL (8.4-10.2); Carbon Dioxide 27 mmol/L (22-30); Chloride 92 mmol/L (98-107); Estimated CRCL calculation 38 ml/min; Estimated Glomerular Filt Rate 60; Glucose 87 mg/dL (65-110); Magnesium 2.3 mg/dL (1.6-2.3); Potassium 4.1 mmol/L (3.4-5.0); Sodium 125 mmol/L (137-145)
[2023-01-09] MEDS: LEVOTHYROXINE SODIUM 50 MCG TABLET PO (05:39)
[2023-01-09] MEDS: METOPROLOL TARTRATE 25 MG TABLET 75 MG PO ×3 (05:39→20:42)
--- NOTE | 2023-01-09 09:26 | PM.IMPN ---
Progress Note: A&P Assessment and Plan (1) Atrial fibrillation with RVR: Code(s): I48.91 - Unspecified atrial fibrillation Status: Acute Assessment and Plan: The patient has chronic AFib with trouble controlling rate. She was on Coreg and Sotalol last admission but changed to Toprol XL 300mg daily. In the ED here, she did receive IV Cardizem for RVR. The patient had a negative reaction to amiodarone. Digoxin added. Cardiology has been consulted and appreciate their input. Continue with Eliquis. Resumed metoprolol at lower dose due to soft BP and have advanced this to 75mg Q8h. Will hold on increasing this to home dose in case we should proceed with diuresis. (2) Hyponatremia: Code(s): E87.1 - Hypo-osmolality and hyponatremia Status: Acute Assessment and Plan: The patient has chronic hyponatremia. She is on sodium chloride tablets at home. She is on fluid restriction at home. Sodium was 126 on admission and dropped to 124. We have continued fluid restriction and sodium tablets. Na stable at 125 today. (3) CHF (congestive heart failure): Qualifiers: Heart failure chronicity: acute on chronic Heart failure type: combined systolic and diastolic Qualified Code(s): I50.43 - Acute on chronic combined systolic (congestive) and diastolic (congestive) heart failure Code(s): I50.9 - Heart failure, unspecified Status: Acute Assessment and Plan: Patient has chronic systolic CHF. Echo on 12/26/2022 showed EF of 35-40%. Also has right-sided failure with RV chamber severely enlarged with RV systolic dysfunction and biatrial enlargement. She has moderate tricuspid regurgitation. RVSP 52mmHg. Patient with acute on chronic systolic and right sided CHF exacerbation. BNP is 25 K. CXR showed right basilar atelectasis or consolidation with small right pleural effusions. Aldactone added. Her lungs are clear today and her LE edema appears better clinically. Her liver enzymes are elevated most likely related to hepatic congestion from right-sided failure and these are trending down. Continue Spironolactone. BP stable. Bumex IV x1. (4) Elevated liver enzymes: Code(s): R74.8 - Abnormal levels of other serum enzymes Status: Acute Assessment and Plan: LFTs noted felt related to hepatic congestion from poorly controlled CHF. Hepatitis panel negative. Abd ultrasound showing GB sludge, ascites and cystic pancreatic lesion. Levels trending down. Will need follow up as outpatient for the pancreatic lesion (5) Hypothyroidism: Code(s): E03.9 - Hypothyroidism, unspecified Status: Acute Assessment and Plan: TSH noted. Continue with levothyroxine at current dose (6) Hypertension: Qualifiers: Hypertension type: essential hypertension Qualified Code(s): I10 - Essential (primary) hypertension Code(s): I10 - Essential (primary) hypertension Status: Acute Assessment and Plan: Not an issue currently. (7) GERD (gastroesophageal reflux disease): Qualifiers: Esophagitis presence: esophagitis presence not specified Qualified Code(s): K21.9 - Gastro-esophageal reflux disease without esophagitis Code(s): K21.9 - Gastro-esophageal reflux disease without esophagitis Status: Acute Assessment and Plan: Continue Pepcid Subjective Date/time seen: 01/09/23 09:26 Interval history: 77yo female with cAFib, CHF, HTN and pulmonary HTN here for weakness. Patient feels tired. She was able to sleep last night however. She has noted increasing lower extremity edema. Her shortness of breath is better. She denies any chest pain. Exam Narrative: AF 101/77 73 16 99% ra Gen - NARD Chest - CTA bilaterally, nml RR CV - Irregular irregular. S1-S2. Tele showing bouts of tachycardia but trend overall controlled with HR around 100 Abd - Soft, NT/ND, Positive BS Ext - 1-2+ pitting pedal
[2023-01-09] MEDS: SODIUM CHLORIDE 1 GM TABLET PO ×2 (09:47→17:09)
[2023-01-09] MEDS: SPIRONOLACTONE 25 MG TABLET PO (09:47)
[2023-01-09] MEDS: APIXABAN 5 MG TABLET PO ×2 (09:48→17:08)
[2023-01-09] MEDS: DIGOXIN 250 MCG TABLET PO (09:48)
--- NOTE | 2023-01-09 09:56 | PM.PNCARD ---
Progress Note: A&P Assessment and Plan (1) Atrial fibrillation with RVR: Code(s): I48.91 - Unspecified atrial fibrillation Status: Acute Assessment and Plan: Difficult management as she has previously failed sotalol and encountered elevated LFT's with amiodarone. Currently pursuing rate control with metoprolol and digoxin with the intention of eventual AV node ablation with Dr. Call. Increase metoprolol to previous dose (300mg daily) tomorrow if BP tolerates. (2) History of tricuspid valve repair: Code(s): Z98.890 - Other specified postprocedural states Status: Acute (3) H/O mitral valve repair: Code(s): Z98.890 - Other specified postprocedural states Status: Acute (4) Acute exacerbation of CHF (congestive heart failure): Code(s): I50.9 - Heart failure, unspecified Status: Acute Assessment and Plan: Valvular heart disease and LV dysfunction with EF 35 - 40%. Still has some LE edema, given one dose of IV bumex today. Difficult to optimize her GDMT at this time as she is requiring a high dose of metoprolol in order to achieve rate control and her blood pressure is marginal. For now, continue spironolactone. Subjective Date/time seen: 01/09/23 09:56 Cardiology follow up for atrial fibrillation, CHF, MR She is feeling better this morning. Still has some LE edema which she thinks is slightly worse than yesterday. Review of Systems Constitutional: Constitutional: Reports lethargy Eyes: Eyes: Reports no additional eye complaints ENT: Reports system reviewed and no additional complaints, except as documented Cardiovascular: Cardiovascular: Reports leg edema and Reports dyspnea on exertion Respiratory: Respiratory: Reports dyspnea on exertion Musculoskeletal: Musculoskeletal: Reports no additional musculoskeletal complaints Integumentary/Breasts: Skin/Breast: Reports system reviewed and no additional complaints, except as docu Neurologic: Reports system reviewed and no additional complaints, except as documented Endocrine: Endocrine: Reports no additional endocrine complaints Hematologic/Lymphatic: Hematologic/Lymphatic: Reports no additional hematologic/lymphatic complaints Allergic/Immunologic: Allergic/Immunologic: Reports no additional allergic/immunologic complaints Exam Const: General: comfortable and no acute distress Other: Elderly white female standing up in the bathroom brushing her teeth as I entered the room HENMT: Mouth: Yes moist mucous membranes Eyes: Sclera: sclerae normal Neck: Neck: supple Resp: Effort & Inspection: normal respiratory effort Auscultation: clear to auscultation bilaterally Cardio: Rhythm: abnormal rhythm irregularly irregular GI: Auscultation: normal bowel sounds Skin: General skin exam: normal color Neuro: Other: Alert and oriented x3 Extrem: Other: Patient has moderate symmetrical bilateral edema Objective Data Vital Signs Vital Signs: Vital Signs - 24 hr 01/08/23 10:19 01/08/23 10:21 01/08/23 10:00 Temperature Pulse Rate 128 H 130 H Respiratory Rate Blood Pressure 98/79 L Pulse Oximetry Oxygen Delivery 01/08/23 12:00 01/08/23 12:00 01/08/23 12:00 Temperature 36.6 C Pulse Rate 98 110 H Respiratory Rate 18 Blood Pressure 111/83 Pulse Oximetry 96 Oxygen Delivery Room Air 01/08/23 14:13 01/08/23 14:00 01/08/23 16:00 Temperature Pulse Rate 110 H 98 101 H Respiratory Rate Blood Pressure Pulse Oximetry Oxygen Delivery 01/08/23 16:00 01/08/23 16:00 01/08/23 18:00 Temperature 36.8 C Pulse Rate 119 H 83 Respiratory Rate 18 Blood Pressure 122/90 Pulse Oximetry 98 Oxygen Delivery Room Air 01/08/23 20:00 01/08/23 21:53 01/08/23 20:00 Temperature 36.4 C L Pulse Rate 103 H 112 H 124 H Respiratory Rate 16 Blood Pressure 105/83 Pulse Oximetry 98 Oxygen Delivery 01/08/23 20:00 01/08/23 22:
[2023-01-09] MEDS: FAMOTIDINE 20 MG TABLET PO ×2 (10:31→20:42)
[2023-01-09] MEDS: BUMETANIDE INJ 1 MG/4 ML VIAL IV PUSH (10:31)
[2023-01-09] MEDS: ACETAMINOPHEN 325 MG TABLET 650 MG PO (23:04)
[2023-01-10] VITALS (18 sets, daily range): BP systolic 100–123; BP diastolic 60–90; PULSE 72–104; RESP 12–18; TEMP 36.2–36.8; O2SAT 98–100
[2023-01-10] MEDS: LEVOTHYROXINE SODIUM 50 MCG TABLET PO (04:52)
[2023-01-10] MEDS: METOPROLOL TARTRATE 25 MG TABLET 75 MG PO ×3 (04:52→20:45)
[2023-01-10 05:00] LABS: Basophils Percent Auto 0.4 % (0.2-1.2); Eosinophils Absolute Auto 0.1 K/mm3 (0-0.3); Eosinophils Percent Auto 2.5 % (0-4.4); Hemoglobin 11.4 g/dL (12.0-15.0); Immature Granulocyte Absolute 0.03 K/mm3 (0.00-0.031); Immature Granulocyte Percent A 0.5 % (0-0.5); Lymphocytes Absolute Auto 0.79 K/mm3 (0.9-3.2); Lymphocytes Percent Auto 13.9 % (18.3-44.2); Mean Corpuscular HGB Conc 33.5 g/dl (32-36); Mean Corpuscular Hemoglobin 30.5 pg (26-34); Mean Corpuscular Volume 90.9 fl (80-100); Mean Platelet Volume 9.5 fl (7.4-10.4); Monocytes Absolute Auto 0.8 K/mm3 (0.1-0.6); Monocytes Percent Auto 13.2 % (2.6-8.5); Neutrophils Percent Auto 69.5 % (45.5-73.1); Platelet Count Result 217 k/mm3 (150-375); Red Blood Count 3.74 M/mm3 (4.2-5.4); Red Cell Distribution Width 14.6 % (11.5-14.5); White Blood Count 5.7 K/mm3 (4.5-10.0)
[2023-01-10 05:14] LABS: Alanine Aminotransferase 130 U/L (6-35); Alkaline Phosphatase 85 U/L (38-126); Anion Gap 3 mmol/L (8-16); Aspartate Amino Transferase 85 U/L (14-36); Bilirubin,Total 1.3 mg/dL (0.2-1.3); Blood Urea Nitrogen 30 mg/dL (7-17); Calcium 7.9 mg/dL (8.4-10.2); Carbon Dioxide 30 mmol/L (22-30); Chloride 94 mmol/L (98-107); Estimated CRCL calculation 38 ml/min; Estimated Glomerular Filt Rate 60; Glucose 83 mg/dL (65-110); Sodium 127 mmol/L (137-145)
[2023-01-10] MEDS: SODIUM CHLORIDE 1 GM TABLET PO ×2 (09:05→16:49)
[2023-01-10] MEDS: FAMOTIDINE 20 MG TABLET PO ×2 (09:05→20:45)
[2023-01-10] MEDS: DIGOXIN 250 MCG TABLET PO (09:05)
[2023-01-10] MEDS: SPIRONOLACTONE 25 MG TABLET PO (09:05)
[2023-01-10] MEDS: APIXABAN 5 MG TABLET PO ×2 (09:06→16:49)
--- NOTE | 2023-01-10 10:46 | PM.PNCARD ---
Progress Note: A&P Assessment and Plan (1) Atrial fibrillation with RVR: Code(s): I48.91 - Unspecified atrial fibrillation Status: Acute Assessment and Plan: Difficult management as she has previously failed sotalol and encountered elevated LFT's with amiodarone. Currently pursuing rate control with metoprolol and digoxin with the intention of eventual AV node ablation with Dr. Call. Continue metoprolol 75 mg p.o. t.i.d.. Heart rate is reasonably controlled with this regimen (2) History of tricuspid valve repair: Code(s): Z98.890 - Other specified postprocedural states Status: Acute (3) H/O mitral valve repair: Code(s): Z98.890 - Other specified postprocedural states Status: Acute (4) Acute exacerbation of CHF (congestive heart failure): Code(s): I50.9 - Heart failure, unspecified Status: Acute Assessment and Plan: Valvular heart disease and LV dysfunction with EF 35 - 40%. Bumex 1 mg IV x1 today. Difficult to optimize her GDMT at this time as she is requiring a high dose of metoprolol in order to achieve rate control and her blood pressure is marginal. For now, continue spironolactone. Subjective Date/time seen: 01/10/23 10:46 Interval history: 77yo female with cAFib, CHF, HTN and pulmonary HTN here for weakness. Date of service 01/10/2023: She is feeling better today. Less swollen. Less short of breath. More energetic. Review of Systems Constitutional: Constitutional: Reports lethargy Eyes: Eyes: Reports no additional eye complaints ENT: Reports system reviewed and no additional complaints, except as documented Cardiovascular: Cardiovascular: Reports leg edema and Reports dyspnea on exertion Respiratory: Respiratory: Reports dyspnea on exertion Musculoskeletal: Musculoskeletal: Reports no additional musculoskeletal complaints Integumentary/Breasts: Skin/Breast: Reports system reviewed and no additional complaints, except as docu Neurologic: Reports system reviewed and no additional complaints, except as documented Endocrine: Endocrine: Reports no additional endocrine complaints Hematologic/Lymphatic: Hematologic/Lymphatic: Reports no additional hematologic/lymphatic complaints Allergic/Immunologic: Allergic/Immunologic: Reports no additional allergic/immunologic complaints Exam Const: General: comfortable and no acute distress Other: Elderly white female standing up in the bathroom brushing her teeth as I entered the room HENMT: Mouth: Yes moist mucous membranes Eyes: Sclera: sclerae normal Neck: Neck: supple Other: Carotid pulses are intact bilaterally she does have about 3 cm of jugular venous distention at 45? Resp: Effort & Inspection: normal respiratory effort Auscultation: clear to auscultation bilaterally Cardio: Rate: regular rate Rhythm: abnormal rhythm irregularly irregular GI: Auscultation: normal bowel sounds Skin: General skin exam: normal color Neuro: Other: Alert and oriented x3 Extrem: Other: Patient has moderate symmetrical bilateral edema Objective Data Vital Signs Vital Signs: Vital Signs - 24 hr 01/09/23 13:01 01/09/23 12:00 01/09/23 12:00 Temperature 36.2 C L Pulse Rate 113 H 60 111 H Respiratory Rate 16 Blood Pressure 106/66 Pulse Oximetry 100 Oxygen Delivery 01/09/23 14:00 01/09/23 12:00 01/09/23 16:00 Temperature Pulse Rate 107 H Respiratory Rate Blood Pressure Pulse Oximetry Oxygen Delivery Room Air Room Air 01/09/23 16:00 01/09/23 16:00 01/09/23 18:00 Temperature 36.6 C Pulse Rate 83 74 94 Respiratory Rate 16 Blood Pressure 113/70 Pulse Oximetry 93 Oxygen Delivery 01/09/23 20:00 01/09/23 20:42 01/09/23 20:00 Temperature 36.2 C L Pulse Rate 73 79 Respiratory Rate 20 Blood Pressure 101/57 L Pulse Oximetry 98 Oxygen Delivery Room Air 01/09/23 20:00 01/09/23 22:00 01/09/23 23:[facility]
[2023-01-10] MEDS: BUMETANIDE INJ 1 MG/4 ML VIAL IV PUSH (12:35)
--- NOTE | 2023-01-10 15:13 | PM.IMPN ---
Progress Note: A&P Assessment and Plan (1) Atrial fibrillation with RVR: Code(s): I48.91 - Unspecified atrial fibrillation Status: Acute Assessment and Plan: The patient has chronic AFib with trouble controlling rate. She was on Coreg and Sotalol last admission but changed to Toprol XL 300mg daily. In the ED here, she did receive IV Cardizem for RVR. The patient had a negative reaction to amiodarone. Digoxin added. Cardiology has been consulted and appreciate their input. Continue with Eliquis. Pt had resistant AF and benefits from eventual AV node ablation with Dr. Call. ?Currently rate control with metoprolol and digoxin. (2) Hyponatremia: Code(s): E87.1 - Hypo-osmolality and hyponatremia Status: Acute Assessment and Plan: The patient has chronic hyponatremia. She is on sodium chloride tablets at home. She is on fluid restriction at home. Na is 127 today. (3) CHF (congestive heart failure): Qualifiers: Heart failure chronicity: acute on chronic Heart failure type: combined systolic and diastolic Qualified Code(s): I50.43 - Acute on chronic combined systolic (congestive) and diastolic (congestive) heart failure Code(s): I50.9 - Heart failure, unspecified Status: Acute Assessment and Plan: Patient has chronic systolic CHF. Echo on 12/26/2022 showed EF of 35-40%. Also has right-sided failure with RV chamber severely enlarged with RV systolic dysfunction and biatrial enlargement. She has moderate tricuspid regurgitation. RVSP 52mmHg. Patient with acute on chronic systolic and right sided CHF exacerbation. BNP is 25 K. CXR showed right basilar atelectasis or consolidation with small right pleural effusions. Aldactone added. Pt is received iv diuresis for CHF (4) Elevated liver enzymes: Code(s): R74.8 - Abnormal levels of other serum enzymes Status: Acute Assessment and Plan: LFTs noted felt related to hepatic congestion from poorly controlled CHF. Hepatitis panel negative. Abd ultrasound showing GB sludge, ascites and cystic pancreatic lesion. (5) Hypothyroidism: Code(s): E03.9 - Hypothyroidism, unspecified Status: Acute Assessment and Plan: TSH noted. Continue with levothyroxine at current dose (6) Hypertension: Qualifiers: Hypertension type: essential hypertension Qualified Code(s): I10 - Essential (primary) hypertension Code(s): I10 - Essential (primary) hypertension Status: Acute Assessment and Plan: Not an issue currently. (7) GERD (gastroesophageal reflux disease): Qualifiers: Esophagitis presence: esophagitis presence not specified Qualified Code(s): K21.9 - Gastro-esophageal reflux disease without esophagitis Code(s): K21.9 - Gastro-esophageal reflux disease without esophagitis Status: Acute Assessment and Plan: Continue Pepcid Subjective Date/time seen: 01/10/23 15:13 Interval history: 77yo female with cAFib, CHF, HTN and pulmonary HTN here for weakness. Pt had resistant AF and benefits from eventual AV node ablation with Dr. Call. ?Currently rate control with metoprolol and digoxin. Pt is receiving diuresis for CHF Review of Systems Review of Systems: Pt feels much better main compliant is weight loss and loss of appetite otherwise HR is better Exam Narrative: Gen - Well elderly friendly lady Chest - CTA bilaterally, nml RR CV - Irregular irregular. S1-S2. Tele showing bouts of tachycardia but trend overall controlled with HR around 100 Abd - Soft, NT/ND, Positive BS Ext - 1-2+ pitting pedal edema Psych - Nml mood and affect Skin - Warm and dry Objective Data Vital Signs Vital Signs: Vital Signs - 24 hr 01/09/23 16:00 01/09/23 16:00 01/09/23 16:00 Temperature 36.6 C Pulse Rate 83 74 Respiratory Rate 16 Blood Pressure 113/70 Pulse Oximetry 93 Oxygen Delivery Ro
[2023-01-10] MEDS: SALINE 0.65% NAS SOLN 44 ML BTL 1 SPRAY NASAL (20:46)
[2023-01-11] VITALS (12 sets, daily range): BP systolic 127–139; BP diastolic 79–94; PULSE 68–90; RESP 16–20; TEMP 36.3–36.5; O2SAT 97–100
[2023-01-11] MEDS: LEVOTHYROXINE SODIUM 50 MCG TABLET PO (05:17)
[2023-01-11] MEDS: METOPROLOL TARTRATE 25 MG TABLET 75 MG PO ×2 (05:17→15:13)
[2023-01-11 05:36] LABS: Alanine Aminotransferase 121 U/L (6-35); Albumin Level 3.3 g/dL (3.5-5.1); Alkaline Phosphatase 86 U/L (38-126); Anion Gap 3 mmol/L (8-16); Aspartate Amino Transferase 81 U/L (14-36); Bilirubin,Total 1.3 mg/dL (0.2-1.3); Blood Urea Nitrogen 21 mg/dL (7-17); Calcium 7.9 mg/dL (8.4-10.2); Carbon Dioxide 32 mmol/L (22-30); Chloride 96 mmol/L (98-107); Estimated CRCL calculation 43 ml/min; Estimated Glomerular Filt Rate > 60; Glucose 86 mg/dL (65-110); Potassium 4.3 mmol/L (3.4-5.0); Sodium 131 mmol/L (137-145)
[2023-01-11] MEDS: SPIRONOLACTONE 25 MG TABLET PO (08:37)
[2023-01-11] MEDS: DIGOXIN 250 MCG TABLET PO (08:37)
[2023-01-11] MEDS: FAMOTIDINE 20 MG TABLET PO (08:37)
[2023-01-11] MEDS: APIXABAN 5 MG TABLET PO (08:37)
[2023-01-11] MEDS: SODIUM CHLORIDE 1 GM TABLET PO (08:37)
--- NOTE | 2023-01-11 09:35 | PM.PNCARD ---
Progress Note: A&P Assessment and Plan (1) Atrial fibrillation with RVR: Code(s): I48.91 - Unspecified atrial fibrillation Status: Acute Assessment and Plan: Difficult management as she has previously failed sotalol and encountered elevated LFT's with amiodarone. Currently pursuing rate control with metoprolol and digoxin with the intention of eventual AV node ablation with Dr. Call. Continue metoprolol 75 mg p.o. t.i.d.. Heart rate is reasonably controlled with this regimen I am going to reduce her digoxin level down to 125 mcg daily given her age (2) History of tricuspid valve repair: Code(s): Z98.890 - Other specified postprocedural states Status: Acute (3) H/O mitral valve repair: Code(s): Z98.890 - Other specified postprocedural states Status: Acute (4) Acute exacerbation of CHF (congestive heart failure): Code(s): I50.9 - Heart failure, unspecified Status: Acute Assessment and Plan: Valvular heart disease and LV dysfunction with EF 35 - 40%. Difficult to optimize her GDMT at this time as she is requiring a high dose of metoprolol in order to achieve rate control and her blood pressure is marginal. For now, continue spironolactone. will give 1 more dose of IV Bumex 1 mg times 1. Okay for discharge cardiac perspective Subjective Date/time seen: 01/11/23 09:35 Interval history: 77yo female with cAFib, CHF, HTN and pulmonary HTN here for weakness. Date of service 01/10/2023: She is feeling better today. Less swollen. Less short of breath. More energetic. date of service 01/11/2023: Still feels good today. Minimal swelling. No shortness of breath. Review of Systems Constitutional: Constitutional: Reports lethargy Eyes: Eyes: Reports no additional eye complaints ENT: Reports system reviewed and no additional complaints, except as documented Cardiovascular: Cardiovascular: Reports leg edema and Reports dyspnea on exertion Respiratory: Respiratory: Reports dyspnea on exertion Musculoskeletal: Musculoskeletal: Reports no additional musculoskeletal complaints Integumentary/Breasts: Skin/Breast: Reports system reviewed and no additional complaints, except as docu Neurologic: Reports system reviewed and no additional complaints, except as documented Endocrine: Endocrine: Reports no additional endocrine complaints Hematologic/Lymphatic: Hematologic/Lymphatic: Reports no additional hematologic/lymphatic complaints Allergic/Immunologic: Allergic/Immunologic: Reports no additional allergic/immunologic complaints Exam Const: General: comfortable and no acute distress Other: Elderly white female standing up in the bathroom brushing her teeth as I entered the room HENMT: Mouth: Yes moist mucous membranes Eyes: Sclera: sclerae normal Neck: Neck: supple Other: Carotid pulses are intact bilaterally she does have about 3 cm of jugular venous distention at 45? Resp: Effort & Inspection: normal respiratory effort Auscultation: clear to auscultation bilaterally Cardio: Rate: regular rate Rhythm: abnormal rhythm irregularly irregular GI: Auscultation: normal bowel sounds Skin: General skin exam: normal color Neuro: Other: Alert and oriented x3 Extrem: Other: Patient has moderate symmetrical bilateral edema Objective Data Vital Signs Vital Signs: Vital Signs - 24 hr 01/10/23 10:00 01/10/23 12:00 01/10/23 12:00 Temperature 36.8 C Pulse Rate 81 77 Respiratory Rate 16 Blood Pressure 118/73 Pulse Oximetry 100 Oxygen Delivery Room Air 01/10/23 16:48 01/10/23 16:00 01/10/23 12:00 Temperature 36.4 C Pulse Rate 104 H 94 90 Respiratory Rate 16 Blood Pressure 123/90 Pulse Oximetry 100 Oxygen Delivery 01/10/23 14:00 01/10/23 16:00 01/10/23 16:00 Temperature Pulse Rate 76 101 H Respiratory Rate Blood Pressure Pulse Oximetry Oxygen Delivery Room Air 01/10/23 18:0
--- NOTE | 2023-01-11 11:29 | PC.NURSE ---
6 beat run of vtach on telemetry. Dr. Del Rosario aware. No new orders noted.
[2023-01-11] MEDS: BUMETANIDE INJ 1 MG/4 ML VIAL IV PUSH (12:17)
--- NOTE | 2023-01-11 13:13 | PM.DS ---
DS: Admitting Diagnosis Discharge Date 01/11/2023 Admitting Diagnosis Weakness DS: Discharge Diagnosis Discharge Diagnosis (1) Atrial fibrillation with RVR: Code(s): I48.91 - Unspecified atrial fibrillation Status: Acute Assessment and Plan: The patient has chronic AFib with trouble controlling rate. She was on Coreg and Sotalol last admission but changed to Toprol XL 300mg daily. In the ED here, she did receive IV Cardizem for RVR. The patient had a negative reaction to amiodarone. Digoxin added. Cardiology has been consulted and appreciate their input. Continue with Eliquis. Pt had resistant AF and benefits from eventual AV node ablation with Dr. Call. ?Currently rate control with metoprolol and digoxin and eliquis. Pt ok for DC with cardiology follow up (2) Hyponatremia: Code(s): E87.1 - Hypo-osmolality and hyponatremia Status: Acute Assessment and Plan: The patient has chronic hyponatremia. She is on sodium chloride tablets at home. She is on fluid restriction at home. Na is 131 today. (3) CHF (congestive heart failure): Qualifiers: Heart failure chronicity: acute on chronic Heart failure type: combined systolic and diastolic Qualified Code(s): I50.43 - Acute on chronic combined systolic (congestive) and diastolic (congestive) heart failure Code(s): I50.9 - Heart failure, unspecified Status: Acute Assessment and Plan: Patient has chronic systolic CHF. Echo on 12/26/2022 showed EF of 35-40%. Also has right-sided failure with RV chamber severely enlarged with RV systolic dysfunction and biatrial enlargement. She has moderate tricuspid regurgitation. RVSP 52mmHg. Patient with acute on chronic systolic and right sided CHF exacerbation. BNP is 25 K. CXR showed right basilar atelectasis or consolidation with small right pleural effusions. Aldactone added. Pt is received iv diuresis for CHF sparingly in the hospital, given her sodium levels. (4) Elevated liver enzymes: Code(s): R74.8 - Abnormal levels of other serum enzymes Status: Acute Assessment and Plan: LFTs noted felt related to hepatic congestion from poorly controlled CHF. Hepatitis panel negative. Abd ultrasound showing GB sludge, ascites and cystic pancreatic lesion. (5) Hypothyroidism: Code(s): E03.9 - Hypothyroidism, unspecified Status: Acute Assessment and Plan: TSH noted. increase Synthroid dose (6) Hypertension: Qualifiers: Hypertension type: essential hypertension Qualified Code(s): I10 - Essential (primary) hypertension Code(s): I10 - Essential (primary) hypertension Status: Acute Assessment and Plan: Not an issue currently. (7) GERD (gastroesophageal reflux disease): Qualifiers: Esophagitis presence: esophagitis presence not specified Qualified Code(s): K21.9 - Gastro-esophageal reflux disease without esophagitis Code(s): K21.9 - Gastro-esophageal reflux disease without esophagitis Status: Acute Assessment and Plan: Continue Pepcid DS: Summary Hospital Course Hospital Course: 77-year-old female with past medical history significant for diastolic congestive heart failure, biventricular pacemaker, atrial fibrillation, rate controlled anticoagulated, cardioversion, hyponatremia, hypothyroidism, bilateral lower extremity heel ulcers.? Patient presents to the emergency room due to bilateral lower extremity swelling increased abdominal girth, shortness of breath this has been worsening in the last few days, she has been following up in the outpatient setting for her chronic ulcers and she has been on Lasix for bilateral lower extremity swelling she is also scheduled for sinus node ablation at outside facility.? Preliminary workup was significant for sodium 123 , chloride 90, BNP 7480, patient tested negative for influenza type A, influenza type B, RSV and COVID-19. 7
== END 2023-01-11 15:45 | disposition home or self-care (01) | DRG 308 ==
LOC: ANHED 18:17 → ANHIMU 20:06
PROVIDERS: Internal Medicine; Nurse Practitioner; Admitting Provider Hospitalist; Emergency Provider Emergency Medicine; PCP Family Medicine; Visit Provider Family Medicine
DX: I48.20 Chronic atrial fibrillation, unspecified (principal); I50.43 Acute on chronic combined systolic (congestive) and diastolic (congestive) heart failure; E87.1 Hypo-osmolality and hyponatremia; F41.9 Anxiety disorder, unspecified; I11.0 Hypertensive heart disease with heart failure; E03.9 Hypothyroidism, unspecified; I50.810 Right heart failure, unspecified; I27.20 Pulmonary hypertension, unspecified; I07.1 Rheumatic tricuspid insufficiency; K21.9 Gastro-esophageal reflux disease without esophagitis; R74.8 Abnormal levels of other serum enzymes; Z95.0 Presence of cardiac pacemaker; Z20.822 Contact with and (suspected) exposure to COVID-19; Z79.01 Long term (current) use of anticoagulants
CPT/HCPCS: 36415; 71046; 76705; 80053; 80074; 82948; 83605; 83690; 83735; 83880; 84439; 84443; 85025; 87636; 93005; 96374; 96375; 96376; 99285; A9270; G0378; J1160; J1940

== ENCOUNTER 2023-01-19 15:16 | Outpatient (CLI) | payer MEDICARE, OTHER, SELFPAY ==
[2023-01-19 15:41] LABS: Basophils Percent Auto 0.5 % (0.2-1.2); Eosinophils Absolute Auto 0.1 K/mm3 (0-0.3); Eosinophils Percent Auto 1.1 % (0-4.4); Immature Granulocyte Absolute 0.03 K/mm3 (0.00-0.031); Immature Granulocyte Percent A 0.5 % (0-0.5); Lymphocytes Absolute Auto 0.68 K/mm3 (0.9-3.2); Lymphocytes Percent Auto 12.4 % (18.3-44.2); Mean Corpuscular HGB Conc 32.4 g/dl (32-36); Mean Corpuscular Hemoglobin 29.6 pg (26-34); Mean Corpuscular Volume 91.1 fl (80-100); Mean Platelet Volume 9.6 fl (7.4-10.4); Monocytes Absolute Auto 0.6 K/mm3 (0.1-0.6); Monocytes Percent Auto 10.6 % (2.6-8.5); Neutrophils Absolute Auto 4.1 K/mm3 (1.3-6.7); Neutrophils Percent Auto 74.9 % (45.5-73.1); Platelet Count Result 220 k/mm3 (150-375); Red Blood Count 4.06 M/mm3 (4.2-5.4); Red Cell Distribution Width 15.2 % (11.5-14.5); White Blood Count 5.5 K/mm3 (4.5-10.0)
[2023-01-19 15:51] LABS: Alanine Aminotransferase 72 U/L (6-35); Albumin Level 3.9 g/dL (3.5-5.1); Alkaline Phosphatase 92 U/L (38-126); Anion Gap 6 mmol/L (8-16); Aspartate Amino Transferase 58 U/L (14-36); Bilirubin,Total 1.3 mg/dL (0.2-1.3); Blood Urea Nitrogen 16 mg/dL (7-17); Calcium 8.8 mg/dL (8.4-10.2); Carbon Dioxide 28 mmol/L (22-30); Chloride 98 mmol/L (98-107); Estimated Glomerular Filt Rate > 60; Glucose 115 mg/dL (65-110); Potassium 4.2 mmol/L (3.4-5.0); Sodium 132 mmol/L (137-145)
== END 2023-01-19 15:17 | disposition home or self-care (01) ==
PROVIDERS: PCP Family Medicine; Visit Provider Physician Assistant Medical
DX: I48.91 Unspecified atrial fibrillation (principal); E78.2 Mixed hyperlipidemia
CPT/HCPCS: 36415; 80053; 85025

== ENCOUNTER 2023-01-29 11:53 | Outpatient (CLI) | payer MEDICARE, OTHER, SELFPAY ==
[2023-01-29 13:02] LABS: Anion Gap 6 mmol/L (8-16); Blood Urea Nitrogen 14 mg/dL (7-17); Calcium 8.8 mg/dL (8.4-10.2); Carbon Dioxide 28 mmol/L (22-30); Chloride 95 mmol/L (98-107); Estimated Glomerular Filt Rate > 60; Glucose 95 mg/dL (65-110); Potassium 4.2 mmol/L (3.4-5.0); Sodium 129 mmol/L (137-145)
== END 2023-01-29 11:54 | disposition home or self-care (01) ==
PROVIDERS: PCP Family Medicine
DX: I42.0 Dilated cardiomyopathy (principal)
CPT/HCPCS: 36415; 80048

== ENCOUNTER 2023-03-28 07:33 | Outpatient (CLI) | payer MEDICARE, OTHER, SELFPAY ==
[2023-03-28 08:31] LABS: Alanine Aminotransferase 40 U/L (6-35); Albumin Level 4.2 g/dL (3.5-5.1); Alkaline Phosphatase 86 U/L (38-126); Anion Gap 7 mmol/L (8-16); Aspartate Amino Transferase 60 U/L (14-36); Bilirubin,Total 1.4 mg/dL (0.2-1.3); Blood Urea Nitrogen 18 mg/dL (7-17); Calcium 9.1 mg/dL (8.4-10.2); Carbon Dioxide 28 mmol/L (22-30); Chloride 95 mmol/L (98-107); Cholesterol 161 mg/dL (0-200); Estimated Glomerular Filt Rate > 60; Glucose 94 mg/dL (65-110); HDL Direct 41 mg/dL; Potassium 4.2 mmol/L (3.4-5.0); Sodium 130 mmol/L (137-145); Triglycerides 104 mg/dL (<150)
[2023-03-28 08:42] LABS: LDL Cholesterol Direct 83 mg/dL
[2023-03-28 09:47] LABS: Hemoglobin 12.1 g/dL (12.0-15.0); Mean Corpuscular HGB Conc 31.8 g/dl (32-36); Mean Corpuscular Hemoglobin 28.8 pg (26-34); Mean Corpuscular Volume 90.5 fl (80-100); Mean Platelet Volume 10.1 fl (7.4-10.4); Platelet Count Result 238 k/mm3 (150-375); Red Cell Distribution Width 16.2 % (11.5-14.5); White Blood Count 3.8 K/mm3 (4.5-10.0)
[2023-03-28 14:58] LABS: Thyroid Stimulating Hormone Reflex 0.695 uIU/mL (0.465-4.68)
== END 2023-03-28 07:34 | disposition home or self-care (01) ==
PROVIDERS: PCP Family Medicine; Visit Provider Family Medicine
DX: R53.83 Other fatigue (principal); I10 Essential (primary) hypertension; R79.89 Other specified abnormal findings of blood chemistry; E03.9 Hypothyroidism, unspecified; E78.2 Mixed hyperlipidemia
CPT/HCPCS: 36415; 80053; 80061; 84443; 85027

== ENCOUNTER 2023-04-30 06:50 | Outpatient (CLI) | payer MEDICARE, OTHER, SELFPAY ==
[2023-04-30 07:57] LABS: Basophils Percent Auto 0.8 % (0.2-1.2); Eosinophils Absolute Auto 0.1 K/mm3 (0-0.3); Eosinophils Percent Auto 3.3 % (0-4.4); Hemoglobin 11.5 g/dL (12.0-15.0); Immature Granulocyte Absolute 0.02 K/mm3 (0.00-0.031); Immature Granulocyte Percent A 0.5 % (0-0.5); Lymphocytes Absolute Auto 0.92 K/mm3 (0.9-3.2); Lymphocytes Percent Auto 25.1 % (18.3-44.2); Mean Corpuscular HGB Conc 31.9 g/dl (32-36); Mean Corpuscular Volume 90.9 fl (80-100); Mean Platelet Volume 9.9 fl (7.4-10.4); Monocytes Absolute Auto 0.6 K/mm3 (0.1-0.6); Monocytes Percent Auto 16.9 % (2.6-8.5); Neutrophils Percent Auto 53.4 % (45.5-73.1); Platelet Count Result 232 k/mm3 (150-375); Red Blood Count 3.96 M/mm3 (4.2-5.4); Red Cell Distribution Width 14.6 % (11.5-14.5); White Blood Count 3.7 K/mm3 (4.5-10.0)
[2023-04-30 08:12] LABS: Alanine Aminotransferase 39 U/L (6-35); Albumin Level 4.3 g/dL (3.5-5.1); Alkaline Phosphatase 79 U/L (38-126); Anion Gap 9 mmol/L (8-16); Aspartate Amino Transferase 52 U/L (14-36); Bilirubin,Total 1.2 mg/dL (0.2-1.3); Blood Urea Nitrogen 22 mg/dL (7-17); Calcium 9.2 mg/dL (8.4-10.2); Carbon Dioxide 27 mmol/L (22-30); Chloride 96 mmol/L (98-107); Estimated Glomerular Filt Rate > 60; Glucose 86 mg/dL (65-110); Potassium 4.3 mmol/L (3.4-5.0); Sodium 132 mmol/L (137-145)
[2023-04-30 08:56] LABS: Sodium Urine Random 81 meq/L
[2023-05-03 11:33] LABS: Osmolality, Urine 559 mOsm/kg (50-1200)
== END 2023-04-30 06:51 | disposition home or self-care (01) ==
LOC: ANHLAB 06:51
PROVIDERS: PCP Family Medicine; Visit Provider Family Medicine
DX: E87.1 Hypo-osmolality and hyponatremia (principal); D72.819 Decreased white blood cell count, unspecified; R74.8 Abnormal levels of other serum enzymes
CPT/HCPCS: 36415; 80048; 80076; 83930; 83935; 84300; 85025

== ENCOUNTER 2023-05-09 22:48 | Emergency (ER) | payer MEDICARE, OTHER, SELFPAY ==
[2023-05-09 22:56] VITALS: BP 170/81; PULSE 60; RESP 18; TEMP 36.6; O2SAT 100
--- NOTE | 2023-05-10 01:31 | PC.NURSE ---
Pt approached RN desk and states I'm just going to call my doctor in the morning . Pt ambulated out of ED with steady gait, in no obvious distress.
== END 2023-05-10 01:32 | disposition left against medical advice (07) ==
PROVIDERS: PCP Family Medicine
DX: L97.329 Non-pressure chronic ulcer of left ankle with unspecified severity (principal)
CPT/HCPCS: 99199

== ENCOUNTER 2023-09-23 12:21 | Emergency (ER) | payer MEDICARE, OTHER, SELFPAY ==
--- NOTE | 2023-09-23 12:24 | ED.FEMALEGU ---
HPI - Female Genitourinary General Chief complaint: Urogenital-Female Stated complaint: urinary issue Time Seen by Provider: 09/23/23 12:23 Source: patient Mode of arrival: ambulatory Limitations: no limitations History of Present Illness HPI Narrative: Lakeisha is an 78-year-old female patient presenting to the clinic today with complaints of possible urinary tract infection x2 days. She reports she started having burning with urination and frequency 2 days ago and today she started noticing blood in her urine. She denies any fever, chills, abdominal pain, or back pain. Related Data Home Medications Medication Instructions Recorded Confirmed acetaminophen 500 mg tablet 500 mg PO QID PRN Pain (Scale 05/03/21 03/26/23 (Tylenol Extra Strength) Score 1-3) apixaban 5 mg tablet (Eliquis) 2.5 mg PO BID 03/26/23 03/26/23 cyclosporine 0.05 % eye drops in a 1 drp EACH EYE Q12H 03/26/23 03/26/23 dropperette (Restasis) lactobacillus combination no.4 3 3,000 mmu cells PO DAILY 03/26/23 03/26/23 billion cell capsule (Probiotic) metoprolol tartrate 25 mg tablet 100 mg PO Q8H 03/26/23 03/26/23 Adults Multivitamin 09/23/23 Systane Complete 09/23/23 calcium carbonate 600 mg-vitamin 1 tablet PO BID 09/23/23 09/23/23 D3 10 mcg (400 unit) tablet (Calcium with Vitamin D) clotrimazole 1 % topical cream applic topical 09/23/23 furosemide 20 mg tablet mg 09/23/23 09/23/23 ketoconazole 2 % topical cream applic topical 09/23/23 triamcinolone acetonide 0.1 % topical 09/23/23 topical ointment Allergies Allergy/AdvReac Type Severity Reaction Status Date / Time bacitracin Allergy Intermediate Rash Verified 09/23/23 12:45 adhesive Allergy Mild Rash Verified 09/23/23 12:45 alendronate sodium AdvReac Severe fluid Verified 09/23/23 12:45 [From Fosamax] retention codeine AdvReac Severe Hypotension Verified 09/23/23 12:45 erythromycin base AdvReac Severe touch up carver Verified 09/23/23 12:45 told her not to take d/t other meds esomeprazole [From Nexium] AdvReac Severe Pancreatiti Verified 09/23/23 12:45 s amiodarone AdvReac Unknown Other Verified 09/23/23 12:45 azithromycin AdvReac Unknown touch up carver Verified 09/23/23 12:45 told her not to take d/t other meds dexamethasone AdvReac Unknown Unknown Verified 09/23/23 12:45 levofloxacin [From Levaquin] AdvReac Unknown touch up carver Verified 09/23/23 12:45 told her not to take d/t other meds Review of Systems Review of Systems: Pertinent positives per HPI. Patient denies any fever, chills, rash, headache, visual changes, dizziness, cough, runny nose, sore throat, shortness of breath, chest pain, palpitations, nausea, vomiting, diarrhea, constipation, abdominal pain PMFSH Past Medical History Medical History Ankle ulcer Anxiety Biventricular cardiac pacemaker in situ [employer] Bi V pacemaker implanted by Dr. Pablo in 2016. Chronic diastolic CHF (congestive heart failure) Congestive heart failure Current use of intermediate manager anticoagulation Dry eyes Elevated LFTs Chronic, mild elevation in AST and ALT. Encounter for immunization Gastroesophageal reflux disease Hypertension Hypothyroidism Mitral regurgitation Osteopenia Pacemaker battery depletion Paroxysmal atrial fibrillation Pulmonary hypertension Rosacea Tricuspid regurgitation Valvular heart disease Surgical History Surgical History History of basal cell carcinoma excision History of cardiac radiofrequency ablation History of heart valve repair Mitral and tricuspid valve repair and PFO closure at [facility] per Dr. Klein, 2016. History of tonsillectomy Family History Family History Father Family history of hypercholesterolemia Hypertension Family
[2023-09-23 12:43] VITALS: BP 153/65; PULSE 60; RESP 16; TEMP 36.3; O2SAT 98
== END 2023-09-23 12:51 | disposition home or self-care (01) ==
PROVIDERS: Emergency Provider Nurse Practitioner Family; PCP Family Medicine
DX: N30.01 Acute cystitis with hematuria (principal); K21.9 Gastro-esophageal reflux disease without esophagitis; E03.9 Hypothyroidism, unspecified; I48.0 Paroxysmal atrial fibrillation; Z95.0 Presence of cardiac pacemaker; I11.0 Hypertensive heart disease with heart failure; I50.9 Heart failure, unspecified; Z85.828 Personal history of other malignant neoplasm of skin; Z79.01 Long term (current) use of anticoagulants
CPT/HCPCS: 81003; 87086; 87088; 99213; G0463

== ENCOUNTER 2023-10-02 11:27 | Outpatient (CLI) | payer MEDICARE, OTHER, SELFPAY ==
--- NOTE | ~2023-10-02 | XR_ITS ---
Left ankle Technique: AP and lateral views were obtained. Clinical History: Pain Findings: No acute fracture or dislocation is seen. Osseous alignment is anatomic. Ankle mortise and other visualized joint spaces are preserved. Soft tissues are otherwise unremarkable. Impression: Unremarkable left ankle. Reviewed, dictated and finalized at location . PREPARATION WORKER Impression: Unremarkable left ankle.
--- NOTE | ~2023-10-02 | XR_ITS ---
Left foot Technique: AP and lateral views were obtained. Clinical History: Pain Findings: No acute fracture or dislocation is seen. Osseous alignment is anatomic. Joint spaces are p reserved without erosive or degenerative change. Soft tissues are unremarkable. Impression: Unremarkable left foot radiographs. Reviewed, dictated and finalized at [facility]. ER DIETARY SERVICE SUPERVISOR Impression: Unremarkable left foot radiographs.
--- NOTE | ~2023-10-02 | XR_ITS ---
Right Hand Technique: PA and lateral views were obtained. Clinical History: Pain Findings: No acute fracture or dislocation is seen. There is advanced degenerative change at the firs t CMC joint. Remaining joint spaces are intact. Soft tissues are unremarkable. 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 Reviewed, dictated and finalized at location . 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
--- NOTE | ~2023-10-02 | XR_ITS ---
Right ankle Technique: AP and lateral views were obtained. Clinical History: Pain Findings: No acute fracture or dislocation is seen. Osseous alignment is anatomic. Ankle mortise and other visualized joint spaces are preserved. Soft tissues are otherwise unremarkable. Impression: Unremarkable right ankle. Reviewed, dictated and finalized at location . LOGY NAVIGATOR Impression: Unremarkable right ankle.
--- NOTE | ~2023-10-02 | XR_ITS ---
Left Hand Technique: PA and lateral views were obtained. Clinical History: Pain Findings: No acute fracture or dislocation is seen. There is severe degenerative change of the first CMC joint. Remaining joint spaces are intact. Soft tissues are unremarkable. 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 Reviewed, dictated and finalized at location . 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
--- NOTE | ~2023-10-02 | XR_ITS ---
Right wrist Technique: PA and lateral views were obtained. Clinical History: Pain Findings: No acute fracture or dislocation is seen. There is severe degenerative change at the first CMC joint. Soft tissues are unremarkable. Impression: Severe degenerative change at the first CMC joint. Reviewed, dictated and finalized at [facility]. US AGENT Impression: Severe degenerative change at the first CMC joint.
--- NOTE | ~2023-10-02 | XR_ITS ---
Left wrist Technique: PA and lateral views were obtained. Clinical History: Pain Findings: No acute fracture or dislocation is seen. There is severe degenerative change of the first CMC joint. Soft tissues are unremarkable. 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 Reviewed, dictated and finalized at location . 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
--- NOTE | ~2023-10-02 | XR_ITS ---
Right foot Technique: AP and lateral views were obtained. Clinical History: Pain Findings: No acute fracture or dislocation is seen. Osseous alignment is anatomic. Joint spaces are p reserved without erosive or degenerative change. Soft tissues are unremarkable. Impression: Unremarkable right foot radiographs. Reviewed, dictated and finalized at [facility]. MANAGER Impression: Unremarkable right foot radiographs.
== END 2023-10-02 11:28 | disposition home or self-care (01) ==
PROVIDERS: PCP Family Medicine
DX: M19.032 Primary osteoarthritis, left wrist (principal); M19.031 Primary osteoarthritis, right wrist; M19.042 Primary osteoarthritis, left hand; M19.041 Primary osteoarthritis, right hand; R53.81 Other malaise; M79.10 Myalgia, unspecified site
CPT/HCPCS: 73100; 73120; 73600; 73620

== ENCOUNTER 2024-04-15 07:31 | Outpatient (CLI) | payer MEDICARE, OTHER, SELFPAY ==
[2024-04-15 08:16] LABS: Basophils Percent Auto 0.5 % (0.2-1.2); Eosinophils Absolute Auto 0.1 K/mm3 (0-0.3); Eosinophils Percent Auto 2.6 % (0-4.4); Hematocrit 38.5 % (37.0-47.0); Hemoglobin 12.9 g/dL (12.0-15.0); Immature Granulocyte Absolute 0.02 K/mm3 (0.00-0.031); Immature Granulocyte Percent A 0.5 % (0-0.5); Lymphocytes Absolute Auto 0.72 K/mm3 (0.9-3.2); Lymphocytes Percent Auto 18.7 % (18.3-44.2); Mean Corpuscular HGB Conc 33.5 g/dl (32-36); Mean Corpuscular Hemoglobin 31.2 pg (26-34); Mean Corpuscular Volume 93.2 fl (80-100); Mean Platelet Volume 9.3 fl (7.4-10.4); Monocytes Absolute Auto 0.7 K/mm3 (0.1-0.6); Monocytes Percent Auto 18.4 % (2.6-8.5); Neutrophils Absolute Auto 2.3 K/mm3 (1.3-6.7); Neutrophils Percent Auto 59.3 % (45.5-73.1); Platelet Count Result 233 k/mm3 (150-375); Red Blood Count 4.13 M/mm3 (4.2-5.4); Red Cell Distribution Width 14.2 % (11.5-14.5); White Blood Count 3.9 K/mm3 (4.5-10.0)
[2024-04-15 08:20] LABS: Appearance Urine Turbid (Clear); Bacteria Urine None Seen /hpf; Bilirubin Urine Negative (Negative); Blood Urine Negative (Negative); Color Urine Yellow (Yellow); Glucose Urine UA Negative (Negative); Ketones Urine Negative (Negative); Leukocyte Esterase Ur Negative LEU/UL (Negative); Nitrate Urine Negative (Negative); Non Pathogenic Casts 0-2; Protein Urine Negative (Negative); RBC Urine 0-2 /hpf (0-2); Specific Grav Ur 1.013 (1.001-1.035); Squamous Epithelial Cell Urine None Seen /hpf (Few); Urobilinogen Urine 0.2 mg/dL (<2.0); WBC Urine 0-5 /hpf (0-3)
[2024-04-15 08:28] LABS: Alanine Aminotransferase 27 U/L (6-35); Albumin Level 4.5 g/dL (3.5-5.1); Alkaline Phosphatase 70 U/L (38-126); Anion Gap 6 mmol/L (4-12); Aspartate Amino Transferase 36 U/L (14-36); Bilirubin,Total 1.3 mg/dL (0.2-1.3); Blood Urea Nitrogen 17 mg/dL (7-17); Calcium 9.4 mg/dL (8.4-10.2); Carbon Dioxide 28 mmol/L (22-30); Chloride 93 mmol/L (98-107); Cholesterol 180 mg/dL (0-200); Estimated Glomerular Filt Rate > 60; Glucose 94 mg/dL (65-110); HDL Direct 64 mg/dL; Potassium 4.4 mmol/L (3.4-5.0); Sodium 127 mmol/L (137-145); Triglycerides 98 mg/dL (<150)
[2024-04-15 08:37] LABS: Add Urine Microscopic? YES
[2024-04-15 08:39] LABS: LDL Cholesterol Direct 87 mg/dL
[2024-04-15 08:51] LABS: Iron 156 ug/dL (37-170)
[2024-04-15 09:00] LABS: Percent Iron Saturation 40 % (20-50)
[2024-04-15 09:04] LABS: Complement C3 92 mg/dL (88-165)
[2024-04-15 09:18] LABS: Erythrocyte Sedimentation Rate 15 mm/hr (0-20)
[2024-04-15 09:38] LABS: CRP < 0.5 mg/dL (<1.0)
== END 2024-04-15 07:32 | disposition home or self-care (01) ==
PROVIDERS: PCP Family Medicine; Referring Provider Internal Medicine; Visit Provider Family Medicine
DX: D64.9 Anemia, unspecified (principal); E55.9 Vitamin D deficiency, unspecified; R53.83 Other fatigue; R74.8 Abnormal levels of other serum enzymes; E78.2 Mixed hyperlipidemia; M35.00 Sjogren syndrome, unspecified
CPT/HCPCS: 36415; 80053; 80061; 81001; 82306; 82728; 83540; 83550; 84443; 85025; 85652; 86140; 86160

== ENCOUNTER 2024-06-25 10:52 | Outpatient (CLI) | payer MEDICARE, OTHER, SELFPAY ==
[2024-06-25 11:50] LABS: Anion Gap 10 mmol/L (4-12); Blood Urea Nitrogen 18 mg/dL (7-17); Calcium 9.1 mg/dL (8.4-10.2); Carbon Dioxide 29 mmol/L (22-30); Chloride 89 mmol/L (98-107); Estimated Glomerular Filt Rate > 60; Glucose 96 mg/dL (65-110); Potassium 4.4 mmol/L (3.4-5.0); Sodium 128 mmol/L (137-145)
== END 2024-06-25 10:53 | disposition home or self-care (01) ==
PROVIDERS: PCP Family Medicine; Visit Provider Internal Medicine Cardiovascular Disease
DX: I42.9 Cardiomyopathy, unspecified (principal); I10 Essential (primary) hypertension
CPT/HCPCS: 36415; 80048

== ENCOUNTER 2024-09-26 10:29 | Emergency (ER) | payer MEDICARE, OTHER, SELFPAY ==
[2024-09-26] VITALS (10 sets, daily range): BP systolic 140–169; BP diastolic 69–83; PULSE 60–61; RESP 14–18; TEMP 36.8; O2SAT 99–100
--- NOTE | ~2024-09-26 | XR_ITS ---
EXAMINATION: XR chest 1V portable DATE: 09/26/2024 12:04 INDICATION: Central line placement. TECHNIQUE: A single frontal view of the chest was obtained. COMPARISON: Chest 2 views 01/07/2023 FINDINGS: There is mild atelectasis versus scarring at the lung bases. No pleural effusion or pneumot horax or cardiac megaly is distended. There are changes of heart valve replacements. There is a left chest pacer with leads in right atrium, right ventricle, and coronary sinus. A right upper extremity peripherally inserted central venous catheter (PICC) is seen with tip at the superior cavoatrial junc tion. IMPRESSION: 1. PICC tip at the superior cavoatrial junction. 2. Mild atelectasis versus scarring at the lung bases. 3. Cardiomegaly. Reviewed, dictated and finalized at location A. TER ASSISTANT
[2024-09-26 11:45] LABS: Basophils Percent Auto 0.2 % (0.2-1.2); Eosinophils Absolute Auto 0.2 K/mm3 (0-0.3); Eosinophils Percent Auto 3.8 % (0-4.4); Hemoglobin 11.1 g/dL (12.0-15.0); Immature Granulocyte Absolute 0.04 K/mm3 (0.00-0.031); Immature Granulocyte Percent A 0.7 % (0-0.5); Lymphocytes Absolute Auto 0.39 K/mm3 (0.9-3.2); Lymphocytes Percent Auto 7.1 % (18.3-44.2); Mean Corpuscular HGB Conc 33.6 g/dl (32-36); Mean Corpuscular Hemoglobin 30.6 pg (26-34); Mean Corpuscular Volume 90.9 fl (80-100); Mean Platelet Volume 9.3 fl (7.4-10.4); Monocytes Absolute Auto 0.4 K/mm3 (0.1-0.6); Monocytes Percent Auto 7.5 % (2.6-8.5); Neutrophils Absolute Auto 4.4 K/mm3 (1.3-6.7); Neutrophils Percent Auto 80.7 % (45.5-73.1); Platelet Count Result 201 k/mm3 (150-375); Red Blood Count 3.63 M/mm3 (4.2-5.4); Red Cell Distribution Width 13.5 % (11.5-14.5); White Blood Count 5.5 K/mm3 (4.5-10.0)
[2024-09-26 12:05] LABS: Add Urine Microscopic? NO; Appearance Urine Clear (Clear); Bilirubin Urine Negative (Negative); Blood Urine Negative (Negative); Color Urine Yellow (Yellow); Glucose Urine UA Negative (Negative); Ketones Urine Negative (Negative); Leukocyte Esterase Ur Negative LEU/UL (Negative); Nitrate Urine Negative (Negative); Protein Urine Negative (Negative); Specific Grav Ur 1.006 (1.001-1.035); Urobilinogen Urine 0.2 mg/dL (<2.0); pH Urine 7.5 (5.0-9.0)
[2024-09-26 12:39] LABS: Alanine Aminotransferase 50 U/L (6-35); Albumin Level 4.1 g/dL (3.5-5.1); Alkaline Phosphatase 98 U/L (38-126); Anion Gap 9 mmol/L (4-12); Aspartate Amino Transferase 45 U/L (14-36); Bilirubin,Total 0.8 mg/dL (0.2-1.3); Blood Urea Nitrogen 17 mg/dL (7-17); Calcium 8.9 mg/dL (8.4-10.2); Carbon Dioxide 28 mmol/L (22-30); Chloride 88 mmol/L (98-107); Estimated CRCL calculation 60 ml/min; Estimated Glomerular Filt Rate > 60; Glucose 94 mg/dL (65-110); Potassium 3.6 mmol/L (3.4-5.0); Sodium 125 mmol/L (137-145)
--- NOTE | 2024-09-26 14:35 | ED.GENADULT ---
HPI - General Adult General Chief complaint: Skin/Abscess/Foreign Body Stated complaint: sent by pcp for hyponatremia Time Seen by Provider: 09/26/24 10:50 History of Present Illness HPI narrative: the patient is a 79-year-old female presents emergency department with chief complaint of low sodium. Patient has history of hyponatremia reports he is being treated by a infectious disease doctor in [facility] check labs on her and noted that her sodium levels were low. The patient was told to come to the emergency department for evaluation the patient told her doctor that she has low sodium and that is not uncommon for her to have a low number she was still advised to come to the emergency department for evaluation Related Data Home Medications Medication Instructions Recorded Confirmed acetaminophen 500 mg tablet 500 mg PO QID PRN Pain (Scale 05/03/21 04/01/24 (Tylenol Extra Strength) Score 1-3) apixaban 5 mg tablet (Eliquis) 2.5 mg PO BID 03/26/23 04/01/24 cyclosporine 0.05 % eye drops in a 1 drp EACH EYE Q12H 03/26/23 04/01/24 dropperette (Restasis) lactobacillus combination no.4 3 3,000 mmu cells PO DAILY 03/26/23 04/01/24 billion cell capsule (Probiotic) metoprolol tartrate 25 mg tablet 100 mg PO Q8H 03/26/23 04/01/24 Adults Multivitamin 09/23/23 04/01/24 Systane Complete 09/23/23 04/01/24 calcium 600 mg (as 1 tablet PO BID 09/23/23 04/01/24 carbonate)-vitamin D3 10 mcg (400 unit) tablet (Calcium with Vitamin D) clotrimazole 1 % topical cream applic topical 09/23/23 04/01/24 ketoconazole 2 % topical cream applic topical 09/23/23 04/01/24 triamcinolone acetonide 0.1 % topical 09/23/23 04/01/24 topical ointment Allergies Allergy/AdvReac Type Severity Reaction Status Date / Time alginic acid Allergy Intermediate pain Verified 04/01/24 10:41 [From [facility] (qi alginate-honey)] bacitracin Allergy Intermediate Rash Verified 04/01/24 10:38 honey Allergy Intermediate pain Verified 04/01/24 10:41 [From [facility] (qi alginate-honey)] adhesive Allergy Mild Rash Verified 04/01/24 10:38 alendronate sodium AdvReac Severe fluid Verified 04/01/24 10:38 [From Fosamax] retention codeine AdvReac Severe Hypotension Verified 04/01/24 10:38 esomeprazole [From Nexium] AdvReac Severe Pancreatiti Verified 04/01/24 10:38 s amiodarone AdvReac Unknown Other Verified 04/01/24 10:38 dexamethasone AdvReac Unknown Unknown Verified 04/01/24 10:38 Review of Systems Review of Systems: A 10 system review of systems was completed on the patient and is negative except for what is stated in the HPI. Nursing and ancillary documentation was reviewed. [facility] Past Medical History Medical History Ankle ulcer Anxiety Biventricular cardiac pacemaker in situ [facility] V pacemaker implanted by Dr. Pablo in 2016. 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 Encounter for immunization Gastroesophageal reflux disease Hypertension Hypothyroidism Mitral regurgitation Osteopenia Pacemaker battery depletion Paroxysmal atrial fibrillation Pulmonary hypertension Rosacea Tricuspid regurgitation Valvular heart disease Surgical History Surgical History History of basal cell carcinoma excision History of cardiac radiofrequency ablation History of heart valve repair Mitral and tricuspid valve repair and PFO closure at [facility] per Dr. Klein, 2016. History of tonsillectomy Family History Family History Father Family history of hypercholesterolemia Hypertension Family history of Parkinson's disease Mother Family history of hypercholesterolemia Hypertension Carcinoma of colon Family history of malignant neoplasm of breast in first degree relative Social History Social History Social History: The patient is and lives in [place]. 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 She has a Lifelong nonsmoker. She Drinks perhaps 1 alcoholic beverage a evening. She denies any illicit substance use. Her Dalton and son Moshe her surrogate decision makers and she wishes to be a full code. She has 2 sons. She lives with her Dalton. Code status full code. Smoking status: Never smoker Second hand tobacco smoke exposure: No Alcohol intake: current Drinks per week: 2 Alcohol use details: occassional glass of wine Substance use: never Substance use type: does not use Lack of Transportation: No Lack of Food: Never True Current Housing: I Have Housing Concerned About Future Housing: No Difficulty Paying Gas/Electric Bills: No Difficulty Paying for Meds: No Currently Unemployed: No Education: Bachelor's Degree Difficulty w/ Childcare or Family Care: No Living arrangements: with family Additional living arrangements comments: with Occupation/Education: retired Gender identity (if verbalized by the patient): Female Spiritual care concerns: No Exam Narrative: GENERAL: Well-appearing, well-nourished, and in no acute distress. HEAD: Normocephalic, atraumatic. EYES: PERRLA and EOMI. ENT: Nares clear, no rhinorrhea or epistaxis. Mucous membranes moist. NECK: Supple. CHEST: Clear to auscultation. No respiratory distress. HEART: Regular rate and rhythm. No murmur heard. Normal peripheral pulses. ABDOMEN: Soft, nontender, nondistended, normal active bowel sounds. EXTREMITIES: Normal range of motion. No edema. dressing present to the left lower extremity, PICC line present in the right upper extremity SKIN: Warm, dry, no rash. NEURO: No focal deficits. Alert and oriented x3. PSYCH: Normal mood and affect. Course Vital Signs Vital signs: Vital Signs Temperature 36.8 C 09/26/24 10:53 Pulse Rate 60 09/26/24 10:53 Respiratory Rate 18 09/26/24 10:53 Blood Pressure 169/82 H 09/26/24 10:53 Pulse Oximetry 100 09/26/24 10:53 Oxygen Delivery Room Air 09/26/24 10:53 Temperature 36.8 C 09/26/24 10:53 Pulse Rate 60 09/26/24 10:53 Respiratory Rate 18 09/26/24 10:53 Blood Pressure 169/82 H 09/26/24 10:53 Pulse Oximetry 100 09/26/24 10:53 Oxygen Delivery Room Air 09/26/24 10:53 Medical Decision Making MDM Narrative Medical decision making narrative: differential diagnosis includes electrolyte abnormality, dehydration, hyponatremia, the patient has prior history of hyponatremia with her levels fluctuating between 120 and 127 patient's level today is 125 this is very similar to the patient's baseline hyponatremia patient was instructed to follow-up with her primary care provider Vital Signs Vital Signs: Vital Signs Temperature 36.8 C 09/26/24 10:53 Pulse Rate 60 09/26/24 10:53 Respiratory Rate 18 09/26/24 10:53 Blood Pressure 169/82 H 09/26/24 10:53 Pulse Oximetry 100 09/26/24 10:53 Oxygen Delivery Room Air 09/26/24 10:53 Temperature 36.8 C 09/26/24 10:53 Pulse Rate 60 09/26/24 10:53 Respiratory Rate 18 09/26/24 10:53 Blood Pressure 169/82 H 09/26/24 10:53 Pulse Oximetry 100 09/26/24 10:53 Oxygen Delivery Room Air 09/26/24 10:53 Lab Data 09/26/24 11:29 09/26/24 11:29 Labs: Lab Results 09/26/24 09/26/24 Range/Units 11:29 11:31 WBC 5.5 (4.5-10.0) K/mm3 RBC 3.63 L (4.2-5.4) M/mm3 Hgb 11.1 L (12.0-15.0) g/dL Hct 33.0 L (37.0-47.0) % MCV 90.9 (80-100) fl MCH 30.6 (26-34) pg MCHC 33.6 (32-36) g/dl RDW 13.5 (11.5-14.5) % Plt Count 201 (150-375) k/mm3 MPV 9.3 (7.4-10.4) fl Immature Gran % (Auto) 0.7 H (0-0.5) % Neut % (Auto) 80.7 H (45.5-73.1) % Lymph % (Auto) 7.1 L (18.3-44.2) % Maverick % (Auto) 7.5 (2.6-8.5) % Eos % (Auto) 3.8 (0-4.4) % Baso % (Auto) 0.2 (0.2-1.2) % Lymph # (Auto) 0.39 L (0.9-3.2) K/mm3 Maverick # (Auto) 0.4 (0.1-0.6) K/mm3 Eos # (Auto) 0.2 (0-0.3) K/mm3 Baso # (Auto) 0.0 (0.0-0.1) K/mm3 Abs Immat Gran (auto) 0.04 H (0.00-0.031) K/mm3 Absolute Neuts (auto) 4.4 (1.3-6.7) K/mm3 Absolute Nucleated RBC 0.000 (0.0-0.012) K/mm3 Nucleated RBC % 0.0 (0.0-0.2) % Sodium 125 L (137-145) mmol/L Potassium 3.6 (3.4-5.0) mmol/L Chloride 88 L (98-107) mmol/L Carbon Dioxide 28 (22-30) mmol/L Anion Gap 9 (4-12) mmol/L BUN 17 (7-17) mg/dL Creatinine 0.50 L (0.7-1.0) mg/dL Estim Creat Clear Calc 60 ml/min Estimated GFR > 60 (59 - ) Glucose 94 (65-110) mg/dL Calcium 8.9 (8.4-10.2) mg/dL Total Bilirubin 0.8 (0.2-1.3) mg/dL AST 45 H (14-36) U/L ALT 50 H (6-35) U/L Alkaline Phosphatase 98 (38-126) U/L Total Protein 8.0 (6.3-8.2) g/dL Albumin 4.1 (3.5-5.1) g/dL Urine Color Yellow (Yellow) Urine Appearance Clear (Clear) Urine pH 7.5 (5.0-9.0) Ur Specific [place] 1.006 (1.001-1.035) Urine Protein Negative (Negative) mg/dL Urine Glucose (UA) Negative (Negative) mg/dL Urine Ketones Negative (Negative) mg/dL Ur Blood (Man) Negative (Negative) Urine Nitrate Negative (Negative) Urine Bilirubin Negative (Negative) Urine Urobilinogen 0.2 (<2.0) mg/dL Leukocyte Esterase Rfl Negative (Negative) YUE/UL Discharge Plan Discharge Clinical Impression: Hyponatremia Patient Disposition: Home, Self-Care Condition: Stable Instructions: Antibiotic Form, Hyponatremia (ED) Prescriptions: No Action triamcinolone acetonide 0.1 % ointment TOPICAL ketoconazole 2 % cream TOPICAL clotrimazole 1 % cream TOPICAL Adults Multivitamin calcium carbonate-vitamin D3 [Calcium with Vitamin D] 600 mg-10 mcg (400 unit) Tablet 1 tablet PO BID Systane Complete furosemide 20 mg tablet 20 mg PO DAILY Qty: 30 0RF Hold Instructions: .Provider Order metoprolol tartrate 25 mg tablet 100 mg PO Q8H cyclosporine [Restasis] 0.05 % dropperette 1 drp EACH EYE Q12H Probiotic 3 billion cell capsule 3,000 mmu cells PO DAILY Rx Instructions: administer with a meal azelaic acid 15 % gel 1 applic topical BID Qty: 50 0RF (DME) RSV vaccine See Rx Instructions .Route .MEDSUPPLY Qty: 1 0RF Rx Instructions: As directed per injection spironolactone 25 mg Tablet 25 mg PO QAM Qty: 30 1RF acetaminophen [Tylenol Extra Strength] 500 mg Tablet 500 mg PO QID PRN (Reason: Pain (Scale Score 1-3)) Eliquis 5 mg tablet 2.5 mg PO BID levothyroxine 75 mcg tablet 75 mcg PO DAILY Qty: 90 3RF famotidine 20 mg tablet 20 mg PO Q12HR Qty: 180 1RF Follow-up/Referrals: UNKNOWN,DOCTOR [Primary Care Provider] - Time of Disposition: 14:39
== END 2024-09-26 15:10 | disposition home or self-care (01) ==
PROVIDERS: Emergency Provider Emergency Medicine
DX: E87.1 Hypo-osmolality and hyponatremia (principal); I50.32 Chronic diastolic (congestive) heart failure; K21.9 Gastro-esophageal reflux disease without esophagitis; Z79.01 Long term (current) use of anticoagulants; I11.0 Hypertensive heart disease with heart failure; E03.9 Hypothyroidism, unspecified; I48.0 Paroxysmal atrial fibrillation; M85.80 Other specified disorders of bone density and structure, unspecified site
CPT/HCPCS: 36415; 71045; 80053; 81003; 85025; 99283

== ENCOUNTER 2024-11-14 08:03 | Outpatient (CLI) | payer MEDICARE, OTHER, SELFPAY ==
[2024-11-14 08:44] LABS: Sodium Urine Random 28 meq/L
[2024-11-14 08:47] LABS: Alanine Aminotransferase 73 U/L (6-35); Albumin Level 3.8 g/dL (3.5-5.1); Alkaline Phosphatase 177 U/L (38-126); Anion Gap 5 mmol/L (4-12); Aspartate Amino Transferase 69 U/L (14-36); Bilirubin,Total 0.9 mg/dL (0.2-1.3); Blood Urea Nitrogen 22 mg/dL (7-17); Calcium 9.2 mg/dL (8.4-10.2); Carbon Dioxide 25 mmol/L (22-30); Chloride 101 mmol/L (98-107); Cholesterol 102 mg/dL (0-200); Estimated Glomerular Filt Rate > 60; Glucose 105 mg/dL (65-110); HDL Direct 38 mg/dL; Potassium 3.9 mmol/L (3.4-5.0); Sodium 131 mmol/L (137-145); Triglycerides 64 mg/dL (<150)
[2024-11-14 08:58] LABS: LDL Cholesterol Direct 42 mg/dL
[2024-11-17 14:28] LABS: Osmolality, Urine 621 mOsm/kg (50-1200)
== END 2024-11-14 08:04 | disposition home or self-care (01) ==
PROVIDERS: PCP Family Medicine; Visit Provider Family Medicine
DX: E87.1 Hypo-osmolality and hyponatremia (principal); E78.2 Mixed hyperlipidemia; E03.9 Hypothyroidism, unspecified
CPT/HCPCS: 36415; 80053; 80061; 83930; 83935; 84300; 84443

== ENCOUNTER 2025-05-01 07:11 | Outpatient (CLI) | payer MEDICARE, OTHER, SELFPAY ==
[2025-05-01 07:52] LABS: Basophils Percent Auto 0.8 % (0.2-1.2); Eosinophils Absolute Auto 0.1 K/mm3 (0-0.3); Eosinophils Percent Auto 2.3 % (0-4.4); Hematocrit 35.2 % (37.0-47.0); Hemoglobin 11.2 g/dL (12.0-15.0); Immature Granulocyte Absolute 0.02 K/mm3 (0.00-0.031); Immature Granulocyte Percent A 0.5 % (0-0.5); Lymphocytes Absolute Auto 0.74 K/mm3 (0.9-3.2); Mean Corpuscular HGB Conc 31.8 g/dl (32-36); Mean Corpuscular Hemoglobin 28.8 pg (26-34); Mean Corpuscular Volume 90.5 fl (80-100); Mean Platelet Volume 9.2 fl (7.4-10.4); Monocytes Absolute Auto 0.6 K/mm3 (0.1-0.6); Monocytes Percent Auto 15.7 % (2.6-8.5); Neutrophils Absolute Auto 2.4 K/mm3 (1.3-6.7); Neutrophils Percent Auto 61.7 % (45.5-73.1); Platelet Count Result 259 k/mm3 (150-375); Red Blood Count 3.89 M/mm3 (4.2-5.4); Red Cell Distribution Width 16.9 % (11.5-14.5); White Blood Count 3.9 K/mm3 (4.5-10.0)
[2025-05-01 08:03] LABS: Alanine Aminotransferase 22 U/L (6-35); Alkaline Phosphatase 92 U/L (38-126); Anion Gap 6 mmol/L (4-12); Aspartate Amino Transferase 37 U/L (14-36); Bilirubin,Total 0.8 mg/dL (0.2-1.3); Blood Urea Nitrogen 32 mg/dL (7-17); Calcium 9.6 mg/dL (8.4-10.2); Carbon Dioxide 28 mmol/L (22-30); Chloride 98 mmol/L (98-107); Cholesterol 167 mg/dL (0-200); Estimated Glomerular Filt Rate > 60; Glucose 94 mg/dL (65-110); HDL Direct 49 mg/dL; Potassium 5.4 mmol/L (3.4-5.0); Sodium 132 mmol/L (137-145); Triglycerides 106 mg/dL (<150)
[2025-05-01 08:15] LABS: LDL Cholesterol Direct 72 mg/dL
[2025-05-01 09:14] LABS: Vitamin D 25 Hydroxy 81.8 ng/mL
== END 2025-05-01 07:12 | disposition home or self-care (01) ==
PROVIDERS: PCP Family Medicine; Visit Provider Family Medicine
DX: E78.2 Mixed hyperlipidemia (principal); Z00.00 Encounter for general adult medical examination without abnormal findings; I10 Essential (primary) hypertension; E87.1 Hypo-osmolality and hyponatremia; D64.9 Anemia, unspecified; E55.9 Vitamin D deficiency, unspecified; E03.9 Hypothyroidism, unspecified
CPT/HCPCS: 36415; 80053; 80061; 82306; 84443; 85025

== ENCOUNTER 2025-05-01 15:06 | Outpatient (CLI) | payer MEDICARE, OTHER, SELFPAY ==
--- OUTSIDE RECORDS SUMMARY | 2025-05-01 15:09 | XMS_ITS | Continuity of Care Document ---
Author Organization [facility] Address [address] [place] [address] Phone Care Team Providers Care Body Designer Name Role Phone Prashant Martin Unavailable Unavailable Procedures Procedure Date Eye Exam & Treatment Office/outpatient Visit, Est No Script Eye Exam Established Pt Script Printed/Phoned Pt Requ Or Pharm N ot Availab Eye Exam & Treatment Script Printed/Phoned Pt Requ Or Pharm N ot Availab BF Plastic Sphcyl Noble To +/-4d .12-2d Frames Deluxe Tint Photochromatic, Plastic Anti-reflective Coating Tax - Medical Eye Exam & Treatment Refraction Office/outpatient Visit, Est Advance Directives Directive Yes / No Effective Date File Name No Information Encounters Encounter Description Practice Location Reason(s) For Visit Diagnoses Date Provider Providers Copied on Encounter [facility], [address], [place], [place], [id number], [place] tel:[phone] [facility] No Information 2[address] Mario Cerda. [address] [facility] [address], [place], [address], [place]. tel:[phone] Office/outpat ient Visit, Est [facility], [address], [place], [place], [id number], [place] tel:[phone] [facility] No Information [address] Krishnasamy Prashant. [address] [facility] [address], [place], [address], [place]. tel:[phone] [facility], [address], [place], [place], [address], [place] tel:[phone] [facility] No Information [address] Krishnasamy Prashant. [address] [facility] [address], [place], [address], [place]. tel:[phone] [facility], [address], [place], [place], [id number], [place] tel:[phone] [facility] No Information [address] Krishnasamy Prashant. [address] [facility] [address], [place], [facility], [place]. tel:[phone] [facility], [address] [place] [address] [address], [place], [place], [address], [place] tel:[phone] [facility] No Information [address] [employer]. [address], [address], [place], [place], [address], [place]. tel:[phone] Referring Provider: Prashant aj, [facility] [address], [place], [address]. tel:[phone] sulting Provider: Beatriz Bruno, [address] [place], [address]. tel:[phone] [facility], [address], [place], [place], [address], [place] tel:[phone] [facility] No Information [address] Krishnasamy Prashant. [facility] [address], [place], [address], [place]. tel:[phone] Office/outpat ient Visit, [facility], [address], [place], [place], [address], [place] tel:[phone] [facility] No Information 3 0-200 7 Ian Duran. [address], [place], [place], [address], [place]. tel:[phone] Family History Family Member Type Diagnosis Age At Onset No Information Payers Payer name Insurance type Covered republican ID Authoriza tion(s) Medicare [facility] [id number] For Life Mdcr Supp CI [id number] Social History Type Description Quantity Date Captured Comments Sex Female Smoking Status No Information Chief Complaint And Reason For Visit No Information Reason For Referral Reason For Referral No Information History Of Present Illness Encounter Date Complaint History Of Prese nt Illness No Information Functional Status Date Functional Assessmen t No Information Instructions Date Instruction Additional Infor mation No Information Assessments Type Assessment Date No Information Patient Care Teams Name Effective Dates (start - stop) Status Members No Information
--- OUTSIDE RECORDS SUMMARY | 2025-05-01 15:09 | XMS_ITS | Clinical Summary ---
Author Organization [facility] Address [address] [place] [address] Phone Care Team Providers Care Fire Hydrant Operator Name Role Phone Tiffany Garcia MD Primary Care Provider [phone] Allergies Active Allergy Reactions Criticality Noted Date Comments Azithromycin Unknown 07/22/2021 Codeine Other (see comments) High 01/01/2022 Other reaction(s): Syncope Reaction: DECREASED RESPIRAT, , Reaction: Syncope, , Dexamethasone Unknown 07/22/2021 Erythromycin Unknown 07/22/2021 Esomeprazole Unknown 07/22/2021 Levofloxacin Unknown 07/22/2021 Metoprolol Other (see comments) Low 01/16/2018 Hair loss, improved after changing to Coreg Wound Dressing Adhesive Rash Medium 09/04/2018 Medications Eliquis 5 MG tablet 1 Active ascorbic acid (VITAMIN C) 500 MG CR capsule 500 mg 3 Active Calcium Carbonate-Vitamin D (calcium-vitamin D) 500-200 MG-UNIT per tablet take 1 by Oral route every day 3 Active carvedilol (COREG) 25 MG tablet 1 Active clindamycin (CLEOCIN T) 1 % lotion APPLY SPARINGLY AND MASSAGE IN TWICE DAILY prn. 6 Active cycloSPORINE (Restasis) 0.05 % ophthalmic emulsion 0.05 % 5 Active diphenhydrAMINE (BENADRYL) 25 MG capsule Take 25 mg by mouth Active famotidine (PEPCID) 40 MG tablet 1 Active furosemide (LASIX) 20 MG tablet 1 Active Synthroid 50 MCG tablet 1 Active lisinopril (PRINIVIL) 40 MG tablet 1 Active loperamide (IMODIUM) 2 MG capsule Take 2 mg by mouth Active loratadine (CLARITIN) 10 MG tablet Take 10 mg by mouth daily Active sotalol (BETAPACE) 80 MG tablet 2 Active spironolactone (ALDACTONE) 25 MG tablet 2 Active triamcinolone (KENALOG) 0.1 % cream 1 Active ketoconazole (NIZORAL) 2 % cream 2 Active betamethasone dipropionate 0.05 % lotion 2 Active Active Problems Problem Noted Date Diagnosed Date FH: Hypertension 02/27/2022 FH: Raised blood lipids 02/27/2022 Elevated liver enzymes level 10/31/2021 Hyponatremia 10/31/2021 Typical atrial flutter 10/31/2021 Disorder of foot 09/05/2021 History of tricuspid valve repair 10/20/2020 Nonrheumatic tricuspid valve regurgitation 04/16 Abdominal bruit 12/31/2018 Overview (01/01/2022): November 2018 abdominal bruit heard by PCP. Abdominal aortic ultrasound and renal ultrasound were unremarkable. Cardiac defibrillator in situ 01/16/2018 Overview (01/01/2022): Implanted Allure Quadra by Dr. Brooks 04-21-2016 CM,chf,lbbb,paf Dr. Nguyễn Last Assessment & Plan: [facility] biventricular ICD followed by Dr. Brooks Drug therapy finding 07/30/2016 Procedure carried out on subject 07/30/2016 Cardiomyopathy 06/09/2016 Overview (01/01/2022): Valvular cardiomyopathy Last Assessment & Plan: Left ventricular function improved after valve surgery, with EF 55 percent in October 2016. Does have some HODGES at higher levels of exertion, probably class Chronic systolic heart failure 06/09/2016 Overview (01/01/2022): Chronic systolic CHF (congestive heart failure) History of repair of mitral valve 06/09/2016 Overview (01/01/2022): H/O tricuspid valve repair Long-term current use of anticoagulant 6 Overview (01/01/2022): Chronic anticoagulation Essential hypertension 03/20/2016 Overview (01/01/2022): Essential hypertension, benign Left bundle-branch block 03/20/2016 Overview (01/01/2022): LBBB (left bundle branch block) Non-rheumatic mitral regurgitation 03/20/2016 Overview (01/01/2022): Non-rheumatic mitral regurgitation Last Assessment & Plan: H/O MVP and MR, with sudden worsening of MR asso w/ CHF in March 2016. S/P MV and TV repair March 2016. Has louder murmur but only mild Mr.and mild/modTR by Echo 2016/ Paroxysmal atrial fibrillation 03/20/2016 Overview (01/01/2022): PAF (paroxysmal atrial fibrillation) Last Assessment & Plan: Apparently no AFib noted on recent pacemaker checks and Dr. Brooks has discontinued the amiodarone, which is great as I am most concerned about long-term side effects. Immunizations Immunization Administration Dates Next Due Sars-cov-2, Unspecified 01/23/2021 Family History Medical History Relation Comments Hypertension Father Parkinson's disease Father No Known Problems Maternal Grandfather Colon cancer Mother Hypertension Mother Relation Status Comments Father Maternal Grandfather Mother Social History Tobacco Use Types Packs/Day Years Used Date Smoking Tobacco: Never Smokeless Tobacco: Never Alcohol Use Standard Drinks/Week Comments Yes 0 (1 standard drink = 0.6 oz pure alcohol) glass of wine every once in awhile Comments Unknown Sex and Gender Information Value Date Recorded Sex Assigned at Not on file Legal Sex Female 1:00 PM MDT Gender Identity Not on file Sexual Orientation Not on file Last Filed Vital Signs Vital Sign Reading Time Taken Comments Blood Pressure 132/70 07/12/2022 11:16 AM CDT Pulse - - Temperature 36.4 C (97.5 F) 07/12/2022 11:16 AM CDT Respiratory Rate 16 07/12/2022 11:16 AM CDT Oxygen Saturation - - Inhaled Oxygen Concentration - - Weight 53.1 kg (117 lb) 07/12/2022 11:16 AM CDT Height 165.1 cm (5' 5) 07/12/2022 11:16 AM CDT Body Mass Index 19.47 07/12/2022 11:16 AM CDT Plan of Treatment Health Maintenance Due Date Last Done Comments Pneumococcal PPSV23/PCV13 65 + Years / Low and Medium Risk (1 of 4 - PCV) 1993 Influenza Vaccine (Season Ended) 2025 Insurance MEDICARE [facility] Care Teams Fire Hydrant Operator Relationship Specialty Start Date End Date Tiffany Garcia MD [address] [place] [address] PCP - General Internal Medicine 09/01/21
--- OUTSIDE RECORDS SUMMARY | 2025-05-01 15:09 | XMS_ITS | Clinical Summary ---
Author Organization [facility] Address [address] [place] [address] Care Team Providers Care Reliability Technicians Name Role Phone Tiffany Garcia MD Primary Care Provider [phone] Source Comments [facility],non-owned Affiliates and Associated Physician Practices is amultiple site organization consisting of ambulatory clinics and hospital sitesin [place], [place], [place] and [place]. This disclosure is being madepursuant to the Care Everywhere program and may not contain all information available regarding this patient. Last updated 18.[facility] Allergies Active Allergy Reactions Criticality Noted Date Comments Adhesive Sensitivity Rash Medium 09/04/2018 Amiodarone Other Low 03/18/2023 Elevated LFTs Azithromycin Unknown 07/22/2021 Codeine Other High 07/31/2016 Other reaction(s): Syncope Reaction: DECREASED RESPIRAT, , Reaction: Syncope, , Reaction: DECREASED RESPIRAT, , Reaction: Syncope, , Other reaction(s): Syncope Reaction: DECREASED RESPIRAT, , Reaction: Syncope, , Dexamethasone Unknown 07/22/2021 Erythromycin Unknown 07/22/2021 Esomeprazole Unknown 07/22/2021 Kdc:Manuka Honey+Calcium Alginate Other High 06/05/2023 Burning Levofloxacin Nausea and/or Vomiting,Unknown Low 07/31/2016 Metoprolol Other Low 01/16/2018 Hair loss, improved after changing to Coreg Pilocarpine Dizziness,Other Low 06/24/2024 Sotalol Other Low 03/18/2023 Mild QT prolongation 2021. Theophylline Nausea and/or Vomiting Low 07/31/2016 Wound Dressing Adhesive Rash Medium 09/04/2018 Medications * Be aware that medications may not be up to date on this document. Alwaysverify current medications with the patient. Eliquis 2.5 MG tablet 4 Active cycloSPORINE (Restasis) 0.05 % ophthalmic suspension 4 Active famotidine (Pepcid) 20 MG tablet 4 Active furosemide (Lasix) 20 MG tablet Take 1 (one) tablet by mouth once daily 4 Active ketoconazole (Nizoral) 2 % cream 3 Active metoprolol succinate XL 24hr (Toprol XL) 100 MG tablet 4 Active mometasone (Elocon) 0.1 % cream APPLY SPARINGLY TO RASH ON BACK TWICE DAILY 3 Active Entresto 24-26 MG tablet Take 1 (one) tablet by mouth 2 times daily Active spironolactone (Aldactone) 25 MG tablet 4 Active Social History Tobacco Use Types Packs/Day Years Used Date Smoking Tobacco: Never Assessed Comments Unknown Sex and Gender Information Value Date Recorded Sex Assigned at Not on file Legal Sex Female 5:46 PM 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 Gender Identity Not on file Sexual Orientation Not on file Plan of Treatment Health Maintenance Due Date Last Done Comments BONE DENSITY TESTING 1945 MEDICARE AWV 12 MONTHS 1945 DTAP/TDAP/TD VACCINES (1 - Tdap) 1962 PNEUMOCOCCAL VACCINE 50+ (1 of 1 - PCV) 1993 ZOSTER VACCINE (1 of 2) 1993 Respiratory Syncytial Virus (RSV) Vaccine Pt: or over 60 yrs (1 - 1-dose 75+ series) 2018 COVID-19 VACCINE ( - 2023-2 5 season) 2024 DEPRESSION SCREENING 11/19/2024 INFLUENZA VACCINE (Season Ended) 2025 HEPATITIS B VACCINE Aged Out No longe r eligible based on patient's age to complete this topic HIB VACCINE Aged Out No longer eligi ble based on patient's age to complete this topic HPV VACCINE Aged Out No longer eligi ble based on patient's age to complete this topic MENINGOCOCCAL (Group B) VACC INE SHARED DECISION-MAKING Aged Out No longer eligibl e based on patient's age to complete this topic MENINGOCOCCAL GROUPS A/C/Y/W VACCINE Aged Out No longer eligible b ased on patient's age to complete this topic Insurance MEDICARE Care Teams Reliability Technicians Relationship Specialty Start Date End Date Tiffany Garcia MD [address] [place], [place] [id number] PCP - General Family Medicine 08/27/24
[2025-05-01 15:38] LABS: Anion Gap 8 mmol/L (4-12); Blood Urea Nitrogen 35 mg/dL (7-17); Calcium 9.7 mg/dL (8.4-10.2); Carbon Dioxide 29 mmol/L (22-30); Chloride 94 mmol/L (98-107); Estimated Glomerular Filt Rate > 60; Glucose 92 mg/dL (65-110); Potassium 4.5 mmol/L (3.4-5.0); Sodium 131 mmol/L (137-145)
== END 2025-05-01 15:07 | disposition home or self-care (01) ==
PROVIDERS: PCP Family Medicine; Visit Provider Student in an Organized Health Care Education/Training Program
DX: E87.5 Hyperkalemia (principal)
CPT/HCPCS: 36415; 80048

== ENCOUNTER 2025-11-17 07:33 | Outpatient (CLI) | payer MEDICARE, OTHER, SELFPAY ==
--- OUTSIDE RECORDS SUMMARY | 2025-11-17 07:38 | XMS_ITS | Clinical Summary ---
Author Organization [facility] [address] Address [address] [place] [address] Care Team Providers Care Handbag Designer Name Role Phone Tiffany Garcia MD Primary Care Provider [phone] Jacqueline Henderson MD Unavailable [phone] Sampson Hogan MD Unavailable Som Madrid MD Unavailable [phone] Allergies Active Allergy Reactions Criticality Noted Date Comments Adhesive Tape-Silicones Rash Medium 09/04/2018 Amiodarone Other (See comments) Low 03/18/2023 Elevated LFTs Azithromycin Unknown 07/22/2021 Codeine Other (See comments),Syncope High 07/31/2016 Reaction: DECREASED RESPIRAT, , Reaction: Syncope, , Other reaction(s): Syncope Reaction: DECREASED RESPIRAT, , Reaction: Syncope, , Dexamethasone Unknown 07/22/2021 Erythromycin Unknown 07/22/2021 Alendronate Unknown 12/09/2024 Levofloxacin Unknown,Nausea only Low 07/31/2016 Calcium Alginate-Honey Other (See comments) High 06/05/2023 Burning Metoprolol Other (See comments) Low 01/16/2018 Hair loss, improved after changing to Coreg Esomeprazole Unknown 07/22/2021 Pilocarpine Dizziness,Sweating Low 06/24/2024 Sotalol Other (See comments) Low 03/18/2023 Mild QT prolongation 2021. Theophylline Nausea & Vomiting Low 07/31/2016 Vancomycin Unknown 12/09/2024 Medications calcium carbonate-vitam in D3 (CALCIUM 500 + D) 1,250mg (500mg elemental) - 200 units per tablet take 1 by Oral route every day 0 0 10/13/20 13 Active cycloSPORINE (RESTASIS) 0.05 % ophthalmic emulsion instill 1 drop by ophthalmic route every 12 hours into affected eye(s) 0 0 12/15/19 15 Active levothyroxine (SYNTHROID) 75 mcg tablet Take 1 tablet (75 mcg total) by mouth daily Active multivit,iron,m inerals/lutein (CENTRUM SILVER ULTRA WOMEN'S ORAL) Take by mouth Active Lactobacillus acidophilus (PROBIOTIC ORAL) Take by mouth Active artificial tears (SYSTANE) 0.3 % gel Apply to both eyes Active famotidine (PEPCID) 20 mg tablet Take 1 tablet (20 mg total) by mouth daily 12/13/19 25 Active acetaminophen (TYLENOL) 500 mg tablet Take 1 tablet (500 mg total) by mouth every 6 (six) hours as needed for pain Active clobetasoL (TEMOVATE) 0.05 % external solution Apply 1 Application topically 2 (two) times a day 02/04/20 25 Active doxycycline (PERIOSTAT) 20 mg tablet Take 1 tablet (20 mg total) by mouth 2 (two) times a day 02/04/20 25 Active Entresto 24-26 mg tablet TAKE 1 TABLET BY MOUTH TWICE DAILY 60 tablet 11 04/06/20 25 Active metoprolol XL (TOPROL-XL) 100 mg 24 hr tablet TAKE 1 TABLET(100 MG) BY MOUTH DAILY 90 tablet 3 04/29/20 25 Active spironolactone (ALDACTONE) 25 mg tabletIndicatio ns:Chronic systolic heart failure (HCC) TAKE 1 TABLET DAILY 90 tablet 3 09/01/20 25 Active furosemide (LASIX) 20 mg tablet TAKE 1 TABLET(20 MG) BY MOUTH DAILY 90 tablet 3 11/06/20 25 Active Eliquis 2.5 mg tabletIndicatio ns:Persistent atrial fibrillation (HCC) TAKE 1 TABLET TWICE A DAY 180 tablet 3 11/13/20 25 Active Eliquis 2.5 mg tabletIndicatio ns:Persistent atrial fibrillation (HCC) TAKE 1 TABLET TWICE A DAY 180 tablet 3 12/05/19 25 025 Discontinued furosemide (LASIX) 20 mg tablet Take 1 tablet (20 mg total) by mouth daily 90 tablet 2 05/15/20 25 025 Discontinued Active Problems Problem Noted Date Diagnosed Date Right carotid bruit 10/29/2025 Leg wound, left, sequela 02/05/2025 Macrocytic anemia 02/05/2025 Acute diastolic CHF (congestive heart failure) 0 12/13/2024 Acquired hypothyroidism 12/10/2024 Leg wound, left 12/09/2024 Bilateral leg edema 12/09/2024 Frailty syndrome in geriatric patient 12/09/2024 Severe protein-calorie malnutrition 12/09/2024 Underweight 03/22/2023 Hx of atrioventricular node ablation 03/19/2023 Other thrombophilia 03/19/2023 Persistent atrial fibrillation 01/12/2023 Overview (01/12/2023): Added automatically from request for surgery [id number] Typical atrial flutter 10/31/2021 Elevated liver enzymes 10/31/2021 Hyponatremia 10/31/2021 S/P tricuspid valve repair 10/20/2020 Nonrheumatic tricuspid valve regurgitation 04/16 Abdominal bruit 12/31/2018 Overview (12/31/2018): November 2018 abdominal bruit heard by PCP. Abdominal aortic ultrasound and renal ultrasound were unremarkable. Biventricular ICD (implantab le cardioverter-defibrillator) in place 01/16/2018 Overview (02/14/2023): [employer] Quadra Allure Biventricular Pacemaker. Dx; CM, CHF, LBBB, AFib. DOI 01/29/2023-Oneyda, chronic leads 04/21/2016. Handy remote monitoring. AV Node Ablation 01/29/2023-Oneyda. Programmed VVI-Bill Dual PM. Assessment & Plan (01/16/2018 5:31 PM ECOLOGY TEACHER): [employer] biventricular ICD followed by Dr. Brooks Cardiomyopathy 06/09/2016 Overview (02/23/2017): Valvular cardiomyopathy Assessment & Plan (01/16/2018 5:32 PM ECOLOGY TEACHER): Left ventricular function improved after valve surgery, with EF 55 percent in October 2016. Does have some HODGES at higher levels of exertion, probably class Assessment & Plan (05/07/2017 9:35 PM CDT): Valvular cardiomyopathy, EF improved to 45-50%, on beta-elvira and lisinopril therapy. Euvolemic, class 1 CHF. Chronic anticoagulation 06/09/2016 Overview (02/23/2017): Chronic anticoagulation Status post mitral valve repair 06/09/2016 Overview (02/23/2017): H/O tricuspid valve repair Chronic diastolic heart failure 06/09/2016 Overview (02/23/2017): Chronic systolic CHF (congestive heart failure) Paroxysmal atrial fibrillation 03/20/2016 Overview (02/23/2017): PAF (paroxysmal atrial fibrillation) Assessment & Plan (01/16/2018 5:30 PM ECOLOGY TEACHER): Apparently no AFib noted on recent pacemaker checks and Dr. Brooks has discontinued the amiodarone, which is great as I am most concerned about long-term side effects. Assessment & Plan (05/07/2017 9:38 PM CDT): History of AFib preoperatively, now on amiodarone. Has converted to NSR. Anticoagulated with Eliquis; she also takes aspirin. I do not see any strong reason for that as there is no vascular disease and asked her to discontinue aspirin to reduce bleeding risk. Dr. Brooks thinks we may try stopping the amiodarone next year if no recurrence of AFib Non-rheumatic mitral regurgitation 03/20/2016 Overview (02/23/2017): Non-rheumatic mitral regurgitation Assessment & Plan (01/16/2018 5:28 PM ECOLOGY TEACHER): H/O MVP and MR, with sudden worsening of MR asso w/ CHF in March 2016. S/P MV and TV repair March 2016. Has louder murmur but only mild Mr.and mild/modTR by Echo 2015/ Essential hypertension 03/20/2016 Overview (02/23/2017): Essential hypertension, benign Left bundle branch block (LBBB) 03/20/2016 Overview (02/23/2017): LBBB (left bundle branch block) Resolved Problems Problem Noted Date Diagnosed Date Resolved Date A-fib 02/02/2023 03/19/2023 Medication monitoring encounter 10/31/2021 03/19/2023 Wound of foot 09/05/2021 03/19/2023 High risk medication use 04/16/202011/2022 Palpitations 11/30/2018 04/16/2020 Palpitations 11/26/2018 04/16/2020 On amiodarone therapy 05/07/20172020 Assessment & Plan (05/07/2017 9:37 PM CDT): Reviewed amiodarone side effects and need for follow-up. Check CMP, TSH and chest x-ray Drug therapy finding 06/09/2016 018 Overview (02/23/2017): Encounter for monitoring amiodarone therapy Non-rheumatic mitral valve disease 06/09/2016 01/16/2018 Overview (02/23/2017): Non-rheumatic mitral valve disease Assessment & Plan (05/07/2017 9:35 PM CDT): History of MVP and severe mitral regurgitation associated with CHF March 2016. Status post mitral valve and tricuspid valve repair March 2016 Only mild MR/TR by postop echo Doing well, with good exertional tolerance. Status post biventricular pacemaker 06/09/2016 04/16/2020 Overview (12/10/2018): [facility] Biventricular Cardiac Pacemaker. Dx; CM, CHF, LBBB, PAF. DOI 04/21/2016-followed by Dr Brooks. Assessment & Plan (05/07/2017 9:38 PM CDT): Biventricular pacemaker followed by Dr. Brooks History of mitral valve repair 04/24/2016 09/05/2018 Abnormal cardiovascular stress test 10/13/2013 01/16/2018 Overview (02/23/2017): Abnormal stress test Hypertension 10/13/2013 09/05/2018 Overview (02/23/2017): HYPERTENSION NOS Assessment & Plan (01/16/2018 5:29 PM ECOLOGY TEACHER): Hypertension is not at goal. On a small dose of amlodipine, but did have some edema last summer. However she is mostly maximized on her other BP medicines so I will try to increase amlodipine. Assessment & Plan (05/07/2017 9:37 PM CDT): Blood pressure is still high Will increase lisinopril to 20 mg daily Patient will call if her systolic BP runs greater than 140 Atrial fibrillation 10/13/2013 01/16/20 18 Overview (02/23/2017): ATRIAL FIBRILLATION Mitral valve disease 10/13/2013 018 Overview (02/23/2017): MITRAL VALVE DISORDER Encounters Date Type Department Care Team Description 10/29/2025 1:45 PM ECOLOGY TEACHER Office Visit [facility] [address] [facility] [facility] [address] [place] [phone] Tima Del Rosario MD S/P tricuspid valve repair (Primary Dx); Status post mitral valve repair; Paroxysmal atrial fibrillation (HCC); Essential hypertension; Biventricular ICD (implantable cardioverter-defibril lator) in place; Chronic anticoagulation; Right carotid bruit 10/20/2025 8:15 AM ECOLOGY TEACHER Ancillary Procedure [facility] [address] [place] [phone] Biventricular cardiac pacemaker in situ (Primary Dx); Cardiomyopathy, unspecified type (HCC); Left bundle branch block (LBBB); Persistent atrial fibrillation (HCC); Chronic diastolic heart failure (HCC) from Last 3 Months Surgical History Surgery Date Site/Laterality Comments MASTECTOMY Left Mastectomy TONSILLECTOMY Tonsillectomy CENTRAL LINE PLACEMENT > 5 YEARS 04/11/2016 N/A IR PICC LINE PLACEMENT > 5 YEARS 09/16/2024 N/A MITRAL VALVE REPAIR TRICUSPID VALVE SURGERY repair Medical History Medical History Date Comments Gastroesophageal reflux disease GERD Pancreatitis Pancreatitis Recurrent urinary tract infection Urinary Tract Infection, Recurrent Basal cell carcinoma, face 2017 Arrhythmia Hypertension CHF (congestive heart failure) (HCC) PAF (paroxysmal atrial fibrillation) Family History Medical History Relation Name Comments Heart attack Father 2 Myocardial Infa rction; Other Mother 2 Had CAD but d of cancer; Relation Name Status Comments Father 1 Alive Father 2 Mother 1 Alive Mother 2 Social History Tobacco Use Types Packs/Day Years Used Date Smoking Tobacco: Never Smokeless Tobacco: Never Tobacco Cessation:Counseling Given: Not Answered Alcohol Use Standard Drinks/Week Comments Yes 0 (1 standard drink = 0.6 oz pur e alcohol) [facility] Utilities Answer Date Recorded In the past 12 months has [employer] electric, gas, oil, or water [employer] threatened to shut off services in your home? No 12/10/2024 Social Connection and Isolation Panel Answer Date Recorded In a typical week, how many times do you talk on the phone with family, friends, or neighbors? More than three times a week 12/10/2024 How often do you get togethe r with friends or relatives? More than three times a week 12/10/2024 How often do you attend chur or jehovah's witness services? Never 12/10/2024 Do you belong to any clubs o r organizations such as taoism groups, unions, fraternal or athletic groups, or school groups? No 12/10/2024 How often do you attend meet ings of the clubs or organizations you belong to? Never 12/10/2024 Are you , , di vorced, , never , or living with a partner? 12/10/2024 AUDIT-C Answer Date Recorded Frequency of Alcohol Consumption Not on file 12/09/2024 Q2: How many drinks containi ng alcohol do you have on a typical day when you are drinking? Patient does not drink Frequency of Binge Drinking Not on file 11/20 Overall Financial Resource Strain (CARDIA) Answe r Date Recorded How hard is it for you to pa y for the very basics like food, housing, medical care, and heating? Not hard at all 12/10/2024 Hunger Vital Sign Answer Date Recorded Within the past 12 months, y ou worried that your food would run out before you got the money to buy more. Never true 12/10/19 25 Within the past 12 months, t he food you bought just didn't last and you didn't have money to get more. Never true 12/10/2024 PRAPARE - Transportation Answer Date Re corded In the past 12 months, has l ack of transportation kept you from medical appointments or from getting medications? No 11/20 In the past 12 months, has l ack of transportation kept you from meetings, work, or from getting things needed for daily living? No 12/10/2024 Housing Stability Vital Sign Answer Bryce e Recorded In the last 12 months, was t here a time when you were not able to pay the mortgage or rent on time? No 12/10/2024 In the past 12 months, how m any times have you moved where you were living? 1 12/10/2024 At any time in the past 12 m [facility], were you homeless or living in a jail (including now)? No 12/10/2024 Personal Safety Answer Date Recorded Have you ever been in or are you currently in a harmful physical or emotional relationship or is someone making you feel afraid or unsafe? Denies 02/05/2025 Comments Unknown Sex and Gender Information Value Date Recorded Sex Assigned at Not on file Legal Sex Female 8:14 AM ECOLOGY TEACHER Gender Identity Not on file Sexual Orientation Not on file Last Filed Vital Signs Vital Sign Reading Time Taken Comments Blood Pressure 120/54 10/29/2025 1:43 PM ECOLOGY TEACHER Pulse 69 10/29/2025 1:43 PM ECOLOGY TEACHER Temperature 36.6 C (97.8 F) 02/07/2025 7:22 AM CDT Respiratory Rate 16 02/07/2025 7:22 AM CDT Oxygen Saturation 99% 10/29/2025 1:43 PM ECOLOGY TEACHER Inhaled Oxygen Concentration - - Weight 51.6 kg (113 lb 12.8 oz) 10/29/2025 1:43 PM ECOLOGY TEACHER Height 165.1 cm (5' 5) 10/29/2025 1:43 PM ECOLOGY TEACHER Body Mass Index 18.94 10/29/2025 1:43 PM ECOLOGY TEACHER Plan of Treatment Health Maintenance Due Date Last Done Comments Depression Screening 1945 Osteoporosis Screening-Bone Density Scan 1945 Hepatitis B Screening 1961 Well Visit 65+ 02/22/2008 Zoster Vaccine (2 of 3) 09/01/2013 07/07/2013 DTaP/Tdap/Td Vaccine (1 - Tdap) 05/31/2014 4, 03/07/2004 Pneumococcal vaccine 65+ (2 of 2 - PCV) 12/17/2017 12/17/2016, 03/11/2008 Influenza Vaccine (#1) 2025 , 09/02/2019, 09/11/2018 Fall Risk Assessment 02/07/2026 02/07/2025 Medical Devices Implanted Type Area Pattern Stamper Device Identifier Shelf Expiration Date Model / Serial / Lot [employer] Vascade Mvp 6-12fr Venous Closure [id number] - [id number] Implanted:Q ty: 1 on 02/02/2023 by Jonny Call MD at [facility] Collagen Right: Femoral Vein [employer] 11/02/2024 [id number] / / [id number] [employer] Pacemaker Quadra Allure Mp Rf Geotechnical Department Manager-P Mri [id number] - [id number] - [id number] Implanted:Q ty: 1 on 02/02/2023 by Jonny Call MD at [facility] ICD Left: Infraclavicular Anterior Chest Wall [employer] [id number] 07/19/2024 [id number] / [id number] / Procedures Procedure Name Priority Date/Time Associated Diagnosis Comments DEVICE CHECK - REMOTE Routine 10/20/2025 11:23 AM ECOLOGY TEACHER Cardiomyopathy, unspecified type (HCC) Left bundle branch block (LBBB) Persistent atrial fibrillation (HCC) from Last 3 Months Results * DEVICE CHECK - REMOTE (10/20/2025 11:23 AM ECOLOGY TEACHER) Anatomical Region Laterality Modality Other Narrative 10/20/2025 5:29 PM ECOLOGY TEACHER [employer] Quadra Allure Biventricular Pacemaker. Dx; CM, CHF, LBBB, AFib. DOI 01/29/2023-Tamraffy, chronic leads 04/21/2016. Handy remote monitoring. AV Node Ablation 01/29/2023-Oneyda. Programmed VVI-Bill Dual PM. Routine VVIR Pacemaker Remote. Transmission attached. Battery status: 2.98 V , 3.6-4.0 years remaining battery life to HYACINTH. Stable lead impedances, pacing and sensing thresholds. Presenting rhythm: BP BiVP-98%, No Ventricular high rate episodes detected. Medications: Eliquis 2.5 mg, Entresto 24-26 mg, Toprol-XL 100 mg See scanned report. Office pacemaker follow up: 08/18/26 Huger remote f/u 01/19/26. Gurjit Langford RN Tima Del Rosario MD [facility] Final Result from Last 3 Months Insurance MEDICARE [employer] MEDICARE [facility] MEDIC[facility] FOR LIFE Advance Directives For more information, please contact: [phone] * Full Code (Latest Code Status on File) Date Activated Date Inactivated Comments 02/05/2025 5:52 PM 02/07/2025 3:19 PM * Full Code Date Activated Date Inactivated Comments 12/09/2024 10:39 PM 12/13/2024 9:16 PM Care Teams Handbag Designer Relationship Specialty Start Date End Date Tiffany Garcia MD PCP - General Family Medicine 02/11/21 Jacqueline Henderson MD [address] [facility] [address] Consulting Physician Emergency Medicine 06/28/23 [place] [address] [place] [address] Consulting Physician Internal Medicine 12/13/24 [place] [address] [place] [address] Surgeon Trauma Surgery 12/13/24
--- OUTSIDE RECORDS SUMMARY | 2025-11-17 07:38 | XMS_ITS | Clinical Summary ---
Author Organization [facility] Address [address] [place] [address] Care Team Providers Care Thaw Shed Heater Tender Name Role Phone Tiffany Garcia MD Primary Care Provider [phone] Source Comments [facility],non-owned Affiliates and Associated Physician Practices is amultiple site organization consisting of ambulatory clinics and hospital sitesin [place], [place], [place] and [place]. This disclosure is being madepursuant to the Care Everywhere program and may not contain all information available regarding this patient. 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
--- OUTSIDE RECORDS SUMMARY | 2025-11-17 07:38 | XMS_ITS | Clinical Summary ---
Author Organization [facility] Address [address] [place] [phone] Phone Care Team Providers Care Equipment Operator Wage Hand Name Role Phone Tiffany Garcia MD Primary Care Provider [phone] Allergies Active Allergy Reactions Criticality Noted Date [...] CM,chf,lbbb,paf Dr. Nguyễn Last Assessment & Plan: [facility] biventricular ICD followed by Dr. Brooks Drug [...] / Low and Medium Risk (1 of 2 - PCV) 1993 Influenza Vaccine (#1) 2025 Insurance MEDICARE [facility] Care Teams Equipment Operator Wage Hand Relationship Specialty Start Date End Date Tiffany Garcia MD [address] [place] [address] PCP - General Internal Medicine 09/01/21
[2025-11-17 07:50] LABS: Hematocrit 35.0 % (37.0-47.0); Hemoglobin 11.6 g/dL (12.0-15.0); Immature Granulocyte Percent A 0.5 % (0-0.5); Lymphocytes Absolute Auto 0.94 K/mm3 (0.9-3.2); Mean Corpuscular HGB Conc 33.1 g/dl (32-36); Mean Corpuscular Hemoglobin 30.1 pg (26-34); Mean Corpuscular Volume 90.9 fl (80-100); Nucleated Red Blood Cells Absolute Auto 0.000 K/mm3 (0.0-0.012); Nucleated Red Blood Cells Perc 0.0 % (0.0-0.2); Platelet Count Result 228 k/mm3 (150-375); Red Blood Count 3.85 M/mm3 (4.2-5.4); White Blood Count 4.1 K/mm3 (4.5-10.0)
[2025-11-17 08:17] LABS: Alanine Aminotransferase 19 U/L (6-35); Albumin Level 4.1 g/dL (3.5-5.1); Alkaline Phosphatase 81 U/L (38-126); Anion Gap 7 mmol/L (4-12); Aspartate Amino Transferase 34 U/L (14-36); Bilirubin,Total 1.1 mg/dL (0.2-1.3); Blood Urea Nitrogen 23 mg/dL (7-17); Calcium 9.5 mg/dL (8.4-10.2); Carbon Dioxide 29 mmol/L (22-30); Chloride 99 mmol/L (98-107); Cholesterol 176 mg/dL (0-200); Estimated Glomerular Filt Rate > 60; Glucose 87 mg/dL (65-110); HDL Direct 48 mg/dL; Potassium 4.4 mmol/L (3.4-5.0); Sodium 135 mmol/L (137-145); Total Protein 7.9 g/dL (6.3-8.2); Triglycerides 92 mg/dL (<150)
[2025-11-17 08:48] LABS: Thyroid Stimulating Hormone Reflex 1.080 uIU/mL (0.465-4.68)
== END 2025-11-17 07:34 | disposition home or self-care (01) ==
DX: E78.2 Mixed hyperlipidemia (principal); E03.9 Hypothyroidism, unspecified; R53.83 Other fatigue
CPT/HCPCS: 36415; 80053; 80061; 84443; 85025